=== PATIENT | male | born 1945 | race Caucasian/White ===

== ENCOUNTER → 2017-06-14 18:20 | Emergency (ER) | payer MEDICARE ==
[~2017-06-14 18:20] MED LIST: Iohexol 350* (CONTRAST) 500 ML MDV IV ONE; NS 0.9% 1000 ML* 1,000 ML IV ONE
[2017-06-14 20:05] LABS: Hematocrit 38 % (42-52); Hemoglobin 12.6 g/dl (14.0-18.0); Mean Corpuscular HGB Conc 33 g/dl (31-36); Mean Corpuscular Hemoglobin 28 pg (27-31); Mean Corpuscular Volume 83 fL (80-94); Mean Platelet Volume 10 um3 (7.4-10.4); Red Blood Count 4.56 10^6/ul (4.0-5.4); Red Cell Distribution Width 14 % (10.5-15); White Blood Count 6.2 10^3/ul (3.5-10.8)
[2017-06-14 20:18] LABS: BUN/Creatinine Ratio 14.7 (8-20); Calcium 9.1 mg/dL (8.6-10.3); EGFR African American 79.6 (>60); EGFR Non-African American 61.9 (>60); Potassium 4.4 mmol/L (3.5-5.0)
[2017-06-14 20:43] VITALS: BP 150/78
--- NOTE | 2017-06-14 21:12 | RAD ---
Indication: Vertigo, weakness. LEFT side weakness and paralysis from previous surgery. History of atrial fibrillation. Anticoagulated. Denies trauma. Comparison: September 19, 2015 chest radiograph. Technique: Upright AP 1 hours Report: Kyphotic positioning. No pulmonary infiltrate, focal pulmonary lesion, pleural effusion, or pneumothorax evident. Upper normal heart size accounting for portable AP technique. Unremarkable central pulmonary vasculature. IMPRESSION: No evidence for acute intrathoracic disease.
--- NOTE | 2017-06-14 21:15 | RAD ---
Indication: Vertigo, weakness. LEFT side weakness and paralysis from previous surgery. History of atrial fibrillation. Anticoagulated. Denies trauma. Comparison: October 20, 2010 CT. Technique: Noncontrast CT vertex of skull through foramen magnum. Report: Mild prominence of the cerebral sulci. Unremarkable ventricles and basal cisterns. Negative for cohn matter white matter obscuration, intra or extra-axial hemorrhage, or mass effect. Decreased density in the periventricular and subcortical white matter while non-specific is most likely due to chronic microangiopathy. Unremarkable partially visualized orbital contents. No suspicious calvarial or skull base lesions evident. Clear visualized paranasal sinuses and mastoid air spaces. Unremarkable scalp. IMPRESSION: Mild involutional change and stigmata of chronic small vessel ischemic disease. No acute intracranial process evident.
--- NOTE | 2017-06-14 22:15 | RAD ---
INDICATION: Vertigo, weakness. Anticoagulated due to atrial fibrillation. History of vertebral artery occlusion. COMPARISON: February 12, 2010 carotid ultrasound. TECHNIQUE: Multidetector CT images were obtained from the aortic arch to the vertex of the head with 80 mL Omnipaque 350 IV contrast. Arterial phase of enhancement. Multiplanar reformation including maximum intensity projection. 3-D arterial volume rendering. Stenosis estimations based on denominator of distal arterial diameter. NECK ANGIOGRAM REPORT: Normal configuration of the branch vessels at the aortic arch with ostial calcific plaque without suggestion of hemodynamic significant stenosis. Calcific plaque at the RIGHT carotid bulb and calcific and noncalcific plaque at the proximal internal carotid artery with approximate 30% proximal internal carotid artery stenosis resulting. Similar atherosclerotic plaque at the LEFT carotid bulb and proximal internal carotid artery with approximate 30% proximal internal carotid artery stenosis resulting. Patent LEFT vertebral artery supplies the basilar artery and minimal retrograde flow to the occluded RIGHT vertebral artery through the RIGHT posterior inferior cerebellar artery with the remainder of the RIGHT vertebral artery occluded. Multilevel cervical degenerative spondylosis. Solid osseous fusion at the C5-C6 and C6-C7 disc spaces as well as decompressive laminectomies. NECK ANGIOGRAM IMPRESSION: 1. Mild atherosclerotic plaque at the carotid bifurcations with approximate 30% stenosis resulting bilaterally. 2. Chronic occlusion of the RIGHT vertebral artery. Patent LEFT vertebral artery. HEAD ANGIOGRAM REPORT: Mild calcific plaque at the carotid siphons and supraclinoid internal carotid arteries without hemodynamic significant stenosis resulting. Unremarkable M1 and M2 segments of the middle cerebral arteries as well as the A1 and A2 segments of the anterior cerebral arteries. Patent anterior communicating artery. Tortuous normal diameter basilar artery with mild calcific plaque without hemodynamic significant stenosis resulting. Unremarkable cerebellar artery origins. Patent posterior cerebral arteries are supplied primarily by the posterior circulation with normal variant hypoplastic posterior communicating arteries. No intracranial aneurysm or vascular malformation evident. No arterial phase enhancing lesions evident. Normal opacification of the dural venous sinuses. HEAD ANGIOGRAM IMPRESSION: Negative for central intracranial large vessel arterial occlusion or hemodynamically significant stenosis. CPT II: CPT II Codes: 3100F
[2017-06-14 22:49] LABS: Urine Bilirubin Negative (Negative); Urine Glucose Negative (Negative); Urine Nitrite Negative (Negative)
--- NOTE | 2017-06-14 23:21 | ED ---
Semaj Philippe Rebecca, scribed for Saleem Mustafa on 06/14/17 at 1958 . Dizziness - HPI Summary HPI Summary: Pt is a 72 y/o M referred from Dr. Bruner (PCP) who presents to ED c/o dizziness and generalized weakness. Pt describes dizziness as vertigo that worsens when he moves his head. Notes a recent episode of diarrhea for 4 continuous days last week with 17 episodes of diarrhea in one day as a result of poor reaction to Cymbalta which he has since ceased. Denies GLORIA, CP, SOB and palpitations. Pt reports recent dehydration as diagnosed by skin tenting which has resolved. Pt was sent to ED to r/o brain hemorrhage, per . Is on Eliquis. - History Of Current Complaint Chief Complaint: EDDizziness Stated Complaint: VERTIGO,WEAKNESS-SENT BY DR Cedillo Seen by Provider: 06/14/17 19:39 Hx Obtained From: Patient Onset/Duration: Still Present Character: Dizzy - Vertigo Aggravating Factor(s): Other - Head movement Alleviating Factor(s): Nothing Associated Signs And Symptoms: Positive: Diarrhea - 4 days last week - resolved , Other: - Recent dehydration - resolved; generalized weakness. Negative: Chest Pain, SOB, Palpitations - Allergies/Home Medications Allergies/Adverse Reactions: Allergies Allergy/AdvReac Type Severity Reaction Status Date / Time No Known Allergies Allergy Verified 11/07/15 16:14 PMH/Surg Hx/FS Hx/Imm Hx Cardiovascular History: Reports: Hx Angina, Hx Coronary Artery Disease - CHOLESTEROL CONTROL WITH MEDS, Hx Hypertension Comment Only: Other Cardiovascular Problems/Disorders - PRINCIPAL TECHNICAL SPECIALISTMartell [facility] [phone] Musculoskeletal History: Reports: Hx Arthritis, Hx Back Problems Sensory History: Reports: Hx Contacts or Glasses - GLASSES Denies: Hx Hearing Aid Opthamlomology History: Reports: Hx Contacts or Glasses - GLASSES Neurological History: Reports: Other Neuro Impairments/Disorders - DIZZINESS EVERY OTHER DAY R/T LESION ON SPINAL COLUMN - Surgical History Surgery Procedure, Year, and Place: dorsal column stimulator. 7 heart stents. cervical spine repair x3 (laminectomy, fusion) Hx Anesthesia Reactions: No Infectious Disease History: Yes Infectious Disease History: Denies: Traveled Outside the [place] in Last 30 Days - Family History Known Family History: Positive: Other - Lung CA - Social History Alcohol Use: Rare Substance Use Type: Reports: None Substance Use Comment - Amount & Last Used: rarely Smoking Status (MU): Never Smoked Tobacco Review of Systems Positive: Other - Recent dehydration - resolved Negative: Palpitations, Chest Pain Negative: Shortness Of Breath Positive: Diarrhea - 4 days last week - resolved Neurological: Other - Dizziness Positive: Weakness - Generalized. Negative: Headache All Other Systems Reviewed And Are Negative: Yes Physical Exam - Summary Physical Exam Summary: Appearance: Well appearing, no pain distress Skin: warm, dry, reflects adequate perfusion Head/face: normal Eyes: EOMI, KONSTANTIN ENT: normal Neck: supple, nontender Respiratory: CTA, breath sounds present Cardiovascular: RRR, pulses symmetrical Abdomen: nontender, soft Bowel: present Musculoskeletal: ROM intact, L-sided hemiplegia Neuro: sensory intact, A&Ox3,L-sided hemiplegia Triage Information Reviewed: Yes Vital Signs On Initial Exam: Initial Vitals Temp Pulse Resp BP Pulse Ox 97.6 F 67 20 145/89 100 06/14/17 18:27 06/14/17 18:27 06/14/17 18:27 06/14/17 18:27 06/14/17 18:27 Vital Signs Reviewed: Yes - [place] Coma Scale Best Eye Response: 4 - Spontaneous Best Motor Response: 6 - Obeys Commands Best Verbal Response: 5 - Oriented [place] Coma Scale Comments: 15 Diagnostics - Vital Signs Vital Signs Temp Pulse Resp BP Pulse Ox 06/14/17 19:43 97.6 F 67 20 145/89 100 06/14/17 18:27 97.6 F 67 20 145/89 100 - Laboratory Result Diagrams: 06/14/17 16:30 06/14/17 16:30 Lab Statement: Any lab studies that have been ordered have been reviewed, and results considered in the medical decision making process. - Radiology CXR Xray Interpretation: No Acute Changes - No evidence for acute intrathoracic disease. ED physician reviewed this radiology report and agrees. Radiology Interpretation Completed By: Radiologist - CT Brain CT CT Interpretation: No Acute Changes - Mild involutional change and stigmata of chronic small vessel ischemic disease. No acute intracranial process evident. ED physician reviewed radiology report and agrees. CT Interpretation Completed By: Radiologist Head CTA CT Interpretation: No Acute Changes - Negative for central intracranial large vessel arterial occlusion or hemodynamically significant stenosis. ED physician reviewed radiology report and agrees. CT Interpretation Completed By: Radiologist - EKG 1839 Cardiac Rate: NL - 63 bpm EKG Rhythm: Sinus Rhythm EKG Interpretation: No acute changes Re-Evaluation - Re-Evaluation First Eval Re-Evaluation Time: 23:00 Change: Improved Comment: Discussed results and D/C plan. Dizzy Course/Dx - Course Assessment/Plan: Pt is a 72 y/o M referred from Dr. Bruner (PCP) who presents to ED c/o dizziness described as vertigo and generalized weakness. Dizziness aggravated by moving his head. Notes a recent episode of diarrhea for 4 continuous days last week with 17 episodes of diarrhea in one day as a result of poor reaction to Cymbalta which he has since ceased. Denies GLORIA, CP, SOB and palpitations. Pt reports recent dehydration as diagnosed by skin tenting which has resolved. Pt was sent to ED to r/o brain hemorrhage, per . Is on Eliquis. CXR, Head/Neck CTA and Brain CT reveal no acute findings. EKG is sinus rhythm with no acute changes. Blood work and UA done. Discussed care of pt with Dr. Teresa, discussed the CTA Head/Neck results which show stenosis. He reported that there is nothing to do at this time and advised he follows up as an outpatient. Pt will be D/C to home with Dx of dizziness and a follow up with his PCP. He understands and agrees. Elevated BP noted and advised to f/u with PCP. - Diagnoses Provider Diagnoses: Dizziness - Provider Notifications Discussed Care Of Patient With: Colton Teresa Time Discussed With Above Provider: 22:35 Instructed by Provider To: Other - Discussed the CTA Head/Neck results which show stenosis. He reported that there is nothing to do at this time and advised he follows up as an outpatient. Discharge - Discharge Plan Condition: Stable Disposition: HOME Patient Education Materials: Dizziness (ED) Referrals: Iliana Bruner MD [Primary Care Provider] - 3 Days The documentation as recorded by the Semaj husain Rebecca accurately reflects the service I personally performed and the decisions made by me, Saleem Mustafa.
== END | disposition home or self-care (01) ==
LOC: ED 18:20
DX: R42 Dizziness and giddiness (principal); E86.0 Dehydration; R19.7 Diarrhea, unspecified; R53.1 Weakness
CPT/HCPCS: 36415; 70450; 70496; 70498; 71010; 80048; 81003; 82550; 84484; 85027; 85610; 85730; 93005; 99282; Q9967

== ENCOUNTER 2018-03-08 09:00 | Day surgery (SDC) | payer MEDICARE ==
[~2018-03-08 09:00] MED LIST changes: +Acetaminophen TAB* 325 MG PO PRN; +Buffered Lidocaine 0.9% SYRIN* 5 ML/SYR SYRINGE INTRADERM ONE; -Iohexol 350* (CONTRAST) 500 ML MDV IV ONE; +Midazolam* 1 MG/ML 2 ML VIAL (2 MG) ONE; -NS 0.9% 1000 ML* 1,000 ML IV ONE
[2018-03-08 12:20] VITALS: BP 160/89
[2018-03-08] MEDS ORDERED: Neomycin/Polymy/Dex OPTH.SUSP* MAXITROL 0.1% 5 ML ONE (12:30)
[2018-03-08] MEDS ORDERED: Lidocaine 1%* 5 ML VIAL ONE (12:30)
[2018-03-08] MEDS ORDERED: Povidone Iodine 5% OPTH* 30 ML BTL ONE (12:30)
[2018-03-08] MEDS ORDERED: Ketorolac 0.5% OPHTH (NF) 0.5 % 5 ML BTL ONE (12:30)
[2018-03-08] MEDS ORDERED: Proparacaine 0.5% OPHTH.SOL* 15 ML BTL ONE (12:30)
[2018-03-08] MEDS ORDERED: acetaZOLAMIDE TAB* 250 MG ONE (12:30)
[2018-03-08] MEDS ORDERED: Cyclopentolate 1% OPTH.SOL* 2 ML BTL ONE (12:30)
[2018-03-08] MEDS ORDERED: Lidocaine 2% EPI 1:200000 MPF*10-20 ML VIAL ONE (12:30)
[2018-03-08] MEDS ORDERED: Phenylephrine 2.5% OPTH.SOL* 2 ML BTL ONE (12:30)
--- NOTE | 2018-03-09 08:35 | OP ---
DATE OF OPERATION: 03/08/18 - [facility] DATE OF : 45 SURGEON: Manjit Amaral M.D. PREOPERATIVE DIAGNOSIS: Cataract, right eye POSTOPERATIVE DIAGNOSIS: Cataract, right eye OPERATIVE PROCEDURE: Extracapsular cataract extraction with intraocular lens implant right eye. DESCRIPTION OF PROCEDURE: The patient was brought to the operating room after being given 1/2% Alcaine with epinephrine drops in the preoperative area. The eye was prepped and draped in the usual sterile fashion. Sterile drape and eyelid speculum were placed. Again, topical 1/2% Alcaine with epinephrine was given. A paracentesis incision was made at the 9 o'clock position with the No.75 blade. Clear cornea incision 2.2 x 2.2-mm was created at the 12 o'clock position starting at the anterior limbus using the 2.2-mm keratome. The anterior chamber was irrigated with 0.4 mL of 1% non-preservative intracameral lidocaine and filled with DisCoVisc. A capsulorrhexis was completed using the cystotome and the Utrata forceps. Hydrodissection was performed with balanced salt solution. The lens nucleus was removed with the Phacoemulsification handpiece without incident. Cortex was removed with the irrigation-aspiration handpiece. The capsular bag was re-inflated using DisCoVisc and an SN60WF 22.5 implant was inserted with the shooter. The irrigation-aspiration handpiece was used to remove all residual DisCoVisc. The eye was refilled with balanced salt solution and the wound checked and found to be watertight. Topical Maxitrol drops were given. A Malyugin ring was used to dilate the pupil because it was only about 3 mm prior to capsulorrhexis; removed after insertion of the lens. Indication for complex cataract surgery: Pupillary abnormalities requiring pupil dilation. [id number]/[facility] #: [id number] MTDD
== END 2018-03-08 12:16 | disposition home or self-care (01) ==
LOC: OREAST 09:00
PROVIDERS: ATTEND Specialist
DX: Z00.01 Encounter for general adult medical examination with abnormal findings (principal); H25.813 Combined forms of age-related cataract, bilateral; H40.013 Open angle with borderline findings, low risk, bilateral; M40.202 Unspecified kyphosis, cervical region; I10 Essential (primary) hypertension; N40.0 Benign prostatic hyperplasia without lower urinary tract symptoms; E78.00 Pure hypercholesterolemia, unspecified; Z79.82 Long term (current) use of aspirin
CPT/HCPCS: A9270-GY; J2250; V2632

== ENCOUNTER 2018-03-15 06:43 | Day surgery (SDC) | payer MEDICARE ==
[~2018-03-15 06:43] MED LIST changes: -Acetaminophen TAB* 325 MG PO PRN; -Midazolam* 1 MG/ML 2 ML VIAL (2 MG) ONE
[2018-03-15 08:44] VITALS: BP 155/79
[2018-03-15] MEDS ORDERED: Povidone Iodine 5% OPTH* 30 ML BTL ONE (09:24)
[2018-03-15] MEDS ORDERED: Lidocaine 1%* 5 ML VIAL ONE (09:24)
[2018-03-15] MEDS ORDERED: Cyclopentolate 1% OPTH.SOL* 2 ML BTL ONE (09:24)
[2018-03-15] MEDS ORDERED: Ketorolac 0.5% OPHTH (NF) 0.5 % 5 ML BTL ONE (09:24)
[2018-03-15] MEDS ORDERED: Phenylephrine 2.5% OPTH.SOL* 2 ML BTL ONE (09:24)
[2018-03-15] MEDS ORDERED: Neomycin/Polymy/Dex OPTH.SUSP* MAXITROL 0.1% 5 ML ONE (09:24)
[2018-03-15] MEDS ORDERED: Proparacaine 0.5% OPHTH.SOL* 15 ML BTL ONE (09:24)
[2018-03-15] MEDS ORDERED: acetaZOLAMIDE TAB* 250 MG ONE (09:24)
[2018-03-15] MEDS ORDERED: Lidocaine 2% EPI 1:200000 MPF*10-20 ML VIAL ONE (09:24)
--- NOTE | 2018-03-16 01:36 | OP ---
DATE OF OPERATION: 03/15/18 [facility] DATE OF : 45 SURGEON: Manjit Amaral M.D. PREOPERATIVE DIAGNOSIS: Cataract, left eye. POSTOPERATIVE DIAGNOSIS: Cataract, left eye. OPERATIVE PROCEDURE: Extracapsular cataract extraction with intraocular lens implant, left eye. DESCRIPTION OF PROCEDURE: The patient was brought to the operating room after being given 1/2% Alcaine with epinephrine drops in the preoperative area. The eye was prepped and draped in the usual sterile fashion. Sterile drape and eyelid speculum were placed. Again, topical 1/2% Alcaine with epinephrine was given. A paracentesis incision was made at the 3 o'clock position with the No.75 blade. Clear cornea incision 2.2 x 2.2-mm was created at the 6 o'clock position starting at the anterior limbus using the 2.2-mm keratome. The anterior chamber was irrigated with 0.4 mL of 1% non-preservative intracameral lidocaine and filled with DisCoVisc. A capsulorrhexis was completed using the cystotome and the Utrata forceps. Hydrodissection was performed with balanced salt solution. The lens nucleus was removed with the Phacoemulsification handpiece without incident. Cortex was removed with the irrigation-aspiration handpiece. The capsular bag was re-inflated using DisCoVisc and an SN60WF 22.5 implant was inserted with the shooter. Pupil was only 4 mm prior to capsulorrhexis, so Malyugin ring was placed and removed after insertion of the lens. The irrigation-aspiration handpiece was used to remove all residual DisCoVisc. The eye was refilled with balanced salt solution and the wound checked and found to be watertight. Topical Maxitrol drops were given. Indication for complex cataract surgery: Pupillary abnormality requiring pupil dilation device. [id number]/[facility] #: [id number]
== END 2018-03-15 08:38 | disposition home or self-care (01) ==
LOC: OREAST 06:43
PROVIDERS: ATTEND Specialist
DX: H25.812 Combined forms of age-related cataract, left eye (principal); H21.562 Pupillary abnormality, left eye; H40.013 Open angle with borderline findings, low risk, bilateral; E78.5 Hyperlipidemia, unspecified; I25.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native coronary artery without angina pectoris; Z95.5 Presence of coronary angioplasty implant and graft; I48.91 Unspecified atrial fibrillation; Z79.01 Long term (current) use of anticoagulants; Z86.73 Personal history of transient ischemic attack (TIA), and cerebral infarction without residual deficits; M40.209 Unspecified kyphosis, site unspecified
CPT/HCPCS: A9270-GY; V2632

== ENCOUNTER 2018-10-27 13:24 | Emergency (ER) | payer MEDICARE ==
--- OUTSIDE RECORDS SUMMARY | 2018-10-27 13:46 | XMS REPORT | Continuity of Care Document ---
:1945 External Reference #:[id number] Author Name Rivera Atkins DO, MPH Address [address] [place] [address], [address] [place] [address] Care Team Providers Name Role Phone Iliana Bruner M.D. 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 Primary Care Physician Unavailable Payers Type Date Identification Numbers Payment Provider Subscriber Policy Number: [id number] Medicare Ariel Hung PayID: [id number] [address] [address] [place] [address] Advance Directives Description No Information Available Problems Description No Information Family History Date Family Member(s) Problem(s) Comments Father due to Lung Cancer () Mother due to Lung Cancer () Children 2 one Siblings 4 Grandchildren Several Social History Type Date Description Comments Sex Unknown Marital Status Occupation Retired Work Status Not Currently Working Tobacco Use Start: Unknown Never Smoked Cigarettes Smoking Status Reviewed: 10/18/18 Never Smoked Cigarettes ETOH Use Denies alcohol use Tobacco Use Start: Unknown Patient has never smoked Allergies, Adverse Reactions, Alerts Description No Known Drug Allergies Medications Medication Date Status Form Strength Qnty SIG Indications Ordering Provider Oxycodone HCL 08/22/ Active Tablets 15mg 180ta si-2 Serena Atkins bs by mouth Rivera, every 4 DO, MPH to 6 hours as directed chronic pain patient Cyclobenzaprine 04/16/ Active Tablets 10mg 60tab si by MAURICE Atkins 2015 s mouth Rivera, twice a DO, MPH day as directed Magnesium Oxide / Active Tablets 400mg 1 by Unknown 0000 mouth twice daily Vitamin D3 High / Active Capsules 1000Unit 1 by Unknown Potency 0000 mouth daily Metoprolol / Active Tablets ER 100mg 1 by Unknown Succinate ER 0000 24HR mouth daily Tamsulosin HCL / Active Capsules 0.4mg 2 by Unknown 0000 mouth daily Zofran 0000/ Active Tablets 4mg si by Unknown 0000 mouth every 6 to 8 hours prn Nitrostat 0000/ Active Tablets 0.4mg prn as Unknown 0000 Sub directed Tums E-X 750 00/ Active Chewtabs 750mg 1 as Unknown 0000 needed Oxycodone HCL 08/21/ Hx Tablets 15mg 90tab si by Wilbert 2018 - s mouth Rivera, 08/22/ every 8 DO, MPH 2018 hours as directed chronic pain patient Xtampza ER 08/21/ Hx C12a 27mg 60uni take one Wilbert 2018 - ts by mouth Rivera, 08/22/ every 12 DO, MPH 2018 hours as directed chronic pain. Oxycodone HCL 07/21/ Hx Tablets 15mg 180ta si-2 Johnie Atkins - bs by mouth Rivera, 08/21/ every 4 DO, MPH 2018 to 6 hours as directed chronic pain patient Oxycodone HCL 05/19/ Hx Tablets 10mg 180ta si by Johnie Atkins - bs mouth Rivera, 07/21/ every 8 DO, MPH 2017 hours as directed chronic pain patient, Code D, 2 month script Oxycodone HCL 04/15/ Hx Tablets 20mg 90tab si by Wilbert 2017 - s mouth Rivera, 05/19/ every 8 DO, MPH 2017 hours as directed chronic pain patient Movantik 12/02/ Hx Tablets 25mg 30tab 1 by Wilbert 2017 - s mouth in Rivera, 04/15/ the DO, MPH 2017 morning Zipsor 08/04/ Hx Capsules 25mg 90cap si by Wilbert 2016 - s mouth Rivera, 12/07/ three DO, MPH 2017 times a day Oxycodone HCL 04/30/ Hx Tablets 30mg 90tab si by Wilbert 2016 - s mouth Rivera, 04/15/ every 8 DO, MPH 2017 hours as directed chronic pain Oxycodone HCL 04/02/ Hx Tablets 30mg 150ta si by Wilbert 2016 - bs mouth Rivera, 04/30/ every 4-6 DO, MPH 2016 hours as directed chronic pain patient Cyclobenzaprine 04/02/ Hx Tablets 5mg 90tab take 1 by MAURICE Atkins 2016 - s mouth Rivera, 04/16/ every 8 DO, MPH 2016 hours as directed chronic pain. Aspirin Ec 0000/ Hx Tablets DR 81mg 1 by Unknown 0000 - mouth daily 2016 Dulcolax Stool / Hx Capsules 100mg 2 a day Unknown Softener 0000 - as needed 2018 Amlodipine 00/ Hx Tablets 10mg 1 by Unknown Besylate 0000 - mouth 2018 Lactulose 00/ Hx Solution 10GM/15ML 10 mg Unknown 0000 - daily as 2016 Econazole Nitrate / Hx Cream 1% apply as Unknown 0000 - needed 2018 Cyclobenzaprine / Hx Tablets 5mg take 1 by Unknown HCL 0000 - mouth 04/02/ 2016 as needed Naproxen 00/ Hx Tablets 500mg si by Unknown 0000 - mouth as 2017 needed Myoflex / Hx Cream 10% apply as Unknown 0000 - needed 2016 Xarelto / Hx Tablets 15mg 1 by Unknown 0000 - mouth 2018 Aspir-81 00/ Hx Tablets DR 81mg 1 by Unknown 0000 - mouth 2017 night at bedtime Plavix / Hx Tablets 75mg Unknown 0000 - 2018 Immunizations Description No Information Available Vital Signs Date Vital Result Comment 10/18/2018 10:53am BP Systolic 126 mmHg BP Diastolic 84 mmHg Heart Rate 74 /min Respiratory Rate 20 /min Height 69 inches 5'9" Weight 184.00 lb Pain Level 6 Pain at this time. Pain Level With Medicine 5 on average with meds Pain Level Without Medicine 07/19 without meds BMI (Body Mass Index) 27.2 kg/m2 09/19/2018 10:07am BP Systolic 128 mmHg BP Diastolic 84 mmHg Heart Rate 76 /min Respiratory Rate 20 /min Height 69 inches 5'9" Weight 180.00 lb Pain Level 6 Pain at this time. Pain Level With Medicine 5 on average with meds Pain Level Without Medicine 07/19 without meds BMI (Body Mass Index) 26.6 kg/m2 08/21/2018 10:15am BP Systolic 126 mmHg BP Diastolic 74 mmHg Heart Rate 78 /min Respiratory Rate 20 /min Height 69 inches 5'9" Weight 180.00 lb Pain Level 7 Pain at this time. Pain Level With Medicine 6 on average with meds Pain Level Without Medicine 10 07/19 without meds BMI (Body Mass Index) 26.6 kg/m2 07/21/2018 10:04am BP Systolic 128 mmHg BP Diastolic 86 mmHg Heart Rate 74 /min Respiratory Rate 20 /min Height 69 inches 5'9" Weight 180.00 lb Pain Level 4 Pain at this time. Pain Level With Medicine 4 on average with meds Pain Level Without Medicine 10 07/19 without meds BMI (Body Mass Index) 26.6 kg/m2 06/21/2018 9:47am BP Systolic 128 mmHg BP Diastolic 78 mmHg Heart Rate 74 /min Respiratory Rate 20 /min Height 69 inches 5'9" Weight 180.00 lb Pain Level 7 Pain at this time. Pain Level With Medicine 6 on average with meds Pain Level Without Medicine 10 07/19 without meds BMI (Body Mass Index) 26.6 kg/m2 05/22/2018 9:52am BP Systolic 128 mmHg BP Diastolic 84 mmHg Heart Rate 80 /min Respiratory Rate 20 /min Height 69 inches 5'9" Weight 181.00 lb Pain Level 9 Pain at this time. Pain Level With Medicine 8 on average with meds Pain Level Without Medicine 07/19 without meds BMI (Body Mass Index) 26.7 kg/m2 03/17/2018 10:08am BP Systolic 122 mmHg BP Diastolic 74 mmHg Heart Rate 76 /min Respiratory Rate 20 /min Height 69 inches 5'9" Weight 183.00 lb Pain Level 7 Pain at this time. Pain Level With Medicine 7 on average with meds Pain Level Without Medicine 10 07/19 without meds BMI (Body Mass Index) 27.0 kg/m2 02/15/2018 11:17am BP Systolic 116 mmHg BP Diastolic 70 mmHg Heart Rate 74 /min Respiratory Rate 20 /min Height 69 inches 5'9" Weight 185.00 lb Pain Level 8 Pain at this time. Pain Level With Medicine 7 on average with meds Pain Level Without Medicine 10 07/19 without meds BMI (Body Mass Index) 27.3 kg/m2 01/18/2018 11:31am BP Systolic 124 mmHg BP Diastolic 78 mmHg Heart Rate 76 /min Respiratory Rate 20 /min Height 69 inches 5'9" Weight 184.00 lb Pain Level 8 Pain at this time. Pain Level With Medicine 7 on average with meds Pain Level Without Medicine 07/19 without meds BMI (Body Mass Index) 27.2 kg/m2 12/19/2017 1:56pm BP Systolic 122 mmHg BP Diastolic 74 mmHg Heart Rate 76 /min Respiratory Rate 20 /min Height 69 inches 5'9" Weight 184.00 lb Pain Level 8 Pain at this time. Pain Level With Medicine 7 on average with meds Pain Level Without Medicine 07/19 without meds BMI (Body Mass Index) 27.2 kg/m2 11/18/2017 1:57pm BP Systolic 128 mmHg BP Diastolic 78 mmHg Heart Rate 74 /min Respiratory Rate 20 /min Height 69 inches 5'9" Weight 180.00 lb Pain Level 7 Pain at this time. Pain Level With Medicine 6 on average with meds Pain Level Without Medicine 07/19 without meds BMI (Body Mass Index) 26.6 kg/m2 10/19/2017 1:56pm BP Systolic 134 mmHg BP Diastolic 80 mmHg Heart Rate 82 /min Respiratory Rate 20 /min Height 69 inches 5'9" Weight 180.00 lb Pain Level 8 Pain at this time. Pain Level With Medicine 7 on average with meds Pain Level Without Medicine 07/19 without meds BMI (Body Mass Index) 26.6 kg/m2 09/19/2017 2:36pm BP Systolic 140 mmHg BP Diastolic 78 mmHg Heart Rate 80 /min Respiratory Rate 20 /min Height 69 inches 5'9" Weight 180.00 lb Pain Level 7 Pain at this time. Pain Level With Medicine 6 on average with meds Pain Level Without Medicine 07/19 without meds BMI (Body Mass Index) 26.6 kg/m2 08/19/2017 9:32am BP Systolic 130 mmHg BP Diastolic 76 mmHg Heart Rate 74 /min Respiratory Rate 20 /min Height 69 inches 5'9" Weight 180.00 lb Pain Level 6 Pain at this time. Pain Level With Medicine 5 on average with meds Pain Level Without Medicine 07/19 without meds BMI (Body Mass Index) 26.6 kg/m2 07/11/2017 10:37am BP Systolic 132 mmHg BP Diastolic 78 mmHg Heart Rate 80 /min Respiratory Rate 20 /min Height 69 inches 5'9" Weight 180.00 lb Pain Level 8 Pain at this time. Pain Level With Medicine 7 on average with meds Pain Level Without Medicine 10 07/19 without meds BMI (Body Mass Index) 26.6 kg/m2 06/27/2017 9:56am BP Systolic 120 mmHg BP Diastolic 72 mmHg Heart Rate 70 /min Respiratory Rate 20 /min Height 69 inches 5'9" Weight 188.00 lb Pain Level 8 Pain at this time. Pain Level With Medicine 7 on average with meds Pain Level Without Medicine 10 07/19 without meds BMI (Body Mass Index) 27.8 kg/m2 05/30/2017 11:17am BP Systolic 122 mmHg BP Diastolic 72 mmHg Heart Rate 78 /min Respiratory Rate 20 /min Height 69 inches 5'9" Weight 190.00 lb Pain Level 8 Pain at this time. Pain Level With Medicine 7 on average with meds Pain Level Without Medicine 10 07/19 without meds BMI (Body Mass Index) 28.1 kg/m2 05/19/2017 9:48am BP Systolic 122 mmHg BP Diastolic 70 mmHg Heart Rate 74 /min Respiratory Rate 20 /min Height 69 inches 5'9" Weight 178.00 lb Pain Level 6 Pain at this time. Pain Level With Medicine 5 on average with meds Pain Level Without Medicine 10 07/19 without meds BMI (Body Mass Index) 26.3 kg/m2 04/15/2017 12:00pm BP Systolic 136 mmHg BP Diastolic 78 mmHg Heart Rate 74 /min Respiratory Rate 20 /min Height 69 inches 5'9" Weight 178.00 lb Pain Level 6 Pain at this time. Pain Level With Medicine 5 on average with meds Pain Level Without Medicine 10 07/19 without meds BMI (Body Mass Index) 26.3 kg/m2 12/14/2016 10:57am BP Systolic 132 mmHg BP Diastolic 84 mmHg Heart Rate 80 /min Respiratory Rate 18 /min Height 69 inches 5'9" Weight 191.00 lb Pain Level 8 Pain at this time. Pain Level With Medicine 8 on average with meds Pain Level Without Medicine 10 07/19 without meds BMI (Body Mass Index) 28.2 kg/m2 12/02/2016 11:30am BP Systolic 120 mmHg BP Diastolic 78 mmHg Heart Rate 78 /min Respiratory Rate 18 /min Height 69 inches 5'9" Weight 191.00 lb Pain Level 8 Pain at this time. Pain Level With Medicine 7 on average with meds Pain Level Without Medicine 10 07/19 without meds BMI (Body Mass Index) 28.2 kg/m2 11/05/2016 11:01am BP Systolic 122 mmHg BP Diastolic 72 mmHg Heart Rate 76 /min Respiratory Rate 18 /min Height 69 inches 5'9" Weight 191.00 lb Pain Level 8 Pain at this time. Pain Level With Medicine 7 on average with meds Pain Level Without Medicine 10 07/19 without meds BMI (Body Mass Index) 28.2 kg/m2 10/06/2016 11:14am BP Systolic 128 mmHg BP Diastolic 78 mmHg Heart Rate 70 /min Respiratory Rate 20 /min Height 69 inches 5'9" Weight 180.00 lb Pain Level 8 Pain at this time. Pain Level With Medicine 6 on average with meds Pain Level Without Medicine 10 07/19 without meds BMI (Body Mass Index) 26.6 kg/m2 09/06/2016 11:41am BP Systolic 128 mmHg BP Diastolic 76 mmHg Heart Rate 74 /min Respiratory Rate 20 /min Height 69 inches 5'9" Weight 180.00 lb Pain Level 7 Pain at this time. Pain Level With Medicine 6 on average with meds Pain Level Without Medicine 10 07/19 without meds BMI (Body Mass Index) 26.6 kg/m2 08/04/2016 3:08pm Height 69 inches 5'9" Pain Level Without Medicine 10 07/19 without meds 07/06/2016 4:55pm BP Systolic 158 mmHg BP Diastolic 82 mmHg Heart Rate 80 /min Respiratory Rate 20 /min Height 69 inches 5'9" Weight 180.00 lb Pain Level 8 Pain at this time. Pain Level With Medicine 7 on average with meds Pain Level Without Medicine 10 07/19 without meds BMI (Body Mass Index) 26.6 kg/m2 04/30/2016 2:11pm BP Systolic 142 mmHg BP Diastolic 84 mmHg Heart Rate 76 /min Respiratory Rate 20 /min Height 69 inches 5'9" Weight 180.00 lb Pain Level 8 Pain at this time. Pain Level With Medicine 8 on average with meds Pain Level Without Medicine 10 07/19 without meds BMI (Body Mass Index) 26.6 kg/m2 04/16/2016 1:59pm BP Systolic 132 mmHg BP Diastolic 78 mmHg Heart Rate 76 /min Respiratory Rate 20 /min Height 69 inches 5'9" Weight 180.00 lb Pain Level 8 Pain at this time. Pain Level With Medicine 6 on average with meds Pain Level Without Medicine 10 07/19 without meds BMI (Body Mass Index) 26.6 kg/m2 04/02/2016 10:22am BP Systolic 138 mmHg BP Diastolic 80 mmHg Heart Rate 80 /min Respiratory Rate 18 /min Height 69 inches 5'9" Weight 189.00 lb Pain Level 8 Pain at this time. 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 Office Visit 08/21/2018 10:15a Main Office as Rivera Atkins G89.21 Chronic pain due Of 11/10/13 DO, MPH to trauma M54.2 Cervicalgia M79.12 Myalgia of auxiliary muscles, head and neck Z71.89 Other specified counseling 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 Office Visit 07/21/2018 10:15a Main Office as Rivera Atkins G89.21 Chronic pain due Of 11/10/13 DO, MPH to trauma M54.2 Cervicalgia Z71.89 Other specified counseling 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 Office Visit 06/21/2018 10:15a Main Office as Rivera Atkins G89.21 Chronic pain due Of 11/10/13 DO, MPH to trauma M54.2 Cervicalgia M79.1 Myalgia Z79.891 halfway (current) use of 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 Office Visit 05/22/2018 10:00a Main Office as Rivera Atkins G89.21 Chronic pain due Of 11/10/13 DO, MPH to trauma G89.28 Other chronic postprocedural pain G89.11 Acute pain due to trauma M79.1 Myalgia M54.2 Cervicalgia Z79.891 halfway (current) use of 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 Office Visit 03/17/2018 10:15a Main Office as Rivera Atkins G89.21 Chronic pain due Of 11/10/13 DO, MPH to trauma G89.28 Other chronic postprocedural pain M54.2 Cervicalgia M79.1 Myalgia Z79.891 halfway (current) use of 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 Office Visit 02/15/2018 11:15a Main Office as Rivera Atkins G89.21 Chronic pain due Of 11/10/13 DO, MPH to trauma G89.28 Other chronic postprocedural pain M54.2 Cervicalgia M79.1 Myalgia 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 Office Visit 01/18/2018 11:45a Main Office as Rivera Atkins G89.21 Chronic pain due Of 11/10/13 DO, MPH to trauma G89.28 Other chronic postprocedural pain M54.2 Cervicalgia M79.1 Myalgia 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 Office Visit 12/19/2017 2:30p Main Office as Rivera Atkins G89.21 Chronic pain due Of 11/10/13 DO, MPH to trauma M54.2 Cervicalgia M79.1 Myalgia G89.28 Other chronic postprocedural pain Z79.891 halfway (current) use of 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 Office Visit 11/18/2017 2:00p Main Office as Rivera Atkins G89.21 Chronic pain due Of 11/10/13 DO, MPH to trauma M54.2 Cervicalgia M79.1 Myalgia G89.28 Other chronic postprocedural pain 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 Office Visit 10/19/2017 2:15p Main Office as Rivera Atkins G89.21 Chronic pain due Of 11/10/13 DO, MPH to trauma M79.1 Myalgia M54.2 Cervicalgia G89.28 Other chronic postprocedural pain Z79.891 halfway (current) use of 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 Office Visit 09/19/2017 2:30p Main Office as Rivera Atkins G89.21 Chronic pain due Of 11/10/13 DO, MPH to trauma G89.28 Other chronic postprocedural pain M54.2 Cervicalgia Z79.891 halfway (current) use of 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 Office Visit 08/19/2017 9:15a Main Office as Rivera Atkins, G89.21 Chronic pain due Of 2 DO, MPH to trauma G89.28 Other chronic postprocedural pain M54.2 Cervicalgia M79.1 Myalgia Z79.891 halfway (current) use of 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 Office Visit 07/11/2017 10:45a Main Office as Rivera Atkins, G89.21 Chronic pain due Of 11/10/13 DO, MPH to trauma G89.28 Other chronic postprocedural pain M54.2 Cervicalgia M79.1 Myalgia Office Visit 06/27/2017 10:45a Main Office as Rivera Atkins G89.21 Chronic pain due Of 11/10/13 DO, MPH to trauma G89.28 Other chronic postprocedural pain M54.2 Cervicalgia M79.1 Myalgia Z79.891 halfway (current) use of 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 Office Visit 05/30/2017 11:00a Main Office as Rivera Atkins G89.21 Chronic pain due Of 11/10/13 DO, MPH to trauma G89.28 Other chronic postprocedural pain M54.2 Cervicalgia Z79.891 halfway (current) use of 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 Office Visit 05/19/2017 9:45a Main Office as Rivera Atkins, G89.21 Chronic pain due Of 2 DO, MPH to trauma G89.28 Other chronic postprocedural pain M54.2 Cervicalgia M79.1 Myalgia Z79.891 halfway (current) use of 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 K59.03 Drug induced constipation Office Visit 04/15/2017 11:45a Main Office as Rivera Atkins, G89.21 Chronic pain due Of 11/10/13 DO, MPH to trauma G89.28 Other chronic postprocedural pain M54.2 Cervicalgia M79.1 Myalgia 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 Office Visit 12/14/2016 10:45a Main Office as Rivera Atkins, G89.21 Chronic pain due Of 11/10/13 DO, MPH to trauma G89.28 Other chronic postprocedural pain M54.2 Cervicalgia M79.1 Myalgia K59.03 Drug induced constipation I10 Essential (primary) hypertension 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 Office Visit 12/02/2016 11:15a Main Office as AtkinsRivera carrasco, G89.21 Chronic pain due Of 2 DO, MPH to trauma G89.28 Other chronic postprocedural pain M54.2 Cervicalgia M79.1 Myalgia K59.03 Drug induced constipation I10 Essential (primary) hypertension 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 Office Visit 11/05/2016 11:15a Main Office as AtkinsRivera carrasco, G89.21 Chronic pain due Of 11/10/13 DO, MPH to trauma G89.28 Other chronic postprocedural pain M54.2 Cervicalgia M79.1 Myalgia Office Visit 10/06/2016 11:15a Main Office as AtkinsRivera carrasco, G89.21 Chronic pain due Of 2 DO, MPH to trauma G89.28 Other chronic postprocedural pain M54.2 Cervicalgia Office Visit 09/06/2016 11:15a Main Office as AtkinsCarina carrascoph, G89.21 Chronic pain due Of 214 DO, MPH to trauma G89.28 Other chronic postprocedural pain M54.2 Cervicalgia Office Visit 08/04/2016 3:00p Main Office as AtkinsCarina carrascoph, G89.21 Chronic pain due Of 2 DO, MPH to trauma G89.28 Other chronic postprocedural pain M54.2 Cervicalgia M62.838 Other muscle spasm Z79.891 halfway (current) use of 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 Office Visit 07/06/2016 4:15p Main Office as AtkinsCarina carrascoph, G89.21 Chronic pain due Of 2//14 DO, MPH to trauma G89.28 Other chronic postprocedural pain M54.2 Cervicalgia Z79.891 halfway (current) use of 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 Office Visit 04/30/2016 2:00p Main Office as AtkinsCarina carrascoph, G89.21 Chronic pain due Of 2 DO, MPH to trauma G89.28 Other chronic postprocedural pain M54.2 Cervicalgia Z71.89 Other specified counseling Z79.891 halfway (current) use of 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 Office Visit 04/16/2016 2:00p Main Office as Rivera Atkins G89.21 Chronic pain due Of 11/10/13 , MPH to trauma M54.2 Cervicalgia Office Visit 04/02/2016 9:00a Main Office as Rivera Atkins, 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 Symptoms and complaints discussed and reviewed today. No significant changes in physical findings. Continue current medical pain management.M54.2 CervicalgiaComments:Chronic. Symptoms and complaints discussed and reviewed today. No significant changes in physical findings. Continue current medical pain management. ~B_ ~b_F43.12 Post-traumatic stress disorder , chronicComments:Condition seems stable. Followed by counselor. Will follow as pertains to his pain syndrome. Reassurance and counseling.Z71.89 Other specified counselingComments:CAGE reviewed with patient. Counseled not to drive or use opioids while drinking. The patient clearly understands and agrees. No intervention necessary at this time. Will continue to monitor ETOH in UDT' s.Z79.891 halfway (current) use of 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New Labs:Urine Drug Screen , Ordered: 10/18/18Comments:Urine drug screen sample taken today to monitor opiate use and to monitor use of illicit substances.Will discuss results at next appointment.The following tests were ordered:6 AM, AMPH, BOZENA, DENYS, BUP, CARIS, COCM, COT, ETG, FENT, MCSHSG, OPI, OXY, PCP, TAPEN, XTSY, ZOLP. ~I_ A urine drug test (UDT) was ordered for this patient and collected on site today. Creatinine has been ordered as well for specimen validity, not for kidney function. Preliminary UDT results are not final and should not be used to determine patient care or plan of treatment. Initially a qualitative immunoassay screen will be done. Any inconsistent or positive findings will be further tested with a more comprehensive quantitative confirmation LCMS study. It is part of the treatment process of prescribing controlled substances and is considered standard of care.~i_AllComments:All above symptoms and complaints discussed as well as diagnoses reviewed.Continue trial of opioid pain management - note changes below; injection therapy, osteopathic manipulation ( OMT), PT / modalities, and consults as needed to manage chronic pain.Side effects discussed; anticipatory guidance given. Patient clearly understands and agrees with all medical treatments and suggestions. 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 Activity as toleratedContinue with PCP
--- NOTE | 2018-10-27 14:38 | ED ---
Neurological HPI - HPI Summary HPI Summary: A 73 y/o male accompanied by his presents to ED c/o confusion and inappropriate answers. In the ED room, the patient has a pulse of 67 BPM, respiratory rate of 17, and blood pressure of 135/74. As per triage, " states patient started having confusion/inappropriate answers about one hr ago. possible aphasia. in triage, alert and oriented, able to answer questions appropriately. pt has baseline left sided weakness from previous stroke". According to the patient, he haven't felt his best since September 1998. 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 He has weakness on both sides, but the right side is consider his good side. For some time, he has been exhibiting more weakness on the right. Additionally he has been confused with giving answers that do not pertain to the question. Patient denies any headache, ear ache, chest pain, fever, chills, pain with urination, hematuria, sore throat, neck pain, or any pain whatsoever. Patient has discoloration in his mouth due to Neurontin. Patient uses a cane to walk, but have noticed more difficult ambulating due to fatigue and weakness. His did not notice any gait changes to either side. - History of Current Complaint Chief Complaint: EDNeurologicalDeficit Stated Complaint: AMS Hx Obtained From: Patient, Family/Recycling Operations Manager - Onset/Duration: Sudden Onset Timing: Constant Current Severity: None Number of Seizures: 0 Pain Intensity: 5 Pain Scale Used: 0-10 Numeric Character: Weak, Confusion Syncope Timin Number of Episodes: 0 Aggravating: Nothing Alleviating: Nothing Associated Signs and Symptoms: Positive: Confusion, Weakness - Allergy/Home Medications Allergies/Adverse Reactions: Allergies Allergy/AdvReac Type Severity Reaction Status Date / Time naloxegol [From Movantik] Allergy dysrhythmia Verified 10/27/18 13:38 Home Medications: Home Medications Furosemide TAB* [Lasix TAB*] 40 mg PO EVERY OTHER DAY 10/27/18 [History Confirmed 10/27/18] Losartan/Hydrochlorothiazide [Losartan Potassium/Hydroc 100-12.5 mg] 1 tab PO DAILY 10/27/18 [History Confirmed 10/27/18] Tamsulosin CAP* [Flomax CAP*] 0.4 mg PO BID 10/27/18 [History Confirmed 10/27/18 ] PMH/Surg Hx/FS Hx/Imm Hx Cardiovascular History: Reports: Hx Coronary Artery Disease - CHOLESTEROL CONTROL WITH MEDS, Hx Hypertension, Other Cardiovascular Problems/Disorders - TIGHTNESS IN CHEST IN [place] 3 MONTHS AGO AND [place] Denies: Hx Angina GI History: Reports: Hx Gastroesophageal Reflux Disease History: Reports: Hx Kidney Stones, Other Problems/Disorders - BPH Musculoskeletal History: Reports: Hx Arthritis, Hx Back Problems, Hx Osteoporosis Sensory History: Reports: Hx Cataracts, Hx Contacts or Glasses - GLASSES Denies: Hx Hearing Aid Opthamlomology History: Reports: Hx Cataracts, Hx Contacts or Glasses - GLASSES Neurological History: Reports: Other Neuro Impairments/Disorders - 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 7 heart stents. cervical spine repair x3 (laminectomy, fusion). APPY A CHILD Hx Anesthesia Reactions: No Infectious Disease History: No Infectious Disease History: Denies: Traveled Outside the [place] in Last 30 Days - Family History Known Family History: Positive: Other - Lung CA - Social History Alcohol Use: Rare Substance Use Type: Reports: Marijuana, Synthetic Drugs, Other Substance Use Comment - Amount & Last Used: cbd Smoking Status (MU): Never Smoked Tobacco Have You Smoked in the Last Year: No Review of Systems Negative: Fever, Chills Positive: Other - NEGATIVE: DOUBLE VISION. Negative: Blurred Vision Negative: Sore Throat Negative: Chest Pain Negative: Shortness Of Breath Positive: Other - NEGATIVE: CONSTIPATION, BLOOD IN STOOL.. Negative: Abdominal Pain Negative: dysuria, hematuria Positive: Other - NEGATIVE: NECK PAIN, BACK PAIN. Negative: Edema Negative: Rash, Bruising Neurological: Other - POSITIVE: CONFUSION Positive: Weakness. Negative: Headache Negative: Anxious, Depressed All Other Systems Reviewed And Are Negative: No Physical Exam - Summary Physical Exam Summary: Appearance: Alert, conversive, nontoxic appearing Skin: Warm, dry, no mottling, no rashes, no contusions HEENT: EOMI, PERRL, dry mucous membranes Neck: No masses on the neck, supple Respiratory: Clear to auscultation, breath sounds present, no rales, no rhonchi , no wheezes Cardiovascular: RRR, pulses are symmetrical in both lower and upper extremities Abdomen: Soft, non-tender Bowel Sounds: Present Musculoskeletal: No CVA tenderness, no obvious deformity, significant weakness on left 3/5, LLE 3/5 Neurological: A&Ox3, CN II-XII Intact, moving all extremities symmetrically Psychiatric: Normal affect and mood GCS: 15 Triage Information Reviewed: Yes Vital Signs On Initial Exam: Initial Vitals Temp Pulse Resp BP Pulse Ox 97.6 F 78 16 143/78 96 10/27/18 13:26 10/27/18 13:26 10/27/18 13:26 10/27/18 13:26 10/27/18 13:26 Vital Signs Reviewed: Yes - [place] Coma Scale Best Eye Response: 4 - Spontaneous Best Motor Response: 6 - Obeys Commands Best Verbal Response: 5 - Oriented Coma Scale Total: 15 Diagnostics - Vital Signs Vital Signs Temp Pulse Resp BP Pulse Ox 10/27/18 13:26 97.6 F 78 16 143/78 96 - Laboratory Result Diagrams: 10/27/18 17:20 10/27/18 14:52 Lab Statement: Any lab studies that have been ordered have been reviewed, and results considered in the medical decision making process. - CT BRAIN CT CT Interpretation Completed By: Radiologist Summary of CT Findings: 1. NO EVIDENCE FOR GROSS ACUTE INFARCT, MASS EFFECT OR HEMORRHAGE. 2. FINDINGS SUGGESTIVE OF MILD CHRONIC SMALL VESSEL ISCHEMIC CHANGES. 3. LIMITED STUDY. ED PHYSICIAN REVIEWED THIS RADIOLOGY REPORT. - EKG 1441 Cardiac Rate: NL - 64 BPM EKG Rhythm: Sinus Rhythm - [address] Segment: Normal Summary of EKG Findings: normal QRS, normal QTc, normal axis, normal ST/T wave Re-Evaluation - Re-Evaluation First Eval Re-Evaluation Time: 18:10 Change: Unchanged Comment: RECMMENDED ADMISSION FOR PATIENT. PATIENT WOULD LIKE TO SEE RESULTS OF CTA BEFORE AGREEING TO ADMISSION. Second Eval Re-Evaluation Time: 18:55 Change: Unchanged Comment: DID ULTRASOUND GUIDED IV AND IT BLEW. PATIENT WOULD LIKE TO BE DISCHARGED. Course/Dx - Course Course Of Treatment: A 73 y/o male accompanied by his presents to ED c/o confusion and inappropriate answers. Physical examination findings significant for dry mucous membranes, significant weakness on left 3/5, LLE 3/5. An EKG revealed NSR of 64 BPM, normal QRS, normal QTc, normal axis, normal ST/T wave. A Brain CT revealed 1. No evidence for gross acute infarct, mass effect or hemorrhage. 2. Findings suggestive of mild chronic small vessel ischemic changes. 3. Limited study. GCS: 15. Hematology, Chemistry, coagulation, and urinalysis screens were done. No significant laboratory abnormalities were found. In the ED course, the patient received Iodixanol. Patient was recommended admission; however, he wanted to see the results of the US before agreeing to admission. Upon doing a ultrasound guided IV was unsuccessful, the patient indicated that he would like to be discharged. Patient will be discharged with a diagnosis of TIA via AMA. Patient was advised the benefits and risks of leaving, however, patient would like to be discharge. Patient is to follow up with primary care provider as soon as possible. Patient is to return to ED for any new or worsening symptoms. Patient is agreeable with this. - Diagnoses Provider Diagnoses: TIA (transient ischemic attack) Discharge - Sign-Out/Discharge Documenting (check all that apply): Patient Departure - DISCHARGE - AMA - Discharge Plan Condition: Stable Disposition: HOME Patient Education Materials: Transient Ischemic Attack (ED) Referrals: Iliana Bruner MD [Primary Care Provider] - Additional Instructions: Please follow up with your doctor on Tuesday. Please call your doctor Tuesday morning so you can get an appointment as soon as possible. If you have return of any of these symptoms, please call [phone] and return to the ED immediately for re-evaluation. - Billing Disposition and Condition Condition: STABLE Disposition: Home - Attestation Statements Document Initiated by Dhruv: Yes Documenting Scribe: Marty Sam Provider For Whom Dhruv is Documenting (Include Credential): Carolyn Jerez MD Scribe Attestation: Marty Philippe, scribed for Carolyn Jerez MD on 10/30/18 at 1917. Scribe Documentation Reviewed: Yes Provider Attestation: The documentation as recorded by the Marty husain accurately reflects the service I personally performed and the decisions made by me, Carolyn Jerez MD Status of Scribe Document: Viewed
[2018-10-27 15:09] LABS: Activated Partial Thrombo Time 30.1 seconds (26.0-36.3); INR 1.02 (0.77-1.02)
[2018-10-27 15:20] LABS: Albumin 3.8 g/dL (3.2-5.2); Albumin/Globulin Ratio 1.4 (1-3); BUN/Creatinine Ratio 15.9 (8-20); EGFR Non-African American 43.5 (>60); Globulin 2.7 g/dL (2-4); Potassium 3.8 mmol/L (3.5-5.0); Total Bilirubin 0.5 mg/dL (0.2-1.0); Total Protein 6.5 g/dL (6.4-8.9)
[2018-10-27 17:10] LABS: Urine Appearance Clear; Urine Bilirubin Negative (Negative); Urine Blood Negative (Negative); Urine Color Yellow; Urine Glucose Negative (Negative); Urine Ketones Negative (Negative); Urine Nitrite Negative (Negative); Urine Protein Negative (Negative); Urine Specific Gravity 1.009 (1.010-1.030); Urine Urobilinogen Negative (Negative)
[2018-10-27 17:32] LABS: ABS Basophils 0 10^3/ul (0-0.2); ABS Eosinophils 0.2 10^3/ul (0-0.6); ABS Monocytes 0.5 10^3/ul (0-0.8); ABS Neutrophils 3.4 10^3/ul (1.5-7.7); ABS Nucleated RBC 0 10^3/ul; Eosinophil % 3.5 %; Hematocrit 34 % (42-52); Hemoglobin 11.2 g/dl (14.0-18.0); Lymphocyte % 19.3 %; Mean Corpuscular HGB Conc 33 g/dl (31-36); Mean Corpuscular Hemoglobin 28 pg (27-31); Mean Corpuscular Volume 84 fL (80-94); Mean Platelet Volume 9.9 fL (7.4-10.4); Nucleated Red Blood Cells % 0; Platelet Count 109 10^3/ul (150-450); Red Blood Count 4.04 10^6/ul (4.00-5.40); Red Cell Distribution Width 14 % (10.5-15); White Blood Count 5.1 10^3/ul (3.5-10.8)
[2018-10-27] MEDS ORDERED: Iodixanol* (CONTRAST) 320 MG/ML 100 ML SDV IV ONE (17:37)
[2018-10-27 19:36] VITALS: BP 189/86
== END 2018-10-27 19:49 | disposition home or self-care (01) ==
LOC: ED 13:24
DX: R41.0 Disorientation, unspecified (principal); R53.1 Weakness; I25.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native coronary artery without angina pectoris; K21.9 Gastro-esophageal reflux disease without esophagitis; Z87.442 Personal history of urinary calculi; G45.9 Transient cerebral ischemic attack, unspecified
CPT/HCPCS: 36415; 70450; 80053; 81003; 84484; 85025; 85610; 85730; 93005; 99285

== ENCOUNTER 2019-03-29 23:14 | Inpatient (IN) | payer MEDICARE ==
--- OUTSIDE RECORDS SUMMARY | 2019-03-29 23:26 | XMS REPORT | Continuity of Care Document ---
:1945 External Reference #:[id number] Author Name Rivera Atkins DO MPH Address [address] [place] [address], [address] [place] [address] Care Team Providers Name Role Phone Iliana Bruner M.D. 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 Primary Care Physician Unavailable Payers Date Identification Numbers Payment Provider Subscriber Policy Number: [id number] Medicare Ariel Hung PayID: [id number] [address] [address] [place] [address] Family History Date Family Member(s) Observation Comments Father due to Lung Cancer () Mother due to Lung Cancer () Children 2 one Siblings 4 Grandchildren Several Social History Type Date Description Comments Sex Unknown Marital Status Occupation Retired Work Status Not Currently Working Tobacco Use Start: Unknown Never Smoked Cigarettes Smoking Status Reviewed: 03/06/19 Never Smoked Cigarettes ETOH Use Denies alcohol use Tobacco Use Start: Unknown Patient has never smoked Allergies, Adverse Reactions, Alerts Description No Known Drug Allergies Medications Active Medications SIG Qnty Indications Ordering Date Provider Oxycodone HCL si-2 by mouth 90tabs Rivera Atkins, 03/06/2019 30mg Tablets every 4 to 6 DO, MPH hours as directed chronic pain patient Oxycodone HCL si-2 by mouth 360tabs Rivera Atkins, 08/22/2018 15mg Tablets every 4 to 6 DO, MPH hours as directed chronic pain patient 2 month script code D Cyclobenzaprine HCL si by mouth 120tabs Rivera Atkins, 04/16/2016 10mg twice a day as DO, MPH Tablets directed 2 month script code D Prazosin HCL 1 by mouth at Unknown 1mg Capsules bedtime Torsemide 1 by mouth every Unknown 20mg Tablets other day Tums E-X 750 1 as needed Unknown 750mg Chewtabs Nitrostat prn as directed Unknown 0.4mg Tablets Sub Zofran si by mouth Unknown 4mg Tablets every 6 to 8 hours prn Tamsulosin HCL 2 by mouth daily Unknown 0.4mg Capsules Metoprolol Succinate ER 1 by mouth daily Unknown 100mg Tablets ER 24HR Vitamin D3 High Potency 1 by mouth daily Unknown 1000Unit Capsules Magnesium Oxide 1 by mouth twice Unknown 400mg daily Tablets History Medications Oxycodone HCL si-2 by mouth 90tabs Atkins, Rivera, 03/06/2019 - 30mg Tablets every 4 to 6 DO, MPH 03/06/2019 hours as directed chronic pain patient Oxycodone HCL si by mouth 90tabs Atkins, Rivera, 08/21/2018 - 15mg Tablets every 8 hours as DO, MPH 08/22/2018 directed chronic pain patient Xtampza ER take one by mouth 60units Atkins, Rivera, 08/21/2018 - 27mg C12a every 12 hours as DO, MPH 08/22/2018 directed chronic pain. Oxycodone HCL si-2 by mouth 180tabs Atkins, Rivera, 07/21/2017 - 15mg Tablets every 4 to 6 DO, MPH 08/21/2018 hours as directed chronic pain patient Oxycodone HCL si by mouth 180tabs Atkins, Rivera, 05/19/2017 - 10mg Tablets every 8 hours as DO, MPH 07/21/2017 directed chronic pain patient, Code D, 2 month script Oxycodone HCL si by mouth 90tabs Atkins, Rivera, 04/15/2017 - 20mg Tablets every 8 hours as DO, MPH 05/19/2017 directed chronic pain patient Movantik 1 by mouth in the 30tabs Atkins, Rivera, 12/02/2016 - 25mg Tablets morning DO, MPH 12/19/2018 Zipsor si by mouth 90caps Atkins, Rivera, 08/04/2016 - 25mg Capsules three times a day DO, MPH 12/07/2016 Oxycodone HCL si by mouth 90tabs Rivera Atkins, 04/30/2016 - 30mg Tablets every 8 hours as DO, MPH 04/15/2017 directed chronic pain Oxycodone HCL si by mouth 150tabs Rivera Atkins, 04/02/2016 - 30mg Tablets every 4-6 hours DO, MPH 04/30/2016 as directed chronic pain patient Cyclobenzaprine HCL take 1 by mouth 90tabs Rivera Atkins, 04/02/2016 - 5mg every 8 hours as DO, MPH 04/16/2016 Tablets directed chronic pain. Plavix Unknown - 75mg Tablets 10/18/2018 Aspir-81 1 by mouth every Unknown - 81mg Tablets DR night at bedtime 12/19/2017 Xarelto 1 by mouth daily Unknown - 15mg Tablets 10/18/2018 Myoflex apply as needed Unknown - 10% Cream 05/19/2017 Naproxen si by mouth Unknown - 500mg Tablets daily as needed 05/19/2017 Cyclobenzaprine HCL take 1 by mouth Unknown - 5mg every day as 04/02/2016 Tablets needed Econazole Nitrate apply as needed Unknown - 1% Cream 10/18/2018 Lactulose 10 mg daily as Unknown - 10GM/15ML Solution needed 05/19/2017 Amlodipine Besylate 1 by mouth daily Unknown - 10mg 10/18/2018 Tablets Dulcolax Stool Softener 2 a day as needed Unknown - 100mg 10/18/2018 Capsules Aspirin Ec 1 by mouth daily Unknown - 81mg Tablets DR 05/19/2017 Vital Signs Date Vital Result Comment 03/06/2019 11:09am BP Systolic 140 mmHg BP Diastolic 78 mmHg Heart Rate 76 /min Respiratory Rate 20 /min Height 69 inches 5'9" Weight 172.00 lb Pain Level 6 Pain at this time. Pain Level With Medicine 6 on average with meds Pain Level Without Medicine 9 06/19 without meds BMI (Body Mass Index) 25.4 kg/m2 02/19/2019 9:48am BP Systolic 122 mmHg BP Diastolic 78 mmHg Heart Rate 74 /min Respiratory Rate 20 /min Height 69 inches 5'9" Weight 170.00 lb Pain Level 7 Pain at this time. Pain Level With Medicine 6 on average with meds Pain Level Without Medicine 9 07/19 without meds BMI (Body Mass Index) 25.1 kg/m2 01/19/2019 10:25am BP Systolic 122 mmHg BP Diastolic 74 mmHg Heart Rate 72 /min Respiratory Rate 20 /min Height 69 inches 5'9" Weight 170.00 lb Pain Level 4 Pain at this time. Pain Level With Medicine 4 on average with meds Pain Level Without Medicine 10 07/19 without meds BMI (Body Mass Index) 25.1 kg/m2 12/19/2018 10:23am BP Systolic 122 mmHg BP Diastolic 74 mmHg Heart Rate 76 /min Respiratory Rate 20 /min Height 69 inches 5'9" Weight 184.00 lb Pain Level 7 Pain at this time. Pain Level With Medicine 7 on average with meds Pain Level Without Medicine 10 07/19 without meds BMI (Body Mass Index) 27.2 kg/m2 11/16/2018 9:44am BP Systolic 132 mmHg BP Diastolic 84 mmHg Heart Rate 86 /min Respiratory Rate 20 /min Height 69 inches 5'9" Weight 184.00 lb Pain Level 6 Pain at this time. Pain Level With Medicine 5 on average with meds Pain Level Without Medicine 07/19 without meds BMI (Body Mass Index) 27.2 kg/m2 10/18/2018 10:53am BP Systolic 126 mmHg BP [...] with meds Pain Level Without Medicine 10 10/10 without meds BMI (Body Mass Index) 26.6 [...] with meds Pain Level Without Medicine 10 10/10 without meds BMI (Body Mass Index) 26.6 kg/m2 04/02/2016 10:22am BP Systolic 138 mmHg BP Diastolic 80 mmHg Heart Rate 80 /min Respiratory Rate 18 /min Height 69 inches 5'9" Weight 189.00 lb Pain Level 8 Pain at this time. 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 K59.03 Drug induced constipation Z63.79 Other stressful life events affecting family and household Office Visit 01/19/2019 10:00a Main Office as Rivera Atkins G89.21 Chronic pain due Of 11/10/13 DO, MPH to trauma M54.2 Cervicalgia K59.03 Drug induced constipation 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 Office Visit 12/19/2018 10:15a Main Office as Rivera Atkins G89.21 Chronic pain due Of 11/10/13 DO, MPH to trauma M54.2 Cervicalgia F43.12 Post-traumatic stress disorder, chronic K59.03 Drug induced constipation F03.90 Unspecified dementia without behavioral disturbance I10 Essential (primary) hypertension E55.9 Vitamin D deficiency, unspecified 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 Office Visit 11/16/2018 10:45a Main Office as Rivera Atkins G89.21 Chronic pain due Of 11/10/13 DO, MPH to trauma M54.2 Cervicalgia F43.12 Post-traumatic stress disorder, chronic K59.03 Drug induced constipation R41.0 Disorientation, unspecified I10 Essential (primary) hypertension E55.9 Vitamin D deficiency, unspecified 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21 Chronic pain due Of 11/10/13 DO, MPH to trauma M54.2 Cervicalgia M79.12 Myalgia of auxiliary muscles, head and neck Z71.89 Other specified counseling 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 Office Visit 07/21/2018 10:15a Main Office as Rivera Atkins G89.21 Chronic pain due Of 11/10/13 DO, MPH to trauma M54.2 Cervicalgia Z71.89 Other specified counseling 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 Office Visit 06/21/2018 10:15a Main Office as Rivera Atkins G89.21 Chronic pain due Of 11/10/13 DO, MPH to trauma M54.2 Cervicalgia M79.1 Myalgia 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 Office Visit 05/22/2018 10:00a Main Office as Rivera Atkins G89.21 Chronic pain due Of 11/10/13 DO, MPH to trauma G89.28 Other chronic postprocedural pain G89.11 Acute pain due to trauma M79.1 Myalgia M54.2 Cervicalgia 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 Office Visit 03/17/2018 10:15a Main Office as Rivera Atkins G89.21 Chronic pain due Of 2 DO, MPH to trauma G89.28 Other chronic postprocedural pain M54.2 Cervicalgia M79.1 Myalgia 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 Office Visit 02/15/2018 11:15a Main Office as Rivera Atkins G89.21 Chronic pain due Of 2/ DO, MPH to trauma G89.28 Other chronic postprocedural pain M54.2 Cervicalgia M79.1 Myalgia 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 Office Visit 01/18/2018 11:45a Main Office as Rivera Atkins, G89.21 Chronic pain due Of 2/ DO, MPH to trauma G89.28 Other chronic postprocedural pain M54.2 Cervicalgia M79.1 Myalgia 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 Office Visit 12/19/2017 2:30p Main Office as Rivera Atkins G89.21 Chronic pain due Of 11/10/13 DO, MPH to trauma M54.2 Cervicalgia M79.1 Myalgia G89.28 Other chronic postprocedural pain 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 Office Visit 11/18/2017 2:00p Main Office as Rivera Atkins G89.21 Chronic pain due Of 11/10/13 DO, MPH to trauma M54.2 Cervicalgia M79.1 Myalgia G89.28 Other chronic postprocedural pain 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 Office Visit 10/19/2017 2:15p Main Office as Rivera Atkins G89.21 Chronic pain due Of 11/10/ DO, MPH to trauma M79.1 Myalgia M54.2 Cervicalgia G89.28 Other chronic postprocedural pain 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 Office Visit 09/19/2017 2:30p Main Office as Rivera Atkins G89.21 Chronic pain due Of 2/14 DO, MPH to trauma G89.28 Other chronic postprocedural pain M54.2 Cervicalgia 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 Office Visit 08/19/2017 9:15a Main Office as Rivera Atkins, G89.21 Chronic pain due Of 2 DO, MPH to trauma G89.28 Other chronic postprocedural pain M54.2 Cervicalgia M79.1 Myalgia 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 Office Visit 07/11/2017 10:45a Main Office as Rivera Atkins G89.21 Chronic pain due Of 11/10/13 DO, MPH to trauma G89.28 Other chronic postprocedural pain M54.2 Cervicalgia M79.1 Myalgia Office Visit 06/27/2017 10:45a Main Office as Rivera Atkins G89.21 Chronic pain due Of 11/10/13 DO, MPH to trauma G89.28 Other chronic postprocedural pain M54.2 Cervicalgia M79.1 Myalgia 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 Office Visit 05/30/2017 11:00a Main Office as Rivera Atkins G89.21 Chronic pain due Of 11/10/13 DO, MPH to trauma G89.28 Other chronic postprocedural pain M54.2 Cervicalgia 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 Office Visit 05/19/2017 9:45a Main Office as Rivera Atkins G89.21 Chronic pain due Of 11/10/13 DO, MPH to trauma G89.28 Other chronic postprocedural pain M54.2 Cervicalgia M79.1 Myalgia 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 K59.03 Drug induced constipation Office Visit 04/15/2017 11:45a Main Office as Rivera Atkins, G89.21 Chronic pain due Of 11/10/13 DO, MPH to trauma G89.28 Other chronic postprocedural pain M54.2 Cervicalgia M79.1 Myalgia 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 Office Visit 12/14/2016 10:45a Main Office as Rivera Atkins G89.21 Chronic pain due Of 11/10/13 DO, MPH to trauma G89.28 Other chronic postprocedural pain M54.2 Cervicalgia M79.1 Myalgia K59.03 Drug induced constipation I10 Essential (primary) hypertension 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 Office Visit 12/02/2016 11:15a Main Office as Atkins, Rivera, G89.21 Chronic pain due Of 11/10/13 DO, MPH to trauma G89.28 Other chronic postprocedural pain M54.2 Cervicalgia M79.1 Myalgia K59.03 Drug induced constipation I10 Essential (primary) hypertension 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 Office Visit 11/05/2016 11:15a Main Office as Rivera Atkins, G89.21 Chronic pain due Of 11/10/13 DO, MPH to trauma G89.28 Other chronic postprocedural pain M54.2 Cervicalgia M79.1 Myalgia Office Visit 10/06/2016 11:15a Main Office as AtkinsCarina carrascoph, G89.21 Chronic pain due Of 11/10/13 DO, MPH to trauma G89.28 Other chronic postprocedural pain M54.2 Cervicalgia Office Visit 09/06/2016 11:15a Main Office as Rivera Atkins, G89.21 Chronic pain due Of 11/10/13 DO, MPH to trauma G89.28 Other chronic postprocedural pain M54.2 Cervicalgia Office Visit 08/04/2016 3:00p Main Office as AtkinsCarina carrascoph, G89.21 Chronic pain due Of 11/10/13 DO, MPH to trauma G89.28 Other chronic postprocedural pain M54.2 Cervicalgia M62.838 Other muscle spasm 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 Office Visit 07/06/2016 4:15p Main Office as AtkinsCarina carrascoph, G89.21 Chronic pain due Of 11/10/13 DO, MPH to trauma G89.28 Other chronic postprocedural pain M54.2 Cervicalgia 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 Office Visit 04/30/2016 2:00p Main Office as AtkinsRivera carrasco, G89.21 Chronic pain due Of 11/10/13 DO, MPH to trauma G89.28 Other chronic postprocedural pain M54.2 Cervicalgia Z71.89 Other specified counseling 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 Office Visit 04/16/2016 2:00p Main Office as AtkinsRivera carrasco, G89.21 Chronic pain due Of 11/10/13 [place] MURRELL to trauma M54.2 Cervicalgia Office Visit 04/02/2016 9:00a Main Office as Rivera Atkins, 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 Symptoms and complaints discussed and reviewed today. No significant changes in physical findings. Continue current medical pain management.M54.2 CervicalgiaComments:Chronic. Symptoms and complaints discussed and reviewed today. No significant changes in physical findings. Continue current medical pain management.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New Labs:Urine Drug Screen, Ordered: 03/06/19Comments:Urine drug screen sample taken today to monitor opiate use and to monitor use of illicit substances.Will discuss results at next appointment.The following tests were ordered:6 AM, AMPH, BOZENA, DENYS, BUP, CARIS, COCM, COT, ETG, FENT, MCSHSG, OPI, OXY, PCP, TAPEN, XTSY, ZOLP. A urine drug test (UDT) was ordered [...] controlled substances and is considered standard of care.Z63.79 Other stressful life events affecting family and householdComments:Reassurance and counseling.AllNew Medication:Oxycodone HCL 30 mg - si-2 by mouth every 4 to 6 hours as directed chronic pain patientOxycodone HCL 30 mg - si-2 by mouth every 4 to 6 hours as directed chronic pain patientComments:All above symptoms and complaints discussed as well as diagnoses reviewed.Continue trial of opioid pain management - note changes below; injection therapy, osteopathic manipulation (OMT), PT / modalities, and consults as needed [...] maintaining satisfactory side effect profile and minimizing assisted end-organ damage. Activity as toleratedContinue with PCP
--- NOTE | 2019-03-29 23:53 | ED ---
Neurological HPI - HPI Summary HPI Summary: This pt is a 73 y/o male presenting to [facility] via EMS for frequent falls recently. Pt reports for the past few weeks he has been falling down a lot. He notes he sits on the ground after his fall for a bit and then he is able to stand up. Denies any LOC. Today he fell once and was unable to stand up. Denies fever, chest pain, SOB, abd pain. He notes he has not been able to eat because he "can't get anything down" secondary to vomiting. Pt ambulates with a cane at baseline. 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 Pt states his left sided weakness is unchanged and no different today. He does not drive anymore. - History of Current Complaint Stated Complaint: "L SIDE WEAKNESS/FALL" PER EMS Time Seen by Provider: 03/29/19 23:20 Hx Obtained From: Patient Onset/Duration: Started weeks ago, Still Present Current Severity: Mild Pain Intensity: 0 Pain Scale Used: 0-10 Numeric Character: Other: - frequent falls Aggravating: Nothing Alleviating: Nothing Associated Signs and Symptoms: Positive: Nausea/Vomiting. Negative: Loss of Consciousness, Pain, Fever, Chest Pain, Shortness of Breath - Allergy/Home Medications Allergies/Adverse Reactions: Allergies Allergy/AdvReac Type Severity Reaction Status Date / Time naloxegol [From Movantik] Allergy dysrhythmia Verified 10/27/18 13:38 Home Medications: Home Medications Cyanocobalamin (Vitamin B-12) [Vitamin B-12] 1,000 mcg PO 03/30/19 [History] Magnesium Oxide [Magnesium] 400 mg PO 03/30/19 [History] Mirtazapine TAB* [Remeron TAB*] 15 mg PO BEDTIME 03/30/19 [History Confirmed ] Sertraline* [Zoloft*] 100 mg PO DAILY 03/30/19 [History Confirmed 03/30/19] PMH/Surg Hx/FS Hx/Imm Hx Cardiovascular History: Reports: Hx Coronary Artery Disease - CHOLESTEROL CONTROL WITH MEDS, Hx Hypertension, Other Cardiovascular Problems/Disorders - TIGHTNESS IN CHEST IN [place] 3 MONTHS AGO AND [place] Denies: Hx Angina GI History: Reports: Hx Gastroesophageal Reflux Disease History: Reports: Hx Kidney Stones, Other Problems/Disorders - BPH Musculoskeletal History: Reports: Hx Arthritis, Hx Back Problems, Hx Osteoporosis Sensory History: Reports: Hx Cataracts, Hx Contacts or Glasses - GLASSES Denies: Hx Hearing Aid Opthamlomology History: Reports: Hx Cataracts, Hx Contacts or Glasses - GLASSES Neurological History: Reports: Other Neuro Impairments/Disorders - 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 7 heart stents. cervical spine repair x3 (laminectomy, fusion). APPY A CHILD Hx Anesthesia Reactions: No Infectious Disease History: Denies: Traveled Outside the [place] in Last 30 Days - Family History Known Family History: Positive: Other - Lung CA - Social History Alcohol Use: Rare Substance Use Type: Reports: Marijuana, Synthetic Drugs, Other Substance Use Comment - Amount & Last Used: cbd Smoking Status (MU): Never Smoked Tobacco Have You Smoked in the Last Year: No Review of Systems Negative: Fever, Chills Negative: Chest Pain Negative: Shortness Of Breath Positive: Vomiting. Negative: Abdominal Pain Neurological: Other - POS: frequent episodes of falls All Other Systems Reviewed And Are Negative: Yes Physical Exam - Summary Physical Exam Summary: VITAL SIGNS: Reviewed. GENERAL: Patient is a well-developed and nourished male who is lying comfortable in the stretcher. Patient is not in any acute respiratory distress. HEAD AND FACE: No signs of trauma. No ecchymosis, hematomas or skull depressions. No sinus tenderness. EYES: PERRLA, EOMI x 2, No injected conjunctiva, no nystagmus. EARS: Hearing grossly intact. Ear canals and tympanic membranes are within normal limits. MOUTH: Oropharynx within normal limits. NECK: Supple, trachea is midline, no adenopathy, no JVD, no carotid bruit, no c- spine tenderness, neck with full ROM. CHEST: Symmetric, no tenderness at palpation LUNGS: Clear to auscultation bilaterally. No wheezing or crackles. CVS: Regular rate and rhythm, S1 and S2 present, no murmurs or gallops appreciated. ABDOMEN: Soft, non-tender. No signs of distention. No rebound no guarding, and no masses palpated. Bowel sounds are normal. EXTREMITIES: FROM in all major joints, no edema, no cyanosis or clubbing. NEURO: Alert and oriented x 3. Left sided weakness, which is old. No acute neurological deficits. Speech is normal and follows commands. SKIN: Dry and warm Triage Information Reviewed: Yes Vital Signs Reviewed: Yes - [place] Coma Scale Best Eye Response: 4 - Spontaneous Best Motor Response: 6 - Obeys Commands Best Verbal Response: 5 - Oriented Coma Scale Total: 15 Diagnostics - Laboratory Result Diagrams: 03/30/19 01:26 03/30/19 01:12 Lab Statement: Any lab studies that have been ordered have been reviewed, and results considered in the medical decision making process. - Radiology Chest XR Radiology Interpretation Completed By: ED Physician Summary of Radiographic Findings: Elevation of the left hemidiaphragm. No acute process. Pending official radiology report. - CT Brain CT CT Interpretation Completed By: Radiologist Summary of CT Findings: IMPRESSION: 1. No acute intracranial hemorrhage. No intracranial mass or obstructive hydrocephalus. 2. Since the prior head CT of , there are no new findings. Dr. Dooley has reviewed this report. Lumbar spine CT CT Interpretation Completed By: Radiologist Summary of CT Findings: IMPRESSION: 1. Compression fracture of L2. Loss of central height by about 60%. Retropulsion of the posterior aspect of the body into the spinal canal causing mild central canal stenosis. 2. Multilevel degenerative disc disease and facet disease in which there variable degree of neural foraminal narrowing. Dr. Dooley has reviewed this report. Thoracic spine CT CT Interpretation Completed By: Radiologist Summary of CT Findings: IMPRESSION: 1. Prominent dorsal kyphosis in the upper thoracic area. Mild anterior wedge deformities from T5 and T8. 2. No significant central canal stenosis within the thoracic spine. No significant bony neural foraminal narrowing. 3. Anterior wedge compression fracture of L2. Indentation of the superior endplate of L2 is central loss of approximately 60% . Slight retropulsion of the posterior aspect of the L2 vertebral body into the spinal canal causing mild central canal stenosis. Dr. Dooley has reviewed this report. - EKG 00:19 Cardiac Rate: NL - at 68 bpm EKG Rhythm: Sinus Rhythm Summary of EKG Findings: Normal axis. Normal interval. No ischemic changes. Re-Evaluation - Re-Evaluation First Eval Re-Evaluation Time: 02:10 Comment: Attempted to ambulate pt with a walker. He has difficulty ambulating in the ED. Course/Dx - Course Assessment/Plan: Pt is a 73 y/o male, with hx of left sided weakness s/p CVA, for frequent falls recently. Pt reports for the past few weeks he has been falling down a lot. He notes he sits on the ground after his fall for a bit and then he is able to stand up. Denies any LOC. Today he fell once and was unable to stand up. Denies fever, chest pain, SOB, abd pain. He notes he has not been able to eat because he "can't get anything down" secondary to vomiting. Lab results show hemoglobin of 10.6, hematocrit of 32. Urinalysis is negative. Brain CT shows 1. No acute intracranial hemorrhage. No intracranial mass or obstructive hydrocephalus. 2. Since the prior head CT of 10/27/2018, there are no new findings. Lumbar spine CT reveals 1. Compression fracture of L2. Loss of central height by about 60%. Retropulsion of the posterior aspect of the body into the spinal canal causing mild central canal stenosis. 2. Multilevel degenerative disc disease and facet disease in which there variable degree of neural foraminal narrowing. Thoracic spine CT shows 1. Prominent dorsal kyphosis in the upper thoracic area. Mild anterior wedge deformities from T5 and T8. 2. No significant central canal stenosis within the thoracic spine. No significant bony neural foraminal narrowing. 3. Anterior wedge compression fracture of L2. Indentation of the superior endplate of L2 is central loss of approximately 60%. Slight retropulsion of the posterior aspect of the L2 vertebral body into the spinal canal causing mild central canal stenosis. In the ED course the pt was given tramadol, Toradol, hydralazine. Discussed the case with Dr. Chavez, hospitalist, who accepted the pt for admission. - Diagnoses Provider Diagnoses: Compression fracture, Multiple falls - Physician Notifications Discussed Care Of Patient With: Lucy Chavez - hospitalist Time Discussed With Above Provider: 02:58 Instructed by Provider To: Admit As Inpatient Discharge - Sign-Out/Discharge Documenting (check all that apply): Patient Departure - Admit to [facility] Patient Received Moderate/Deep Sedation with Procedure: No - Discharge Plan Condition: Stable Disposition: ADMITTED TO [facility] Referrals: Iliana Bruner MD [Primary Care Provider] - - Attestation Statements Document Initiated by Scribe: Yes Documenting Scribe: Chica Montano Provider For Whom Scribe is Documenting (Include Credential): Gabriel Dooley MD Scribe Attestation: Chica Philippe, scribed for Gabriel Dooley MD on 03/30/19 at 0259. Status of Scribe Document: Ready
[2019-03-30] MEDS ORDERED: hydrALAZINE IV* 20 MG/ML VIAL IV SLOW PU ONE (00:09)
[2019-03-30 01:32] LABS: Activated Partial Thrombo Time 23.2 seconds (26.0-38.0); INR 0.99 (0.82-1.09)
[2019-03-30 01:37] LABS: ABS Eosinophils 0.3 10^3/ul (0-0.6); ABS Lymphocytes 0.7 10^3/ul (1.0-4.8); ABS Monocytes 0.5 10^3/ul (0-0.8); ABS Neutrophils 3.8 10^3/ul (1.5-7.7); Eosinophil % 4.8 %; Hematocrit 32 % (42-52); Hemoglobin 10.6 g/dL (14.0-18.0); Lymphocyte % 13.8 %; Mean Corpuscular HGB Conc 33 g/dL (31-36); Mean Corpuscular Hemoglobin 28 pg (27-31); Mean Corpuscular Volume 84 fL (80-94); Mean Platelet Volume 9.9 fL (7.4-10.4); Platelet Count 120 10^3/uL (150-450); Red Blood Count 3.81 10^6 /uL (4.18-5.48); Red Cell Distribution Width 14 % (10-15); White Blood Count 5.4 10^3/uL (3.5-10.8)
[2019-03-30 01:39] LABS: Urine Appearance Cloudy; Urine Bilirubin Negative (Negative); Urine Blood Negative (Negative); Urine Color Yellow; Urine Glucose Negative (Negative); Urine Ketones Negative (Negative); Urine Nitrite Negative (Negative); Urine Protein Negative (Negative); Urine Specific Gravity 1.013 (1.010-1.030); Urine Urobilinogen Negative (Negative)
[2019-03-30 02:03] LABS: ALT 8 U/L (7-52); AST 16 U/L (13-39); Albumin 3.4 g/dL (3.2-5.2); Albumin/Globulin Ratio 1.2 (1-3); Alkaline Phosphatase 42 U/L (34-104); Anion Gap 4 mmol/L (2-11); BUN/Creatinine Ratio 16.9 (8-20); Blood Urea Nitrogen 20 mg/dL (6-24); CO2 Carbon Dioxide 32 mmol/L (22-32); Chloride 104 mmol/L (101-111); Creatine Kinase 66 U/L (10-223); EGFR African American 73.2 (>60); EGFR Non-African American 60.5 (>60); Globulin 2.9 g/dL (2-4); Glucose 105 mg/dL (70-100); Magnesium 2.5 mg/dL (1.9-2.7); Sodium 140 mmol/L (135-145); Total Protein 6.3 g/dL (6.4-8.9)
[2019-03-30] MEDS ORDERED: traMADol TAB* 50 MG PO ONE (02:11)
[2019-03-30] MEDS ORDERED: Ketorolac INJ* 30 MG/ML 1 ML VIAL IV PUSH ONE (02:11)
[2019-03-30 02:30] LABS: TSH (Thyroid Stimulating Horm) 1.99 mcIU/mL (0.34-5.60)
[2019-03-30] MEDS ORDERED: Meclizine TAB* 12.5 MG PO PRN (04:21)
[2019-03-30] MEDS ORDERED: hydrALAZINE IV* 20 MG/ML VIAL IV SLOW PU PRN (04:38)
[2019-03-30] MEDS: Hydrochlorothiazide TAB* 25 MG PO SCH (08:25)
[2019-03-30] MEDS: Furosemide TAB* 40 MG PO SCH (08:25)
[2019-03-30] MEDS: Aspirin 81 mg CHEW TAB* 81 MG TAB.CHEW PO SCH (08:25)
[2019-03-30] MEDS: Losartan TAB* 25 MG PO SCH (08:25)
[2019-03-30] MEDS: Tamsulosin CAP* 0.4 MG PO SCH ×2 (08:25→20:57)
[2019-03-30] MEDS: Metoprolol Succinate XL TAB* 100 MG PO SCH (08:25)
[2019-03-30] MEDS: Sertraline* 100 MG TAB PO SCH (08:25)
[2019-03-30] MEDS: Heparin VIAL(*) 5000 UNITS/ML VIAL (FIVE THOUSAND) SUBCUT SCH ×2 (08:26→20:57)
--- NOTE | 2019-03-30 10:03 | HP ---
CC: Dr. Bruner * HISTORY AND PHYSICAL: DATE OF ADMISSION: 03/30/19 PRIMARY CARE PROVIDER: Dr. Bruner. CHIEF COMPLAINT: Fall. HISTORY OF PRESENT ILLNESS: Mr. 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 The patient states that over the last 1 week, in fact, he has had a significant increase in the number of falls that he has had. He states that he has fallen 12 times in the last 1 week. He in fact was out in [place] visiting family when he fell down the stairs. He and his cut their trip short and they came home. The patient states that he got up from sleep sometime early this morning to go to the bathroom. He urinated and then he fell right to the floor. He states that he 100% remembers falling to the floor. He states that the left leg buckled and he went down. He called for his , but she was not able to get him up. He tried scooting to a larger space to get up and he was unable to do so, therefore , she called EMS and the patient was brought to the emergency room. The patient does state that the day prior he hit his back and sustained a bruise. He typically uses a cane to get around, however, has been having increased falls. He does not like using the walker, which he used here in the emergency room. He does note increased pain in his lumbar spine following all of these falls. PAST MEDICAL HISTORY: 1. L2 burst fracture in 2006. 2. Coronary artery disease, status post stenting x9. 3. Hypertension. 4. Hyperlipidemia. 5. GERD. 6. Atrial fibrillation. 7. Left-sided hemiplegia following spinal cord infarct at the time of cervical decompression surgery in 1997. PAST SURGICAL HISTORY: 1. Bilateral cataract extractions. 2. Cervical decompression in 1993 and again in 1997. 3. Cervical dorsal column stimulator insertion. 4. Appendectomy. MEDICATIONS: 1. Magnesium oxide 400 mg p.o. daily. 2. Vitamin B12 at 1000 mcg p.o. daily. 3. Sertraline 100 mg p.o. daily. 4. Remeron 15 mg p.o. q.h.s. 5. Oxycodone 15 mg p.o. t.i.d. p.r.n. pain. 6. Flomax 0.4 mg p.o. b.i.d. 7. Zofran 4 mg p.o. q.6 hours p.r.n. nausea. 8. Metoprolol XL 100 mg p.o. daily. 9. Meclizine 25 mg p.o. t.i.d. p.r.n. dizziness. 10. Losartan/hydrochlorothiazide 100/12.5 mg 1 tablet p.o. daily. 11. Lasix 40 mg p.o. every other day. 12. Flexeril 15 mg p.o. q.h.s. p.r.n. spasm. 13. Lipitor 40 mg p.o. q.h.s. 14. Aspirin 81 mg p.o. daily. ALLERGIES: MOVANTIK. FAMILY HISTORY: Mother and father are both . Mother of CHF. Father at the age of 68 of some sort of cancer. SOCIAL HISTORY: The patient is a nonsmoker. He drinks alcohol rarely. He states that he works at the [employer]. He is . He has had 3 children, one of which is . His is his healthcare proxy. REVIEW OF SYSTEMS: The patient denies any fevers or chills. He states his appetite has been poor over the last 2 months. He has unintentionally lost approximately 20 pounds. He denies any chest pain. He does have chronic ankle edema bilaterally. He has had cough and shortness of breath over the last 3 to 4 months. No sputum production. No nausea, vomiting, abdominal pain. He fluctuates between constipation and diarrhea. No hematochezia. No hematuria. No dysuria. He has chronic left-sided weakness. No sudden changes in vision. He frequently states that he will choke on food or it will get stuck in his throat. He admits to pain in his back. No rashes. He does have scattered bruises related to his falls and being evaluated in the emergency room. He admits to anxiety and depression. PHYSICAL EXAMINATION GENERAL: The patient is a well-developed, elderly male, seen sitting up in the stretcher, in no acute distress. VITAL SIGNS: Blood pressure 190/86, pulse 75, respirations 15, temperature 98.4 , O2 saturation 95% on room air. HEENT: Pupils are equal and round. There is evidence of prior cataract extraction. Extraocular muscles are intact. Oropharynx is clear. The tongue is slightly discolored, brown. There is no submandibular, cervical or supraclavicular adenopathy. Thyroid is not enlarged. No thyroid nodules are noted. CARDIAC: Normal S1 and S2, regular rate and rhythm. I do not appreciate any murmurs. There is trace ankle edema bilaterally. ABDOMEN: Bowel sounds are present. Abdomen is soft, nondistended. He is mildly tender to palpation in the right lower quadrant. MUSCULOSKELETAL: There is no cyanosis or clubbing of the digits. The patient' s left wrist appears to have a drop when he hold his arm up. He otherwise moves all 4 extremities symmetrically. SKIN: Warm and dry. There are no rashes. There is a bruise overlying the patient's left flank and an abrasion overlying the distal thoracic or superior lumbar spine. There are scattered bruises on the patient's arm. There are excoriations on the patient's knees. NEUROLOGIC: Cranial nerves II through XII are grossly intact. Sensation is intact to light touch in the upper extremities. Sensation is reduced on the left compared to the right on the lower extremities. The patient has decreased proprioception in both feet. Strength distally in the lower extremities is 5/ 5. [employer] strength on the left is 3/5. It is 5/5 on the right. Proximal upper extremity strength bilaterally is 5/5. PSYCHIATRIC: The patient is alert. He initially is seen somewhat confused when I was speaking with him about the timing of his fall; however, I have just awakened him from sleep. He appears somewhat depressed and withdrawn. DIAGNOSTIC STUDIES/LABORATORY DATA: WBC 5.4, hemoglobin 10.6, hematocrit 32, platelets 120,000. INR 0.99. Sodium 140, potassium 4.0, chloride 104, CO2 of 32, BUN 20, creatinine 1.18, glucose 105, lactic acid 0.5, calcium 9.0, magnesium 2.5, bilirubin 0.7, AST 16, ALT 8, alkaline phosphatase 42, CPK 66, albumin 3.3, TSH 1.99. Urinalysis reveals cloudy urine with specific gravity of 1.013. EKG reveals normal sinus rhythm without any acute ST-T wave abnormalities. CT of the brain, no acute intracranial hemorrhage. No intracranial mass or obstructive hydrocephalus. There are no new findings compared to the CT of the brain done on 10/27/18. Lumbar spine CT, there is compression fracture of L2, loss of central height by about 60%. Retropulsion of posterior aspect of the body into the spinal canal causing mild central canal stenosis. There is multilevel degenerative disk disease and facet disease, in which there are variable degrees of neural foraminal narrowing. Thoracic spine CT reveals prominent dorsal kyphosis in the upper thoracic area. Mild anterior wedge deformities from T5-T8 are noted. No significant central canal stenosis within the thoracic spine is noted. ASSESSMENT AND PLAN: Mr. Hung is a 73-year-old male with a complicated spinal orthopedic history including cervical decompression surgery x2, one of which is complicated by left-sided hemiparesis, dorsal column stimulator insertion, and L2 burst fracture, who presented to the emergency room with complaints of increased falls over the last 1 week. 1. Recurrent falls over the last 1 week. It is unclear why the patient now suddenly is falling more than he had been. His labs do not indicate that he is significantly volume deplete. I will ask, however, for orthostatics to be obtained. The patient does take Lasix on an every other day basis for pedal edema, perhaps he is drying himself out. The patient did have relatively recent increase in his sertraline from 75 mg daily to 100 mg daily. This can lead to dizziness, so the patient denied this prior to this fall. He has issues with proprioception and this likely is contributing to his falls; however , this is not a new issue for him. I am going to check a B12 level, though I see he is already on supplementation. PT evaluation has been ordered. The patient does not like the idea of using a walker; however, this likely is the safest for him to use when up and about. The patient is very discouraged and feels that if the cause of his increased falls is not found, it will ruin him financially and emotionally. 2. Coronary artery disease. There is no complaints of chest pain at this time. We will continue aspirin, Lipitor, and metoprolol. 3. Hypertension. The patient's blood pressure is markedly elevated at this point. He does state that he is in pain. I am going to add p.r.n. hydralazine and we will monitor his blood pressure on his usual antihypertensive regimen. 4. Hyperlipidemia. Continue Lipitor. 5. Atrial fibrillation. The patient is in sinus rhythm at this time. He is not on any anticoagulants. Continue metoprolol. 6. Depression/anxiety. Continue sertraline 100 mg daily. 7. Benign prostatic hypertrophy. Continue Flomax. This too could be leading to some orthostasis. 8. Chronic pain. Continue p.r.n. oxycodone 15 mg 3 times daily as needed. 9. Anemia. The patient has been chronically anemic dating back to 2013. He is close to his baseline. B12 level is being obtained. He has iron studies from November of this year that do not reveal any evidence of iron deficiency. 10. Deep vein thrombosis prophylaxis. According to the adult thrombosis prophylaxis risk factor assessment guide, the patient has a total risk factor score of 2 making him moderate risk. Heparin 5000 units subcutaneous q.12 hours will be utilized as deep vein thrombosis prophylaxis. 11. Code status is full. TIME SPENT: Sixty-five minutes was spent admitting this patient. [id number]/CPS #: [id number] CINDY
--- NOTE | 2019-03-30 16:55 | PN ---
Subjective Date of Service: 03/30/19 Interval History: Patient seen today, doing well sitting in the chair. denies pain simply frustrated from increase leg weakness and repeated fall. no other complains. Physical therapy did see the patient and recommended continued skilled PT services to increase functional independence, balance, and safety. I also did review the film with Dr. Calix and did not think the fracture is acute and the cord is not compromised. Past Medical History: Unchanged from Admission Objective Active Medications: Aspirin (Aspirin 81 Mg Chew Tab*) 81 mg PO QAM [facility] Last Admin: 03/30/19 08:25 Dose: 81 mg Atorvastatin Calcium (Lipitor*) 40 mg PO QPM [facility] Cyclobenzaprine HCl (Flexeril Tab*) 15 mg PO BEDTIME PRN PRN Reason: PAIN Furosemide (Lasix Tab*) 40 mg PO EVERY OTHER DAY [facility] Last Admin: 03/30/19 08:25 Dose: 40 mg Heparin Sodium (Porcine) (Heparin Vial(*)) 5,000 units SUBCUT Q12HR [facility] Last Admin: 03/30/19 08:26 Dose: 5,000 units Hydralazine HCl (Apresoline Iv*) 10 mg IV SLOW PU Q6H PRN PRN Reason: SBP>170 Hydrochlorothiazide (Hydrodiuril Tab*) 12.5 mg PO DAILY [facility] Last Admin: 03/30/19 08:25 Dose: 12.5 mg Losartan Potassium (Cozaar Tab*) 100 mg PO DAILY [facility] Last Admin: 03/30/19 08:25 Dose: 100 mg Metoprolol Succinate (Toprol Xl Tab*) 100 mg PO QAM [facility] Last Admin: 03/30/19 08:25 Dose: 100 mg Mirtazapine (Remeron Tab*) 15 mg PO BEDTIME [facility] Ondansetron HCl (Zofran Tab*) 4 mg PO Q6H PRN PRN Reason: NAUSEA Oxycodone HCl (Roxycodone Tab*) 15 mg PO TID PRN PRN Reason: PAIN Sertraline HCl (Zoloft*) 100 mg PO DAILY [facility] Last Admin: 03/30/19 08:25 Dose: 100 mg Tamsulosin HCl (Flomax Cap*) 0.4 mg PO BID [facility] Last Admin: 03/30/19 08:25 Dose: 0.4 mg Vital Signs - 8 hr 03/30/19 10:58 Temperature 97.9 F Pulse Rate 62 Respiratory 16 Rate Blood Pressure 139/76 (mmHg) O2 Sat by Pulse 97 Oximetry Oxygen Devices in Use Now: None Appearance: awake, alert no distress. He does have cervical scar from old cervical spine surgery. Kyphotic. Eyes: No Scleral Icterus, - - EOMI, kyphotic Ears/Nose/Mouth/Throat: NL Teeth, Lips, Gums, Mucous Membranes Moist Neck: NL Appearance and Movements; NL JVP Respiratory: Symmetrical Chest Expansion and Respiratory Effort, Clear to Auscultation Cardiovascular: NL Sounds; No Murmurs; No JVD Extremities: No Edema, - Neurological: Alert and Oriented x 3 Result Diagrams: 03/30/19 01:26 03/30/19 01:12 Assess/Plan/Problems-Billing Assessment: 73 y/o male admitted for weakness and reccurrent fall. old L2 compression fracture. - Patient Problems (1) Weakness Current Visit: Yes Status: Acute Code(s): R53.1 - WEAKNESS SNOMED Code(s) : 71810621 Comment: - At this time his weakness can not be explained from his L2 fracture and cord compression at L2 - Discussed the case with Dr. Johnson and did not think it is acute. I do agree as well that is not acute as the patient does not have acute tenderness over his L2 spine. In regard to the retropulsion of L2 into the cord, Dr. Johnson think it is minimally compressing and there is no threat of causing caudal equina. no intervention required - Continue PT and possible discharge in am or placement (2) CAD (coronary artery disease) Current Visit: Yes Status: Acute Code(s): I25.10 - ATHSCL HEART DISEASE OF [place] CORONARY ARTERY W/O ANG PCTRS SNOMED Code(s): 38612824 Comment: - Continue aspirin 81; Lipitor 40 mg; HTCZ 12.5 mg; Losartan 100 mg , lopressor 100 mg daily (3) Hypertension Current Visit: Yes Status: Acute Code(s): I10 - ESSENTIAL (PRIMARY) HYPERTENSION SNOMED Code(s): 38918322 (4) Hyperlipemia Current Visit: Yes Status: Acute Code(s): E78.5 - HYPERLIPIDEMIA, UNSPECIFIED SNOMED Code(s): 03154428 (5) GERD (gastroesophageal reflux disease) Current Visit: Yes Status: Acute Code(s): K21.9 - GASTRO-ESOPHAGEAL REFLUX DISEASE WITHOUT ESOPHAGITIS SNOMED Code(s): 556195077 (6) Afib Current Visit: Yes Status: Acute Code(s): I48.91 - UNSPECIFIED ATRIAL FIBRILLATION SNOMED Code(s): 64255670 (7) DVT prophylaxis Current Visit: Yes Status: Acute Code(s): Z29.9 - ENCOUNTER FOR PROPHYLACTIC MEASURES, UNSPECIFIED SNOMED Code(s): 434670252
[2019-03-30] MEDS: oxyCODONE TAB* 5 MG TAB PO PRN (19:14)
[2019-03-30] MEDS: Atorvastatin* 40 MG TAB PO SCH (19:16)
[2019-03-30] MEDS: Mirtazapine TAB* 15 MG PO SCH (20:57)
[2019-03-30] MEDS: Cyclobenzaprine TAB* 10 MG PO PRN (20:58)
[2019-03-31] MEDS: Aspirin 81 mg CHEW TAB* 81 MG TAB.CHEW PO SCH (08:35)
[2019-03-31] MEDS: Heparin VIAL(*) 5000 UNITS/ML VIAL (FIVE THOUSAND) SUBCUT SCH ×2 (08:36→20:43)
[2019-03-31] MEDS: Tamsulosin CAP* 0.4 MG PO SCH ×2 (08:36→20:45)
[2019-03-31] MEDS: Hydrochlorothiazide TAB* 25 MG PO SCH (08:36)
[2019-03-31] MEDS: Sertraline* 100 MG TAB PO SCH (08:36)
[2019-03-31] MEDS: Losartan TAB* 25 MG PO SCH (08:36)
[2019-03-31] MEDS: Metoprolol Succinate XL TAB* 100 MG PO SCH (08:36)
[2019-03-31] MEDS: oxyCODONE TAB* 5 MG TAB PO PRN ×3 (08:45→20:42)
[2019-03-31] MEDS: Ondansetron TAB* 4 MG PO PRN (13:30)
--- NOTE | 2019-03-31 15:48 | PN ---
Subjective Date of Service: 03/31/19 Interval History: Patient was seen this morning in his room. Anxious and distressed regarding his inability to walk like he used and his recent increase of weakness and recurrent falls specifically this past week. I did receive a call from his daughter Stacey Jacobson from [place] (psychiatrist health professional) to discuss his case and the patient did give me his consent to speak with her. I called and spoke to his daughter over the phone on two separate occasion today 03/31/19 (Stacey Jacobson ) and we spent over 60 mins in total discussing Mr Hung conditions, his decline, and his medical work up in [place]. She voiced several concerns regarding his safety and his progressive decline medically and mentally. The patient has been having increase fall, confusion and some suicidal thoughts. She states that his condition started to deteriorate shortly after his and Stacey went to [facility]. His recently expressed her sexual orientation being Lesbian and he has been stressed since. Stacey (the daughter) feels that his symptoms all psychotic and she asked to have psychiatrist sees him. He fell repeatedly while in [place] and they took him twice to the ER. Once at [facility] ER in [facility] on 03/21/19, the second time was at [facility] ER room 03/26/[address] brain and neurology evaluation and was released. Unfortunately they could not do MRI due to his spinal stimulator. (medical release signed and faxed to have records faxed to us). His daughter also expressed some concerns about her father having thoughts and plans of ending his life by taking several opiate pills and once he felt the effect of the drugs his plan was to hang himself using a belt. He expressed those thoughts back in 01/2019. She asked me to speak to his pain doctor (Who is his brother in law in [facility]). Dr. Ronald Donohue Is Mr Hung Brother in Law and also his previous pain management doctor who placed the spinal pain stimulator several years back. I did all Dr. Donohue and over 20 minutes spend discussing Mr Hung condition and recommendations from Dr. Donohue. He confirmed the history obtained above regarding increase fall and his weakness is concerning to him. He thinks there is an organic reason for his fall and asked to consult neurosurgery to have the stimulator removed. It has not been functioning for years and the leads are subcutaneous not in the spinal canal. He urged us to have MRI done and approved to have the stimulator removed. Past Medical History: Unchanged from Admission Objective Active Medications: Aspirin (Aspirin 81 Mg Chew Tab*) 81 mg PO QAM [facility] Last Admin: 03/31/19 08:35 Dose: 81 mg Atorvastatin Calcium (Lipitor*) 40 mg PO QPM [facility] Last Admin: 03/30/19 19:16 Dose: 40 mg Cyclobenzaprine HCl (Flexeril Tab*) 15 mg PO BEDTIME PRN PRN Reason: PAIN Last Admin: 03/30/19 20:58 Dose: 15 mg Furosemide (Lasix Tab*) 40 mg PO EVERY OTHER DAY [facility] Last Admin: 03/30/19 08:25 Dose: 40 mg Heparin Sodium (Porcine) (Heparin Vial(*)) 5,000 units SUBCUT Q12HR [facility] Last Admin: 03/31/19 08:36 Dose: 5,000 units Hydralazine HCl (Apresoline Iv*) 10 mg IV SLOW PU Q6H PRN PRN Reason: SBP>170 Last Admin: 03/31/19 11:53 Dose: 10 mg Hydrochlorothiazide (Hydrodiuril Tab*) 12.5 mg PO DAILY [facility] Last Admin: 03/31/19 08:36 Dose: 12.5 mg Losartan Potassium (Cozaar Tab*) 100 mg PO DAILY [facility] Last Admin: 03/31/19 08:36 Dose: 100 mg Metoprolol Succinate (Toprol Xl Tab*) 100 mg PO QAM [facility] Last Admin: 03/31/19 08:36 Dose: 100 mg Mirtazapine (Remeron Tab*) 15 mg PO BEDTIME [facility] Last Admin: 03/30/19 20:57 Dose: 15 mg Ondansetron HCl (Zofran Tab*) 4 mg PO Q6H PRN PRN Reason: NAUSEA Last Admin: 03/31/19 13:30 Dose: 4 mg Oxycodone HCl (Roxycodone Tab*) 15 mg PO TID PRN PRN Reason: PAIN Last Admin: 03/31/19 08:45 Dose: 15 mg Sertraline HCl (Zoloft*) 100 mg PO DAILY [facility] Last Admin: 03/31/19 08:36 Dose: 100 mg Tamsulosin HCl (Flomax Cap*) 0.4 mg PO BID [facility] Last Admin: 03/31/19 08:36 Dose: 0.4 mg Vital Signs - 8 hr 03/31/19 03/31/19 03/31/19 08:00 08:45 11:34 Temperature 97.0 F Pulse Rate 60 Respiratory 16 14 14 Rate Blood Pressure 176/77 (mmHg) O2 Sat by Pulse 95 Oximetry 03/31/19 03/31/19 12:00 12:40 Temperature 98.0 F Pulse Rate 65 68 Respiratory 16 24 Rate Blood Pressure 179/83 159/80 (mmHg) O2 Sat by Pulse 96 96 Oximetry Oxygen Devices in Use Now: None Appearance: awake, depressed flat affect Eyes: No Scleral Icterus, - - EOMI Ears/Nose/Mouth/Throat: Mucous Membranes Moist Neck: - - kyphosis. restricted movements Respiratory: Symmetrical Chest Expansion and Respiratory Effort, Clear to Auscultation Cardiovascular: NL Sounds; No Murmurs; No JVD, No Edema Abdominal: NL Sounds; No Tenderness; No Distention Extremities: No Edema Skin: No Rash or Ulcers Neurological: Alert and Oriented x 3, - - gait not assessed for safety. diminished strength lower extremety L>R Result Diagrams: 03/30/19 01:26 03/30/19 01:12 Assess/Plan/Problems-Billing Assessment: 73 y/o male admitted for weakness and reccurrent fall. old L2 compression fracture. - Patient Problems (1) Weakness Current Visit: Yes Status: Acute Code(s): R53.1 - WEAKNESS SNOMED Code(s) : 82309629 Comment: - At this time his weakness can not be explained from his L2 fracture and cord compression at L2 - Discussed the case with Dr. Johnson in regard to the retropulsion of L2 into the cord, Dr. Johnson think it is minimally compressing and there is no threat of causing caudal equina. no intervention required - After long discussion with the patient's daughter and his brother in law documented in my subjective section of today's note. I did call neurology consult from Dr. Teresa and called for consult with Elizabeth from neurosurgery to see if agreable to remove his nerve stimulator. - Unsafe for discharge until we are able to pursue further imaging of his spine , brain that include MRI (2) CAD (coronary artery disease) Current Visit: Yes Status: Acute Code(s): I25.10 - ATHSCL HEART DISEASE OF [place] CORONARY ARTERY W/O ANG PCTRS SNOMED Code(s): 63116073 Comment: - Continue aspirin 81; Lipitor 40 mg; HTCZ 12.5 mg; Losartan 100 mg , lopressor 100 mg daily (3) Hypertension Current Visit: Yes Status: Acute Code(s): I10 - ESSENTIAL (PRIMARY) HYPERTENSION SNOMED Code(s): 69169074 Comment: - Continue HTCZ 12.5 mg; Losartan 100 mg, lopressor 100 mg daily (4) Hyperlipemia Current Visit: Yes Status: Acute Code(s): E78.5 - HYPERLIPIDEMIA, UNSPECIFIED SNOMED Code(s): 08134163 Comment: - Continue Lipitor 40 mg; (5) GERD (gastroesophageal reflux disease) Current Visit: Yes Status: Acute Code(s): K21.9 - GASTRO-ESOPHAGEAL REFLUX DISEASE WITHOUT ESOPHAGITIS SNOMED Code(s): 865298859 (6) History of CVA (cerebrovascular accident) Current Visit: Yes Status: Acute Code(s): Z86.73 - PRSNL HX OF TIA (TIA), AND CEREB INFRC W/O RESID DEFICITS SNOMED Code(s): 253700895 Comment: - Continue aspirin 81; Lipitor 40 mg; HTCZ 12.5 mg; Losartan 100 mg , lopressor 100 mg daily - Given his increase weakness and reccurent falls, I will consult with neurology and will try to obtain repeat CT or MRI if the nerve stimulator can be removed. - Dr. Johnson called to assess patient for stimulator removal (7) Depression Current Visit: Yes Status: Acute Code(s): F32.9 - MAJOR DEPRESSIVE DISORDER , SINGLE EPISODE, UNSPECIFIED SNOMED Code(s): 03323144 Comment: - Discussed with his daughter from [place] who is psychiatrist health professional - She voiced concerns of having severe depression causing his fall. Also expressed at one time the patient voicing suicidal thoughts in january none recently - I will consult with psychiatry once his medical work up has been completed - Continue remeron and zoloft (8) DVT prophylaxis Current Visit: Yes Status: Acute Code(s): Z29.9 - ENCOUNTER FOR PROPHYLACTIC MEASURES, UNSPECIFIED SNOMED Code(s): 637402984 Status and Disposition: Dr. Ronald Donohue Is Mr Hung Brother in Law and pain specialist. Stacey Jacobson , is Mr Hung Daughter (psychiatrist health professional)
[2019-03-31] MEDS: Atorvastatin* 40 MG TAB PO SCH (16:53)
[2019-03-31] MEDS: Mirtazapine TAB* 15 MG PO SCH (20:40)
[2019-03-31] MEDS: Cyclobenzaprine TAB* 10 MG PO PRN (20:41)
[2019-04-01] MEDS: oxyCODONE TAB* 5 MG TAB PO PRN ×3 (05:49→20:40)
[2019-04-01 07:43] LABS: ABS Eosinophils 0.2 10^3/ul (0-0.6); ABS Lymphocytes 0.8 10^3/ul (1.0-4.8); ABS Monocytes 0.5 10^3/ul (0-0.8); ABS Neutrophils 4.1 10^3/ul (1.5-7.7); Eosinophil % 4.3 %; Hematocrit 33 % (42-52); Hemoglobin 11.3 g/dL (14.0-18.0); Lymphocyte % 14.2 %; Mean Corpuscular HGB Conc 34 g/dL (31-36); Mean Corpuscular Hemoglobin 28 pg (27-31); Mean Corpuscular Volume 82 fL (80-94); Platelet Count 131 10^3/uL (150-450); Red Blood Count 4.03 10^6 /uL (4.18-5.48); Red Cell Distribution Width 14 % (10-15); White Blood Count 5.7 10^3/uL (3.5-10.8)
[2019-04-01 07:53] LABS: BUN/Creatinine Ratio 19.8 (8-20); Calcium 9.2 mg/dL (8.6-10.3); EGFR African American 74.7 (>60); EGFR Non-African American 61.7 (>60); Magnesium 2.1 mg/dL (1.9-2.7); Potassium 3.8 mmol/L (3.5-5.0)
[2019-04-01] MEDS: Hydrochlorothiazide TAB* 25 MG PO SCH (10:34)
[2019-04-01] MEDS: Losartan TAB* 25 MG PO SCH (10:36)
[2019-04-01] MEDS: Furosemide TAB* 40 MG PO SCH (10:36)
[2019-04-01] MEDS: Tamsulosin CAP* 0.4 MG PO SCH ×2 (10:37→20:34)
[2019-04-01] MEDS: Sertraline* 100 MG TAB PO SCH (10:37)
[2019-04-01] MEDS: Metoprolol Succinate XL TAB* 100 MG PO SCH (10:37)
[2019-04-01] MEDS: Aspirin 81 mg CHEW TAB* 81 MG TAB.CHEW PO SCH (10:37)
[2019-04-01] MEDS: Heparin VIAL(*) 5000 UNITS/ML VIAL (FIVE THOUSAND) SUBCUT SCH ×2 (10:37→20:34)
[2019-04-01] MEDS: Cyclobenzaprine TAB* 10 MG PO PRN ×2 (10:43→21:22)
--- NOTE | 2019-04-01 15:27 | PN ---
Subjective Date of Service: 04/01/19 Interval History: Brought forward from 03/31/19 for reference only: "Addendum entered and electronically signed by Jatin Hammonds MD 17:25: I did receive and I reviewed records from ER visit from . It was an ER visit dated 03/26/19. His work up included routine ER labs and Head CT and CTA head and neck. 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 Ramon Velasquez in [facility] from [place] about 4 years ago. I called his service on Tuesday and he is not marine engineering consultant. Will need to try again on Tuesday [phone] to inquire if the loop recorder is MRI compatible or not. If it is not compatible we need to find out if we can have it removed since it has been present for 4 years and whether or not it is still recording or if the battery is as well. Original Note: Subjective Date of Service: 03/31/19 Interval History: Patient was seen this morning in his room. Anxious and distressed regarding his inability to walk like he used and his recent increase of weakness and recurrent falls specifically this past week. I did receive a call from his daughter Staecy Jacobson from [place] (psychiatrist health professional) to discuss his case and the patient did give me his consent to speak with her. I called and spoke to his daughter over the phone on two separate occasion today 03/31/19 (Stacey Jacobson ) and we spent over 60 mins in total discussing Mr Hung conditions, his decline, and his medical work up in [place]. She voiced several concerns regarding his safety and his progressive decline medically and mentally. The patient has been having increase fall, confusion and some suicidal thoughts. She states that his condition started to deteriorate shortly after his and Stacey went to [facility]. His recently expressed her sexual orientation being Lesbian and he has been stressed since. Stacey (the daughter) feels that his symptoms all psychotic and she asked to have psychiatrist sees him. He fell repeatedly while in [place] and they took him twice to the ER. Once at [facility] in [facility] on 03/21/19, the second time was at [facility] ER room 03/26/[address] brain and neurology evaluation and was released. Unfortunately they could not do MRI due to his spinal stimulator. (medical release signed and faxed to have records faxed to us). His daughter also expressed some concerns about her father having thoughts and plans of ending his life by taking several opiate pills and once he felt the effect of the drugs his plan was to hang himself using a belt. He expressed those thoughts back in 01/2019. She asked me to speak to his pain doctor (Who is his brother in law in [facility]). Dr. Ronald Donohue Is Mr Hung Brother in Law and also his previous pain management doctor who placed the spinal pain stimulator several years back. I did all Dr. Donohue and over 20 minutes spend discussing Mr Hung condition and recommendations from Dr. Donohue. He confirmed the history obtained above regarding increase fall and his weakness is concerning to him. He thinks there is an organic reason for his fall and asked to consult neurosurgery to have the stimulator removed. It has not been functioning for years and the leads are subcutaneous not in the spinal canal. He urged us to have MRI done and approved to have the stimulator removed." Today 04/01/19 - patient seen he was out of bed to the chair and he was able to stand and transfer himself to bed. he still feels weak in both leg left worse than the right and he still feels his legs can not support him. I asked him if he does have the loop recorder card information with him and I will try to call the desk representative to see if it is MRI compatible, unfortunately the card is at home and at this time he was not allowing his to be involved with his care. I urged him to reconsider as it will help expedite his care and he agreed to call her and see if she can bring his wallet that has the information about his loop recorder. Dr. Nguyen consulted and saw the patient, Dr Teresa from neurology consulted today. I placed a call to psychiatry marine engineering consultant will see patient in consultations. Not urgent as the patient is not danger to himself at this time. Past Medical History: Unchanged from Admission Objective Active Medications: Aspirin (Aspirin 81 Mg Chew Tab*) 81 mg PO QAM [facility] Last Admin: 04/01/19 10:37 Dose: 81 mg Atorvastatin Calcium (Lipitor*) 40 mg PO QPM [facility] Last Admin: 03/31/19 16:53 Dose: 40 mg Cyclobenzaprine HCl (Flexeril Tab*) 15 mg PO BEDTIME PRN PRN Reason: PAIN Last Admin: 04/01/19 10:43 Dose: 15 mg Furosemide (Lasix Tab*) 40 mg PO EVERY OTHER DAY [facility] Last Admin: 04/01/19 10:36 Dose: 40 mg Heparin Sodium (Porcine) (Heparin Vial(*)) 5,000 units SUBCUT Q12HR [facility] Last Admin: 04/01/19 10:37 Dose: 5,000 units Hydralazine HCl (Apresoline Iv*) 10 mg IV SLOW PU Q6H PRN PRN Reason: SBP>170 Last Admin: 03/31/19 11:53 Dose: 10 mg Hydrochlorothiazide (Hydrodiuril Tab*) 12.5 mg PO DAILY [facility] Last Admin: 04/01/19 10:34 Dose: 12.5 mg Losartan Potassium (Cozaar Tab*) 100 mg PO DAILY [facility] Last Admin: 04/01/19 10:36 Dose: 100 mg Metoprolol Succinate (Toprol Xl Tab*) 100 mg PO QAM [facility] Last Admin: 04/01/19 10:37 Dose: 100 mg Mirtazapine (Remeron Tab*) 15 mg PO BEDTIME [facility] Last Admin: 03/31/19 20:40 Dose: 15 mg Ondansetron HCl (Zofran Tab*) 4 mg PO Q6H PRN PRN Reason: NAUSEA Last Admin: 03/31/19 13:30 Dose: 4 mg Oxycodone HCl (Roxycodone Tab*) 15 mg PO TID PRN PRN Reason: PAIN Last Admin: 04/01/19 05:49 Dose: 15 mg Sertraline HCl (Zoloft*) 100 mg PO DAILY [facility] Last Admin: 04/01/19 10:37 Dose: 100 mg Tamsulosin HCl (Flomax Cap*) 0.4 mg PO BID [facility] Last Admin: 04/01/19 10:37 Dose: 0.4 mg Vital Signs - 8 hr 04/01/19 04/01/19 04/01/19 07:40 07:43 10:43 Temperature 98.2 F Pulse Rate 65 Respiratory 18 18 16 Rate Blood Pressure 147/71 (mmHg) O2 Sat by Pulse 95 Oximetry 04/01/19 11:40 Temperature 98.3 F Pulse Rate 71 Respiratory 16 Rate Blood Pressure 138/76 (mmHg) O2 Sat by Pulse 95 Oximetry Oxygen Devices in Use Now: None Appearance: awake, alert. oriented. flat affect. monotone voice. pleasant and cooporative Eyes: No Scleral Icterus, - Ears/Nose/Mouth/Throat: NL Teeth, Lips, Gums, Mucous Membranes Moist Neck: - - posterior cervical scar from previous surgery, fused and restricted movements Respiratory: Symmetrical Chest Expansion and Respiratory Effort Cardiovascular: NL Sounds; No Murmurs; No JVD Abdominal: NL Sounds; No Tenderness; No Distention Neurological: Alert and Oriented x 3, - - LLE 3/5; LUE 3/5. RUE and RLE 5/5 Result Diagrams: 04/01/19 07:19 04/01/19 07:19 Assess/Plan/Problems-Billing Assessment: 73 y/o male admitted for weakness and reccurrent fall. old L2 compression fracture. - Patient Problems (1) Weakness Current Visit: Yes Status: Acute Code(s): R53.1 - WEAKNESS SNOMED Code(s) : 87830310 Comment: - At this time his weakness can not be explained from his L2 fracture and cord compression at L2. He has no tenderness - Discussed the case with Dr. Johnson in regard to the retropulsion of L2 into the cord, Dr. Johnson think it is minimally compressing and there is no threat of causing caudal equina. no intervention required - After long discussion with the patient's daughter and his brother in law on (documented in my subjective section). I consulted Dr. Teresa (neurology ) and Elizabeth (neurosurgery). Consulted psychiatrist marine engineering consultant covering for Dr. Carroll - Unsafe for discharge until we are able to pursue further imaging of his spine , brain that include MRI (2) CAD (coronary artery disease) Current Visit: Yes Status: Acute Code(s): I25.10 - ATHSCL HEART DISEASE OF [place] CORONARY ARTERY W/O ANG PCTRS SNOMED Code(s): 43788231 Comment: - Continue aspirin 81; Lipitor 40 mg; HTCZ 12.5 mg; Losartan 100 mg , lopressor 100 mg daily (3) Hypertension Current Visit: Yes Status: Acute Code(s): I10 - ESSENTIAL (PRIMARY) HYPERTENSION SNOMED Code(s): 79014918 Comment: - Continue HTCZ 12.5 mg; Losartan 100 mg, lopressor 100 mg daily (4) Hyperlipemia Current Visit: Yes Status: Acute Code(s): E78.5 - HYPERLIPIDEMIA, UNSPECIFIED SNOMED Code(s): 03061695 Comment: - Continue Lipitor 40 mg; (5) GERD (gastroesophageal reflux disease) Current Visit: Yes Status: Acute Code(s): K21.9 - GASTRO-ESOPHAGEAL REFLUX DISEASE WITHOUT ESOPHAGITIS SNOMED Code(s): 568522873 (6) History of CVA (cerebrovascular accident) Current Visit: Yes Status: Acute Code(s): Z86.73 - PRSNL HX OF TIA (TIA), AND CEREB INFRC W/O RESID DEFICITS SNOMED Code(s): 601072031 Comment: - Continue aspirin 81; Lipitor 40 mg; HTCZ 12.5 mg; Losartan 100 mg , lopressor 100 mg daily - Given his increase weakness and reccurent falls, I will consult with neurology and will try to obtain repeat CT or MRI if the nerve stimulator can be removed. - Dr. Johnson called to assess patient for stimulator removal (7) Depression Current Visit: Yes Status: Acute Code(s): F32.9 - MAJOR DEPRESSIVE DISORDER , SINGLE EPISODE, UNSPECIFIED SNOMED Code(s): 75649146 Comment: - Discussed with his daughter from [place] who is psychiatrist health professional - She voiced concerns of having severe depression causing his fall. Also expressed at one time the patient voicing suicidal thoughts in january none recently - I did consult with psychiatry marine engineering consultant covering for Dr. Wylie - Continue remeron and zoloft (8) DVT prophylaxis Current Visit: Yes Status: Acute Code(s): Z29.9 - ENCOUNTER FOR PROPHYLACTIC MEASURES, UNSPECIFIED SNOMED Code(s): 119404482 Status and Disposition: Dr. Ronald Donohue Is Mr Hung Brother in Law and pain specialist. Stacey Kavon , is Mr Hung Daughter (psychiatrist health professional)
[2019-04-01] MEDS: Atorvastatin* 40 MG TAB PO SCH (17:36)
[2019-04-01] MEDS: Mirtazapine TAB* 15 MG PO SCH (20:34)
[2019-04-01] MEDS ORDERED: Cyclobenzaprine TAB* 10 MG PO PRN (21:17)
--- NOTE | 2019-04-01 22:45 | CONS ---
CONSULTATION REPORT: DATE OF CONSULT: 04/01/19 PATIENT OF: Dr. Hammonds and Dr. Bruner. HISTORY OF PRESENT ILLNESS: This is a 73-year-old man who has in the past week had begun falling 4 times in the past 7 days. He was in [place] visiting family and fell down the stairs and he and his came home. He remembers these falls and his leg will buckle. He typically uses a cane to get around and at first said he did not ever fall, but apparently he occasionally does fall. He then states he has had some increased lumbar pain following this. 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 He has chronic scoliosis and now kyphosis. He has history of an L2 burst fracture in 2006, coronary artery disease, status post 9 stents, hypertension, hyperlipidemia, GERD, atrial fibrillation, status post bilateral cataract extractions, cervical decompression in 1993 and again in 1997, a cervical dorsal column stimulator insertion, appendectomy. MEDICATIONS: Include: 1. Mag oxide 400 mg daily. 2. Vitamin B12 1000 mcg daily 3. Sertraline 100 mg. 4. Remeron 15 mg q.h.s. 5. Oxycodone 15 mg t.i.d. p.r.n. pain. 6. Flomax 0.4 b.i.d. 7. Zofran 4 mg p.r.n. nausea. 8. Metoprolol 100 mg daily. 9. Meclizine 25 mg t.i.d. p.r.n. dizziness. 10. Lasix 40 mg every other day. 11. Flexeril 15 mg q.h.s. p.r.n. spasm. 12. Losartan/hydrochlorothiazide 100/12.5 1 tab daily. 13. Lipitor 40 mg q.h.s. 15. Aspirin 81 mg daily. ALLERGIES: He is allergic to MOVANTIK. FAMILY HISTORY: His mother and father are both . Mother of congestive heart failure. Father at 68 of cancer. SOCIAL HISTORY: He is non-smoker. He drinks alcohol rarely and he has worked at the [employer], , and has 3 children. REVIEW OF SYSTEMS: Negative in all 14 spheres other than a recent 20-pound weight loss in the past few months' time. There has been no severe headache. He will have some choking of food. There is no new numbness, no bladder or bowel problems. PHYSICAL EXAM: Temperature 97.6, pulse 62, respirations 14, blood pressure 147/ 81. He is alert and oriented with normal speech comprehension. Cranial nerves II through XI were intact. Red reflexes are present bilaterally. I did not get a good look in his eyes and did not focus on any point. Motor exam revealed atrophy in intrinsic muscles of his both hands, left worse than the right which he notes that this is chronic. He has weakness 5-/5 in his left hand, trace weakness in his right hand other than abductors of the intrinsic muscles of his both hands, on the left it was 4-, in the right it was 4+/5. Strength in the left leg was trace weak. Strength in the right leg was 5. Reflexes were 3- at the knees, trace at the ankles. Trace to 1 at the biceps and wrist. Toes were equivocal to downgoing. He has severe kyphosis and scoliosis. Sensation intact to touch. Chest: Clear. Cardiovascular: Regular rate and rhythm at this point. Abdomen is soft with positive bowel sounds. 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 He had a lumbar CT scan and the thoracic CT scan, the lumbar CT scan Dr. Johnson reviewed. It did show compression fracture of the L2 with 60% retropulsion causing a mild central stenosis. There is multilevel disk disease causing a foraminal stenosis. He has a prominent dorsal kyphosis in his upper thoracic region with some wedge deformity from T5 to T8, no significant central canal stenosis in the thoracic spine. Labs include white count 5.7, hematocrit 33, platelets 131. INR 0.99. PTT 23. CMP was normal other than a protein of 6.3, B12 was over 1450. TSH was normal. I had Jose Alberto walk. He required walking with a walker and a 2-person assist, but he seemed to bear weight and walked well, then as he was coming back to bed as his back was turned to me he just had buckling of both legs. I saw this from the behind. The nurses both raised the question of whether this was just an intentional giving out. It is hard for me to see but the thought crossed my mind. It is unclear what is causing Jose Alberto's walking difficulties. He has had chronically used a cane, but this has gotten worse. He has significant kyphosis and scoliosis and prior neck disease. It is quite possible that this could be a cervical myelopathy given his change in gait and his underlying disk disease including in the cervical area. He notes that he is extremely reluctant to have surgery given his prior complications from his prior cervical surgery, but he is willing to have a CT scan of his neck to look for this and we will do that. Now it is possible that some of his reflexes are decreased given his lumbar disease, and there is also possibility he can have a superimposed neuropathy. Dr. Llamas will be on tomorrow and further workup will be through him, but I will order the CT of the cervical spine and he cannot have an MRI scan given his nerve stimulator. Thank you for sharing his case. [id number]/[facility] #: [id number] CINDY
--- NOTE | 2019-04-02 01:47 | CONS ---
CONSULTATION REPORT: DATE OF CONSULT: 04/01/19 HISTORY OF PRESENT ILLNESS: The patient is a very pleasant 73-year-old gentleman who has an extensive history of cervical spine surgery. The patient also has a history of L2 burst fracture in 2006. The patient was admitted to the hospital by the hospitalist service for episodes of frequent falls. Patient reports that he lives with his and his daughter, who is an senior cost accountant in a psychiatry office in [place], and he was not here for several falls. He was evaluated there through different emergency rooms including [facility], and neurology evaluation recommended obtaining an MRI. Requested to see the patient by Dr. Hammonds because of his history of spinal cord stimulator that precludes the possibility of obtaining an MRI and for consideration for removal of spinal cord stimulator. 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 Patient also has a history of L2 burst fracture in 2006 as well as a history of spinal cord stimulator placement by his [id number] several years ago. Patient reports that he had the last revision of his battery Dr. Chirinos approximately 2 years ago while the spinal cord stimulator has not worked for more than one year. Patient reports that he started experiencing cervical kyphosis with difficulty looking ahead for approximately 1 year. He reports that for the last year he has been having increased episodes of falls. He denies any weakness, numbness or tingling of his extremities. He ambulates with significant difficulty as he has having several falls. He denies any urinary or GI incontinence. Patient was working for the [employer]. He is and he has 3 children, one of whom is . His is his healthcare proxy. According to the patient's chart, patient has sustained quite significant emotional changes recently due to family- related issues, causing him significant anxiety. PAST MEDICAL HISTORY: The patient has history of: 1. Coronary artery disease, status post stents x9. 2. Hypertension. 3. Hyperlipidemia. 4. GERD. 5. Atrial fibrillation. 6. L2 burst fracture. 7. Left-sided hemiplegia. PAST SURGICAL HISTORY: 1. Bilateral cataract surgeries. 2. Cervical decompression in 1993 and in 1997. 3. Dorsal column stimulator. 4. Appendectomy. MEDICATIONS: The patient was on: 1. Magnesium. 2. Vitamin B12. 3. Sertraline. 4. Remeron. 5. Oxycodone. 6. Flomax. 7. Zofran. 8. Metoprolol. 9. Meclizine. 10. Losartan/hydrochlorothiazide. 11. Lasix. 12. Flexeril. 13. Lipitor. 14. Aspirin 81 mg. ALLERGIES: MOVANTIK. FAMILY HISTORY: CHF, cancer. SOCIAL HISTORY: The patient denies smoking. He drinks alcohol rarely. Recreational drug use is negative. Patient's is his healthcare proxy. PHYSICAL EXAMINATION: The patient is not in acute distress. His does have quite profound cervicothoracic kyphosis with dropped head appearance. He is awake, alert, and oriented x3. His pupils are equal and reactive. Cranial II through XII are grossly intact. Motor 5/5 on the right side, 4 -/5 on the left side, with spasticity of the left hand. Sensation is grossly intact to light touch, except decreased sensation on the left side of his body, left upper and left lower extremities. Deep tendon reflex is +1 bilaterally. No clonus. Babinski is positive on the left, negative on the right. Galina is positive on the left, negative on the right. Patient has spinal cervical spinal cord stimulator in his right lower quadrant. His wounds are soft, clean, and dry, healed very well. Patient is nontender to palpation of the thoracic or lumbar spine. His range of motion of cervical spine is quite limited because of his deformity. DIAGNOSTIC STUDIES/LAB DATA: Patient had a CT scan of the brain, with no evidence of subacute findings. Patient had a CT scan of the cervical spine revealing postoperative changes from an anterior corpectomy at C5 through T1 approximately, with significant residual kyphosis. There is also posterior laminectomy between C4 and T2 approximately, with severe cervicothoracic kyphosis. Patient does have evidence of spinal cord stimulator electrodes superficial to the dura. CT scan of the thoracic spine revealed kyphosis with an L2 chronic fracture. CT scan of the lumbar spine revealed L2 chronic fracture with minimal repulsion. ASSESSMENT: The patient is a very pleasant 73-year-old gentleman with history of 1 anterior and 2 posterior cervical surgeries, last in 1997, with right vertebral artery injury and residual left hemiparesis and spasticity with hemisensory loss, with clinical findings and radiological findings consistent with extensive cervical kyphosis and cervicothoracic kyphosis, with episodes of frequent falls. PLAN: The patient, at this point, has been admitted by Medicine. He is undergoing extensive workup. At this point MRI of his brain, cervical spine, as well as thoracic spine will be helpful to obtain and for this reason we discussed the possibility of removal of his spinal cord stimulator. Patient reports this has not worked for more than 1 year, but as Dr. Hammonds talked with the patient and his daughter as well as his [id number] over the phone, they will all be willing to remove the spinal cord stimulator. I discussed with the patient the possible procedure, expectations, limitations, and possible complications of the procedure. The complications include, but are not limited to bleeding, infections, risk of injury to adjacent structure, coma, paralysis, , need for additional procedures, anesthesia risk, stroke, blindness, cancer, instability, hardware failure, spinal fluid leak, need for additional procedures, and inability to remove the spinal cord stimulator in its entirety. Prior to proceeding to surgical intervention, we would like to confirm that the patient will be able to obtain Internal Medicine clearance. Also, we recommend, if MRI will be ordered, to include MRI of the cervical and thoracic spine besides the brain. Patient also has a loop recorder and Dr. Hammonds is investigating if it is MRI compatible or not, and if removal of spinal cord stimulator will increase the options of the patient for obtaining an MRI. Thank you for allowing us to participate in the care of this patient. Please do not hesitate to contact our office in case you have any further questions or concerns regarding the care of this patient. [id number]/[facility] #: [id number] CINDY
[2019-04-02] MEDS: oxyCODONE TAB* 5 MG TAB PO PRN ×2 (10:13→20:24)
[2019-04-02] MEDS: Cyclobenzaprine TAB* 10 MG PO PRN ×2 (10:14→20:23)
[2019-04-02] MEDS: Metoprolol Succinate XL TAB* 100 MG PO SCH (10:19)
[2019-04-02] MEDS: Aspirin 81 mg CHEW TAB* 81 MG TAB.CHEW PO SCH (10:19)
[2019-04-02] MEDS: Sertraline* 100 MG TAB PO SCH (10:19)
[2019-04-02] MEDS: Tamsulosin CAP* 0.4 MG PO SCH ×2 (10:20→20:24)
[2019-04-02] MEDS: Hydrochlorothiazide TAB* 25 MG PO SCH (10:20)
[2019-04-02] MEDS: Losartan TAB* 25 MG PO SCH (10:20)
[2019-04-02] MEDS: Heparin VIAL(*) 5000 UNITS/ML VIAL (FIVE THOUSAND) SUBCUT SCH ×2 (10:23→20:25)
--- NOTE | 2019-04-02 18:55 | PN ---
Subjective Date of Service: 04/02/19 Interval History: HOSPITALIST PROGRESS NOTE Patient seen and examined at bedside. Care reviewed and d/w Mikki Gilliland RN. He offers no new complaints today, continues to feel weak, did not try to get up from bed by himself. Family History: Unchanged from Admission Social History: Unchanged from Admission Past Medical History: Unchanged from Admission Objective Active Medications: Aspirin (Aspirin 81 Mg Chew Tab*) 81 mg PO QAM [facility] Last Admin: 04/02/19 10:19 Dose: 81 mg Atorvastatin Calcium (Lipitor*) 40 mg PO QPM [facility] Last Admin: 04/01/19 17:36 Dose: 40 mg Cyclobenzaprine HCl (Flexeril Tab*) 15 mg PO Q12H PRN PRN Reason: muscle spasms Last Admin: 04/02/19 10:14 Dose: 15 mg Furosemide (Lasix Tab*) 40 mg PO EVERY OTHER DAY [facility] Last Admin: 04/01/19 10:36 Dose: 40 mg Heparin Sodium (Porcine) (Heparin Vial(*)) 5,000 units SUBCUT Q12HR [facility] Last Admin: 04/02/19 10:23 Dose: 5,000 units Hydralazine HCl (Apresoline Iv*) 10 mg IV SLOW PU Q6H PRN PRN Reason: SBP>170 Last Admin: 03/31/19 11:53 Dose: 10 mg Hydrochlorothiazide (Hydrodiuril Tab*) 12.5 mg PO DAILY [facility] Last Admin: 04/02/19 10:20 Dose: 12.5 mg Losartan Potassium (Cozaar Tab*) 100 mg PO DAILY [facility] Last Admin: 04/02/19 10:20 Dose: 100 mg Metoprolol Succinate (Toprol Xl Tab*) 100 mg PO QAM [facility] Last Admin: 04/02/19 10:19 Dose: 100 mg Mirtazapine (Remeron Tab*) 15 mg PO BEDTIME [facility] Last Admin: 04/01/19 20:34 Dose: 15 mg Ondansetron HCl (Zofran Tab*) 4 mg PO Q6H PRN PRN Reason: NAUSEA Last Admin: 03/31/19 13:30 Dose: 4 mg Oxycodone HCl (Roxycodone Tab*) 15 mg PO TID PRN PRN Reason: PAIN Last Admin: 04/02/19 10:13 Dose: 15 mg Sertraline HCl (Zoloft*) 100 mg PO DAILY [facility] Last Admin: 04/02/19 10:19 Dose: 100 mg Tamsulosin HCl (Flomax Cap*) 0.4 mg PO BID [facility] Last Admin: 04/02/19 10:20 Dose: 0.4 mg Vital Signs - 8 hr 04/02/19 04/02/19 04/02/19 11:37 11:54 12:17 Temperature 98.1 F Pulse Rate 71 Respiratory 18 18 Rate Blood Pressure 170/83 (mmHg) O2 Sat by Pulse 96 Oximetry 04/02/19 15:35 Temperature 98.3 F Pulse Rate 69 Respiratory Rate Blood Pressure 133/81 (mmHg) O2 Sat by Pulse 96 Oximetry Oxygen Devices in Use Now: None Appearance: Pleasant elderly gentleman sitting up in bed in [facility]. Eyes: No Scleral Icterus Ears/Nose/Mouth/Throat: Mucous Membranes Moist Neck: Trachea Midline Respiratory: Symmetrical Chest Expansion and Respiratory Effort, Clear to Auscultation Cardiovascular: RRR - Normal S1 and S2 Abdominal: NL Sounds; No Tenderness; No Distention Neurological: Alert and Oriented x 3, - - Strength 5/5 RUE/RLE, 4/5 LUE/LLE, with mild spasticity on the left Result Diagrams: 04/01/19 07:19 04/01/19 07:19 Microbiology and Other Data: Microbiology 03/31/19 17:01 Aerobic Blood Culture - Preliminary Blood Venous No Growth Day 2 Anaerobic Blood Culture - Preliminary No Growth Day 2 03/31/19 16:55 Aerobic Blood Culture - Preliminary Blood Venous No Growth Day 2 Anaerobic Blood Culture - Preliminary No Growth Day 2 Assess/Plan/Problems-Billing Assessment: Mr Hung is a 73 yo M with PMH of CAD s/p stents x 9, HTN, HLD, GERD, Afib, L2 burst fracture in 2006, 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 - Patient Problems (1) Weakness Comment: - Neurosurgery input appreciated - plan for MRI brain, cervical/ thoracic spine. For that to happen, he'll need his spinal cord stimulator removed. - He has a [employer] model # [id number], serial # [id number], implanted on 02/01/14 according to his card. - He denies chest pain or dyspnea with exertion. He's able to walk slowly with no symptoms (other than the fall he was admitted for). - EKG showed no acute ischemic changes. - No recent echo - will check. - RCRI is 1, predicting a 1-1.3% risk of cardiac complications. If echo is normal, patient is optimized for removal of his spinal cord stimulator. - His implantable air sampling and monitoring is a [employer] model 9529, serial number [id number] - d/w Cardiology (Dr Fernandez) - this device is MRI compatible. (2) CAD (coronary artery disease) Comment: - Stable. - Continue aspirin 81; Lipitor 40 mg; lopressor 100 mg daily (3) Hypertension Comment: - Controlled. - Continue HTCZ 12.5 mg; Losartan 100 mg, lopressor 100 mg daily (4) Hyperlipemia Comment: - Continue Lipitor 40 mg; (5) Depression Comment: - Dr Emmanuel talked to patient's daughter - she voiced concerns of having severe depression causing his fall. Also expressed at one time the patient voicing suicidal thoughts in January, none recently - Continue remeron and zoloft - Awaiting Psych eval. (6) DVT prophylaxis Comment: - SQ heparin. (7) Full code status Status and Disposition: Inpatient. Dr. Ronald Donohue Is Mr Hung Brother in Law and pain specialist. Stacey Kavon , is Mr Hung Daughter
[2019-04-02] MEDS: Mirtazapine TAB* 15 MG PO SCH (20:23)
[2019-04-02] MEDS: Atorvastatin* 40 MG TAB PO SCH (20:23)
--- NOTE | 2019-04-03 00:41 | PN ---
Progress Note - Progress Note Date of Service: 04/02/19 SOAP: Subjective: []Patient was seen earlier in am. No events ON Objective: []VSS AAOx3 KONSTANTIN, CN II-XII grossly intact Motor 5/5 Rt Side, 4-/5 Left side (chronic hemiparesis) Sensory grossly intact to light touch except chronic decreased sensation left side Assessment: []73 yom multiple falls, Hx cervical spine surgery with Left hemiparesis, SCS Plan: []Monitor VS, Neurochecks Discussed with patient regarding SCS. Patient repeated that he would like to have the SCS removed Will schedule patient for removal of SCS Appreciate IM care. Ladonna Johnson MD
[2019-04-03] MEDS: Losartan TAB* 25 MG PO SCH (08:35)
[2019-04-03] MEDS: Heparin VIAL(*) 5000 UNITS/ML VIAL (FIVE THOUSAND) SUBCUT SCH ×2 (08:35→22:59)
[2019-04-03] MEDS: Metoprolol Succinate XL TAB* 100 MG PO SCH (08:36)
[2019-04-03] MEDS: Sertraline* 100 MG TAB PO SCH (08:36)
[2019-04-03] MEDS: Aspirin 81 mg CHEW TAB* 81 MG TAB.CHEW PO SCH (08:36)
[2019-04-03] MEDS: oxyCODONE TAB* 5 MG TAB PO PRN ×2 (08:36→22:55)
[2019-04-03] MEDS: Tamsulosin CAP* 0.4 MG PO SCH ×2 (08:36→22:57)
[2019-04-03] MEDS: Hydrochlorothiazide TAB* 25 MG PO SCH (08:36)
[2019-04-03] MEDS: Furosemide TAB* 40 MG PO SCH (08:36)
--- NOTE | 2019-04-03 08:49 | ECHO ---
*[facility]* [place] [address] Fax #: [phone] Transthoracic Echocardiogram Patient: Jose Alberto Hung : 1945 Study Date: 04/03/2019 Age: 73 Gender: M HR: 61 bpm Height: 69 in /175.3 cm Weight: 164.7 lb /74.8 kg BMI/BSA: 24.4 kg/m^2 1.9 m^2 HR: 61 bpm *Lens Cementer: * Delilah Cazares [facility] *Referring Physician: * Tali KimReading Physician: * Jeremiah Fernandez MD Indications: Pre-operative Cardiovascular Evaluation. CAD. History: Atrial fibrillation. Coronary artery disease. Risk factors: Hypertension. Hyperlipidemia. Cervical spine injury. Labs, prior tests, procedures, and surgery: Catheterization. There was a stenosis which was treated with a stent. Conclusions Summary: 1. Left ventricle: There is moderate concentric hypertrophy. Systolic function is mildly reduced. The estimated ejection fraction is 40-45%. Hypokinesis of the basalinferolateral and inferior myocardium. 2. Mitral valve: There is trace regurgitation. 3. Aortic valve: There is no evidence of stenosis. There is no significant regurgitation. 4. Tricuspid valve: There is physiologic regurgitation. 5. Pericardium, extracardiac: There is no significant pericardial effusion. 6. Pulmonary arteries: Systolic pressure can not be accurately estimated. 7. Compared to study of 10/26/10, the mild left ventricle dysfunction and wall motion abnormality are new. Study data: Transthoracic echocardiogram. Procedure: Transthoracic echocardiography was performed. Image quality was fair. The study was technically limited due to poor acoustic window availability and chest wall deformity. Complete 2D, spectral Doppler, and color flow Doppler. Location: Bedside. Patient status: Inpatient. Patient room number: 417-2. Findings Left ventricle: The cavity size is below normal. There is moderate concentric hypertrophy. Systolic function is mildly reduced. The estimated ejection fraction is 40-45%. Regional wall motion abnormalities: Hypokinesis of the basalinferolateral and inferior myocardium. Doppler parameters are consistent with abnormal left ventricular relaxation (grade 1 diastolic dysfunction). Right ventricle: The cavity size is mildly dilated. Systolic function is mildly reduced. The tricuspid jet envelope definition is inadequate for estimation of RV systolic pressure. There are no indirect findings (abnormal RV volume or geometry, altered pulmonary flow velocity profile, or leftward septal displacement) which would suggest moderate or severe pulmonary hypertension. Left atrium: The atrium is mildly dilated. Right atrium: The atrium is normal in size. Mitral valve: The leaflets are mildly thickened. There is no evidence of stenosis. There is trace regurgitation. Aortic valve: The valve is trileaflet. The leaflets are mildly thickened. There is no evidence of stenosis. There is no significant regurgitation. Tricuspid valve: The leaflets are normal thickness. There is no evidence of stenosis. There is physiologic regurgitation. Pulmonic valve: The leaflets are normal thickness. There is no evidence of stenosis. There is no significant regurgitation. Aorta: Ascending aorta: The ascending aorta is appears normal. Aortic arch: The aortic arch is appears normal. The aortic root is not dilated. Pericardium: A prominent pericardial fat pad is present. There is no significant pericardial effusion. Pulmonary arteries: Not well visualized. Systolic pressure can not be accurately estimated. Systemic veins: Inferior vena cava: The vessel is normal in size. The respirophasic diameter changes are in the normal range (>= 50%). Measurements Left ventricle Value Ref Aortic valve Value Ref BARI, LAX (L) 2.9 cm 4.2 - 5.8 Sukhdev diam, ED 2.0 cm ---- ESD, LAX (L) 2.4 cm 2.5 - 4.0 Peak v, S 0.98 m/sec ---- FS, LAX (L) 15 % 25 - 43 VTI, S 22.7 cm ---- PW, ED, LAX (H) 1.3 cm 0.6 - 1.0 Mean grad, S 2.0 mm Hg ---- FS (L) 15 % 25 - 43 Peak grad, S 4.0 mm Hg ---- PW, ED (H) 1.3 cm 0.6 - 1.0 LVOT/AV, VTI ratio 1.01 ---- E', lat sukhdev, TDI (L) 5.9 cm/sec >=10.0 E/e', lat sukhdev, 6 Mitral valve Value Ref TDI Peak E 0.38 m/sec ---- E', med sukhdev, TDI (L) 4.9 cm/sec >=7.0 Peak A 0.55 m/sec -- -- E/e', med sukhdev, 8 Decel time 268 ms ---- TDI Peak E/A ratio 0.7 ---- E', avg, TDI 5.4 cm/sec E/e', avg, TDI 7 <=14 Pulmonic valve Value Re f Peak v, S 0.64 m/sec ---- LVOT Value Ref Peak grad, S 2.0 mm Hg ---- Peak irene, S 0.95 m/sec VTI, S 23.0 cm Aortic root Value Ref Mean grad, S 2 mm Hg Root diam 3.6 cm <4.1 Ventricular septum Value Ref Ascending aorta Value Ref IVS, ED (H) 1.2 cm 0.6 - 1.0 AAo AP diam, S 3.5 cm ---- Right ventricle Value Ref Aortic arch Value Ref BARI minor ax, A4C (H) 4.6 cm 1.9 - 3.5 Arch diam 2.1 cm ---- mid Decending aorta Value Ref Left atrium Value Ref Aurelio peak irene 0.48 m/sec ---- AP dim, ES (H) 4.70 cm 3.00 - 4.00 Inferior vena cava Value Ref ML dim, A4C 5.4 cm Diam 1.7 cm ---- SI dim, A4C 5.6 cm Vol/bsa, ES, 1-p (H) 44 ml/m^2 12 - 37 A4C Vol/bsa, ES, A/L (H) 38 ml/m^2 16 - 34 Right atrium Value Ref SI dim, ES 4.8 cm 3.4 - 5.3 ML dim, ES, A4C 4.2 cm 2.6 - 4.4 SI dim, ES, A4C 4.8 cm 3.4 - 5.3 Estimated RAP 3 mm Hg Legend: (L) and (H) ana values outside specified reference range. Prepared and electronically signed by Jeremiah Fernandez MD 04/03/2019 08:48
--- NOTE | 2019-04-03 11:56 | PN ---
Subjective Date of Service: 04/03/19 Length of Stay: 4 Days Neurology is following for gait instability. Interval History: He still has trouble ambulating. He feels jerky when getting out of bed. He has no strength in his lower extremities. He denied any impairment in his bowel or bladder functions. He would like his spinal stimulator removed. The patient stated that prior to his trip to [place] mid March, he was able to walk with minimal assistance. He was independent. After the trip back, he is unable to walk without assistance. His legs buckle. Interestingly, he saw a physician in [place] for the same problem 1.5 weeks ago. His weakness is getting worse since then. He denied any slurred speech, new swallowing dysfunction, or visual disturbance. Review of Systems: Denied CP, SOB, or palpitations. Family History: Unchanged from Admission Social History: Unchanged from Admission Past Medical History: Unchanged from Admission Objective Active Medications: Aspirin (Aspirin 81 Mg Chew Tab*) 81 mg PO QAM [facility] Last Admin: 04/03/19 08:36 Dose: 81 mg Atorvastatin Calcium (Lipitor*) 40 mg PO QPM [facility] Last Admin: 04/02/19 20:23 Dose: 40 mg Cyclobenzaprine HCl (Flexeril Tab*) 15 mg PO Q12H PRN PRN Reason: muscle spasms Last Admin: 04/02/19 20:23 Dose: 15 mg Furosemide (Lasix Tab*) 40 mg PO EVERY OTHER DAY [facility] Last Admin: 04/03/19 08:36 Dose: 40 mg Heparin Sodium (Porcine) (Heparin Vial(*)) 5,000 units SUBCUT Q12HR [facility] Last Admin: 04/03/19 08:35 Dose: 5,000 units Hydralazine HCl (Apresoline Iv*) 10 mg IV SLOW PU Q6H PRN PRN Reason: SBP>170 Last Admin: 03/31/19 11:53 Dose: 10 mg Hydrochlorothiazide (Hydrodiuril Tab*) 12.5 mg PO DAILY [facility] Last Admin: 04/03/19 08:36 Dose: 12.5 mg Losartan Potassium (Cozaar Tab*) 100 mg PO DAILY [facility] Last Admin: 04/03/19 08:35 Dose: 100 mg Metoprolol Succinate (Toprol Xl Tab*) 100 mg PO QAM [facility] Last Admin: 04/03/19 08:36 Dose: 100 mg Mirtazapine (Remeron Tab*) 15 mg PO BEDTIME [facility] Last Admin: 04/02/19 20:23 Dose: 15 mg Ondansetron HCl (Zofran Tab*) 4 mg PO Q6H PRN PRN Reason: NAUSEA Last Admin: 03/31/19 13:30 Dose: 4 mg Oxycodone HCl (Roxycodone Tab*) 15 mg PO TID PRN PRN Reason: PAIN Last Admin: 04/03/19 08:36 Dose: 15 mg Sertraline HCl (Zoloft*) 100 mg PO DAILY [facility] Last Admin: 04/03/19 08:36 Dose: 100 mg Tamsulosin HCl (Flomax Cap*) 0.4 mg PO BID [facility] Last Admin: 04/03/19 08:36 Dose: 0.4 mg Vital Signs 04/02/19 04/02/19 04/02/19 11:54 12:17 15:35 Temperature 98.3 F Pulse Rate 69 Respiratory 18 18 Rate Blood Pressure 133/81 (mmHg) O2 Sat by Pulse 96 Oximetry 04/02/19 04/02/19 04/02/19 19:00 20:00 20:23 Temperature Pulse Rate 70 Respiratory 18 18 18 Rate Blood Pressure 109/46 (mmHg) O2 Sat by Pulse 97 Oximetry 04/02/19 04/02/19 04/02/19 20:24 23:00 23:29 Temperature 97.9 F Pulse Rate 68 Respiratory 18 18 18 Rate Blood Pressure 115/66 (mmHg) O2 Sat by Pulse 96 Oximetry 04/03/19 04/03/19 04/03/19 03:00 07:00 08:00 Temperature 97.9 F 98.4 F Pulse Rate 60 62 Respiratory 20 20 14 Rate Blood Pressure 130/61 147/76 (mmHg) O2 Sat by Pulse 98 98 Oximetry 04/03/19 04/03/19 08:36 11:14 Temperature Pulse Rate Respiratory 16 14 Rate Blood Pressure (mmHg) O2 Sat by Pulse Oximetry Intake and Output Last 24 Hours 04/01/19 04/02/19 04/03/19 04/04/19 06:59 06:59 06:59 06:59 Intake Total 867 350 4554 Output Total 774 159 7893 Balance 50 -10 405 Intake: Oral 097 460 8415 Output: Urine 646 310 1837 Other: Estimated Void Medium Small Medium Date of Last Bowel unknown Movement # Bowel Movements 0 0 0 # Voids 0 1 1 Oxygen Devices in Use Now: None Neurology Exam: General: Well nourished, well developed, and in no acute distress. Head drop HEENT: Normocephelic/atraumatic, sclera anicteric, mucous membranes moist Neck: severe kyphosis and camptocormia. Chest: Clear to auscultation bilaterally Cardiovascular: Regular rate and rhythm without murmurs, rubs, gallops Abdomen: Soft, non-tender/non-distended Extremities: No clubbing, cyanosis, or edema Neurological Findings: Awake, alert, and oriented to person, place, and time. Speech: fluent without dysarthria, repetition intact Cranial Nerve: PERRL, EOM intact, VFF, no nystagmus, face symmetric bilaterally , facial sensation intact, hearing intact to finger rub bilaterally, palate elevates symmetrically, tongue midline, SCM and Trapezius s/s. Motor: long tract pyramidal weakness on the left graded as 4/5 (shoulder, triceps, wrist extension, hip flexion, and knee flexion). 2-3/5 in finger abduction bilaterally. Then 3/5 to hip flexion bilaterally and 4+/5 to knee extension on the right. 5/5 to dorsiflexion and plantar flexion of the ankle bilaterally. Sensation: reduced sensation to light-touch and pinprick on the left. No dermatomal pattern of sensory loss in the lower extremities. Deep Tendon Reflex: R/L: Biceps 2/3, brachioradialis 2/3, triceps 2/3, knee 2/3 with crossed adductors, and ankle trace/1 Finger to nose, rapid alternating movements intact without tremor, no dysdiadochokinesia Gait: required two person assist to stand. He had retropulsion. Unable to ambulate. Result Diagrams: 04/01/19 07:19 04/01/19 07:19 Microbiology and Other Data: Microbiology 03/31/19 17:01 Aerobic Blood Culture - Preliminary Blood Venous No Growth Day 2 Anaerobic Blood Culture - Preliminary No Growth Day 2 03/31/19 16:55 Aerobic Blood Culture - Preliminary Blood Venous No Growth Day 2 Anaerobic Blood Culture - Preliminary No Growth Day 2 Assessment/Plan Mr. 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 The patient has severe kypohsis and head drop. He presents with new complaints of inability to ambulate and increase weakness in his lower extremities. His examination is difficult to assess due to the baseline weakness secondary to his spinal cord surgery and left hemiparesis due to the spinal cord stroke. Recommendations: We cannot do CT myelogram since he is on aspirin. It would need to be held for 5 days prior to the procedure. Therefore, the patient agreed to proceed with removing the spinal cord stimulator and doing a neuroaxis imaging of the brain, C, T, and L spine. I suspect he has high lumbar spinal stenosis contributing to his new proximal lower extremity weakness. Other differential diagnosis include worsening cervical spine disease. I do not suspect his symptoms to be related to an intracranial pathology. He is scheduled for surgery to remove the spinal stimulator with Dr. Johnson on . Continue neuro checks every 4 hours I will continue to follow
[2019-04-03] MEDS: Atorvastatin* 40 MG TAB PO SCH (18:14)
--- NOTE | 2019-04-03 19:12 | PN ---
Subjective Date of Service: 04/03/19 Interval History: Leasing Specialist at bedside during interview. Pt reports he ambulated back and forth around room today with walker but felt unsteady, weak, like legs were going to buckle again. Otherwise denies symptoms. Reports his SCS had helped with his back pain but that he is looking forward to its removal so he can have an MRI. Objective Active Medications: Aspirin (Aspirin 81 Mg Chew Tab*) 81 mg PO QAM [facility] Last Admin: 04/03/19 08:36 Dose: 81 mg Atorvastatin Calcium (Lipitor*) 40 mg PO QPM [facility] Last Admin: 04/03/19 18:14 Dose: 40 mg Cyclobenzaprine HCl (Flexeril Tab*) 15 mg PO Q12H PRN PRN Reason: muscle spasms Last Admin: 04/02/19 20:23 Dose: 15 mg Furosemide (Lasix Tab*) 40 mg PO EVERY OTHER DAY [facility] Last Admin: 04/03/19 08:36 Dose: 40 mg Heparin Sodium (Porcine) (Heparin Vial(*)) 5,000 units SUBCUT Q12HR [facility] Last Admin: 04/03/19 08:35 Dose: 5,000 units Hydralazine HCl (Apresoline Iv*) 10 mg IV SLOW PU Q6H PRN PRN Reason: SBP>170 Last Admin: 03/31/19 11:53 Dose: 10 mg Hydrochlorothiazide (Hydrodiuril Tab*) 12.5 mg PO DAILY [facility] Last Admin: 04/03/19 08:36 Dose: 12.5 mg Losartan Potassium (Cozaar Tab*) 100 mg PO DAILY [facility] Last Admin: 04/03/19 08:35 Dose: 100 mg Metoprolol Succinate (Toprol Xl Tab*) 100 mg PO QAM [facility] Last Admin: 04/03/19 08:36 Dose: 100 mg Mirtazapine (Remeron Tab*) 15 mg PO BEDTIME [facility] Last Admin: 04/02/19 20:23 Dose: 15 mg Ondansetron HCl (Zofran Tab*) 4 mg PO Q6H PRN PRN Reason: NAUSEA Last Admin: 03/31/19 13:30 Dose: 4 mg Oxycodone HCl (Roxycodone Tab*) 15 mg PO TID PRN PRN Reason: PAIN Last Admin: 04/03/19 08:36 Dose: 15 mg Sertraline HCl (Zoloft*) 100 mg PO DAILY [facility] Last Admin: 04/03/19 08:36 Dose: 100 mg Tamsulosin HCl (Flomax Cap*) 0.4 mg PO BID [facility] Last Admin: 04/03/19 08:36 Dose: 0.4 mg Vital Signs - 8 hr 04/03/19 11:14 Respiratory 14 Rate Appearance: frail appearing eldely man, NAD, alert and interactive Eyes: No Scleral Icterus Ears/Nose/Mouth/Throat: Clear Oropharnyx, Mucous Membranes Moist Neck: NL Appearance and Movements; NL JVP Respiratory: Symmetrical Chest Expansion and Respiratory Effort, Clear to Auscultation Cardiovascular: RRR Abdominal: NL Sounds; No Tenderness; No Distention Extremities: No Edema Neurological: Alert and Oriented x 3 - speech fluent Result Diagrams: 04/01/19 07:19 04/01/19 07:19 Microbiology and Other Data: Microbiology 03/31/19 17:01 Aerobic Blood Culture - Preliminary Blood Venous No Growth Day 2 Anaerobic Blood Culture - Preliminary No Growth Day 2 03/31/19 16:55 Aerobic Blood Culture - Preliminary Blood Venous No Growth Day 2 Anaerobic Blood Culture - Preliminary No Growth Day 2 Assess/Plan/Problems-Billing Mr. 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 - Patient Problems (1) Weakness Comment: Unknown etiology. Plan for MRI brain, cervical/thoracic spine after spinal cord stimulator removed. He has a [employer] model # [id number], serial # [id number], implanted on 02/01/14 according to his card. - He denies chest pain or dyspnea with exertion. He's able to walk slowly with no symptoms (other than the fall he was admitted for). - EKG showed no acute ischemic changes. - Echo with new WMA - likely from h/o SD s/p stents but will clear pt with cardiology prior to procedure - RCRI is 1, predicting a 1-1.3% risk of cardiac complications - His implantable cardiac care nurse is a [employer] model 9529, serial number [id number] - d/w Cardiology (Dr Fernandez) - this device is MRI compatible. (2) Depression Current Visit: Yes Comment: - Dr Emmanuel talked to patient's daughter - she voiced concerns of having severe depression causing his fall. Also expressed at one time the patient voicing suicidal thoughts in January, none recently - Continue remeron and zoloft - Will discuss Psych eval with patient (3) CAD (coronary artery disease) Comment: - Stable. - Continue aspirin 81; Lipitor 40 mg; lopressor 100 mg daily (4) Hypertension Comment: - Controlled. - Continue HTCZ 12.5 mg; Losartan 100 mg, lopressor 100 mg daily (5) DVT prophylaxis Comment: - SQ heparin. (6) Full code status Status and Disposition: Inpatient. Dr. Ronald Donohue Is Mr Hung Brother in Law and pain specialist. Stacey Kavon , is Mr Hung Daughter
[2019-04-03] MEDS: Mirtazapine TAB* 15 MG PO SCH (22:57)
[2019-04-04] MEDS: oxyCODONE TAB* 5 MG TAB PO PRN ×2 (08:10→19:55)
[2019-04-04] MEDS: Metoprolol Succinate XL TAB* 100 MG PO SCH (08:11)
[2019-04-04] MEDS: Hydrochlorothiazide TAB* 25 MG PO SCH (08:12)
[2019-04-04] MEDS: Losartan TAB* 25 MG PO SCH (08:12)
[2019-04-04] MEDS: Heparin VIAL(*) 5000 UNITS/ML VIAL (FIVE THOUSAND) SUBCUT SCH ×2 (08:13→21:32)
[2019-04-04] MEDS: Aspirin 81 mg CHEW TAB* 81 MG TAB.CHEW PO SCH (08:13)
[2019-04-04] MEDS: Sertraline* 100 MG TAB PO SCH (08:13)
[2019-04-04] MEDS: Tamsulosin CAP* 0.4 MG PO SCH ×2 (08:13→21:31)
[2019-04-04] MEDS: Ondansetron TAB* 4 MG PO PRN ×2 (12:18→20:39)
--- NOTE | 2019-04-04 14:15 | CONS ---
CONSULTATION REPORT: DATE OF CONSULT: 04/04/19 ATTENDING PHYSICIAN: Dr. Geno See. REASON FOR CONSULTATION: Surgical risk stratification for removal of spinal cord stimulator. PRIMARY EMPLOYMENT OFFICE CLERK: Historically, Dr. Velasquez, [facility]. CHIEF COMPLAINT: Frequent falls. HISTORY OF PRESENT ILLNESS: This is a pleasant 73-year-old male patient who follows with Dr. Velasquez of [facility] with a notable history of coronary artery disease with prior intervention, hypertension, hyperlipidemia, chronic right vertebral artery occlusion based on MRA from February 2010, newly found heart failure with moderate reduction in ejection fraction and known distant RCA occlusion. The patient states that he has been under increased stress due to being in the process of going through divorce with his current . Since mid February, he has been having frequent falls. He states that he has had 12 to 13 falls since that time. He adds that there is no warning sign when he falls. It does not appear to be mechanical in nature. He is conscious the entire time. He states that he just collapses. Apparently, he was recently in [place], visiting his [id number] who is a pain management physician and was walking down a path when he fell backwards. Apparently, he was lying on the ground for 45 minutes before his [id number] and khlucx-cp-zjo were able to help him. He was taken to [place] where he was evaluated for recurrent falls. According to the patient, he was not admitted, but was observed and the workup was negative. He flew back home the following day on 03/30/19. While at home with his partner, he apparently fell again. She was unable to assist him to a standing position, thus 911 was called and he was taken to the [facility]. While being evaluated, he underwent a transthoracic echocardiogram on 04/02/19. Per report, LVEF 40% to 45% with hypokinesis involving basal inferolateral and inferior myocardium. Given focal wall motion abnormality, we have been asked to see the patient in consultation for surgical risk stratification for extraction of spinal stimulator. He also has an implantable loop recorder placed according to medical records sent by [facility] due to recurrent syncope. Last transmission was in 2013 and was implanted in 2010. He states he is compliant with medications. Denies palpitations, sensation of heart racing, chest pain, shortness of breath, dizziness, syncope. Apparently in the past, his anginal equivalent was chest pain, although when I reviewed medical records, it appears that his prior anginal equivalent was chest pain and syncope. Last cardiac catheterization was in 2016, which was done electively due to CCS class II angina. Per report that was sent to me by his primary director of academic, left main had 50% ostial lesion, LAD mid 50% lesion, first diagonal 40% lesion, distal 60% lesion, IFR 0.83. Left circumflex nondominant, first OM small in size, patent stents, 40% first marginal lesion. Right coronary artery dominant with collaterals from LAD and circumflex. 70% lesion in proximal RCA stent. 100% lesion in distal RCA. Ramus not diseased. At that time, the patient underwent 2.5 x 12 Emerge stent to mid LAD. The patient underwent stenting to 60% distal LAD with Emerge MR 2.0 x 12 and Synergy 2.5 x 16 drug-eluting stent. Complications none per report. In the conclusion, it stated that the previous implanted drug-eluting stents mid RCA were occluded. PAST MEDICAL HISTORY: Includes: 1. Coronary artery disease. 2. Paroxysmal AFib. 3. Left-sided hemiplegia. 4. Spinal cord infarction during posterior cervical decompression in 1997. 5. Hypertension. 6. Hyperlipidemia. 7. Chronic right vertebral artery occlusion per MRI in February 2010. 8. Known right coronary artery occlusion. 9. Recent onset of frequent falls. 10. History of implantable loop recorder in 2010 that is still in situ. PAST SURGICAL HISTORY: Includes: 1. Appendectomy. 2. In August 2004, 2.5 x 12 mm Taxus stent distal circ and 2.5 x 12 mm to circumflex. Proximal RCA 3.5 x 18 Taxus stent. 3. In September 2017, drug-eluting stent placement to LAD. 4. Cataract surgery. 5. Implantable loop recorder in 2010, still in situ. 6. Spinal cord stimulator. HOME MEDICATIONS: Per admission med rec listed includes: 1. Aspirin 81 mg a day. 2. Lipitor 40 mg p.o. at bedtime. 3. Flexeril 15 mg p.o. at bedtime p.r.n. 4. Lasix 40 mg every other day. 5. Losartan with hydrochlorothiazide 100/12.5 a day. 6. Meclizine 25 p.o. t.i.d. p.r.n. 7. Metoprolol 100 mg a day. 8. Zofran 4 mg p.o. q.6 h. p.r.n. 9. Flomax 0.4 mg p.o. b.i.d. 10. Oxycodone 15 mg p.o. t.i.d. p.r.n. 11. Remeron 15 mg p.o. at bedtime. 12. Zoloft 100 mg a day. 13. Magnesium 400 mg a day. 14. Vitamin B12 as directed. ALLERGIES: Listed includes MOVANTIK, which apparently causes tachycardia. FAMILY HISTORY: The patient had a brother in his 80s who from lung cancer and sister in her 80s from Parkinson's disorder. His brother was a smoker. Otherwise noncontributory. SOCIAL HISTORY: The patient is ; however, is in the process of going through a divorce. He lives home alone; however, apparently he has frequent visit from his friends and family due to needing assistance from falling. He denies ever smoking or utilizing tobacco products. Denies drug use. Denies alcohol abuse. He typically ambulates with a cane. He remains active by walking at least a mile a day with no exertional symptoms. REVIEW OF SYSTEMS: All systems have been reviewed and otherwise negative, except as mentioned above in the HPI. PHYSICAL EXAM: Temperature is 97.3, pulse 60, respirations 16, oxygenation 97% on room air, and blood pressure 127/57. General: The patient is lying in bed upon entering room, appears in no apparent distress. He is cooperative with examination. He is alert and oriented x3; however, he does have difficulty recalling data. HEENT: Head is atraumatic, normocephalic. Oral mucosa is moist. Tongue is midline. Neck: Supple. No JVD. No carotid bruits. Cardiac : Normal S1 and S2. Regular rate and rhythm. No murmur, rub, or gallop noted. Lungs: Auscultated posteriorly, clear throughout. No evidence of adventitious breath sounds auscultated. Respirations are nonlabored. /GI: Abdomen is soft, nontender, nondistended with normoactive bowel sounds x4. No hepatomegaly or splenomegaly with palpation. Extremities: No pedal edema, no clubbing, no cyanosis. Peripheral vascular: 2+ brachial and dorsalis pedis pulses palpated bilaterally and symmetrically. Skin: Intact. No evidence of jaundice, rashes, or ecchymosis appreciated. DIAGNOSTIC STUDIES/LAB DATA: Blood work on 04/01/19, white count 5.7, hemoglobin 11.3, hematocrit 33, platelets 131,000. INR on 03/30/19 was 0.99. Sodium 139 on 04/01/19, potassium 3.8, chloride 104, carbon dioxide 29, BUN 23, creatinine 1.16. Troponin negative x1. EKG on 03/31/19 demonstrates sinus rhythm, rate 68 with no apparent ischemic changes appreciated. Echocardiogram on 04/02/19, LVEF per report 40% to 45% with focal wall motion abnormality involving the basal inferolateral and inferior myocardium. Spinal CT per radiology report, no evidence of acute fracture involving the cervical vertebral bodies or posterior elements. There was anterior flexion with the dense abutting posterior surface of the anterior arch at C1 with associated calcification of the ligamentous structures . Brain CT on 03/30/19, no acute intracranial hemorrhage, no intracranial mass or obstructive hydrocephalus per radiology report. ASSESSMENT AND PLAN: 1. Frequent falls since February 2019. The patient denies syncope. Does not appear to be mechanical in nature. He states that the falls occur spontaneously. He denies striking head or losing consciousness. No prodromal symptoms. The patient needs MRI; however, spinal stimulator needs to be extracted due to not being MRI compatible. We were asked to preoperatively risk stratify the patient due to newly found moderate reduction in ejection fraction with focal wall motion abnormality. I did speak to his primary director of academic's office. Last echocardiogram they have on file was in 2017. At that time, LVEF was 50% to 55%. Images were of poor quality. Left ventricle wall motion could not be evaluated. At that time, he did undergo cardiac catheterization. Per cardiac cath report, he has known residual 50% left main lesion. He had occlusion involving right coronary artery stent with left to right collateral flow. At that time, he underwent successful drug-eluting stent placement to LAD. Patient is moderate risk for extraction of spinal cord stimulator. He may proceed with procedure, he is moderate risk due to comorbidities. . 2. History of paroxysmal atrial fibrillation. CHADS-VASc is at least 3, not on anticoagulation. At the discretion with his primary director of academic, at this time he does not appear to be a candidate for anticoagulation due to reporting 12 to 13 falls in the past month. Currently, he is in sinus rhythm on beta- blockade therapy. 3. History of frequent falls, unknown etiology. Needs eventual MRI. He will actually see Dr. Baum in consultation this week on outpatient basis. We will defer to primary team. 4. History of coronary artery disease, on aspirin, statin, and beta-blockade therapy. Denies complaints of chest pain. No ischemic EKG changes appreciated. Has known residual left main disease. Known RCA occlusion with collateral flow. On ASA, Bblocker and statin therapy. Denies anginal equivalent. Focal wall motion abnormality appears consistent with [facility] findings in 2017. Should follow up with primary director of academic about moderate reduction in LVEF. 5. History of syncope with implantable loop recorder that was implanted in 2010. Last transmission according to his primary director of academic's office was in 2013. We will defer extraction to primary director of academic. Dr. See states the implantable loop recorder is MRI compatible. 6. Heart failure with moderate reduction in EF. This appears to be newly diagnosed. Etiology not clear, possibly ischemic. Does have focal wall motion abnormality that is consistant with prior [facility] findings in 09/2017. He is compensated on physical examination. Would recommend continuing losartan therapy in addition to Lasix therapy. He is already on heart failure guideline driven beta-blockade therapy. No medication adjustments at this time or in the future. His primary director of academic can consider transitioning losartan to Entresto therapy. 7. Disposition. Pending course. The patient is full code. Dr. Geno See has personally seen and examined the patient and agrees with the above assessment and plan. Thank you for this kind consultation. Any future questions or concerns, please do not hesitate to contact our service. KENIA CLARK NP [id number]/[facility] #: [id number] Addendum to above note. On the morning of 04/05/2019 patient had lexiscan stress test due to study not being cancelled after cardiology consultation. Results revealed moderate inferior territory reversible defect. LVEF 57% with elevated TID. Patient has known distal RCA occlusion with RCA instent stenosis thus patient may proceed with extraction of spinal cord stimulator. Results reviewed with Dr. See who agrees with plan of care. Patient was encouraged to follow up with primary director of academic on an out patient basis due to abnormal stress test and echocardiogram. He continues to deny anginal equivalent. CINDY
--- NOTE | 2019-04-04 16:26 | PN ---
Subjective Date of Service: 04/04/19 Interval History: Seen by Cardiology for cardiac clearance prior to NSGY procedure given new reduced EF on echo. Pt visibly disappointed at recommendations for stress test but understand indications and risks. Reports working with PT today was limited by feeling nauseated. Sitting in bed, denies symptoms. Called daughter, Stacey Jacobson [phone], who reports that her father has been lying a lot recently and she is concerned about some underlying psychiatric issues. She is concerned about his SSRI use, and thinks he recently self-DC'ed and may have been going through withdrawal. Also reports that patient had recent suicide plan that he did not act on. She is concerned that a lot of his presenting symptoms, including falls, are related to psychiatric disease. Pt is amenable for psychiatric evaluation while in hospital. Kiki Post is patient's local psychologist. Objective Active Medications: Aspirin (Aspirin 81 Mg Chew Tab*) 81 mg PO QAM [facility] Last Admin: 04/04/19 08:13 Dose: 81 mg Atorvastatin Calcium (Lipitor*) 40 mg PO QPM [facility] Last Admin: 04/03/19 18:14 Dose: 40 mg Cyclobenzaprine HCl (Flexeril Tab*) 15 mg PO Q12H PRN PRN Reason: muscle spasms Last Admin: 04/02/19 20:23 Dose: 15 mg Furosemide (Lasix Tab*) 40 mg PO EVERY OTHER DAY [facility] Last Admin: 04/03/19 08:36 Dose: 40 mg Heparin Sodium (Porcine) (Heparin Vial(*)) 5,000 units SUBCUT Q12HR [facility] Last Admin: 04/04/19 08:13 Dose: 5,000 units Hydralazine HCl (Apresoline Iv*) 10 mg IV SLOW PU Q6H PRN PRN Reason: SBP>170 Last Admin: 03/31/19 11:53 Dose: 10 mg Hydrochlorothiazide (Hydrodiuril Tab*) 12.5 mg PO DAILY [facility] Last Admin: 04/04/19 08:12 Dose: 12.5 mg Losartan Potassium (Cozaar Tab*) 100 mg PO DAILY [facility] Last Admin: 04/04/19 08:12 Dose: 100 mg Metoprolol Succinate (Toprol Xl Tab*) 100 mg PO QAM [facility] Last Admin: 04/04/19 08:11 Dose: 100 mg Mirtazapine (Remeron Tab*) 15 mg PO BEDTIME [facility] Last Admin: 04/03/19 22:57 Dose: 15 mg Ondansetron HCl (Zofran Tab*) 4 mg PO Q6H PRN PRN Reason: NAUSEA Last Admin: 04/04/19 12:18 Dose: 4 mg Oxycodone HCl (Roxycodone Tab*) 15 mg PO TID PRN PRN Reason: PAIN Last Admin: 04/04/19 08:10 Dose: 15 mg Sertraline HCl (Zoloft*) 100 mg PO DAILY [facility] Last Admin: 04/04/19 08:13 Dose: 100 mg Tamsulosin HCl (Flomax Cap*) 0.4 mg PO BID [facility] Last Admin: 04/04/19 08:13 Dose: 0.4 mg Vital Signs - 8 hr 04/04/19 04/04/19 04/04/19 10:51 11:30 15:33 Temperature 97.1 F 97.6 F Pulse Rate 65 66 Respiratory 16 20 16 Rate Blood Pressure 106/59 106/58 (mmHg) O2 Sat by Pulse 96 96 Oximetry Oxygen Devices in Use Now: None Appearance: elderly frail man in NAD; alert and interactive Ears/Nose/Mouth/Throat: Clear Oropharnyx, Mucous Membranes Moist Neck: Trachea Midline Respiratory: Symmetrical Chest Expansion and Respiratory Effort, Clear to Auscultation Cardiovascular: RRR Abdominal: NL Sounds; No Tenderness; No Distention, No Hepatosplenomegaly Extremities: No Edema Neurological: Alert and Oriented x 3 Result Diagrams: 04/01/19 07:19 04/01/19 07:19 Microbiology and Other Data: Microbiology 03/31/19 17:01 Aerobic Blood Culture - Preliminary Blood Venous No Growth Day 2 Anaerobic Blood Culture - Preliminary No Growth Day 2 03/31/19 16:55 Aerobic Blood Culture - Preliminary Blood Venous No Growth Day 2 Anaerobic Blood Culture - Preliminary No Growth Day 2 Assess/Plan/Problems-Billing Mr. 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 - Patient Problems (1) Weakness Comment: Unknown etiology. Plan for MRI brain, cervical/thoracic/lumbar spine after spinal cord stimulator removed. - appreciate Neuro recs - Pending cardiac clearance. (2) Depression Current Visit: Yes Comment: Patient's daughter voiced concerns of having severe depression causing his fall with possible self-DC of SSRI causing withdrawal. Also expressed at one time the patient voicing suicidal thoughts in January, none recently - Continue remeron and zoloft - psych consult ordered (3) Heart failure Comment: New rEF to 40-45%. - pending nuclear stress test - on ARB, BB, furosemide - appreciate cardiology recs (4) CAD (coronary artery disease) Comment: - Stable. - Continue aspirin 81; Lipitor 40 mg; lopressor 100 mg daily (5) Hypertension Comment: - Controlled. - Continue HTCZ 12.5 mg; Losartan 100 mg, lopressor 100 mg daily (6) DVT prophylaxis Comment: - SQ heparin. (7) Full code status Status and Disposition: Inpatient. Dr. Ronald Donohue Is Mr Hung Brother in Law and pain specialist. Stacey Kavon , is Mr Hung Daughter
--- NOTE | 2019-04-04 16:52 | PN ---
Progress Note - Progress Note Date of Service: 04/04/19 SOAP: Subjective: 73 y/o male with c/o left sided weakness has hx of SCS and heart monitor. Neurosurgery team was consulted for possible SCS removal. We spoke with neurology yesterday and consideration was given to have patient to undergo CT myelogram, but since patient is taking ASA, he is unable to have procedure. He would have stop ASA 5 -7 days before having the myelogram. He has been cleared for surgery for by medicine, but cardiology has not ordered a stress echo, so surgery has been put on hold until cleared. [] Plan: Will follow up cardiology recommendations. Also will follow up with patient to determine if wants have SCS removed.
[2019-04-04] MEDS: Atorvastatin* 40 MG TAB PO SCH (17:26)
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
[2019-04-04] MEDS: Cyclobenzaprine TAB* 10 MG PO PRN (19:57)
[2019-04-04] MEDS: Mirtazapine TAB* 15 MG PO SCH (21:32)
[2019-04-05] MEDS: oxyCODONE TAB* 5 MG TAB PO PRN ×3 (06:45→19:54)
[2019-04-05] MEDS: Cyclobenzaprine TAB* 10 MG PO PRN ×2 (06:46→17:49)
[2019-04-05] MEDS: Tamsulosin CAP* 0.4 MG PO SCH ×2 (10:44→19:54)
[2019-04-05] MEDS: Losartan TAB* 25 MG PO SCH (10:44)
[2019-04-05] MEDS: Heparin VIAL(*) 5000 UNITS/ML VIAL (FIVE THOUSAND) SUBCUT SCH ×2 (10:45→19:53)
[2019-04-05] MEDS: Metoprolol Succinate XL TAB* 100 MG PO SCH (10:45)
[2019-04-05] MEDS: Aspirin 81 mg CHEW TAB* 81 MG TAB.CHEW PO SCH (10:45)
[2019-04-05] MEDS: Hydrochlorothiazide TAB* 25 MG PO SCH (10:45)
[2019-04-05] MEDS: Furosemide TAB* 40 MG PO SCH (10:45)
[2019-04-05] MEDS: Sertraline* 100 MG TAB PO SCH (10:46)
[2019-04-05] MEDS ORDERED: Bacitracin INJECTION* 50,000 UNITS ONE (14:29)
[2019-04-05] MEDS ORDERED: Lidocaine 1% w EPI 1:200,000* 30 ML VIAL ONE (14:29)
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
--- NOTE | 2019-04-05 17:36 | PN ---
Subjective Date of Service: 04/05/19 Interval History: No overnight events. Patient without complaints this morning. Seen and examined by Psychiatry today - for now, recommending to continue current management. Stress test performed this morning, with clearance from cardiology, but appears that operation did not happen due to concern from anaesthesia over cardiac testing results. Objective Active Medications: Aspirin (Aspirin 81 Mg Chew Tab*) 81 mg PO QAM [facility] Last Admin: 04/05/19 10:45 Dose: 81 mg Atorvastatin Calcium (Lipitor*) 40 mg PO QPM [facility] Last Admin: 04/04/19 17:26 Dose: 40 mg Cyclobenzaprine HCl (Flexeril Tab*) 15 mg PO Q12H PRN PRN Reason: muscle spasms Last Admin: 04/05/19 06:46 Dose: 15 mg Furosemide (Lasix Tab*) 40 mg PO EVERY OTHER DAY [facility] Last Admin: 04/05/19 10:45 Dose: 40 mg Heparin Sodium (Porcine) (Heparin Vial(*)) 5,000 units SUBCUT Q12HR [facility] Last Admin: 04/05/19 10:45 Dose: Not Given Hydralazine HCl (Apresoline Iv*) 10 mg IV SLOW PU Q6H PRN PRN Reason: SBP>170 Last Admin: 03/31/19 11:53 Dose: 10 mg Hydrochlorothiazide (Hydrodiuril Tab*) 12.5 mg PO DAILY [facility] Last Admin: 04/05/19 10:45 Dose: 12.5 mg Losartan Potassium (Cozaar Tab*) 100 mg PO DAILY [facility] Last Admin: 04/05/19 10:44 Dose: 100 mg Metoprolol Succinate (Toprol Xl Tab*) 100 mg PO QAM [facility] Last Admin: 04/05/19 10:45 Dose: 100 mg Mirtazapine (Remeron Tab*) 15 mg PO BEDTIME [facility] Last Admin: 04/04/19 21:32 Dose: 15 mg Ondansetron HCl (Zofran Tab*) 4 mg PO Q6H PRN PRN Reason: NAUSEA Last Admin: 04/04/19 20:39 Dose: 4 mg Oxycodone HCl (Roxycodone Tab*) 15 mg PO TID PRN PRN Reason: PAIN Last Admin: 04/05/19 15:46 Dose: 15 mg Sertraline HCl (Zoloft*) 100 mg PO DAILY [facility] Last Admin: 04/05/19 10:46 Dose: 100 mg Tamsulosin HCl (Flomax Cap*) 0.4 mg PO BID [facility] Last Admin: 04/05/19 10:44 Dose: 0.4 mg Vital Signs - 8 hr 04/05/19 04/05/19 04/05/19 11:17 11:21 15:46 Temperature Pulse Rate Respiratory 16 16 16 Rate Blood Pressure (mmHg) O2 Sat by Pulse Oximetry 04/05/19 16:00 Temperature 97.4 F Pulse Rate 67 Respiratory 16 Rate Blood Pressure 122/63 (mmHg) O2 Sat by Pulse 95 Oximetry Oxygen Devices in Use Now: None Appearance: tired appearing elderly man in NAD Ears/Nose/Mouth/Throat: Clear Oropharnyx, Mucous Membranes Moist Neck: NL Appearance and Movements; NL JVP, Trachea Midline Respiratory: Symmetrical Chest Expansion and Respiratory Effort, Clear to Auscultation Cardiovascular: NL Sounds; No Murmurs; No JVD, RRR Abdominal: NL Sounds; No Tenderness; No Distention Extremities: No Edema Neurological: Alert and Oriented x 3 Result Diagrams: 04/01/19 07:19 04/01/19 07:19 Microbiology and Other Data: Microbiology 03/31/19 17:01 Aerobic Blood Culture - Preliminary Blood Venous No Growth Day 2 Anaerobic Blood Culture - Preliminary No Growth Day 2 03/31/19 16:55 Aerobic Blood Culture - Preliminary Blood Venous No Growth Day 2 Anaerobic Blood Culture - Preliminary No Growth Day 2 Assess/Plan/Problems-Billing Mr. 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 - Patient Problems (1) Weakness Comment: Unknown etiology. Plan for MRI brain, cervical/thoracic/lumbar spine after spinal cord stimulator removed. - appreciate Neuro and NSGY recommendations (2) Depression Current Visit: Yes Comment: Patient's daughter voiced concerns of having severe depression causing his fall with possible self-DC of SSRI causing withdrawal. Also expressed at one time the patient voicing suicidal thoughts in January, none recently - Continue remeron and zoloft - appreciate Psychiatry input (3) Heart failure Comment: New rEF to 40-45%. - on ARB, BB, furosemide - appreciate cardiology recs (4) CAD (coronary artery disease) Comment: - Stable. - Continue aspirin 81; Lipitor 40 mg; lopressor 100 mg daily (5) Hypertension Comment: - Controlled. - Continue HTCZ 12.5 mg; Losartan 100 mg, lopressor 100 mg daily (6) DVT prophylaxis Comment: - SQ heparin. (7) Full code status Status and Disposition: Inpatient. Dr. Ronald Donohue Is Mr Hung Brother in Law and pain specialist. Stacey Jacobson , is Mr GuillenHung Daughter
[2019-04-05] MEDS: Atorvastatin* 40 MG TAB PO SCH (17:48)
[2019-04-05] MEDS: Mirtazapine TAB* 15 MG PO SCH (19:54)
[2019-04-06] MEDS: Heparin VIAL(*) 5000 UNITS/ML VIAL (FIVE THOUSAND) SUBCUT SCH (07:17)
[2019-04-06] MEDS: Metoprolol Succinate XL TAB* 100 MG PO SCH (07:18)
[2019-04-06] MEDS: oxyCODONE TAB* 5 MG TAB PO PRN ×2 (07:18→17:15)
[2019-04-06] MEDS: Hydrochlorothiazide TAB* 25 MG PO SCH (07:18)
[2019-04-06] MEDS: Sertraline* 100 MG TAB PO SCH (07:19)
[2019-04-06] MEDS: Tamsulosin CAP* 0.4 MG PO SCH ×2 (07:19→21:55)
[2019-04-06] MEDS: Aspirin 81 mg CHEW TAB* 81 MG TAB.CHEW PO SCH (07:19)
[2019-04-06] MEDS: Losartan TAB* 25 MG PO SCH (07:19)
[2019-04-06] MEDS: Cyclobenzaprine TAB* 10 MG PO PRN ×2 (07:19→17:16)
--- NOTE | 2019-04-06 08:34 | PN ---
Subjective Date of Service: 04/06/19 Interval History: NSGY likely to do spinal cord stimulator extraction on 04/10, but will need final plan between cardiology and anesthesia before preceding. Low BPs today and has been low-normal during admission. Will stop HCTZ and decrease losartan. Can continue home dose of furosemide every other day. Objective Active Medications: Aspirin (Aspirin 81 Mg Chew Tab*) 81 mg PO QAM [facility] Last Admin: 04/06/19 07:19 Dose: 81 mg Atorvastatin Calcium (Lipitor*) 40 mg PO QPM [facility] Last Admin: 04/06/19 17:16 Dose: 40 mg Cyclobenzaprine HCl (Flexeril Tab*) 15 mg PO Q12H PRN PRN Reason: muscle spasms Last Admin: 04/06/19 17:16 Dose: 15 mg Enoxaparin Sodium (Lovenox(*)) 40 mg SUBCUT BEDTIME [facility] Furosemide (Lasix Tab*) 40 mg PO EVERY OTHER DAY [facility] Last Admin: 04/05/19 10:45 Dose: 40 mg Hydralazine HCl (Apresoline Iv*) 10 mg IV SLOW PU Q6H PRN PRN Reason: SBP>170 Last Admin: 03/31/19 11:53 Dose: 10 mg Losartan Potassium (Cozaar Tab*) 25 mg PO DAILY [facility] Metoprolol Succinate (Toprol Xl Tab*) 50 mg PO QAM [facility] Mirtazapine (Remeron Tab*) 15 mg PO BEDTIME [facility] Last Admin: 04/05/19 19:54 Dose: 15 mg Ondansetron HCl (Zofran Tab*) 4 mg PO Q6H PRN PRN Reason: NAUSEA Last Admin: 04/04/19 20:39 Dose: 4 mg Oxycodone HCl (Roxycodone Tab*) 15 mg PO TID PRN PRN Reason: PAIN Last Admin: 04/06/19 17:15 Dose: 15 mg Sertraline HCl (Zoloft*) 100 mg PO DAILY [facility] Last Admin: 04/06/19 07:19 Dose: 100 mg Tamsulosin HCl (Flomax Cap*) 0.4 mg PO BID [facility] Last Admin: 04/06/19 07:19 Dose: 0.4 mg Vital Signs - 8 hr 04/06/19 04/06/19 04/06/19 00:41 03:29 07:14 Temperature 97.3 F 97.9 F Pulse Rate 59 62 Respiratory 18 17 18 Rate Blood Pressure 109/64 119/72 (mmHg) O2 Sat by Pulse 99 99 Oximetry 04/06/19 04/06/19 04/06/19 07:18 07:19 07:30 Temperature Pulse Rate Respiratory 18 18 18 Rate Blood Pressure (mmHg) O2 Sat by Pulse Oximetry Oxygen Devices in Use Now: None Appearance: tired appearing, frail elderly man in NAD; alert and interactive; pleasant; severe kyphosis Ears/Nose/Mouth/Throat: Clear Oropharnyx, Mucous Membranes Moist Respiratory: Clear to Auscultation Cardiovascular: RRR Abdominal: NL Sounds; No Tenderness; No Distention, No Hepatosplenomegaly Extremities: No Edema Skin: No Rash or Ulcers Neurological: Alert and Oriented x 3 Result Diagrams: 04/01/19 07:19 04/01/19 07:19 Assess/Plan/Problems-Billing Mr. 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 - Patient Problems (1) Weakness Comment: Unknown etiology. Plan for MRI brain, cervical/thoracic/lumbar spine after spinal cord stimulator removed. - appreciate Neuro and NSGY recommendations (2) Depression Current Visit: Yes Comment: Patient's daughter voiced concerns of having severe depression causing his fall with possible self-DC of SSRI causing withdrawal. Also expressed at one time the patient voicing suicidal thoughts in January, none recently - Continue remeron and zoloft - appreciate Psychiatry input (3) Heart failure Comment: New rEF to 40-45%. - on ARB, BB, furosemide - appreciate cardiology recs (4) CAD (coronary artery disease) Comment: - Stable. - Continue aspirin 81; Lipitor 40 mg; metoprolol suc (5) Hypertension Comment: Low BPs while hospitalized - down-titrating meds. -Losartan 50 mg, lopressor 50 mg daily - stop HCTZ, still on furosemide (6) DVT prophylaxis Comment: - enoxaparin (7) Full code status Status and Disposition: Inpatient. Dr. Ronald Donohue Is Mr Hung Brother in Law and pain specialist. Stacey Jacobson , is Mr Hung Daughter
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
[2019-04-06] MEDS ORDERED: NS 0.9% 1000 ML** 1,000 ML IV ONE (11:52)
--- NOTE | 2019-04-06 17:01 | CONSULT ---
Identification - Patient Identification Reason for Psychiatric Consultation: Incapacitating Symptoms -: Patient is a 73 year old, M admitted on 03/30/19. - MHU Identification Employment Status: Disabled Hx Psychiatric Hospitalization: No History - Objective HPI: Jose Alberto is in fair spirits. His surgical procedure was postponed yesterday, according to him because of low blood pressure. He seems to be dealing adequately with the diagnostic uncertainties related to his leg weakness and falling and continues to deny SI. For collateral information I spoke with his outpatient therapist at [facility], psychologist Dr. Kiki Post. She corroborates his account that they have been working together for a little over a year and that they have made progress in areas such as self awareness. Like Jose Alberto's primary care provider, Dr. Bruner, Dr. Post has also been tracking his cognitive functioning with formal screening assessments that show slowly developing deficits in his thinking. She is concerned that his Jacklyn was never a particularly good caregiver and she would be supportive of beefing up supports in the home setting. Specifically, she is recommending visiting nurse services and perhaps adult protective services. Today Jose Alberto states that he wants to end his marriage and get a small place of his own. Regarding his spouse, he states "She broke my trust and we'll never get it back. " Exam Appearance: Thin Framed Hygiene: Normal Grooming: Fairly Well Kept Psychomotor Activities: Abnormal-Decreased Exhibits Abnormal Movement: No Attitude and Relatedness: Cooperative Eye Contact: Good - Speech Quality: Unpressured Latencies: Normal Quantity: Appropriate Patient's Decription of Mood: "Sad" Observed Affect: Constricted Affect Consistent with: Dysphoria Patient's Thought Process: Coherent Thought Content: No Passive Wish, No Suicidal Planning, No Homicidal Ideation, No Paranoid Ideation Experiencing Hallucinations: No, Sensorium is Clear Type of Hallucinations: Visual: No, Auditory: No, Command: No Level of Consciousness: Alert Orientation: Yes Intact, Yes Orientated to Time, Yes Orientated to Place, Yes Orientated to Person Impulse Control: Tenuous Insight and Judgement: Fair Impression - Impression Clinical Impression: 73 y.o. , L[employer] Day male with a history of traumatic brain injury, multiple spinal problems, chronic pain and depression brought in via ambulance due to several recent falls who is being seen by psychiatry due to questions of whether his depression is adequately controlled and perhaps complicating his physical issues. Inpatient DSM-V Dx: F33.1 Merits Inpatient Hospitalization: No BSU: Problem List - Patient Problems (1) MDD (major depressive disorder), recurrent episode, moderate Current Visit: Yes Status: Acute Priority: Medium Code(s): F33.1 - MAJOR DEPRESSIVE DISORDER, RECURRENT, MODERATE SNOMED Code(s): 220237444 Plan - Treatment Plan Treatment Plan: The patient remains on mirtazapine 15mg PO qhs and sertraline 100mg PO qday, as currently prescribed on an outpatient basis by his primary care provider, Dr. Bruner. This is a reasonable regimen and does not need alteration at this time. The patient is psychiatrically clear for discharge back to the community once medically ready. He will likely need enhanced supports in the home setting if that is where he is discharged. This clinician will be off-service for the weekend but will f/u with the patient on Tuesday, April 09. If there are any relevant psychiatric issues over the weekend please call the BSU and ask for the on-call psychiatrist, Dr. Claudio. Continued Medication Management: Continue Outpt Medication Medications: Current Medications Aspirin (Aspirin 81 Mg Chew Tab*) 81 mg PO QAM [facility] Last Admin: 04/06/19 07:19 Dose: 81 mg Atorvastatin Calcium (Lipitor*) 40 mg PO QPM [facility]CLUD[facility] Last Admin: 04/05/19 17:48 Dose: 40 mg Cyclobenzaprine HCl (Flexeril Tab*) 15 mg PO Q12H PRN PRN Reason: muscle spasms Last Admin: 04/06/19 07:19 Dose: 15 mg Furosemide (Lasix Tab*) 40 mg PO EVERY OTHER DAY COUNT [facility]CLUDES [facility] Last Admin: 04/05/19 10:45 Dose: 40 mg Heparin Sodium (Porcine) (Heparin Vial(*)) 5,000 units SUBCUT Q12HR COUNT INCLUDES [facility] Last Admin: 04/06/19 07:17 Dose: 5,000 units Hydralazine HCl (Apresoline Iv*) 10 mg IV SLOW PU Q6H PRN PRN Reason: SBP>170 Last Admin: 03/31/19 11:53 Dose: 10 mg Losartan Potassium (Cozaar Tab*) 25 mg PO DAILY COUNT [facility]CLUDES [facility] Metoprolol Succinate (Toprol Xl Tab*) 50 mg PO QAM COUNT [facility]CLUDES [facility] Mirtazapine (Remeron Tab*) 15 mg PO BEDTIME COUNT [facility]CLUDES [facility] Last Admin: 04/05/19 19:54 Dose: 15 mg Ondansetron HCl (Zofran Tab*) 4 mg PO Q6H PRN PRN Reason: NAUSEA Last Admin: 04/04/19 20:39 Dose: 4 mg Oxycodone HCl (Roxycodone Tab*) 15 mg PO TID PRN PRN Reason: PAIN Last Admin: 04/06/19 07:18 Dose: 15 mg Sertraline HCl (Zoloft*) 100 mg PO DAILY COUNT [facility]CLUDES [facility] Last Admin: 04/06/19 07:19 Dose: 100 mg Tamsulosin HCl (Flomax Cap*) 0.4 mg PO BID COUNT [facility]CLUDES [facility] Last Admin: 04/06/19 07:19 Dose: 0.4 mg - Discharge Plan Discharge Plan: Outpatient Follow Up Out[facility]
[2019-04-06] MEDS: Atorvastatin* 40 MG TAB PO SCH (17:16)
--- NOTE | 2019-04-06 19:50 | PN ---
Subjective Date of Service: 04/06/19 Length of Stay: 7 Days Neurology is following to assess the patient's gait abnormality. Interval History: Since he was last seen on 04/03/2019, the patient has shown some improvement in his examination. He is able to stand up and bear weight. He also can take a few steps before he starts to shake and refuse to ambulate. He drops himself on the examiner. He stated that there has been no warp changer the past few days. He is upset that he did not get the stimulator removed. Cardiology had worked him up for an abnormal Echo. He was found to have hypokinesis of the basalinferolateral and inferior myocardium. HCTZ has been discontinued due to episodes of hypotension. He should be cleared for surgery on Tuesday. We discussed his recent stressors. He shared his concerns about his and planned divorce. He is sadden to have to go through this at this age. He denied any new neck or back pain. I received a phone call from Dr. Ngo and discussed his case. The patient has always had significant gait abnormality for a long time. This correlates to his inconsistent history of "worsening symptoms after the recent trip from [place] but he was seen by a neurologist for this same problem in [place] during his trip." Dr. Ngo is also worried about some memory impairment, but I was unable to appreciate any severe cognitive deficits on examination. Review of Systems: Denied CP, SOB, or palpitations. Family History: Unchanged from Admission Social History: Unchanged from Admission Past Medical History: Unchanged from Admission Objective Active Medications: Aspirin (Aspirin 81 Mg Chew Tab*) 81 mg PO QAM [facility] Last Admin: 04/06/19 07:19 Dose: 81 mg Atorvastatin Calcium (Lipitor*) 40 mg PO QPM [facility] Last Admin: 04/06/19 17:16 Dose: 40 mg Cyclobenzaprine HCl (Flexeril Tab*) 15 mg PO Q12H PRN PRN Reason: muscle spasms Last Admin: 04/06/19 17:16 Dose: 15 mg Enoxaparin Sodium (Lovenox(*)) 40 mg SUBCUT BEDTIME [facility] Furosemide (Lasix Tab*) 40 mg PO EVERY OTHER DAY [facility] Last Admin: 04/05/19 10:45 Dose: 40 mg Hydralazine HCl (Apresoline Iv*) 10 mg IV SLOW PU Q6H PRN PRN Reason: SBP>170 Last Admin: 03/31/19 11:53 Dose: 10 mg Losartan Potassium (Cozaar Tab*) 25 mg PO DAILY [facility] Metoprolol Succinate (Toprol Xl Tab*) 50 mg PO QAM [facility] Mirtazapine (Remeron Tab*) 15 mg PO BEDTIME [facility] Last Admin: 04/05/19 19:54 Dose: 15 mg Ondansetron HCl (Zofran Tab*) 4 mg PO Q6H PRN PRN Reason: NAUSEA Last Admin: 04/04/19 20:39 Dose: 4 mg Oxycodone HCl (Roxycodone Tab*) 15 mg PO TID PRN PRN Reason: PAIN Last Admin: 04/06/19 17:15 Dose: 15 mg Sertraline HCl (Zoloft*) 100 mg PO DAILY [facility] Last Admin: 04/06/19 07:19 Dose: 100 mg Tamsulosin HCl (Flomax Cap*) 0.4 mg PO BID [facility] Last Admin: 04/06/19 07:19 Dose: 0.4 mg Vital Signs 04/05/19 04/05/19 04/05/19 19:53 19:54 20:00 Temperature Pulse Rate Respiratory 18 18 18 Rate Blood Pressure (mmHg) O2 Sat by Pulse Oximetry 04/05/19 04/06/19 04/06/19 23:53 00:41 03:29 Temperature 97.4 F 97.3 F Pulse Rate 64 59 Respiratory 20 18 17 Rate Blood Pressure 100/59 109/64 (mmHg) O2 Sat by Pulse 97 99 Oximetry 04/06/19 04/06/19 04/06/19 07:14 07:18 07:19 Temperature 97.9 F Pulse Rate 62 Respiratory 18 18 18 Rate Blood Pressure 119/72 (mmHg) O2 Sat by Pulse 99 Oximetry 04/06/19 04/06/19 04/06/19 07:30 09:32 11:45 Temperature Pulse Rate Respiratory 18 16 Rate Blood Pressure 90/52 (mmHg) O2 Sat by Pulse Oximetry 04/06/19 04/06/19 04/06/19 11:52 16:24 17:15 Temperature 98.1 F 98.0 F Pulse Rate 66 69 Respiratory 16 18 18 Rate Blood Pressure 86/48 104/66 (mmHg) O2 Sat by Pulse 97 97 Oximetry 04/06/19 17:16 Temperature Pulse Rate Respiratory 18 Rate Blood Pressure (mmHg) O2 Sat by Pulse Oximetry Intake and Output Last 24 Hours 04/04/19 04/05/19 04/06/19 04/07/19 06:59 06:59 06:59 06:59 Intake Total 1200 202 209 5614 Output Total 960 275 750 940 Balance 240 325 -350 200 Intake: Oral 1200 154 059 6825 Output: Urine 960 275 750 940 Other: Estimated Void Large Medium Date of Last Bowel 04/02/19 04/02/19 Movement # Bowel Movements 0 0 0 1 Estimated Stool Amount Medium # Voids 1 3 1 Oxygen Devices in Use Now: None Neurology Exam: General: Well nourished, well developed, and in no acute distress. Head drop HEENT: Normocephelic/atraumatic, sclera anicteric, mucous membranes moist Neck: severe kyphosis and camptocormia. Chest: Clear to auscultation bilaterally Cardiovascular: Regular rate and rhythm without murmurs, rubs, gallops Extremities: No clubbing, cyanosis, or edema Neurological Findings: Awake, alert, and oriented to person, place, and time. Speech: fluent without dysarthria, repetition intact Cranial Nerve: PERRL, EOM intact, VFF, no nystagmus, face symmetric bilaterally , facial sensation intact, hearing intact to finger rub bilaterally, palate elevates symmetrically, tongue midline, SCM and Trapezius s/s. Motor: long tract pyramidal weakness on the left graded as 4/5 (shoulder, triceps, wrist extension, hip flexion, and knee flexion). 2-3/5 in finger abduction bilaterally. Give way reduced activation with 4/5 to hip flexion bilaterally and 4+/5 to knee extension on the right. 5/5 to dorsiflexion and plantar flexion of the ankle bilaterally. Sensation: reduced sensation to light-touch and pinprick on the left. No dermatomal pattern of sensory loss in the lower extremities. Deep Tendon Reflex: R/L: Biceps 2/3, brachioradialis 2/3, triceps 2/3, knee 2/3 with crossed adductors, and ankle trace/1 Finger to nose, rapid alternating movements intact without tremor, no dysdiadochokinesia Gait: required one person assist. He stood up and took three steps and then slowly laid back in bed stating that he cannot walk any longer. Result Diagrams: 04/01/19 07:19 04/01/19 07:19 Microbiology and Other Data: Microbiology 03/31/19 17:01 Aerobic Blood Culture - Preliminary Blood Venous No Growth Day 2 Anaerobic Blood Culture - Preliminary No Growth Day 2 03/31/19 16:55 Aerobic Blood Culture - Preliminary Blood Venous No Growth Day 2 Anaerobic Blood Culture - Preliminary No Growth Day 2 Assessment/Plan Mr. 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 The patient has severe kypohsis and head drop. He presents with new complaints of inability to ambulate and increase weakness in his lower extremities. His examination is difficult to assess due to the baseline weakness secondary to left hemiparesis due to the spinal cord stroke. Recommendations: Continue with the plan of removing the stimulator (per patient's request) and order MRIs of the neuro axis. There is a suspicion that the patient has chronic weakness but also functional weakness related to recent stressors. This is supported by the fluctuating and inconsistent examination findings. In either case, we have to exclude potential reversal causes such as worsening spondolysis in the cervical thoracic or lumbar region. I am not convinced that he would have intracranial abnormalities, so an MRI of the brain is unnecessary. Continue neuro checks every 4 hours. Encouraged to ambulate and participate with PT. Dr. Baum will follow-up with the MRI results and make further recommendations if needed.
--- NOTE | 2019-04-06 20:45 | PN ---
Progress Note - Progress Note Date of Service: 04/05/19 Note: Delayed entry. Patient was scheduled for SCS removal. Due to his medical condition and heart history and stress test findings it was deemed preferable to postpone surgery in order to optimize BP medication prior to general anesthesia. Dr Terrazas discussed with Dr Wallace. Discussed in extend with patient. Patient understands and in agreement with plan. Ladonna Johnson MD
[2019-04-06] MEDS: Mirtazapine TAB* 15 MG PO SCH (21:55)
[2019-04-06] MEDS: Enoxaparin(*) 40 MG/0.4 ML SYR SUBCUT SCH (21:55)
[2019-04-07] MEDS: oxyCODONE TAB* 5 MG TAB PO PRN ×4 (00:12→22:08)
[2019-04-07 06:15] LABS: Hematocrit 35 % (42-52); Hemoglobin 11.6 g/dL (14.0-18.0); Mean Corpuscular HGB Conc 33 g/dL (31-36); Mean Corpuscular Hemoglobin 28 pg (27-31); Mean Corpuscular Volume 83 fL (80-94); Mean Platelet Volume 10.1 fL (7.4-10.4); Platelet Count 130 10^3/uL (150-450); Red Blood Count 4.21 10^6 /uL (4.18-5.48); Red Cell Distribution Width 14 % (10-15); White Blood Count 5.7 10^3/uL (3.5-10.8)
[2019-04-07 06:47] LABS: Anion Gap 5 mmol/L (2-11); BUN/Creatinine Ratio 28.8 (8-20); Blood Urea Nitrogen 45 mg/dL (6-24); CO2 Carbon Dioxide 31 mmol/L (22-32); Calcium 9.2 mg/dL (8.6-10.3); Chloride 104 mmol/L (101-111); EGFR African American 53.1 (>60); EGFR Non-African American 43.8 (>60); Glucose 103 mg/dL (70-100); Potassium 3.9 mmol/L (3.5-5.0); Sodium 140 mmol/L (135-145)
[2019-04-07] MEDS ORDERED: NS 0.9% 1000 ML** 1,000 ML IV ONE (08:18)
[2019-04-07] MEDS ORDERED: KCL 20 MEQ/100 ML IVPREMIX* 20 MEQ/100 ML BAG IV ONE (08:18)
[2019-04-07 08:34] LABS: % Iron Saturation 24 % (15-55); Iron 69 ug/dL (50-212); Total Iron Binding Capacity 286 mcg/dL (250-450); Transferrin 204 mg/dL (203-362)
[2019-04-07 08:54] LABS: Ferritin 232.7 ng/mL (24-336)
[2019-04-07] MEDS: Losartan TAB* 25 MG PO SCH (09:15)
[2019-04-07] MEDS: Metoprolol Succinate XL TAB* 100 MG PO SCH (09:16)
[2019-04-07] MEDS: Aspirin 81 mg CHEW TAB* 81 MG TAB.CHEW PO SCH (09:16)
[2019-04-07] MEDS: Ferrous Sulfate TAB* 325 MG PO SCH (09:16)
[2019-04-07] MEDS: Tamsulosin CAP* 0.4 MG PO SCH ×2 (09:16→22:09)
[2019-04-07] MEDS: Sertraline* 100 MG TAB PO SCH (09:16)
[2019-04-07] MEDS: Atorvastatin* 40 MG TAB PO SCH (17:09)
--- NOTE | 2019-04-07 17:49 | PN ---
Subjective Date of Service: 04/07/19 Interval History: Noted with ERASMO after likely hypovolemia due to decreased PO and diuretics. Now s /p IVF. BPs better after decreasing BP medications and stopping HCTZ. Pt feels slightly stronger. No longer reporting thirst. Re-cleared by Cards for OR. Hoping to have room on Tuesday OR schedule. Objective Active Medications: Aspirin (Aspirin 81 Mg Chew Tab*) 81 mg PO QAM [facility] Last Admin: 04/07/19 09:16 Dose: 81 mg Atorvastatin Calcium (Lipitor*) 40 mg PO QPM [facility] Last Admin: 04/07/19 17:09 Dose: 40 mg Cyclobenzaprine HCl (Flexeril Tab*) 15 mg PO Q12H PRN PRN Reason: muscle spasms Last Admin: 04/06/19 17:16 Dose: 15 mg Enoxaparin Sodium (Lovenox(*)) 40 mg SUBCUT BEDTIME [facility] Last Admin: 04/06/19 21:55 Dose: 40 mg Ferrous Sulfate (Ferrous Sulfate Tab*) 325 mg PO DAILY [facility] Last Admin: 04/07/19 09:16 Dose: 325 mg Furosemide (Lasix Tab*) 40 mg PO EVERY OTHER DAY [facility] Losartan Potassium (Cozaar Tab*) 25 mg PO DAILY [facility] Last Admin: 04/07/19 09:15 Dose: 25 mg Metoprolol Succinate (Toprol Xl Tab*) 50 mg PO QAM [facility] Last Admin: 04/07/19 09:16 Dose: 50 mg Mirtazapine (Remeron Tab*) 15 mg PO BEDTIME [facility] Last Admin: 04/06/19 21:55 Dose: 15 mg Ondansetron HCl (Zofran Tab*) 4 mg PO Q6H PRN PRN Reason: NAUSEA Last Admin: 04/04/19 20:39 Dose: 4 mg Oxycodone HCl (Roxycodone Tab*) 15 mg PO TID PRN PRN Reason: PAIN Last Admin: 04/07/19 17:12 Dose: 15 mg Sertraline HCl (Zoloft*) 100 mg PO DAILY [facility] Last Admin: 04/07/19 09:16 Dose: 100 mg Tamsulosin HCl (Flomax Cap*) 0.4 mg PO BID [facility] Last Admin: 04/07/19 09:16 Dose: 0.4 mg Vital Signs - 8 hr 0604/07/19 04/07/19 11:17 15:23 17:12 Temperature 98.1 F 98.1 F Pulse Rate 73 81 Respiratory 18 20 20 Rate Blood Pressure 114/56 123/68 (mmHg) O2 Sat by Pulse 96 97 Oximetry Oxygen Devices in Use Now: None Appearance: frail appearing, pleasant man in NAD; +kyphosis Eyes: No Scleral Icterus Ears/Nose/Mouth/Throat: Clear Oropharnyx, Mucous Membranes Moist Neck: NL Appearance and Movements; NL JVP, Trachea Midline Respiratory: Symmetrical Chest Expansion and Respiratory Effort, Clear to Auscultation Cardiovascular: RRR Abdominal: NL Sounds; No Tenderness; No Distention, No Hepatosplenomegaly Extremities: No Edema, - - wwp Skin: No Rash or Ulcers Neurological: Alert and Oriented x 3, - - speech fluent Result Diagrams: 04/07/19 06:01 04/07/19 06:01 Microbiology and Other Data: Microbiology 03/31/19 17:01 Aerobic Blood Culture - Preliminary Blood Venous No Growth Day 2 Anaerobic Blood Culture - Preliminary No Growth Day 2 03/31/19 16:55 Aerobic Blood Culture - Preliminary Blood Venous No Growth Day 2 Anaerobic Blood Culture - Preliminary No Growth Day 2 Assess/Plan/Problems-Billing 73M with CAD s/p stents, afib on ASA, 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 Has fallen 12x in last 1 week. Has a spinal cord stimulator, which [facility] will remove so patient can have MRI for falls work up. - Patient Problems (1) Weakness Comment: Unknown etiology. Plan for MRI brain, cervical/thoracic/lumbar spine after spinal cord stimulator removed. - appreciate Neuro and NSGY recommendations (2) Depression Current Visit: Yes Comment: Patient's daughter voiced concerns of having severe depression causing his fall with possible self-DC of SSRI causing withdrawal. Also expressed at one time the patient voicing suicidal thoughts in January, none recently - Continue remeron and zoloft - appreciate Psychiatry input (3) Heart failure Comment: New rEF to 40-45%. - on ARB, BB, furosemide - appreciate cardiology recs (4) CAD (coronary artery disease) Comment: - Stable. - Continue aspirin 81; Lipitor 40 mg; metoprolol suc (5) Hypertension Comment: Low BPs while hospitalized - down-titrating meds. -Losartan 50 mg, lopressor 50 mg daily - stop HCTZ, still on furosemide (6) DVT prophylaxis Comment: - enoxaparin (7) Full code status Status and Disposition: Inpatient. Dr. Ronald Donohue Is Mr Hung Brother in Law and pain specialist. Stacey Jacobson , is Mr Hung Daughter
[2019-04-07] MEDS: Cyclobenzaprine TAB* 10 MG PO PRN (19:25)
[2019-04-07] MEDS: Mirtazapine TAB* 15 MG PO SCH (22:09)
[2019-04-07] MEDS: Enoxaparin(*) 40 MG/0.4 ML SYR SUBCUT SCH (22:09)
[2019-04-08 06:47] LABS: BUN/Creatinine Ratio 29.4 (8-20); Calcium 8.9 mg/dL (8.6-10.3); EGFR African American 80.2 (>60); EGFR Non-African American 66.3 (>60); Magnesium 1.9 mg/dL (1.9-2.7)
[2019-04-08] MEDS: oxyCODONE TAB* 5 MG TAB PO PRN ×3 (08:51→21:36)
[2019-04-08] MEDS: Aspirin 81 mg CHEW TAB* 81 MG TAB.CHEW PO SCH (09:12)
[2019-04-08] MEDS: Losartan TAB* 25 MG PO SCH (09:12)
[2019-04-08] MEDS: Tamsulosin CAP* 0.4 MG PO SCH ×2 (09:12→21:48)
[2019-04-08] MEDS: Furosemide TAB* 40 MG PO SCH (09:12)
[2019-04-08] MEDS: Ferrous Sulfate TAB* 325 MG PO SCH (09:12)
[2019-04-08] MEDS: Sertraline* 100 MG TAB PO SCH (09:12)
[2019-04-08] MEDS: Metoprolol Succinate XL TAB* 100 MG PO SCH (09:13)
--- NOTE | 2019-04-08 16:05 | PN ---
Subjective Date of Service: 04/08/19 Interval History: Patient feels that his weakness is improved from yesterday. Reports he had BM today. Additionally reports he was approx 180 lbs last month and is concerned about approx 15 lb weight loss; he reports his PCP is aware. States he has never had colonoscopy. He has chronic numbness to bilateral UEs which is unchanged today. Today denies abd pain, nausea/vomiting, fever/chills, SOB, chest pain. Family History: Unchanged from Admission Social History: Unchanged from Admission Past Medical History: Unchanged from Admission Objective Active Medications: Aspirin (Aspirin 81 Mg Chew Tab*) 81 mg PO QAM [facility] Last Admin: 04/08/19 09:12 Dose: 81 mg Atorvastatin Calcium (Lipitor*) 40 mg PO QPM [facility] Last Admin: 04/07/19 17:09 Dose: 40 mg Cyclobenzaprine HCl (Flexeril Tab*) 15 mg PO Q12H PRN PRN Reason: muscle spasms Last Admin: 04/07/19 19:25 Dose: 15 mg Enoxaparin Sodium (Lovenox(*)) 40 mg SUBCUT BEDTIME [facility] Last Admin: 04/07/19 22:09 Dose: 40 mg Ferrous Sulfate (Ferrous Sulfate Tab*) 325 mg PO DAILY [facility] Last Admin: 04/08/19 09:12 Dose: 325 mg Furosemide (Lasix Tab*) 40 mg PO EVERY OTHER DAY [facility] Last Admin: 04/08/19 09:12 Dose: 40 mg Losartan Potassium (Cozaar Tab*) 25 mg PO DAILY [facility] Last Admin: 04/08/19 09:12 Dose: 25 mg Metoprolol Succinate (Toprol Xl Tab*) 50 mg PO QAM [facility] Last Admin: 04/08/19 09:13 Dose: 50 mg Mirtazapine (Remeron Tab*) 15 mg PO BEDTIME [facility] Last Admin: 04/07/19 22:09 Dose: 15 mg Ondansetron HCl (Zofran Tab*) 4 mg PO Q6H PRN PRN Reason: NAUSEA Last Admin: 04/04/19 20:39 Dose: 4 mg Oxycodone HCl (Roxycodone Tab*) 15 mg PO TID PRN PRN Reason: PAIN Last Admin: 04/08/19 08:51 Dose: 15 mg Sertraline HCl (Zoloft*) 100 mg PO DAILY [facility] Last Admin: 04/08/19 09:12 Dose: 100 mg Tamsulosin HCl (Flomax Cap*) 0.4 mg PO BID [facility] Last Admin: 04/08/19 09:12 Dose: 0.4 mg Vital Signs - 8 hr 04/08/19 04/08/19 04/08/19 08:51 09:00 11:00 Temperature 98 F Pulse Rate 73 Respiratory 16 16 20 Rate Blood Pressure 111/54 (mmHg) O2 Sat by Pulse 98 Oximetry Oxygen Devices in Use Now: None Appearance: Thin, elderly white male laying upright in hospital bed appearing in NAD Eyes: No Scleral Icterus, PERRLA Ears/Nose/Mouth/Throat: Mucous Membranes Moist Neck: NL Appearance and Movements; NL JVP Respiratory: Symmetrical Chest Expansion and Respiratory Effort, Clear to Auscultation Cardiovascular: NL Sounds; No Murmurs; No JVD, RRR Abdominal: - - abd soft, nontender, nondistended Extremities: No Edema, No Clubbing, Cyanosis Skin: No Rash or Ulcers Neurological: Alert and Oriented x 3, NL Muscle Strength and Tone Result Diagrams: 04/07/19 06:01 04/08/19 06:16 Microbiology and Other Data: Microbiology 03/31/19 17:01 Aerobic Blood Culture - Preliminary Blood Venous No Growth Day 2 Anaerobic Blood Culture - Preliminary No Growth Day 2 03/31/19 16:55 Aerobic Blood Culture - Preliminary Blood Venous No Growth Day 2 Anaerobic Blood Culture - Preliminary No Growth Day 2 Assess/Plan/Problems-Billing 73M with CAD s/p stents, afib on ASA, 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 Has fallen 12x in last 1 week. Has a spinal cord stimulator, which [facility] will remove so patient can have MRI for falls work up. - Patient Problems (1) Weakness Current Visit: Yes Status: Acute Code(s): R53.1 - WEAKNESS SNOMED Code(s) : 43302745 Comment: -Unknown etiology. Plan for MRI brain, cervical/thoracic/lumbar spine after spinal cord stimulator removed. - appreciate Neuro and NSGY recommendations - tentative plan for surgery on Tuesday04/10/19 - weakness is subjectively improved today - PT recommends pt may benefit from skilled PT (2) Depression Current Visit: Yes Status: Acute Code(s): F32.9 - MAJOR DEPRESSIVE DISORDER , SINGLE EPISODE, UNSPECIFIED SNOMED Code(s): 46017554 Comment: -Patient's daughter voiced concerns of having severe depression causing his fall with possible self-DC of SSRI causing withdrawal. Also expressed at one time the patient voicing suicidal thoughts in January, none recently - Continue remeron and zoloft, psychiatry team agrees with this (3) ERASMO (acute kidney injury) Code(s): N17.9 - ACUTE KIDNEY FAILURE, UNSPECIFIED SNOMED Code(s): 74684931 Comment: -Cr elevated to 1.56 yesterday, now to 1.09 -resolved -likely prerenal due to diuretics (4) Weight loss Comment: -approx 15 lb weight loss in last month per patient -patient reports he has never had colonoscopy, would recommended at discharge -at this point seems most likely related to depression (5) CAD (coronary artery disease) Current Visit: Yes Status: Acute Code(s): I25.10 - ATHSCL HEART DISEASE OF [place] CORONARY ARTERY W/O ANG PCTRS SNOMED Code(s): 57203078 Comment: - Stable. - Continue aspirin 81; Lipitor 40 mg; metoprolol suc (6) Heart failure Current Visit: Yes Status: Acute Code(s): I50.9 - HEART FAILURE, UNSPECIFIED SNOMED Code(s): 30396957 Comment: - New rEF to 40-45%. - on ARB, BB, furosemide (7) Hypertension Current Visit: Yes Status: Acute Code(s): I10 - ESSENTIAL (PRIMARY) HYPERTENSION SNOMED Code(s): 24210776 Comment: -Low BPs while hospitalized - down-titrating meds. -Losartan 25 mg, lopressor 50 mg daily - stop HCTZ per cardiology rec, still on furosemide (8) DVT prophylaxis Current Visit: Yes Status: Acute Code(s): Z29.9 - ENCOUNTER FOR PROPHYLACTIC MEASURES, UNSPECIFIED SNOMED Code(s): 804057365 Comment: - enoxaparin (9) Full code status Current Visit: Yes Status: Acute Code(s): Z78.9 - OTHER SPECIFIED HEALTH STATUS SNOMED Code(s): 853888319 Status and Disposition: Inpatient. Dr. Ronald Donohue Is Mr Hung Brother in Law and pain specialist. Stacey Kavon , is Mr Hung Daughter
[2019-04-08] MEDS: Atorvastatin* 40 MG TAB PO SCH (17:24)
[2019-04-08] MEDS: Cyclobenzaprine TAB* 10 MG PO PRN (21:40)
[2019-04-08] MEDS: Enoxaparin(*) 40 MG/0.4 ML SYR SUBCUT SCH (21:48)
[2019-04-08] MEDS: Mirtazapine TAB* 15 MG PO SCH (21:48)
[2019-04-09] MEDS: Losartan TAB* 25 MG PO SCH (08:04)
[2019-04-09] MEDS: Tamsulosin CAP* 0.4 MG PO SCH ×2 (08:05→22:29)
[2019-04-09] MEDS: Sertraline* 100 MG TAB PO SCH (08:05)
[2019-04-09] MEDS: Ferrous Sulfate TAB* 325 MG PO SCH (08:05)
[2019-04-09] MEDS: Metoprolol Succinate XL TAB* 100 MG PO SCH (08:05)
[2019-04-09] MEDS: Aspirin 81 mg CHEW TAB* 81 MG TAB.CHEW PO SCH (08:05)
[2019-04-09] MEDS: Cyclobenzaprine TAB* 10 MG PO PRN ×2 (08:15→19:57)
[2019-04-09] MEDS: oxyCODONE TAB* 5 MG TAB PO PRN ×2 (08:15→19:52)
--- NOTE | 2019-04-09 13:04 | PN ---
Subjective Date of Service: 04/09/19 Interval History: Patient worked with PT today and felt tired afterwards. States his weakness is unchanged. Denies difficulty breathing, loss of control of bowel/bladder, chest pain, dizziness/lightheadedness, fever/chills. Family History: Unchanged from Admission Social History: Unchanged from Admission Past Medical History: Unchanged from Admission Objective Active Medications: Aspirin (Aspirin 81 Mg Chew Tab*) 81 mg PO QAM [facility] Last Admin: 04/09/19 08:05 Dose: 81 mg Atorvastatin Calcium (Lipitor*) 40 mg PO QPM [facility] Last Admin: 04/08/19 17:24 Dose: 40 mg Cyclobenzaprine HCl (Flexeril Tab*) 15 mg PO Q12H PRN PRN Reason: muscle spasms Last Admin: 04/09/19 08:15 Dose: 15 mg Enoxaparin Sodium (Lovenox(*)) 40 mg SUBCUT BEDTIME [facility] Last Admin: 04/08/19 21:48 Dose: 40 mg Ferrous Sulfate (Ferrous Sulfate Tab*) 325 mg PO DAILY [facility] Last Admin: 04/09/19 08:05 Dose: 325 mg Furosemide (Lasix Tab*) 40 mg PO EVERY OTHER DAY [facility] Last Admin: 04/08/19 09:12 Dose: 40 mg Losartan Potassium (Cozaar Tab*) 25 mg PO DAILY [facility] Last Admin: 04/09/19 08:04 Dose: 25 mg Metoprolol Succinate (Toprol Xl Tab*) 50 mg PO QAM [facility] Last Admin: 04/09/19 08:05 Dose: 50 mg Mirtazapine (Remeron Tab*) 15 mg PO BEDTIME [facility] Last Admin: 04/08/19 21:48 Dose: 15 mg Ondansetron HCl (Zofran Tab*) 4 mg PO Q6H PRN PRN Reason: NAUSEA Last Admin: 04/04/19 20:39 Dose: 4 mg Oxycodone HCl (Roxycodone Tab*) 15 mg PO TID PRN PRN Reason: PAIN Last Admin: 04/09/19 08:15 Dose: 15 mg Sertraline HCl (Zoloft*) 100 mg PO DAILY [facility] Last Admin: 04/09/19 08:05 Dose: 100 mg Tamsulosin HCl (Flomax Cap*) 0.4 mg PO BID [facility] Last Admin: 04/09/19 08:05 Dose: 0.4 mg Vital Signs - 8 hr 04/09/19 04/09/19 04/09/19 07:47 08:00 08:15 Temperature 98.0 F Pulse Rate 66 Respiratory 16 16 16 Rate Blood Pressure 142/71 (mmHg) O2 Sat by Pulse 100 Oximetry 04/09/19 04/09/19 10:57 11:36 Temperature 97.7 F Pulse Rate 70 Respiratory 16 16 Rate Blood Pressure 100/51 (mmHg) O2 Sat by Pulse 97 Oximetry Oxygen Devices in Use Now: None Appearance: Thin, elderly white male laying in hospital bed appearing in NAD Eyes: No Scleral Icterus, PERRLA Ears/Nose/Mouth/Throat: Mucous Membranes Moist Neck: NL Appearance and Movements; NL JVP Respiratory: Symmetrical Chest Expansion and Respiratory Effort, Clear to Auscultation Cardiovascular: NL Sounds; No Murmurs; No JVD, RRR Abdominal: - - abd soft, nontender, nondistended Extremities: No Edema, No Clubbing, Cyanosis Skin: No Rash or Ulcers Neurological: Alert and Oriented x 3, - - dorsiflexion and plantar flexion 5/5 bilaterally, hip flexion 4/5 bilaterally Result Diagrams: 04/07/19 06:01 04/08/19 06:16 Microbiology and Other Data: Microbiology 03/31/19 17:01 Aerobic Blood Culture - Preliminary Blood Venous No Growth Day 2 Anaerobic Blood Culture - Preliminary No Growth Day 2 03/31/19 16:55 Aerobic Blood Culture - Preliminary Blood Venous No Growth Day 2 Anaerobic Blood Culture - Preliminary No Growth Day 2 Assess/Plan/Problems-Billing 73M with CAD s/p stents, afib on ASA, 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 Has fallen 12x in last 1 week. Has a spinal cord stimulator, which Dimopoulus will remove so patient can have MRI for falls work up. - Patient Problems (1) Weakness Current Visit: Yes Status: Acute Code(s): R53.1 - WEAKNESS SNOMED Code(s) : 78006483 Comment: -Unknown etiology. - appreciate Neuro and NSGY recommendations - tentative plan for surgery on Tuesday04/10/19, then will be able to proceed with MRI spine; Dr. Llamas does not recommend MRI brain at this time - weakness is subjectively unchanged - PT recommends pt may benefit from skilled PT (2) Depression Current Visit: Yes Status: Acute Code(s): F32.9 - MAJOR DEPRESSIVE DISORDER , SINGLE EPISODE, UNSPECIFIED SNOMED Code(s): 88146717 Comment: -Patient's daughter voiced concerns of having severe depression causing his fall with possible self-DC of SSRI causing withdrawal. Also expressed at one time the patient voicing suicidal thoughts in January, none recently - Continue remeron and zoloft, psychiatry team agrees with this (3) Weight loss Comment: -approx 15 lb weight loss in last month per patient -patient reports he has never had colonoscopy, would recommended at discharge -at this point seems most likely related to depression (4) CAD (coronary artery disease) Current Visit: Yes Status: Acute Code(s): I25.10 - ATHSCL HEART DISEASE OF [place] CORONARY ARTERY W/O ANG PCTRS SNOMED Code(s): 14380660 Comment: - Stable. - Continue aspirin 81; Lipitor 40 mg; metoprolol suc (5) Heart failure Current Visit: Yes Status: Acute Code(s): I50.9 - HEART FAILURE, UNSPECIFIED SNOMED Code(s): 21778274 Comment: - New rEF to 40-45%. - on ARB, BB, furosemide (6) Hypertension Current Visit: Yes Status: Acute Code(s): I10 - ESSENTIAL (PRIMARY) HYPERTENSION SNOMED Code(s): 44260936 Comment: -Low BPs while hospitalized - down-titrating meds. -Losartan 25 mg, lopressor 50 mg daily - stop HCTZ per cardiology rec, still on furosemide (7) DVT prophylaxis Current Visit: Yes Status: Acute Code(s): Z29.9 - ENCOUNTER FOR PROPHYLACTIC MEASURES, UNSPECIFIED SNOMED Code(s): 642338431 Comment: - enoxaparin (8) Full code status Current Visit: Yes Status: Acute Code(s): Z78.9 - OTHER SPECIFIED HEALTH STATUS SNOMED Code(s): 415368109 Status and Disposition: Inpatient. Dr. Ronald Donohue Is Mr Hung Brother in Law and pain specialist. Stacey Jacobson , is Mr Hung Daughter
--- NOTE | 2019-04-09 15:20 | CONSULT ---
Identification - Patient Identification Reason for Psychiatric Consultation: Patient Distress -: Patient is a 73 year old, M admitted on 03/30/19. - MHU Identification Employment Status: Disabled Hx Psychiatric Hospitalization: No History - Objective HPI: Jose Alberto remains in fair spirits. He was able to ambulate around the unit this morning, assisted by PT and is subsequently fatigued. He is aware of his pending surgical procedure to remove a dorsal column stimulator and cardiac loop recorder from his body so that he can safely undergo MRI of his brain and spine. He continues to deny SI. Exam Appearance: Thin Framed Hygiene: Normal Grooming: Fairly Well Kept Psychomotor Activities: Abnormal-Decreased Exhibits Abnormal Movement: No Attitude and Relatedness: Cooperative Eye Contact: Good - Speech Quality: Unpressured Latencies: Normal Quantity: Appropriate Patient's Decription of Mood: "Sad" Observed Affect: Constricted Affect Consistent with: Dysphoria Patient's Thought Process: Coherent Thought Content: No Passive Wish, No Suicidal Planning, No Homicidal Ideation, No Paranoid Ideation Experiencing Hallucinations: No, Sensorium is Clear Type of Hallucinations: Visual: No, Auditory: No, Command: No Level of Consciousness: Alert Orientation: Yes Intact, Yes Orientated to Time, Yes Orientated to Place, Yes Orientated to Person Impulse Control: Tenuous Insight and Judgement: Fair Impression - Impression Clinical Impression: 73 y.o. , Bahai male with a history of traumatic brain injury, multiple spinal problems, chronic pain and depression brought in via ambulance due to several recent falls who is being seen by psychiatry due to questions of whether his depression is adequately controlled and perhaps complicating his physical issues. Inpatient DSM-V Dx: F33.1 Merits Inpatient Hospitalization: No BSU: Problem List - Patient Problems (1) MDD (major depressive disorder), recurrent episode, moderate Current Visit: Yes Status: Acute Priority: Medium Code(s): F33.1 - MAJOR DEPRESSIVE DISORDER, RECURRENT, MODERATE SNOMED Code(s): 361366022 Plan - Treatment Plan Treatment Plan: The patient remains on mirtazapine 15mg PO qhs and sertraline 100mg PO qday, as currently prescribed on an outpatient basis by his primary care provider, Dr. Bruner. This is a reasonable regimen and does not need alteration at this time. The patient is psychiatrically clear for discharge back to the community once medically ready. Psychiatry will continue to follow. Continued Medication Management: Continue Outpt Medication Medications: Current Medications Aspirin (Aspirin 81 Mg Chew Tab*) 81 mg PO QAM [facility] Last Admin: 04/09/19 08:05 Dose: 81 mg Atorvastatin Calcium (Lipitor*) 40 mg PO QPM [facility] Last Admin: 04/08/19 17:24 Dose: 40 mg Cyclobenzaprine HCl (Flexeril Tab*) 15 mg PO Q12H PRN PRN Reason: muscle spasms Last Admin: 04/09/19 08:15 Dose: 15 mg Enoxaparin Sodium (Lovenox(*)) 40 mg SUBCUT BEDTIME [facility] Last Admin: 04/08/19 21:48 Dose: 40 mg Ferrous Sulfate (Ferrous Sulfate Tab*) 325 mg PO DAILY [facility] Last Admin: 04/09/19 08:05 Dose: 325 mg Furosemide (Lasix Tab*) 40 mg PO EVERY OTHER DAY [facility] Last Admin: 04/08/19 09:12 Dose: 40 mg Losartan Potassium (Cozaar Tab*) 25 mg PO DAILY [facility] Last Admin: 04/09/19 08:04 Dose: 25 mg Metoprolol Succinate (Toprol Xl Tab*) 50 mg PO QAM [facility] Last Admin: 04/09/19 08:05 Dose: 50 mg Mirtazapine (Remeron Tab*) 15 mg PO BEDTIME [facility] Last Admin: 04/08/19 21:48 Dose: 15 mg Ondansetron HCl (Zofran Tab*) 4 mg PO Q6H PRN PRN Reason: NAUSEA Last Admin: 04/04/19 20:39 Dose: 4 mg Oxycodone HCl (Roxycodone Tab*) 15 mg PO TID PRN PRN Reason: PAIN Last Admin: 04/09/19 08:15 Dose: 15 mg Sertraline HCl (Zoloft*) 100 mg PO DAILY [facility] Last Admin: 04/09/19 08:05 Dose: 100 mg Tamsulosin HCl (Flomax Cap*) 0.4 mg PO BID [facility] Last Admin: 04/09/19 08:05 Dose: 0.4 mg
[2019-04-09] MEDS: Atorvastatin* 40 MG TAB PO SCH (17:44)
[2019-04-09] MEDS ORDERED: Buffered Lidocaine 1% SYRIN* 1 ML/SYRINGE INTRADERM ONE (17:48)
[2019-04-09] MEDS: Enoxaparin(*) 40 MG/0.4 ML SYR SUBCUT SCH (22:29)
[2019-04-09] MEDS: Mirtazapine TAB* 15 MG PO SCH (22:29)
[2019-04-10] MEDS ORDERED: Famotidine IV* 10 MG/ML 2 ML (20 mg) IV ONE (06:00)
[2019-04-10] MEDS ORDERED: Lactated Ringers 1000 ML Bag* 1,000 ML IV SCH (06:00)
[2019-04-10 07:44] LABS: BUN/Creatinine Ratio 29.1 (8-20); Blood Urea Nitrogen 30 mg/dL (6-24); CO2 Carbon Dioxide 27 mmol/L (22-32); Chloride 107 mmol/L (101-111); EGFR African American 85.7 (>60); EGFR Non-African American 70.8 (>60); Glucose 95 mg/dL (70-100); Sodium 140 mmol/L (135-145)
[2019-04-10] MEDS: Furosemide TAB* 40 MG PO SCH (08:01)
[2019-04-10] MEDS: Losartan TAB* 25 MG PO SCH (08:01)
[2019-04-10 08:09] LABS: Anion Gap 6 mmol/L (2-11)
[2019-04-10] MEDS: Cyclobenzaprine TAB* 10 MG PO PRN ×2 (08:58→19:46)
[2019-04-10] MEDS: Sertraline* 100 MG TAB PO SCH (08:59)
[2019-04-10] MEDS: Ferrous Sulfate TAB* 325 MG PO SCH (08:59)
[2019-04-10] MEDS: oxyCODONE TAB* 5 MG TAB PO PRN ×2 (09:00→19:46)
[2019-04-10] MEDS: Tamsulosin CAP* 0.4 MG PO SCH ×2 (09:00→22:08)
[2019-04-10] MEDS: Metoprolol Succinate XL TAB* 100 MG PO SCH (09:00)
[2019-04-10] MEDS: Aspirin 81 mg CHEW TAB* 81 MG TAB.CHEW PO SCH (09:04)
[2019-04-10] MEDS: Atorvastatin* 40 MG TAB PO SCH (17:11)
--- NOTE | 2019-04-10 17:32 | PN ---
Subjective Date of Service: 04/10/19 Interval History: Patient reports his feeling of weakness is unchanged from yesterday. Denies bowel/bladder function loss, chest pain, difficulty breathing, fever/chills. Patient was scheduled for the OR today to have spinal cord stimulator removed so that he can have MRI, however due to emergency scheduling changes in [place] his procedure has been changed to 04/16/19. Family History: Unchanged from Admission Social History: Unchanged from Admission Past Medical History: Unchanged from Admission Objective Active Medications: Aspirin (Aspirin 81 Mg Chew Tab*) 81 mg PO QAM [facility] Last Admin: 04/10/19 09:04 Dose: Not Given Atorvastatin Calcium (Lipitor*) 40 mg PO QPM [facility] Last Admin: 04/10/19 17:11 Dose: 40 mg Cyclobenzaprine HCl (Flexeril Tab*) 15 mg PO Q12H PRN PRN Reason: muscle spasms Last Admin: 04/10/19 08:58 Dose: 15 mg Enoxaparin Sodium (Lovenox(*)) 40 mg SUBCUT BEDTIME [facility] Last Admin: 04/09/19 22:29 Dose: 40 mg Ferrous Sulfate (Ferrous Sulfate Tab*) 325 mg PO DAILY [facility] Last Admin: 04/10/19 08:59 Dose: 325 mg Furosemide (Lasix Tab*) 40 mg PO EVERY OTHER DAY [facility] Last Admin: 04/10/19 08:01 Dose: Not Given Lactated Ringer's (Lactated Ringers 1000 Ml Bag*) 1,000 mls @ 60 mls/hr IV PER RATE [facility] Last Admin: 04/10/19 05:59 Dose: 60 mls/hr Losartan Potassium (Cozaar Tab*) 25 mg PO DAILY [facility] Last Admin: 04/10/19 08:01 Dose: Not Given Metoprolol Succinate (Toprol Xl Tab*) 50 mg PO QAM [facility] Last Admin: 04/10/19 09:00 Dose: 50 mg Mirtazapine (Remeron Tab*) 15 mg PO BEDTIME [facility] Last Admin: 04/09/19 22:29 Dose: 15 mg Ondansetron HCl (Zofran Tab*) 4 mg PO Q6H PRN PRN Reason: NAUSEA Last Admin: 04/04/19 20:39 Dose: 4 mg Oxycodone HCl (Roxycodone Tab*) 15 mg PO TID PRN PRN Reason: PAIN Last Admin: 04/10/19 09:00 Dose: 15 mg Sertraline HCl (Zoloft*) 100 mg PO DAILY [facility] Last Admin: 04/10/19 08:59 Dose: 100 mg Tamsulosin HCl (Flomax Cap*) 0.4 mg PO BID [facility] Last Admin: 04/10/19 09:00 Dose: 0.4 mg Vital Signs - 8 hr 04/10/19 04/10/19 04/10/19 11:30 11:31 11:38 Temperature 98.0 F Pulse Rate 65 Respiratory 16 18 16 Rate Blood Pressure 128/66 (mmHg) O2 Sat by Pulse 99 Oximetry 04/10/19 16:05 Temperature 98.1 F Pulse Rate 70 Respiratory 18 Rate Blood Pressure 145/78 (mmHg) O2 Sat by Pulse 99 Oximetry Oxygen Devices in Use Now: None Appearance: Thin elderly white male laying upright in hospital bed appearing in NAD Eyes: No Scleral Icterus, PERRLA Ears/Nose/Mouth/Throat: Mucous Membranes Moist Neck: NL Appearance and Movements; NL JVP Respiratory: Symmetrical Chest Expansion and Respiratory Effort, Clear to Auscultation Cardiovascular: NL Sounds; No Murmurs; No JVD, RRR Abdominal: - - abd soft, nontender, nondistended Extremities: No Edema, No Clubbing, Cyanosis Skin: No Rash or Ulcers Neurological: Alert and Oriented x 3, - - 5/5 strength of dorsiflexion and plantar flexion; 3/5 strength of left hip flexion, 5/5 strength of right hip flexion Result Diagrams: 04/07/19 06:01 04/10/19 08:52 Microbiology and Other Data: Microbiology 03/31/19 17:01 Aerobic Blood Culture - Preliminary Blood Venous No Growth Day 2 Anaerobic Blood Culture - Preliminary No Growth Day 2 03/31/19 16:55 Aerobic Blood Culture - Preliminary Blood Venous No Growth Day 2 Anaerobic Blood Culture - Preliminary No Growth Day 2 Assess/Plan/Problems-Billing 73M with CAD s/p stents, afib on ASA, 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 Has fallen 12x in last 1 week leading up to admission. Has a spinal cord stimulator, which Dimopoulus will remove so patient can have MRI for falls work up. - Patient Problems (1) Weakness Current Visit: Yes Status: Acute Code(s): R53.1 - WEAKNESS SNOMED Code(s) : 71315138 Comment: -Unknown etiology. - appreciate Neuro and NSGY recommendations - tentative plan for surgery on Tuesday04/16/19, then will be able to proceed with MRI spine; Dr. Llamas does not recommend MRI brain at this time - weakness is subjectively unchanged - PT recommends pt may benefit from skilled PT (2) Depression Current Visit: Yes Status: Acute Code(s): F32.9 - MAJOR DEPRESSIVE DISORDER , SINGLE EPISODE, UNSPECIFIED SNOMED Code(s): 70730841 Comment: -Patient's daughter voiced concerns of having severe depression causing his fall with possible self-DC of SSRI causing withdrawal. Also expressed at one time the patient voicing suicidal thoughts in January, none recently - Continue remeron and zoloft, psychiatry team agrees with this (3) Weight loss Comment: -approx 15 lb weight loss in last month per patient -patient reports he has never had colonoscopy, would recommended at discharge -at this point seems most likely related to depression (4) CAD (coronary artery disease) Current Visit: Yes Status: Acute Code(s): I25.10 - ATHSCL HEART DISEASE OF [place] CORONARY ARTERY W/O ANG PCTRS SNOMED Code(s): 57852394 Comment: - Stable. - Continue aspirin 81; Lipitor 40 mg; metoprolol suc (5) Heart failure Current Visit: Yes Status: Acute Code(s): I50.9 - HEART FAILURE, UNSPECIFIED SNOMED Code(s): 25004317 Comment: - New rEF to 40-45%. - on ARB, BB, furosemide (6) Hypertension Current Visit: Yes Status: Acute Code(s): I10 - ESSENTIAL (PRIMARY) HYPERTENSION SNOMED Code(s): 99533595 Comment: -Low BPs while hospitalized - down-titrating meds. -Losartan 25 mg, lopressor 50 mg daily - stop HCTZ per cardiology rec, still on furosemide (7) DVT prophylaxis Current Visit: Yes Status: Acute Code(s): Z29.9 - ENCOUNTER FOR PROPHYLACTIC MEASURES, UNSPECIFIED SNOMED Code(s): 374036927 Comment: - enoxaparin (8) Full code status Current Visit: Yes Status: Acute Code(s): Z78.9 - OTHER SPECIFIED HEALTH STATUS SNOMED Code(s): 688789377 Status and Disposition: Inpatient. Per discussion with case management, it will benefit the patient to remain inpatient until spinal cord stimulator can be removed and MRI performed; he is unsafe to return home and transitioning to rehab until this can be performed would impede further rehab options in the future. Dr. Ronald Donohue Is Mr Hung Brother in Law and pain specialist. Stacey Jacobson , is Mr Hung Daughter
[2019-04-10] MEDS: Mirtazapine TAB* 15 MG PO SCH (22:08)
[2019-04-10] MEDS: Enoxaparin(*) 40 MG/0.4 ML SYR SUBCUT SCH (22:08)
--- NOTE | 2019-04-10 22:36 | PN ---
Progress Note - Progress Note Date of Service: 04/10/19 Note: Patient was scheduled for SCS removal, but case was bumped emergency case. We have tentatively rescheduled surgery for Tuesday at 9am. We have discussed with the patient and he is in agreeable to plan. He should continued to optimized medically and NPO after midnight Tuesday.
[2019-04-11] MEDS: Metoprolol Succinate XL TAB* 100 MG PO SCH (07:59)
[2019-04-11] MEDS: Cyclobenzaprine TAB* 10 MG PO PRN ×2 (08:02→22:08)
[2019-04-11] MEDS: oxyCODONE TAB* 5 MG TAB PO PRN ×3 (08:02→22:10)
[2019-04-11] MEDS: Ondansetron TAB* 4 MG PO PRN (08:03)
[2019-04-11] MEDS: Ferrous Sulfate TAB* 325 MG PO SCH (08:31)
[2019-04-11] MEDS: Tamsulosin CAP* 0.4 MG PO SCH ×2 (08:31→22:11)
[2019-04-11] MEDS: Aspirin 81 mg CHEW TAB* 81 MG TAB.CHEW PO SCH (08:31)
[2019-04-11] MEDS: Losartan TAB* 25 MG PO SCH (08:31)
[2019-04-11] MEDS: Sertraline* 100 MG TAB PO SCH (08:31)
--- NOTE | 2019-04-11 15:14 | CONSULT ---
Identification - Patient Identification Reason for Psychiatric Consultation: Patient Distress -: Patient is a 73 year old, M admitted on 03/30/19. - MHU Identification Employment Status: Disabled Hx Psychiatric Hospitalization: No History - Objective HPI: Jose Alberto presents as frustrated by his treatment course here in the hospital, given the fact that his surgery was postponed yesterday due to lack of OR availability. His procedures have been rescheduled for April 16 and he has accepted this. His affect is fair and he continues to deny SI. Exam Appearance: Thin Framed Hygiene: Normal Grooming: Fairly Well Kept Psychomotor Activities: Abnormal-Decreased Exhibits Abnormal Movement: No Attitude and Relatedness: Cooperative Eye Contact: Good - Speech Quality: Unpressured Latencies: Normal Quantity: Appropriate Patient's Decription of Mood: "Sad" Observed Affect: Constricted Affect Consistent with: Dysphoria Patient's Thought Process: Coherent Thought Content: No Passive Wish, No Suicidal Planning, No Homicidal Ideation, No Paranoid Ideation Experiencing Hallucinations: No, Sensorium is Clear Type of Hallucinations: Visual: No, Auditory: No, Command: No Level of Consciousness: Alert Orientation: Yes Intact, Yes Orientated to Time, Yes Orientated to Place, Yes Orientated to Person Impulse Control: Tenuous Insight and Judgement: Fair Impression - Impression Clinical Impression: 73 y.o. , Jainism male with a history of traumatic brain injury, multiple spinal problems, chronic pain and depression brought in via ambulance due to several recent falls who is being seen by psychiatry due to questions of whether his depression is adequately controlled and perhaps complicating his physical issues. Inpatient DSM-V Dx: F33.1 Merits Inpatient Hospitalization: No BSU: Problem List - Patient Problems (1) MDD (major depressive disorder), recurrent episode, moderate Current Visit: Yes Status: Acute Priority: Medium Code(s): F33.1 - MAJOR DEPRESSIVE DISORDER, RECURRENT, MODERATE SNOMED Code(s): 669327772 Plan - Treatment Plan Treatment Plan: The patient remains on mirtazapine 15mg PO qhs and sertraline 100mg PO qday, as currently prescribed on an outpatient basis by his primary care provider, Dr. Bruner. This is a reasonable regimen and does not need alteration at this time. The patient is psychiatrically clear for discharge back to the community once medically ready. Psychiatry will follow up on April 17. Continued Medication Management: Continue Outpt Medication Medications: Current Medications Aspirin (Aspirin 81 Mg Chew Tab*) 81 mg PO QAM [facility] Last Admin: 04/11/19 08:31 Dose: 81 mg Atorvastatin Calcium (Lipitor*) 40 mg PO QPM [facility] Last Admin: 04/10/19 17:11 Dose: 40 mg Cyclobenzaprine HCl (Flexeril Tab*) 15 mg PO Q12H PRN PRN Reason: muscle spasms Last Admin: 04/11/19 08:02 Dose: 15 mg Enoxaparin Sodium (Lovenox(*)) 40 mg SUBCUT BEDTIME [facility] Last Admin: 04/10/19 22:08 Dose: 40 mg Ferrous Sulfate (Ferrous Sulfate Tab*) 325 mg PO DAILY [facility] Last Admin: 04/11/19 08:31 Dose: 325 mg Furosemide (Lasix Tab*) 40 mg PO EVERY OTHER DAY [facility] Last Admin: 04/10/19 08:01 Dose: Not Given Losartan Potassium (Cozaar Tab*) 25 mg PO DAILY [facility] Last Admin: 04/11/19 08:31 Dose: 25 mg Metoprolol Succinate (Toprol Xl Tab*) 50 mg PO QAM [facility] Last Admin: 04/11/19 07:59 Dose: 50 mg Mirtazapine (Remeron Tab*) 15 mg PO BEDTIME [facility] Last Admin: 04/10/19 22:08 Dose: 15 mg Ondansetron HCl (Zofran Tab*) 4 mg PO Q6H PRN PRN Reason: NAUSEA Last Admin: 04/11/19 08:03 Dose: 4 mg Oxycodone HCl (Roxycodone Tab*) 15 mg PO TID PRN PRN Reason: PAIN Last Admin: 04/11/19 08:02 Dose: 15 mg Sertraline HCl (Zoloft*) 100 mg PO DAILY [facility] Last Admin: 04/11/19 08:31 Dose: 100 mg Tamsulosin HCl (Flomax Cap*) 0.4 mg PO BID [facility] Last Admin: 04/11/19 08:31 Dose: 0.4 mg
--- NOTE | 2019-04-11 16:42 | PN ---
Subjective Date of Service: 04/11/19 Interval History: Patient feeling like he was stronger when walking today. Has no complaints. Denies chest pain, difficulty breathing, loss of bowel/bladder control, fever/ chills, abd pain, nausea. Family History: Unchanged from Admission Social History: Unchanged from Admission Past Medical History: Unchanged from Admission Objective Active Medications: Aspirin (Aspirin 81 Mg Chew Tab*) 81 mg PO QAM [facility] Last Admin: 04/11/19 08:31 Dose: 81 mg Atorvastatin Calcium (Lipitor*) 40 mg PO QPM [facility] Last Admin: 04/10/19 17:11 Dose: 40 mg Cyclobenzaprine HCl (Flexeril Tab*) 15 mg PO Q12H PRN PRN Reason: muscle spasms Last Admin: 04/11/19 08:02 Dose: 15 mg Enoxaparin Sodium (Lovenox(*)) 40 mg SUBCUT BEDTIME [facility] Last Admin: 04/10/19 22:08 Dose: 40 mg Ferrous Sulfate (Ferrous Sulfate Tab*) 325 mg PO DAILY [facility] Last Admin: 04/11/19 08:31 Dose: 325 mg Furosemide (Lasix Tab*) 40 mg PO EVERY OTHER DAY [facility] Last Admin: 04/10/19 08:01 Dose: Not Given Losartan Potassium (Cozaar Tab*) 25 mg PO DAILY [facility] Last Admin: 04/11/19 08:31 Dose: 25 mg Metoprolol Succinate (Toprol Xl Tab*) 50 mg PO QAM [facility] Last Admin: 04/11/19 07:59 Dose: 50 mg Mirtazapine (Remeron Tab*) 15 mg PO BEDTIME [facility] Last Admin: 04/10/19 22:08 Dose: 15 mg Ondansetron HCl (Zofran Tab*) 4 mg PO Q6H PRN PRN Reason: NAUSEA Last Admin: 04/11/19 08:03 Dose: 4 mg Oxycodone HCl (Roxycodone Tab*) 15 mg PO TID PRN PRN Reason: PAIN Last Admin: 04/11/19 08:02 Dose: 15 mg Sertraline HCl (Zoloft*) 100 mg PO DAILY [facility] Last Admin: 04/11/19 08:31 Dose: 100 mg Tamsulosin HCl (Flomax Cap*) 0.4 mg PO BID [facility] Last Admin: 04/11/19 08:31 Dose: 0.4 mg Vital Signs - 8 hr 07/03/19 07/03/19 07/03/19 09:10 09:11 11:53 Temperature 97.9 F Pulse Rate 75 Respiratory 16 16 16 Rate Blood Pressure 105/55 (mmHg) O2 Sat by Pulse 96 Oximetry Oxygen Devices in Use Now: None Appearance: Elderly white male, laying in hospital bed, appearing in NAD Eyes: No Scleral Icterus, PERRLA Ears/Nose/Mouth/Throat: Mucous Membranes Moist Neck: NL Appearance and Movements; NL JVP Respiratory: Symmetrical Chest Expansion and Respiratory Effort, Clear to Auscultation Cardiovascular: NL Sounds; No Murmurs; No JVD, RRR Abdominal: - - abd soft, nontender, nondistended Extremities: No Edema, No Clubbing, Cyanosis Skin: No Rash or Ulcers Neurological: Alert and Oriented x 3, - - strength 3/5 of left hip flextion, strength 5/5 of right hip flexion, strength 5/5 of bilateral dorsiflexion and plantar flexion Result Diagrams: 04/07/19 06:01 04/10/19 08:52 Microbiology and Other Data: Microbiology 03/31/19 17:01 Aerobic Blood Culture - Preliminary Blood Venous No Growth Day 2 Anaerobic Blood Culture - Preliminary No Growth Day 2 03/31/19 16:55 Aerobic Blood Culture - Preliminary Blood Venous No Growth Day 2 Anaerobic Blood Culture - Preliminary No Growth Day 2 Assess/Plan/Problems-Billing 73M with CAD s/p stents, afib on ASA, 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 Has fallen 12x in last 1 week leading up to admission. Has a spinal cord stimulator, which Dimopoulus will remove so patient can have MRI for falls work up. Due to his extensive neurosurgical history, it is warranted to investigate an organic cause of his weakness and falls, though possibly there is a psychological component given his psychosocial stressors. - Patient Problems (1) Weakness Current Visit: Yes Status: Acute Code(s): R53.1 - WEAKNESS SNOMED Code(s) : 41104410 Comment: -Unknown etiology. - appreciate Neuro and NSGY recommendations - tentative plan for surgery on Tuesday04/16/19, then will be able to proceed with MRI spine; Dr. Llamas does not recommend MRI brain at this time; patient is unsafe to return home during this time due to falls - weakness is subjectively unchanged - PT recommends pt may benefit from skilled PT (2) Depression Current Visit: Yes Status: Acute Code(s): F32.9 - MAJOR DEPRESSIVE DISORDER , SINGLE EPISODE, UNSPECIFIED SNOMED Code(s): 05650665 Comment: -Patient's daughter voiced concerns of having severe depression causing his fall with possible self-DC of SSRI causing withdrawal. Also expressed at one time the patient voicing suicidal thoughts in January, none recently - Continue remeron and zoloft, psychiatry team agrees with this (3) Weight loss Comment: -approx 15 lb weight loss in last month per patient -patient reports he has never had colonoscopy, would recommended at discharge -at this point seems most likely related to depression (4) CAD (coronary artery disease) Current Visit: Yes Status: Acute Code(s): I25.10 - ATHSCL HEART DISEASE OF [place] CORONARY ARTERY W/O ANG PCTRS SNOMED Code(s): 02966193 Comment: - Stable. - Continue aspirin 81; Lipitor 40 mg; metoprolol suc (5) Heart failure Current Visit: Yes Status: Acute Code(s): I50.9 - HEART FAILURE, UNSPECIFIED SNOMED Code(s): 41932702 Comment: - New rEF to 40-45%. - on ARB, BB, furosemide (6) Hypertension Current Visit: Yes Status: Acute Code(s): I10 - ESSENTIAL (PRIMARY) HYPERTENSION SNOMED Code(s): 31532849 Comment: -Low BPs while hospitalized, titrated down during hospitalization; now normotensive -Losartan 25 mg, lopressor 50 mg daily -stop HCTZ per cardiology rec, still on furosemide (7) DVT prophylaxis Current Visit: Yes Status: Acute Code(s): Z29.9 - ENCOUNTER FOR PROPHYLACTIC MEASURES, UNSPECIFIED SNOMED Code(s): 867623981 Comment: - enoxaparin (8) Full code status Current Visit: Yes Status: Acute Code(s): Z78.9 - OTHER SPECIFIED HEALTH STATUS SNOMED Code(s): 744987337 Status and Disposition: Inpatient. Per discussion with case management, it will benefit the patient to remain inpatient until spinal cord stimulator can be removed and MRI performed; he is unsafe to return home and transitioning to rehab until this can be performed would impede further rehab options in the future. Swing bed was not approved by insurance company. Dr. Ronald Donohue Is Mr Hung's Brother in Law and pain specialist. Stacey Jacobson , is Mr Hung's Daughter
[2019-04-11] MEDS: Atorvastatin* 40 MG TAB PO SCH (16:55)
[2019-04-11] MEDS: Enoxaparin(*) 40 MG/0.4 ML SYR SUBCUT SCH (22:11)
[2019-04-11] MEDS: Mirtazapine TAB* 15 MG PO SCH (22:11)
[2019-04-12 06:54] LABS: BUN/Creatinine Ratio 23.5 (8-20); Calcium 8.9 mg/dL (8.6-10.3); EGFR African American 75.4 (>60); EGFR Non-African American 62.3 (>60); Potassium 4.2 mmol/L (3.5-5.0)
[2019-04-12] MEDS: Losartan TAB* 25 MG PO SCH (09:30)
[2019-04-12] MEDS: Metoprolol Succinate XL TAB* 100 MG PO SCH (09:30)
[2019-04-12] MEDS: oxyCODONE TAB* 5 MG TAB PO PRN ×3 (09:30→23:53)
[2019-04-12] MEDS: Sertraline* 100 MG TAB PO SCH (09:31)
[2019-04-12] MEDS: Furosemide TAB* 40 MG PO SCH (09:31)
[2019-04-12] MEDS: Aspirin 81 mg CHEW TAB* 81 MG TAB.CHEW PO SCH (09:31)
[2019-04-12] MEDS: Tamsulosin CAP* 0.4 MG PO SCH ×2 (09:31→20:19)
[2019-04-12] MEDS: Ferrous Sulfate TAB* 325 MG PO SCH (09:31)
--- NOTE | 2019-04-12 11:54 | PN ---
Subjective Date of Service: 04/12/19 Interval History: Mr. Hung is feeling about the same today. He does report 5/10 left hip pain. He is not sure if this is new as he has chronic pain and has a hard time localizing and differentiating his pain. This is not affecting his mobility. He is still feeling very weak - as though his legs cannot support his body. He denies CP, SOB, N/V. No concerns from nursing. Family History: Unchanged from Admission Social History: Unchanged from Admission Past Medical History: Unchanged from Admission Objective Active Medications: Aspirin (Aspirin 81 Mg Chew Tab*) 81 mg PO QAM [facility] Atorvastatin Calcium (Lipitor*) 40 mg PO QPM [facility] Cyclobenzaprine HCl (Flexeril Tab*) 15 mg PO Q12H PRN muscle spasms Enoxaparin Sodium (Lovenox(*)) 40 mg SUBCUT BEDTIME [facility] Ferrous Sulfate (Ferrous Sulfate Tab*) 325 mg PO DAILY [facility] Furosemide (Lasix Tab*) 40 mg PO EVERY OTHER DAY [facility] Losartan Potassium (Cozaar Tab*) 25 mg PO DAILY [facility] Metoprolol Succinate (Toprol Xl Tab*) 50 mg PO QAM [facility] Mirtazapine (Remeron Tab*) 15 mg PO BEDTIME [facility] Ondansetron HCl (Zofran Tab*) 4 mg PO Q6H PRN NAUSEA Oxycodone HCl (Roxycodone Tab*) 15 mg PO TID PRN PAIN Sertraline HCl (Zoloft*) 100 mg PO DAILY [facility] Tamsulosin HCl (Flomax Cap*) 0.4 mg PO BID [facility] Vital Signs - 8 hr 04/12/19 04/12/19 04/12/19 07:00 08:00 09:30 Temperature 97.8 F Pulse Rate 67 Respiratory 20 18 18 Rate Blood Pressure 124/67 (mmHg) O2 Sat by Pulse 98 Oximetry Oxygen Devices in Use Now: None Appearance: Elderly male laying in bed in NAD Eyes: No Scleral Icterus Ears/Nose/Mouth/Throat: Mucous Membranes Moist Neck: NL Appearance and Movements; NL JVP, Trachea Midline Respiratory: Symmetrical Chest Expansion and Respiratory Effort, Clear to Auscultation Cardiovascular: NL Sounds; No Murmurs; No JVD, RRR Abdominal: NL Sounds; No Tenderness; No Distention Extremities: No Edema Neurological: Alert and Oriented x 3, NL Sensation Lines/Tubes/Other Access: Clean, Dry and Intact Peripheral IV Nutrition: Taking PO's Result Diagrams: 04/07/19 06:01 04/12/19 05:57 Assess/Plan/Problems-Billing Assessment: Mr. 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 - Patient Problems (1) Weakness Code(s): R53.1 - WEAKNESS Comment: - Unknown etiology - Appreciate neuro and neurosurgery recommendations - Unsafe to return home during this time due to falls - PT recommends skilled rehab - Tentative plan for surgery on Tuesday04/16/19 to remove spinal cord stimulator ( and loop recorder?), then will be able to proceed with MRI spine; Dr. Llamas does not recommend MRI brain at this time (2) Weight loss Comment: - Approx 15 lb weight loss in last month per patient - Patient reports he has never had colonoscopy; would recommended at discharge - Likely related to depression (3) Depression Code(s): F32.9 - MAJOR DEPRESSIVE DISORDER, SINGLE EPISODE, UNSPECIFIED Comment: - Possibilty depression contributing to weakness - Daughter voiced concerns of having severe depression causing his fall with possible self d/c of SSRI causing withdrawal; voicing suicidal thoughts in January , none recently - Appreciate psych consult; recommends mirtazapine and sertraline with outpatient f/u - Continue mirtazapine, sertraline (4) Ischemic cardiomyopathy Code(s): I25.5 - ISCHEMIC CARDIOMYOPATHY Comment: - Echo shows EF 40-45%, wall motion abnormalities in area of known occlusion - Continue metoprolol, losartan, furosemide (5) CAD (coronary artery disease) Code(s): I25.10 - ATHSCL HEART DISEASE OF [place] CORONARY ARTERY W/O ANG PCTRS Comment: - Stable - Continue aspirin, atorvastatin, metoprolol (6) Afib Code(s): I48.91 - UNSPECIFIED ATRIAL FIBRILLATION Comment: - EKG shows NSR - Continue metoprolol, aspirin (7) Hypertension Code(s): I10 - ESSENTIAL (PRIMARY) HYPERTENSION Comment: - Normotensive, SBP 120s - Stop HCTZ per Cardiology - Continue losartan, metoprolol, furosemide (8) DVT prophylaxis Code(s): Z29.9 - ENCOUNTER FOR PROPHYLACTIC MEASURES, UNSPECIFIED Comment: - Lovenox (9) Full code status Code(s): Z78.9 - OTHER SPECIFIED HEALTH STATUS Comment: Status and Disposition: Inpatient. Per discussion with case management, it will benefit the patient to remain inpatient until spinal cord stimulator can be removed and MRI performed; he is unsafe to return home and transitioning to rehab until this can be performed would impede further rehab options in the future. Swing bed was not approved by insurance company. Dr. Ronald Donohue Is Mr Hung's Brother in Law and pain specialist Stacey Jacobson , is Abhilash's Daughter Attending: Robbie Oakes
[2019-04-12] MEDS: Atorvastatin* 40 MG TAB PO SCH (18:54)
[2019-04-12] MEDS: Mirtazapine TAB* 15 MG PO SCH (20:19)
[2019-04-12] MEDS: Enoxaparin(*) 40 MG/0.4 ML SYR SUBCUT SCH (20:19)
[2019-04-12] MEDS: Cyclobenzaprine TAB* 10 MG PO PRN (23:52)
[2019-04-13] MEDS: Metoprolol Succinate XL TAB* 100 MG PO SCH (09:38)
[2019-04-13] MEDS: Sertraline* 100 MG TAB PO SCH (09:39)
[2019-04-13] MEDS: Tamsulosin CAP* 0.4 MG PO SCH ×2 (09:39→20:52)
[2019-04-13] MEDS: Aspirin 81 mg CHEW TAB* 81 MG TAB.CHEW PO SCH (09:39)
[2019-04-13] MEDS: Ferrous Sulfate TAB* 325 MG PO SCH (09:39)
[2019-04-13] MEDS: Losartan TAB* 25 MG PO SCH (09:39)
[2019-04-13] MEDS: oxyCODONE TAB* 5 MG TAB PO PRN ×2 (09:48→20:51)
[2019-04-13] MEDS: Ondansetron TAB* 4 MG PO PRN (11:24)
--- NOTE | 2019-04-13 16:15 | PN ---
Subjective Date of Service: 04/13/19 Interval History: Mr. Hung is feeling okay today. He feels as though his acute pain from his recent falls is improving, though this is difficult for him to decipher d/t chronic pain. He did shower this morning, but felt quite weak. Denies CP, SOB, N /V. No concerns from nursing. Family History: Unchanged from Admission Social History: Unchanged from Admission Past Medical History: Unchanged from Admission Objective Active Medications: Aspirin (Aspirin 81 Mg Chew Tab*) 81 mg PO QAM [facility] Atorvastatin Calcium (Lipitor*) 40 mg PO QPM [facility] Cyclobenzaprine HCl (Flexeril Tab*) 15 mg PO Q12H PRN muscle spasms Enoxaparin Sodium (Lovenox(*)) 40 mg SUBCUT BEDTIME [facility] Ferrous Sulfate (Ferrous Sulfate Tab*) 325 mg PO DAILY [facility] Furosemide (Lasix Tab*) 40 mg PO EVERY OTHER DAY [facility] Losartan Potassium (Cozaar Tab*) 25 mg PO DAILY [facility] Metoprolol Succinate (Toprol Xl Tab*) 50 mg PO QAM [facility] Mirtazapine (Remeron Tab*) 15 mg PO BEDTIME [facility] Ondansetron HCl (Zofran Tab*) 4 mg PO Q6H PRN NAUSEA Oxycodone HCl (Roxycodone Tab*) 15 mg PO TID PRN PAIN Sertraline HCl (Zoloft*) 100 mg PO DAILY [facility] Tamsulosin HCl (Flomax Cap*) 0.4 mg PO BID [facility] Vital Signs - 8 hr 04/13/19 04/13/19 09:48 14:42 Temperature 97.9 F Pulse Rate 88 Respiratory 16 17 Rate Blood Pressure 122/69 (mmHg) O2 Sat by Pulse 100 Oximetry Oxygen Devices in Use Now: None Appearance: Elderly male laying in bed in NAD Eyes: No Scleral Icterus Ears/Nose/Mouth/Throat: Mucous Membranes Moist Neck: NL Appearance and Movements; NL JVP, Trachea Midline Respiratory: Symmetrical Chest Expansion and Respiratory Effort, Clear to Auscultation Cardiovascular: NL Sounds; No Murmurs; No JVD, RRR Abdominal: NL Sounds; No Tenderness; No Distention Extremities: No Edema Neurological: Alert and Oriented x 3, NL Sensation, NL Muscle Strength and Tone Lines/Tubes/Other Access: Clean, Dry and Intact Peripheral IV Nutrition: Taking PO's Result Diagrams: 04/07/19 06:01 07/04/19 05:57 Assess/Plan/Problems-Billing Assessment: Mr. 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 - Patient Problems (1) Weakness Code(s): R53.1 - WEAKNESS Comment: - Unknown etiology - Appreciate neuro and neurosurgery recommendations - Unsafe to return home during this time due to falls - PT recommends skilled rehab - Tentative plan for surgery on Tuesday04/16/19 to remove spinal cord stimulator ( and loop recorder?), then will be able to proceed with MRI spine; Dr. Llamas does not recommend MRI brain at this time (2) Weight loss Comment: - Approx 15 lb weight loss in last month per patient - Patient reports he has never had colonoscopy; would recommended at discharge - Likely related to depression (3) Depression Code(s): F32.9 - MAJOR DEPRESSIVE DISORDER, SINGLE EPISODE, UNSPECIFIED Comment: - Possibilty depression contributing to weakness - Daughter voiced concerns of having severe depression causing his fall with possible self d/c of SSRI causing withdrawal; voicing suicidal thoughts in January , none recently - Appreciate psych consult; recommends mirtazapine and sertraline with outpatient f/u - Continue mirtazapine, sertraline (4) Ischemic cardiomyopathy Code(s): I25.5 - ISCHEMIC CARDIOMYOPATHY Comment: - Echo shows EF 40-45%, wall motion abnormalities in area of known occlusion - Continue metoprolol, losartan, furosemide (5) CAD (coronary artery disease) Code(s): I25.10 - ATHSCL HEART DISEASE OF [place] CORONARY ARTERY W/O ANG PCTRS Comment: - Stable - Continue aspirin, atorvastatin, metoprolol (6) Afib Code(s): I48.91 - UNSPECIFIED ATRIAL FIBRILLATION Comment: - EKG shows NSR - Continue metoprolol, aspirin (7) Hypertension Code(s): I10 - ESSENTIAL (PRIMARY) HYPERTENSION Comment: - Normotensive, SBP 120-130s - Stop HCTZ per Cardiology - Continue losartan, metoprolol, furosemide (8) DVT prophylaxis Code(s): Z29.9 - ENCOUNTER FOR PROPHYLACTIC MEASURES, UNSPECIFIED Comment: - Lovenox (9) Full code status Code(s): Z78.9 - OTHER SPECIFIED HEALTH STATUS Comment: Status and Disposition: Inpatient. Per discussion with case management, it will benefit the patient to remain inpatient until spinal cord stimulator can be removed and MRI performed; he is unsafe to return home and transitioning to rehab until this can be performed would impede further rehab options in the future. Swing bed was not approved by insurance company. Dr. Ronald Donohue Is Mr Hung's Brother in Law and pain specialist Stacey Jacobson , is Abhilash's Daughter Attending: Enrique Donaldson
[2019-04-13] MEDS: Atorvastatin* 40 MG TAB PO SCH (16:48)
[2019-04-13] MEDS: Mirtazapine TAB* 15 MG PO SCH (20:52)
[2019-04-13] MEDS: Cyclobenzaprine TAB* 10 MG PO PRN (20:52)
[2019-04-13] MEDS: Enoxaparin(*) 40 MG/0.4 ML SYR SUBCUT SCH (20:53)
[2019-04-14 07:11] LABS: Hematocrit 29 % (42-52); Mean Platelet Volume 10.3 fL (7.4-10.4); Platelet Count 102 10^3/uL (150-450)
[2019-04-14] MEDS: Cyclobenzaprine TAB* 10 MG PO PRN ×2 (09:22→20:46)
[2019-04-14] MEDS: Sertraline* 100 MG TAB PO SCH (09:24)
[2019-04-14] MEDS: Tamsulosin CAP* 0.4 MG PO SCH ×2 (09:24→20:45)
[2019-04-14] MEDS: Metoprolol Succinate XL TAB* 100 MG PO SCH (09:24)
[2019-04-14] MEDS: Losartan TAB* 25 MG PO SCH (09:24)
[2019-04-14] MEDS: Aspirin 81 mg CHEW TAB* 81 MG TAB.CHEW PO SCH (09:24)
[2019-04-14] MEDS: oxyCODONE TAB* 5 MG TAB PO PRN ×3 (09:24→20:45)
[2019-04-14] MEDS: Furosemide TAB* 40 MG PO SCH (09:24)
[2019-04-14] MEDS: Ferrous Sulfate TAB* 325 MG PO SCH (09:24)
--- NOTE | 2019-04-14 12:54 | PN ---
Subjective Date of Service: 04/14/19 Interval History: Mr. Hung is feeling well today. He was up ambulating yesterday evening and is planning to get up again shortly. Still feeling weak, but improving to some degree. Denies CP, SOB, N/V. No concerns from nursing. Family History: Unchanged from Admission Social History: Unchanged from Admission Past Medical History: Unchanged from Admission Objective Active Medications: Aspirin (Aspirin 81 Mg Chew Tab*) 81 mg PO QAM [facility] Atorvastatin Calcium (Lipitor*) 40 mg PO QPM [facility] Cyclobenzaprine HCl (Flexeril Tab*) 15 mg PO Q12H PRN muscle spasms Enoxaparin Sodium (Lovenox(*)) 40 mg SUBCUT BEDTIME [facility] Ferrous Sulfate (Ferrous Sulfate Tab*) 325 mg PO DAILY [facility] Furosemide (Lasix Tab*) 40 mg PO EVERY OTHER DAY [facility] Losartan Potassium (Cozaar Tab*) 25 mg PO DAILY [facility] Metoprolol Succinate (Toprol Xl Tab*) 50 mg PO QAM [facility] Mirtazapine (Remeron Tab*) 15 mg PO BEDTIME [facility] Ondansetron HCl (Zofran Tab*) 4 mg PO Q6H PRN NAUSEA Oxycodone HCl (Roxycodone Tab*) 15 mg PO TID PRN PAIN Sertraline HCl (Zoloft*) 100 mg PO DAILY [facility] Tamsulosin HCl (Flomax Cap*) 0.4 mg PO BID [facility] Vital Signs - 8 hr 04/14/19 04/14/19 04/14/19 07:54 08:00 09:22 Temperature 97.7 F Pulse Rate 68 Respiratory 18 16 16 Rate Blood Pressure 130/73 (mmHg) O2 Sat by Pulse 98 Oximetry 04/14/19 04/14/19 04/14/19 09:24 11:10 11:25 Temperature 97.9 F Pulse Rate 81 Respiratory 16 18 18 Rate Blood Pressure 124/62 (mmHg) O2 Sat by Pulse 95 Oximetry Oxygen Devices in Use Now: None Appearance: Elderly male laying in bed in NAD Eyes: No Scleral Icterus Ears/Nose/Mouth/Throat: Mucous Membranes Moist Neck: NL Appearance and Movements; NL JVP, Trachea Midline Respiratory: Symmetrical Chest Expansion and Respiratory Effort, Clear to Auscultation Cardiovascular: NL Sounds; No Murmurs; No JVD, RRR Abdominal: NL Sounds; No Tenderness; No Distention Extremities: No Edema Neurological: Alert and Oriented x 3, NL Sensation Lines/Tubes/Other Access: Clean, Dry and Intact Peripheral IV Nutrition: Taking PO's Result Diagrams: 04/14/19 06:38 04/12/19 05:57 Assess/Plan/Problems-Billing Assessment: Mr. 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 - Patient Problems (1) Weakness Code(s): R53.1 - WEAKNESS Comment: - Unknown etiology - Appreciate neuro and neurosurgery recommendations - Unsafe to return home during this time due to falls - PT recommends skilled rehab - Tentative plan for surgery on Tuesday04/16/19 to remove spinal cord stimulator ( and loop recorder?), then will be able to proceed with MRI spine; Dr. Llamas does not recommend MRI brain at this time (2) Weight loss Comment: - Approx 15 lb weight loss in last month per patient - Patient reports he has never had colonoscopy; would recommended at discharge - Likely related to depression (3) Depression Code(s): F32.9 - MAJOR DEPRESSIVE DISORDER, SINGLE EPISODE, UNSPECIFIED Comment: - Possibilty depression contributing to weakness - Daughter voiced concerns of having severe depression causing his fall with possible self d/c of SSRI causing withdrawal; voicing suicidal thoughts in January , none recently - Appreciate psych consult; recommends mirtazapine and sertraline with outpatient f/u - Continue mirtazapine, sertraline (4) Ischemic cardiomyopathy Code(s): I25.5 - ISCHEMIC CARDIOMYOPATHY Comment: - Echo shows EF 40-45%, wall motion abnormalities in area of known occlusion - Continue metoprolol, losartan, furosemide (5) CAD (coronary artery disease) Code(s): I25.10 - ATHSCL HEART DISEASE OF [place] CORONARY ARTERY W/O ANG PCTRS Comment: - Stable - Continue aspirin, atorvastatin, metoprolol (6) Afib Code(s): I48.91 - UNSPECIFIED ATRIAL FIBRILLATION Comment: - EKG shows NSR - Continue metoprolol, aspirin (7) Hypertension Code(s): I10 - ESSENTIAL (PRIMARY) HYPERTENSION Comment: - Normotensive, SBP 120-130s - Hold HCTZ per Cardiology - Continue losartan, metoprolol, furosemide (8) DVT prophylaxis Code(s): Z29.9 - ENCOUNTER FOR PROPHYLACTIC MEASURES, UNSPECIFIED Comment: - Lovenox (9) Full code status Code(s): Z78.9 - OTHER SPECIFIED HEALTH STATUS Comment: Status and Disposition: Inpatient. Per discussion with case management, it will benefit the patient to remain inpatient until spinal cord stimulator can be removed and MRI performed; he is unsafe to return home and transitioning to rehab until this can be performed would impede further rehab options in the future. Swing bed was not approved by insurance company. Dr. Ronald Donohue Is Mr Hung's Brother in Law and pain specialist Stacey Jacobson , is Hung's Daughter Attending: Robbie Oakes
[2019-04-14] MEDS: Atorvastatin* 40 MG TAB PO SCH (16:09)
[2019-04-14] MEDS: Mirtazapine TAB* 15 MG PO SCH (20:45)
[2019-04-14] MEDS: Enoxaparin(*) 40 MG/0.4 ML SYR SUBCUT SCH (20:47)
[2019-04-15] MEDS: Aspirin 81 mg CHEW TAB* 81 MG TAB.CHEW PO SCH (08:58)
[2019-04-15] MEDS: Metoprolol Succinate XL TAB* 100 MG PO SCH (08:59)
[2019-04-15] MEDS: Tamsulosin CAP* 0.4 MG PO SCH ×2 (08:59→20:00)
[2019-04-15] MEDS: Cyclobenzaprine TAB* 10 MG PO PRN ×2 (08:59→21:44)
[2019-04-15] MEDS: Ferrous Sulfate TAB* 325 MG PO SCH (08:59)
[2019-04-15] MEDS: Sertraline* 100 MG TAB PO SCH (08:59)
[2019-04-15] MEDS: Losartan TAB* 25 MG PO SCH (08:59)
[2019-04-15] MEDS: oxyCODONE TAB* 5 MG TAB PO PRN ×2 (09:01→17:19)
--- NOTE | 2019-04-15 13:22 | PN ---
Subjective Date of Service: 04/15/19 Interval History: Mr. Hung is feeling slightly better today. Pain is at baseline. Was up ambulating multiple times yesterday, but not yet up today. Denies CP, SOB, N/V. He is concerned he may have MS. No concerns from nursing. Family History: Unchanged from Admission Social History: Unchanged from Admission Past Medical History: Unchanged from Admission Objective Active Medications: Aspirin (Aspirin 81 Mg Chew Tab*) 81 mg PO QAM FABIOLA Atorvastatin Calcium (Lipitor*) 40 mg PO QPM FABIOLA Cyclobenzaprine HCl (Flexeril Tab*) 15 mg PO Q12H PRN muscle spasms Enoxaparin Sodium (Lovenox(*)) 40 mg SUBCUT BEDTIME FABIOLA Ferrous Sulfate (Ferrous Sulfate Tab*) 325 mg PO DAILY FABIOLA Furosemide (Lasix Tab*) 40 mg PO EVERY OTHER DAY FABIOLA Losartan Potassium (Cozaar Tab*) 25 mg PO DAILY FABIOLA Metoprolol Succinate (Toprol Xl Tab*) 50 mg PO QAM FABIOLA Mirtazapine (Remeron Tab*) 15 mg PO BEDTIME FABIOLA Ondansetron HCl (Zofran Tab*) 4 mg PO Q6H PRN NAUSEA Oxycodone HCl (Roxycodone Tab*) 15 mg PO TID PRN PAIN Sertraline HCl (Zoloft*) 100 mg PO DAILY FABIOLA Tamsulosin HCl (Flomax Cap*) 0.4 mg PO BID [facility] Vital Signs - 8 hr 04/15/19 04/15/19 04/15/19 07:00 08:00 08:59 Temperature 98.1 F Pulse Rate 70 Respiratory 18 18 18 Rate Blood Pressure 150/79 (mmHg) O2 Sat by Pulse 97 Oximetry 04/15/19 04/15/19 04/15/19 09:01 11:00 11:42 Temperature 98 F Pulse Rate 80 Respiratory 18 18 16 Rate Blood Pressure 140/72 (mmHg) O2 Sat by Pulse 96 Oximetry Oxygen Devices in Use Now: None Appearance: Elderly male laying in bed in NAD Eyes: No Scleral Icterus Ears/Nose/Mouth/Throat: Mucous Membranes Moist Neck: NL Appearance and Movements; NL JVP, Trachea Midline Respiratory: Symmetrical Chest Expansion and Respiratory Effort, Clear to Auscultation Cardiovascular: NL Sounds; No Murmurs; No JVD, RRR Abdominal: NL Sounds; No Tenderness; No Distention Extremities: No Edema Neurological: Alert and Oriented x 3, NL Sensation Lines/Tubes/Other Access: Clean, Dry and Intact Peripheral IV Nutrition: Taking PO's Result Diagrams: 04/14/19 06:38 04/12/19 05:57 Assess/Plan/Problems-Billing Assessment: Mr. 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 - Patient Problems (1) Weakness Code(s): R53.1 - WEAKNESS Comment: - Unknown etiology - Appreciate neuro and neurosurgery recommendations - Unsafe to return home during this time due to falls - PT recommends skilled rehab - Tentative plan for surgery on Tuesday04/16/19 to remove spinal cord stimulator ( and loop recorder?), then will be able to proceed with MRI spine; Dr. Llamas does not recommend MRI brain at this time - Patient has already been medically optimized and was seen by Cardiology who has advised to proceed with surgery (2) Weight loss Comment: - Approx 15 lb weight loss in last month per patient - Patient reports he has never had colonoscopy; would recommended at discharge - Likely related to depression (3) Depression Code(s): F32.9 - MAJOR DEPRESSIVE DISORDER, SINGLE EPISODE, UNSPECIFIED Comment: - Possibilty depression contributing to weakness - Daughter voiced concerns of having severe depression causing his fall with possible self d/c of SSRI causing withdrawal; voicing suicidal thoughts in January , none recently - Appreciate psych consult; recommends mirtazapine and sertraline with outpatient f/u - Continue mirtazapine, sertraline (4) Ischemic cardiomyopathy Code(s): I25.5 - ISCHEMIC CARDIOMYOPATHY Comment: - Echo shows EF 40-45%, wall motion abnormalities in area of known occlusion - Continue metoprolol, losartan, furosemide (5) CAD (coronary artery disease) Code(s): I25.10 - ATHSCL HEART DISEASE OF [place] CORONARY ARTERY W/O ANG PCTRS Comment: - Stable - Continue aspirin, atorvastatin, metoprolol (6) Afib Code(s): I48.91 - UNSPECIFIED ATRIAL FIBRILLATION Comment: - EKG shows NSR - Continue metoprolol, aspirin (7) Hypertension Code(s): I10 - ESSENTIAL (PRIMARY) HYPERTENSION Comment: - Slightly hypertensive, SBP 120-150s - Hold HCTZ - Continue losartan, metoprolol, furosemide (8) DVT prophylaxis Code(s): Z29.9 - ENCOUNTER FOR PROPHYLACTIC MEASURES, UNSPECIFIED Comment: - SCDs only; Lovenox d/c'd in anticipation of surgery tomorrow (9) Full code status Code(s): Z78.9 - OTHER SPECIFIED HEALTH STATUS Comment: Status and Disposition: Inpatient. Per discussion with case management, it will benefit the patient to remain inpatient until spinal cord stimulator can be removed and MRI performed; he is unsafe to return home and transitioning to rehab until this can be performed would impede further rehab options in the future. Dr. Ronald Donohue Is Mr Hung's Brother in Law and pain specialist Stacey Jacobson , is Mr GuillenHung's Daughter Attending: Chica Thornton
[2019-04-15] MEDS: Atorvastatin* 40 MG TAB PO SCH (17:19)
[2019-04-15] MEDS: Enoxaparin(*) 40 MG/0.4 ML SYR SUBCUT SCH (19:59)
[2019-04-15] MEDS: Mirtazapine TAB* 15 MG PO SCH (20:00)
--- NOTE | 2019-04-15 22:48 | PN ---
Progress Note - Progress Note Date of Service: 04/15/19 Note: Patient surgery has been rescheduled for Tuesday as the second case, he can resume regular diet.
[2019-04-16] MEDS ORDERED: Buffered Lidocaine 1% SYRIN* 1 ML/SYRINGE INTRADERM ONE (04:44)
[2019-04-16] MEDS ORDERED: Famotidine IV* 10 MG/ML 2 ML (20 mg) IV ONE (04:44)
[2019-04-16] MEDS ORDERED: Lactated Ringers 1000 ML Bag* 1,000 ML IV SCH (05:00)
[2019-04-16 06:41] LABS: INR 1.01 (0.82-1.09)
[2019-04-16 06:44] LABS: ABS Eosinophils 0.3 10^3/ul (0-0.6); ABS Lymphocytes 0.8 10^3/ul (1.0-4.8); ABS Monocytes 0.4 10^3/ul (0-0.8); ABS Neutrophils 3.4 10^3/ul (1.5-7.7); Hematocrit 31 % (42-52); Hemoglobin 10.8 g/dL (14.0-18.0); Lymphocyte % 15.6 %; Mean Corpuscular HGB Conc 35 g/dL (31-36); Mean Corpuscular Hemoglobin 29 pg (27-31); Mean Corpuscular Volume 82 fL (80-94); Mean Platelet Volume 10.3 fL (7.4-10.4); Platelet Count 96 10^3/uL (150-450); Red Blood Count 3.72 10^6 /uL (4.18-5.48); Red Cell Distribution Width 14 % (10-15); White Blood Count 4.9 10^3/uL (3.5-10.8)
[2019-04-16 06:54] LABS: BUN/Creatinine Ratio 25.7 (8-20); Calcium 8.9 mg/dL (8.6-10.3); EGFR African American 87.6 (>60); EGFR Non-African American 72.4 (>60); Potassium 4.2 mmol/L (3.5-5.0)
[2019-04-16] MEDS: Tamsulosin CAP* 0.4 MG PO SCH ×2 (08:52→21:02)
[2019-04-16] MEDS: Losartan TAB* 25 MG PO SCH (08:52)
[2019-04-16] MEDS: Ferrous Sulfate TAB* 325 MG PO SCH (08:52)
[2019-04-16] MEDS: Sertraline* 100 MG TAB PO SCH (08:52)
[2019-04-16] MEDS: Cyclobenzaprine TAB* 10 MG PO PRN ×2 (08:52→21:06)
[2019-04-16] MEDS: oxyCODONE TAB* 5 MG TAB PO PRN ×2 (08:54→21:06)
[2019-04-16] MEDS: Metoprolol Succinate XL TAB* 100 MG PO SCH (08:54)
[2019-04-16] MEDS ORDERED: Bisacodyl SUPP* 10 MG SUPP PR ONE (10:01)
[2019-04-16] MEDS ORDERED: diPHENhydraMINE PO* 25 MG PO ONE (12:30)
--- NOTE | 2019-04-16 12:57 | PN ---
Subjective Date of Service: 04/16/19 Interval History: Mr. Hung is feeling poor this morning. Yesterday evening he began having leg spasms which are still occurring. He states this is the same feeling he had at home, and this is what was causing his falls. He is concerned that this is happening again. He denies CP, SOB, N/V. Nursing called midday to report that patient stated he was "having anaphylaxis" because he felt as though he could not swallow. He was able to hold a conversation with his nurse and she witnessed him drinking water. Family History: Unchanged from Admission Social History: Unchanged from Admission Past Medical History: Unchanged from Admission Objective Active Medications: Atorvastatin Calcium (Lipitor*) 40 mg PO QPM FABIOLA Cyclobenzaprine HCl (Flexeril Tab*) 15 mg PO Q12H PRN muscle spasms Ferrous Sulfate (Ferrous Sulfate Tab*) 325 mg PO DAILY FABIOLA Lactated Ringer's (Lactated Ringers 1000 Ml Bag*) 1,000 mls @ 125 mls/hr IV PER RATE FABIOLA Losartan Potassium (Cozaar Tab*) 25 mg PO DAILY FABIOLA Metoprolol Succinate (Toprol Xl Tab*) 50 mg PO QAM FABIOLA Mirtazapine (Remeron Tab*) 15 mg PO BEDTIME FABIOLA Ondansetron HCl (Zofran Tab*) 4 mg PO Q6H PRN NAUSEA Oxycodone HCl (Roxycodone Tab*) 15 mg PO TID PRN PAIN Sertraline HCl (Zoloft*) 100 mg PO DAILY FABIOLA Tamsulosin HCl (Flomax Cap*) 0.4 mg PO BID FABIOLA Vital Signs - 8 hr 04/16/19 04/16/19 04/16/19 07:00 08:00 08:52 Temperature 98.2 F Pulse Rate 76 Respiratory 20 18 18 Rate Blood Pressure 150/85 (mmHg) O2 Sat by Pulse 96 Oximetry 04/16/19 04/16/19 08:54 11:00 Temperature 98.3 F Pulse Rate 84 Respiratory 18 22 Rate Blood Pressure 123/64 (mmHg) O2 Sat by Pulse 94 Oximetry Oxygen Devices in Use Now: None Appearance: Elderly male laying in bed in NAD Eyes: No Scleral Icterus Ears/Nose/Mouth/Throat: Mucous Membranes Moist Neck: NL Appearance and Movements; NL JVP, Trachea Midline Respiratory: Symmetrical Chest Expansion and Respiratory Effort, Clear to Auscultation Cardiovascular: NL Sounds; No Murmurs; No JVD, RRR Abdominal: NL Sounds; No Tenderness; No Distention Extremities: No Edema Neurological: Alert and Oriented x 3, NL Sensation Lines/Tubes/Other Access: Clean, Dry and Intact Peripheral IV Nutrition: Taking PO's Result Diagrams: 04/16/19 06:20 04/16/19 06:20 Assess/Plan/Problems-Billing Assessment: Mr. 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 - Patient Problems (1) Weakness Code(s): R53.1 - WEAKNESS Comment: - Unknown etiology - Appreciate neuro and neurosurgery recommendations - Unsafe to return home during this time due to falls - PT recommends skilled rehab - Tentative plan for surgery tomorrow to remove spinal cord stimulator (and loop recorder?), then will be able to proceed with MRI spine - Patient has already been medically optimized and was previously seen by Cardiology who has advised to proceed with surgery (2) Weight loss Comment: - Approx 15 lb weight loss in last month per patient - Patient reports he has never had colonoscopy; would recommended at discharge - Likely related to depression (3) Depression Code(s): F32.9 - MAJOR DEPRESSIVE DISORDER, SINGLE EPISODE, UNSPECIFIED Comment: - Possibilty depression contributing to weakness - Daughter voiced concerns of having severe depression causing his fall with possible self d/c of SSRI causing withdrawal; voicing suicidal thoughts in January , none recently - Appreciate psych consult; recommends mirtazapine and sertraline with outpatient f/u - Continue mirtazapine, sertraline (4) Ischemic cardiomyopathy Code(s): I25.5 - ISCHEMIC CARDIOMYOPATHY Comment: - Echo shows EF 40-45%, wall motion abnormalities in area of known occlusion - Continue metoprolol, losartan, furosemide (5) CAD (coronary artery disease) Code(s): I25.10 - ATHSCL HEART DISEASE OF [place] CORONARY ARTERY W/O ANG PCTRS Comment: - Stable - Continue aspirin, atorvastatin, metoprolol (6) Afib Code(s): I48.91 - UNSPECIFIED ATRIAL FIBRILLATION Comment: - EKG shows NSR - Continue metoprolol, aspirin (7) Hypertension Code(s): I10 - ESSENTIAL (PRIMARY) HYPERTENSION Comment: - Slightly hypertensive, SBP 120-150s - Hold HCTZ - Continue losartan, metoprolol, furosemide (8) DVT prophylaxis Code(s): Z29.9 - ENCOUNTER FOR PROPHYLACTIC MEASURES, UNSPECIFIED Comment: - SCDs only; Lovenox d/c'd in anticipation of surgery tomorrow (9) Full code status Code(s): Z78.9 - OTHER SPECIFIED HEALTH STATUS Comment: Status and Disposition: Inpatient. Per discussion with case management, it will benefit the patient to remain inpatient until spinal cord stimulator can be removed and MRI performed; he is unsafe to return home and transitioning to rehab until this can be performed would impede further rehab options in the future. Dr. Ronald Donohue Is Mr Hung's Brother in Law and pain specialist Stacey Jacobson , is Mr Hung's Daughter Attending: Chica Thornton
[2019-04-16] MEDS: Atorvastatin* 40 MG TAB PO SCH (17:55)
[2019-04-16] MEDS: Mirtazapine TAB* 15 MG PO SCH (21:02)
--- NOTE | 2019-04-16 21:10 | PN ---
Progress Note - Progress Note Date of Service: 04/16/19 Note: Patient will be taken surgery tomorrow for SCS removal. Neurosurgery spoke with patient today, he reports a possible syncopal episode. Spoke with medicine about this claim, there is no documentation to verify this claim. Patient has medically cleared for surgery.
[2019-04-17 06:47] LABS: ABS Eosinophils 0.2 10^3/ul (0-0.6); ABS Lymphocytes 0.8 10^3/ul (1.0-4.8); ABS Monocytes 0.4 10^3/ul (0-0.8); ABS Neutrophils 3.6 10^3/ul (1.5-7.7); Eosinophil % 4.5 %; Hematocrit 31 % (42-52); Hemoglobin 10.5 g/dL (14.0-18.0); Lymphocyte % 15.5 %; Mean Corpuscular HGB Conc 34 g/dL (31-36); Mean Corpuscular Hemoglobin 29 pg (27-31); Mean Corpuscular Volume 84 fL (80-94); Nucleated Red Blood Cells % 0.1; Platelet Count 98 10^3/uL (150-450); Red Blood Count 3.68 10^6 /uL (4.18-5.48); Red Cell Distribution Width 14 % (10-15); White Blood Count 5.1 10^3/uL (3.5-10.8)
[2019-04-17 06:49] LABS: INR 1.03 (0.82-1.09)
[2019-04-17 07:01] LABS: BUN/Creatinine Ratio 30.6 (8-20); Calcium 9.3 mg/dL (8.6-10.3); EGFR African American 106.9 (>60); EGFR Non-African American 88.4 (>60); Potassium 4.1 mmol/L (3.5-5.0)
[2019-04-17] MEDS: Losartan TAB* 25 MG PO SCH (08:11)
[2019-04-17] MEDS: Sertraline* 100 MG TAB PO SCH (09:49)
[2019-04-17] MEDS: Tamsulosin CAP* 0.4 MG PO SCH ×2 (09:49→23:43)
[2019-04-17] MEDS: Cyclobenzaprine TAB* 10 MG PO PRN (09:50)
[2019-04-17] MEDS: oxyCODONE TAB* 5 MG TAB PO PRN (09:50)
[2019-04-17] MEDS: Ferrous Sulfate TAB* 325 MG PO SCH (09:50)
[2019-04-17] MEDS: Metoprolol Succinate XL TAB* 100 MG PO SCH (09:52)
--- NOTE | 2019-04-17 12:15 | PN ---
Subjective Date of Service: 04/17/19 Interval History: Mr. Hung is feeling fine this morning. He is anxious for surgery. Offers no other specific complaints. He is concerned that his loop recorder is not going to be removed. He states he does not like the idea of having a battery in his body, though he has had this loop recorder for approx 12 years. Janusz CP, SOB , N/V. No concerns from nursing. Family History: Unchanged from Admission Social History: Unchanged from Admission Past Medical History: Unchanged from Admission Objective Active Medications: Atorvastatin Calcium (Lipitor*) 40 mg PO QPM FABIOLA Cyclobenzaprine HCl (Flexeril Tab*) 15 mg PO Q12H PRN muscle spasms Ferrous Sulfate (Ferrous Sulfate Tab*) 325 mg PO DAILY FABIOLA Lactated Ringer's (Lactated Ringers 1000 Ml Bag*) 1,000 mls @ 125 mls/hr IV PER RATE FABIOLA Losartan Potassium (Cozaar Tab*) 25 mg PO DAILY FABIOLA Metoprolol Succinate (Toprol Xl Tab*) 50 mg PO QAM FABIOLA Mirtazapine (Remeron Tab*) 15 mg PO BEDTIME FABIOLA Ondansetron HCl (Zofran Tab*) 4 mg PO Q6H PRN NAUSEA Oxycodone HCl (Roxycodone Tab*) 15 mg PO TID PRN PAIN Sertraline HCl (Zoloft*) 100 mg PO DAILY FABIOLA Tamsulosin HCl (Flomax Cap*) 0.4 mg PO BID [facility] Vital Signs - 8 hr 04/17/19 04/17/19 07:44 09:50 Temperature 98.1 F Pulse Rate 72 Respiratory 18 15 Rate Blood Pressure 165/79 (mmHg) O2 Sat by Pulse 98 Oximetry Oxygen Devices in Use Now: None Appearance: Elderly male laying in bed in NAD Eyes: No Scleral Icterus Ears/Nose/Mouth/Throat: Mucous Membranes Moist Neck: NL Appearance and Movements; NL JVP, Trachea Midline Respiratory: Symmetrical Chest Expansion and Respiratory Effort, Clear to Auscultation Cardiovascular: NL Sounds; No Murmurs; No JVD, RRR Abdominal: NL Sounds; No Tenderness; No Distention Extremities: No Edema Neurological: Alert and Oriented x 3, NL Sensation Lines/Tubes/Other Access: Clean, Dry and Intact Peripheral IV Result Diagrams: 04/17/19 06:26 04/17/19 06:26 Assess/Plan/Problems-Billing Assessment: Mr. 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 - Patient Problems (1) Weakness Code(s): R53.1 - WEAKNESS Comment: - Unknown etiology - Appreciate neuro and neurosurgery recommendations - Unsafe to return home during this time due to falls - PT recommends skilled rehab - Surgery today to remove spinal cord stimulator, then will be able to proceed with MRI spine; loop recorder will remain in place as per Cardiology notes this is MRI compatible - Patient has already been medically optimized and was previously seen by Cardiology who has advised to proceed with surgery (2) Weight loss Comment: - Approx 15 lb weight loss in last month per patient - Patient reports he has never had colonoscopy; would recommended at discharge - Likely related to depression (3) Depression Code(s): F32.9 - MAJOR DEPRESSIVE DISORDER, SINGLE EPISODE, UNSPECIFIED Comment: - Possibilty depression contributing to weakness - Daughter voiced concerns of having severe depression causing his fall with possible self d/c of SSRI causing withdrawal; voicing suicidal thoughts in January , none recently - Appreciate psych consult; recommends mirtazapine and sertraline with outpatient f/u - Continue mirtazapine, sertraline (4) Ischemic cardiomyopathy Code(s): I25.5 - ISCHEMIC CARDIOMYOPATHY Comment: - Echo shows EF 40-45%, wall motion abnormalities in area of known occlusion - Continue metoprolol, losartan, furosemide (5) CAD (coronary artery disease) Code(s): I25.10 - ATHSCL HEART DISEASE OF [place] CORONARY ARTERY W/O ANG PCTRS Comment: - Stable - Continue aspirin, atorvastatin, metoprolol (6) Afib Code(s): I48.91 - UNSPECIFIED ATRIAL FIBRILLATION Comment: - EKG shows NSR - Continue metoprolol, aspirin (7) Hypertension Code(s): I10 - ESSENTIAL (PRIMARY) HYPERTENSION Comment: - Normotensive, SBP mostly 120s - Hold HCTZ - Continue losartan, metoprolol, furosemide (8) DVT prophylaxis Code(s): Z29.9 - ENCOUNTER FOR PROPHYLACTIC MEASURES, UNSPECIFIED Comment: - SCDs only; Lovenox d/c'd in anticipation of surgery (9) Full code status Code(s): Z78.9 - OTHER SPECIFIED HEALTH STATUS Comment: Status and Disposition: Inpatient. Surgery today and MRI today or tomorrow. At this point he is unsafe to return home and transitioning to rehab until this can be performed would impede further rehab options in the future. Dr. Ronald Donohue Is Mr Hung's Brother in Law and pain specialist Stacey Jacobson , is Mr Hung's Daughter Attending: Yaquelin Ireland
[2019-04-17] MEDS: Atorvastatin* 40 MG TAB PO SCH (17:32)
[2019-04-17] MEDS ORDERED: Succinylcholine* 20 MG/ML 10 ML VIAL ONE (18:22)
[2019-04-17] MEDS ORDERED: Propofol* 10 MG/ML 20 ML BTL ONE ×2 (18:22→21:18)
[2019-04-17] MEDS ORDERED: Lidocaine 2% PF * 5 ML VIAL ONE (18:22)
[2019-04-17] MEDS ORDERED: Lidocaine 1% INJ* 10 MG/ML 30 ML SDV ONE (18:31)
[2019-04-17] MEDS ORDERED: Bacitracin INJECTION* 50,000 UNITS ONE (18:31)
[2019-04-17] MEDS ORDERED: Bupivacaine 0.25% SDV PF* 10 ML VIAL INJ ONE (18:31)
[2019-04-17] MEDS ORDERED: cefTRIAXone(*) 2 GM ADDV.VIAL IVPB ONE (18:40)
[2019-04-17] MEDS ORDERED: ceFAZolin 2 GM in NS PREMIX(*) 2 GM/100 ML BAG IVPB ONE (18:41)
[2019-04-17] MEDS ORDERED: Labetalol IV* 5 MG/ML 20 ML VIAL ONE (18:48)
--- NOTE | 2019-04-17 18:54 | PN ---
Progress Note - Progress Note Date of Service: 04/17/19 SOAP: Subjective: [] Patient was seen earlier in am. No events ON Objective: []VSS AAOx3 KONSTANTIN, CN II-XII grossly intact Motor 5/5 Rt Side, 4-/5 Left side (chronic hemiparesis) Sensory grossly intact to light touch except chronic decreased sensation left side Assessment: []73 yom multiple falls, Hx cervical spine surgery with Left hemiparesis, SCS Plan: [] Monitor VS, Neurochecks Discussed with patient's daughter and brother in law yesterday over the pjone. Surgical plan was discussed and they both agree to proceed with the procedure and understand with risks and benefits as well as possible complications of the procedure. Discussed in extend with patient regarding expectation, limitations and possible complications of the procedure with complications including but not limited to bleeding, infection, risk of injury to adjacent structures, coma, paralysis, , need for additional procedures, anesthesia risks, inability to remove Spinal cord stimulator or parts of it. Patient is agreeable to proceed with surgery and informed consent was obtained. Patient understand that his condition may not improve, and in fact may get worse after surgery and that operative plan may be modified according to intraoperative findings and conditions and that the procedure may be aborted or done in more than one stages. He also understands that he may need prolonged hospitalization, prolonged ICU stay, need for tracheostomy or gastrostomy. IM, Cardiology clearance has been obtained. Appreciate IM, Neurology, Cardiology care. Ladonna Johnson MD
[2019-04-17] MEDS ORDERED: fentaNYL* 50 MCG/ML 2 ML VIAL (100 MCG VIAL) ONE ×3 (19:13→22:07)
[2019-04-17] MEDS ORDERED: Midazolam* 1 MG/ML 2 ML VIAL (2 MG) ONE (19:18)
[2019-04-17] MEDS ORDERED: Naloxone* 0.4 MG/ML 1 ML VIAL IV PRN (22:10)
[2019-04-17] MEDS ORDERED: fentaNYL* 50 MCG/ML 2 ML VIAL (100 MCG VIAL) IV PRN (22:10)
--- NOTE | 2019-04-17 22:15 | PN ---
Progress Note - Progress Note Date of Service: 04/17/19 Note: Patient successfully had SCS removed, he tolerated the procedure well. He may continue with his pain medications as needed. Will have patient NPO overnight, and may resume regular diet in the morning. He can continue to follow up with medicine and neurology recommendations. Neurosurgery will follow up with patient as needed.
[2019-04-17] MEDS ORDERED: Labetalol IV* 5 MG/ML 20 ML VIAL IV PUSH ONE (22:20)
--- NOTE | 2019-04-17 23:22 | OP ---
DATE OF OPERATION: 04/17/19 - ROOM #417 DATE OF : 45 SURGEON: Sam Johnson MD HEAD LIBRARIAN: Mallika Stanley, surgical PA. The case was done with the assistance of surgical PA because of the complexity of the case. ANESTHESIA: MAC and local. PRE-OP DIAGNOSES: Multiple falls, spinal cord stimulator failure. POST-OP DIAGNOSES: Multiple falls, spinal cord stimulator failure. OPERATIVE PROCEDURE: The patient underwent spinal cord stimulator removal. ESTIMATED BLOOD LOSS: 70 cc. COMPLICATIONS: None. SUMMARY: The patient is a very pleasant 73-year-old gentleman with history of prior cervical surgeries with right vertebral artery injury and left hemiparesis and remote history of spinal cord stimulator placement, who presented after several episodes of falls. The patient requested to have his spinal cord stimulator removed as it was not functioning for quite a while and also after evaluation of the patient by Neurology, consideration for MRI of the brain and the cervical spine was made and for this reason, spinal cord stimulator removal was offered. After explaining expectations, limitations and possible complications of the procedure with the patient and his daughter over the phone the previous day and after talking with his [id number] who inserted the spinal cord stimulator over the phone, and after understanding expectations, limitations and possible complications of the procedure with complications including but not limited to bleeding, infection, risk of injury to adjacent structures, coma, paralysis, , need for additional procedure, anesthesia risks, stroke, blindness, cancer, instability, inability to remove the spinal cord stimulator or part of it, anesthesia risk, the patient was agreeable to proceed with surgery. Informed consent was obtained. The patient understood that the operative plan may be modified according to intraoperative findings and conditions and that his condition may not improve and in fact may get worse after surgery. He also understood that the spinal cord stimulator may not be able to be removed in its entirety and that the case may be abandoned or done in more than 1 stages. He also understood that he may require prolonged hospitalization, prolonged ICU stay, and need for tracheostomy or gastrostomy, risk for pulmonary embolism. DESCRIPTION OF PROCEDURE: The patient was brought to the operating room and was placed under general anesthesia by the anesthesia team. He was carefully positioned on the left lateral decubitus position with the right side up. The patient was secured with a beanbag in the lateral position and an axillary roll was placed. The patient was placed under monitored anesthesia sedation and the skin was prepped and draped in a standard fashion. The previous spinal cord stimulator incisions were marked in the skin and infiltrated with local anesthetic. AP and lateral fluoroscopic imaging was used to identify the position of all the leads. The cervical incision was then opened with the use of #10 surgical blade. The incision was carried down with use of Bovie cautery and the connectors from the electrodes were identified and isolated. A second incision over the right posterior thoracic area was then incised with a #10 surgical blade and it was deepened with Bovie cautery. The two connectors were identified and were carefully pulled out while the loops of the wires were carefully dissected free. After identifying the 3 leads as well as the connectors at the cervical wound, these were cut and the wires were pulled gently into the right posterior thoracic incision. Then the connectors in that area were cut and temporally secured with hemostats. Then the previous incision into the right lower quadrant in the abdomen was incised with a #10 surgical blade and dissection was carried down with the use of Bovie cautery. The Bovie was used to enter the pocket of the spinal cord stimulator generator and this was gently dissected free with use of Bovie cautery. This was gently then removed from its pocket and the loops of the wires were carefully dissected free. Then the remaining two wires were removed from the abdominal incision. Of note, the two cervical leads were connected into 1 wire with connectors at the right posterior thoracic wound. All wounds were then copiously irrigated. After confirmation of meticulous hemostasis and meticulous inspection, the wounds were closed by layers with 2-0 interrupted Vicryl sutures for the subcutaneous tissue and Dermabond for the skin. At the end of the procedure, all counts were reported to be correct. The patient remained hemodynamically stable throughout the case. At the end of the procedure, he was transferred to Recovery in excellent condition. The case was done with the assistance of surgical RADHA because of the complexity of the case. [id number]/CPS #: [id number] CINDY
[2019-04-17] MEDS: Mirtazapine TAB* 15 MG PO SCH (23:42)
[2019-04-17] MEDS: Ondansetron TAB* 4 MG PO PRN (23:42)
[2019-04-17] MEDS: Lactated Ringers 1000 ML Bag* 1,000 ML IV SCH (23:55)
[2019-04-18] MEDS: Cyclobenzaprine TAB* 10 MG PO PRN ×2 (02:44→19:38)
[2019-04-18] MEDS: oxyCODONE TAB* 5 MG TAB PO PRN ×4 (02:46→19:37)
[2019-04-18] MEDS: Lactated Ringers 1000 ML Bag* 1,000 ML IV SCH (05:28)
[2019-04-18 08:14] LABS: Hematocrit 30 % (42-52); Hemoglobin 10.2 g/dL (14.0-18.0); Mean Corpuscular HGB Conc 34 g/dL (31-36); Mean Corpuscular Hemoglobin 28 pg (27-31); Mean Corpuscular Volume 84 fL (80-94); Mean Platelet Volume 10.2 fL (7.4-10.4); Platelet Count 95 10^3/uL (150-450); Red Cell Distribution Width 14 % (10-15); White Blood Count 5.3 10^3/uL (3.5-10.8)
[2019-04-18] MEDS: Tamsulosin CAP* 0.4 MG PO SCH ×2 (08:22→21:47)
[2019-04-18] MEDS: Losartan TAB* 25 MG PO SCH (08:22)
[2019-04-18] MEDS: Metoprolol Succinate XL TAB* 100 MG PO SCH (08:23)
[2019-04-18] MEDS: Sertraline* 100 MG TAB PO SCH (08:23)
[2019-04-18] MEDS: Ferrous Sulfate TAB* 325 MG PO SCH (08:24)
[2019-04-18 08:28] LABS: BUN/Creatinine Ratio 25.6 (8-20); Calcium 8.7 mg/dL (8.6-10.3); EGFR African American 111.4 (>60); EGFR Non-African American 92.1 (>60); Potassium 4.3 mmol/L (3.5-5.0)
[2019-04-18 08:52] LABS: ABS Eosinophils 0.1 10^3/ul (0-0.6); ABS Lymphocytes 0.5 10^3/ul (1.0-4.8); ABS Monocytes 0.4 10^3/ul (0-0.8); ABS Neutrophils 4.3 10^3/ul (1.5-7.7); Eosinophil % 2.8 %; Lymphocyte % 8.8 %
--- NOTE | 2019-04-18 12:56 | PN ---
Subjective Date of Service: 04/18/19 Interval History: Mr. Hung is feeling fine this morning. He offers no complaints. Reports that surgery went well, but was quite long. He denies CP, SOB, N/V. Pain is at baseline. No concerns from nursing. Family History: Unchanged from Admission Social History: Unchanged from Admission Past Medical History: Unchanged from Admission Objective Active Medications: Atorvastatin Calcium (Lipitor*) 40 mg PO QPM [facility] Cyclobenzaprine HCl (Flexeril Tab*) 15 mg PO Q12H PRN muscle spasms Ferrous Sulfate (Ferrous Sulfate Tab*) 325 mg PO DAILY [facility] Lactated Ringer's (Lactated Ringers 1000 Ml Bag*) 1,000 mls @ 125 mls/hr IV PER RATE [facility] Losartan Potassium (Cozaar Tab*) 25 mg PO DAILY [facility] Metoprolol Succinate (Toprol Xl Tab*) 50 mg PO QAM [facility] Mirtazapine (Remeron Tab*) 15 mg PO BEDTIME [facility] Ondansetron HCl (Zofran Tab*) 4 mg PO Q6H PRN NAUSEA Oxycodone HCl (Roxycodone Tab*) 15 mg PO TID PRN Pain 5-10/10 Oxycodone HCl (Roxycodone Tab*) 5 mg PO Q8H PRN Pain overnight Sertraline HCl (Zoloft*) 100 mg PO DAILY [facility] Tamsulosin HCl (Flomax Cap*) 0.4 mg PO BID [facility] Vital Signs - 8 hr 04/18/19 04/18/19 04/18/19 05:13 05:29 07:57 Temperature 97.4 F 97.8 F Pulse Rate 74 74 Respiratory 18 18 20 Rate Blood Pressure 138/72 122/69 (mmHg) O2 Sat by Pulse 94 96 Oximetry 04/18/19 04/18/19 04/18/19 08:29 09:45 11:15 Temperature 97.9 F Pulse Rate 71 Respiratory 16 16 20 Rate Blood Pressure 130/66 (mmHg) O2 Sat by Pulse 96 97 Oximetry Oxygen Devices in Use Now: None Appearance: Elderly male laying in bed in NAD Eyes: No Scleral Icterus Ears/Nose/Mouth/Throat: Mucous Membranes Moist Neck: NL Appearance and Movements; NL JVP, Trachea Midline Respiratory: Symmetrical Chest Expansion and Respiratory Effort, Clear to Auscultation Cardiovascular: NL Sounds; No Murmurs; No JVD, RRR Abdominal: NL Sounds; No Tenderness; No Distention Extremities: No Edema Neurological: Alert and Oriented x 3, NL Sensation Lines/Tubes/Other Access: Clean, Dry and Intact Peripheral IV Nutrition: Taking PO's Result Diagrams: 04/18/19 07:26 04/18/19 07:26 Assess/Plan/Problems-Billing Assessment: Mr. 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 - Patient Problems (1) Weakness Code(s): R53.1 - WEAKNESS Comment: - Unknown etiology - Appreciate neuro and neurosurgery recommendations - Unsafe to return home during this time due to falls - PT recommends skilled rehab - Surgery yesterday to remove spinal cord stimulator - MRI spine today (2) Weight loss Comment: - Approx 15 lb weight loss in last month per patient - Patient reports he has never had colonoscopy; would recommended at discharge - Likely related to depression (3) Depression Code(s): F32.9 - MAJOR DEPRESSIVE DISORDER, SINGLE EPISODE, UNSPECIFIED Comment: - Possibilty depression contributing to weakness - Daughter voiced concerns of having severe depression causing his fall with possible self d/c of SSRI causing withdrawal; voicing suicidal thoughts in January , none recently - Appreciate psych consult; recommends mirtazapine and sertraline with outpatient f/u - Continue mirtazapine, sertraline (4) Ischemic cardiomyopathy Code(s): I25.5 - ISCHEMIC CARDIOMYOPATHY Comment: - Echo shows EF 40-45%, wall motion abnormalities in area of known occlusion - Continue metoprolol, losartan, furosemide (5) CAD (coronary artery disease) Code(s): I25.10 - ATHSCL HEART DISEASE OF [place] CORONARY ARTERY W/O ANG PCTRS Comment: - Stable - Continue aspirin, atorvastatin, metoprolol (6) Afib Code(s): I48.91 - UNSPECIFIED ATRIAL FIBRILLATION Comment: - EKG shows NSR - Continue metoprolol, aspirin (7) Hypertension Code(s): I10 - ESSENTIAL (PRIMARY) HYPERTENSION Comment: - Normotensive, SBP 120-130s - Hold HCTZ - Continue losartan, metoprolol, furosemide (8) DVT prophylaxis Code(s): Z29.9 - ENCOUNTER FOR PROPHYLACTIC MEASURES, UNSPECIFIED Comment: - SCDs only in the setting of recent surgery (9) Full code status Code(s): Z78.9 - OTHER SPECIFIED HEALTH STATUS Comment: Status and Disposition: Inpatient. Pending MRI today. Unsafe to return home d/t frequent falls. Dr. Ronald Donohue Is Abhilash's Brother in Law and pain specialist Stacey Jacobson , is Hung's Daughter Attending: Yaquelin Ireland
--- NOTE | 2019-04-18 13:20 | PN ---
Progress Note - Progress Note Date of Service: 04/18/19 SOAP: Subjective: Patient is doing well after SCS removal, he is happy the procedure is completed. At this time he does not have any new complaints. His pain has been well managed post op, he has resumed with his regular diet. Objective: Vital Signs - 8 hr 04/18/19 04/18/19 04/18/19 05:29 07:57 08:29 Temperature 97.8 F Pulse Rate 74 Respiratory 18 20 16 Rate Blood Pressure 122/69 (mmHg) O2 Sat by Pulse 96 Oximetry 04/18/19 04/18/19 04/18/19 09:45 11:15 12:12 Temperature 97.9 F Pulse Rate 71 Respiratory 16 20 16 Rate Blood Pressure 130/66 (mmHg) O2 Sat by Pulse 96 97 Oximetry PE is unchanged Derm: Surgical wounds are clean dry and intact Assessment: 73 y/o male s/p SCS removal POD # 1 patient is stable recovering well. Plan: Pain management as needed Changes dressings as needed Continue to follow medicine recommendations Continue to follow neurology recommendations
[2019-04-18] MEDS: Ondansetron TAB* 4 MG PO PRN (19:39)
[2019-04-18] MEDS: Atorvastatin* 40 MG TAB PO SCH (21:47)
[2019-04-18] MEDS: Mirtazapine TAB* 15 MG PO SCH (21:47)
--- NOTE | 2019-04-19 08:07 | PN ---
Subjective Date of Service: 04/19/19 Length of Stay: 20 Days Interval History: Pt examined today at the bedside. He states that he is slowly getting better. He states that his legs still give out at times. He states he is having some pain at his surgical incision sites. He denies bowel or bladder incontinence. He denies shortness or breathe and denies chest pain. He denies numbness or tingling in the lower extremities or the upper extremities. Review of Systems: Denied CP, SOB, or palpitations. Family History: Unchanged from Admission Social History: Unchanged from Admission Past Medical History: Unchanged from Admission Objective Active Medications: Atorvastatin Calcium (Lipitor*) 40 mg PO BEDTIME [facility] Cyclobenzaprine HCl (Flexeril Tab*) 15 mg PO Q12H PRN PRN Reason: muscle spasms Last Admin: 04/18/19 19:38 Dose: 15 mg Ferrous Sulfate (Ferrous Sulfate Tab*) 325 mg PO DAILY [facility] Last Admin: 04/18/19 08:24 Dose: Not Given Losartan Potassium (Cozaar Tab*) 25 mg PO DAILY [facility] Last Admin: 04/18/19 08:22 Dose: 25 mg Metoprolol Succinate (Toprol Xl Tab*) 50 mg PO QAM [facility] Last Admin: 04/18/19 08:23 Dose: 50 mg Mirtazapine (Remeron Tab*) 15 mg PO BEDTIME [facility] Last Admin: 04/18/19 21:47 Dose: 15 mg Ondansetron HCl (Zofran Tab*) 4 mg PO Q6H PRN PRN Reason: NAUSEA Last Admin: 04/18/19 19:39 Dose: 4 mg Oxycodone HCl (Roxycodone Tab*) 15 mg PO TID PRN PRN Reason: Pain 5-07/19 Last Admin: 04/18/19 19:37 Dose: 15 mg Oxycodone HCl (Roxycodone Tab*) 5 mg PO Q8H PRN PRN Reason: Pain over night Last Admin: 04/18/19 05:29 Dose: 5 mg Sertraline HCl (Zoloft*) 100 mg PO DAILY [facility] Last Admin: 04/18/19 08:23 Dose: 100 mg Tamsulosin HCl (Flomax Cap*) 0.4 mg PO BID [facility] Last Admin: 04/18/19 21:47 Dose: 0.4 mg Vital Signs 04/18/19 04/18/19 04/18/19 08:29 09:45 11:15 Temperature 97.9 F Pulse Rate 71 Respiratory 16 16 20 Rate Blood Pressure 130/66 (mmHg) O2 Sat by Pulse 96 97 Oximetry 04/18/19 04/18/19 04/18/19 12:12 14:47 15:15 Temperature 97.7 F Pulse Rate 67 Respiratory 16 16 16 Rate Blood Pressure 131/75 (mmHg) O2 Sat by Pulse 98 Oximetry 04/18/19 04/18/19 04/18/19 19:37 19:38 20:00 Temperature 98.3 F Pulse Rate 73 Respiratory 18 18 18 Rate Blood Pressure 143/78 (mmHg) O2 Sat by Pulse 96 Oximetry 04/18/19 04/18/19 04/19/19 21:10 23:20 03:15 Temperature 98.1 F 98.2 F Pulse Rate 77 70 Respiratory 18 18 17 Rate Blood Pressure 140/72 150/71 (mmHg) O2 Sat by Pulse 96 95 Oximetry Intake and Output Last 24 Hours 04/17/19 04/18/19 04/19/19 04/20/19 06:59 06:59 06:59 06:59 Intake Total 670 699 520 Output Total 350 1575 1195 Balance 320 -696 -675 Weight 164 lb 4.8 oz 167 lb Intake: IV Fluids 699 LR 699 Oral 670 0 520 Output: Urine 350 1575 1195 Other: Estimated Void Medium # Bowel Movements 0 0 Estimated Stool Amount Large # Voids 0 Oxygen Devices in Use Now: None Neurology Exam: General: Well nourished, well developed, and in no acute distress HEENT: Normocephelic/atraumatic, sclera anicteric, mucous membranes moist Neck: Supple Chest: Clear to auscultation bilaterally Cardiovascular: Regular rate and rhythm without murmurs, rubs, gallops Abdomen: Soft, non-tender/non-distended Extremities: No clubbing, cyanosis, or edema Neurological Findings: Awake, alert, and oriented to person, place, and time. Speech: fluent without dysarthria, repetition intact Cranial Nerve: PERRL, EOM intact, VFF, no nystagmus, face symmetric bilaterally , facial sensation intact, hearing intact to finger rub bilaterally, palate elevates symmetrically, tongue midline, SCM and Trapezius 5/5. Motor:normal bulk and tone, 5/5 strength in at the bicep bilaterally, 4/5 at triceps bilaterally, 3/5 finger abduction bilaterally, 5/5 hip flexors bilaterally, 5/5 dorsiflexion on RLE and 5/5 plantar flexion RLE, 5/5 leg extension RLE, 5/5 leg flexion RLE, 3/5 right LE plantar and dorsiflexion 3/5 right LE leg extsion and flexion, give way noted to the LLE greater than RLE, Sensation: intact to LT bilaterally upper and lower extremities Deep Tendon Reflex: 2+ symmetric in the upper extremities, Babinski - down going , trace at the ankle bilaterally, 1 plus at patella bilaterally, Finger to nose, rapid alternating movements intact without tremor, no dysdiadochokinesia Gait: Able to stand with walker, wide based, walking with stand by assist with walker, no shuffling, stooped, Result Diagrams: 04/18/19 07:26 04/18/19 07:26 Microbiology and Other Data: Microbiology 03/31/19 17:01 Aerobic Blood Culture - Preliminary Blood Venous No Growth Day 2 Anaerobic Blood Culture - Preliminary No Growth Day 2 03/31/19 16:55 Aerobic Blood Culture - Preliminary Blood Venous No Growth Day 2 Anaerobic Blood Culture - Preliminary No Growth Day 2 Assessment/Plan Assessment: Mr. 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 The patient has severe kypohsis and head drop. He presents with new complaints of inability to ambulate and increase weakness in his lower extremities. His examination is difficult to assess due to the baseline weakness secondary to left hemiparesis due to the spinal cord stroke. Recommendations: MRI of CTL spine reviewed. Old area of injury noted to the C spine. T spine with kypohsis noted L spine with old compression fx noted. However no significant central canal stenosis or neural stenosis. His exam is difficult he has known LLE weakness from prior spinal cord stroke. Pt was able to walk with his walker unassisted. At times his exam is inconsistent there may be some functional component. That being said I believe an MRI of the Brain should be obtained to make sure there is no intracranial process playing a role although I suspect this is less likley I have ordered and MRI of the brain and discussed this with Dr Arceo. I would continue PT when ok with neurosurgey Weight Loss Continue to follow with PCP, Would need C-scope as outpatint defer to primary team Depression Psych following Defer to primary team and psych Cardiomyopathy Per primary and cardiology CAD Per primary team Afib Per primary team was regular on exam today Hypertension Per primary team Await MRI of the brain continue PT efforts when ok with neurosurgery Attending: Mat Arceo
[2019-04-19] MEDS: Losartan TAB* 25 MG PO SCH (08:43)
[2019-04-19] MEDS: Tamsulosin CAP* 0.4 MG PO SCH ×2 (08:43→20:52)
[2019-04-19] MEDS: Metoprolol Succinate XL TAB* 100 MG PO SCH (08:44)
[2019-04-19] MEDS: Sertraline* 100 MG TAB PO SCH (08:44)
[2019-04-19] MEDS: Ferrous Sulfate TAB* 325 MG PO SCH (08:45)
[2019-04-19] MEDS: oxyCODONE TAB* 5 MG TAB PO PRN ×2 (08:49→20:52)
[2019-04-19] MEDS: Cyclobenzaprine TAB* 10 MG PO PRN ×2 (08:49→20:52)
--- NOTE | 2019-04-19 17:25 | PN ---
Subjective Date of Service: 04/19/19 Interval History: No acute events overnight, afebrile. Jose Alberto is "devastated" that the C-, T-, L-spine MRIs yesterday did not show any intervenable pathology or reason to explain why he is falling. At baseline he was using a cane occasionally before the falls (which started within 30 minutes of getting off the plane when visiting grandchildren, [place] in [place], [place]). Never SOB, leg swelling, leg pain. Chronic left sided weakness. Family History: Unchanged from Admission Social History: Unchanged from Admission Past Medical History: Unchanged from Admission Objective Active Medications: Atorvastatin Calcium (Lipitor*) 40 mg PO BEDTIME [facility] Cyclobenzaprine HCl (Flexeril Tab*) 15 mg PO Q12H PRN PRN Reason: muscle spasms Last Admin: 04/19/19 08:49 Dose: 15 mg Ferrous Sulfate (Ferrous Sulfate Tab*) 325 mg PO DAILY [facility] Last Admin: 04/19/19 08:45 Dose: Not Given Losartan Potassium (Cozaar Tab*) 25 mg PO DAILY [facility] Last Admin: 04/19/19 08:43 Dose: 25 mg Metoprolol Succinate (Toprol Xl Tab*) 50 mg PO QAM [facility] Last Admin: 04/19/19 08:44 Dose: 50 mg Mirtazapine (Remeron Tab*) 15 mg PO BEDTIME [facility] Last Admin: 04/18/19 21:47 Dose: 15 mg Ondansetron HCl (Zofran Tab*) 4 mg PO Q6H PRN PRN Reason: NAUSEA Last Admin: 04/18/19 19:39 Dose: 4 mg Oxycodone HCl (Roxycodone Tab*) 15 mg PO TID PRN PRN Reason: Pain 5-07/19 Last Admin: 04/19/19 08:49 Dose: 15 mg Oxycodone HCl (Roxycodone Tab*) 5 mg PO Q8H PRN PRN Reason: Pain over night Last Admin: 04/18/19 05:29 Dose: 5 mg Sertraline HCl (Zoloft*) 100 mg PO DAILY [facility] Last Admin: 04/19/19 08:44 Dose: 100 mg Tamsulosin HCl (Flomax Cap*) 0.4 mg PO BID [facility] Last Admin: 04/19/19 08:43 Dose: 0.4 mg Vital Signs - 8 hr 04/19/19 12:08 Temperature 98 F Pulse Rate 68 Respiratory 14 Rate Blood Pressure 143/73 (mmHg) O2 Sat by Pulse 96 Oximetry Oxygen Devices in Use Now: None Appearance: NAD, Ears/Nose/Mouth/Throat: NL Teeth, Lips, Gums Respiratory: Symmetrical Chest Expansion and Respiratory Effort, Clear to Auscultation Cardiovascular: NL Sounds; No Murmurs; No JVD, RRR Abdominal: NL Sounds; No Tenderness; No Distention Extremities: No Edema Skin: No Rash or Ulcers Neurological: - - hip flexion actually stronger on L (4)>R(3+). Sensation intact. left geoscientist 2+/5. 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 P/w acute onset of falls (prior baseline occasional cane use) almost immediately after cross country flight. s/ p spinal cord stimulator removal 04/17 in order to get MRIs : gonzalez-spine and brain w/o explantory etiology. B12 okay - Patient Problems (1) Weakness Current Visit: Yes Status: Acute Code(s): R53.1 - WEAKNESS SNOMED Code(s) : 16313780 Comment: - Unknown etiology - Appreciate neuro and neurosurgery recommendations - Unsafe to return home during this time due to falls - PT recommends skilled rehab, f/u re-eval (2) Afib Current Visit: Yes Status: Acute Code(s): I48.91 - UNSPECIFIED ATRIAL FIBRILLATION SNOMED Code(s): 34750225 Comment: - EKG shows NSR - Continue metoprolol, aspirin (3) CAD (coronary artery disease) Current Visit: Yes Status: Acute Code(s): I25.10 - ATHSCL HEART DISEASE OF [place] CORONARY ARTERY W/O ANG PCTRS SNOMED Code(s): 04391610 Comment: - Stable - Continue aspirin, atorvastatin, metoprolol (4) DVT prophylaxis Current Visit: Yes Status: Acute Code(s): Z29.9 - ENCOUNTER FOR PROPHYLACTIC MEASURES, UNSPECIFIED SNOMED Code(s): 648351956 Comment: - SCDs only in the setting of recent surgery (5) Depression Current Visit: Yes Status: Acute Code(s): F32.9 - MAJOR DEPRESSIVE DISORDER , SINGLE EPISODE, UNSPECIFIED SNOMED Code(s): 11406239 Comment: - Possibilty depression contributing to weakness - Daughter voiced concerns of having severe depression causing his fall with possible self d/c of SSRI causing withdrawal; voicing suicidal thoughts in January , none recently - Appreciate psych consult; - Continue mirtazapine, sertraline (6) Full code status Current Visit: Yes Status: Acute Code(s): Z78.9 - OTHER SPECIFIED HEALTH STATUS SNOMED Code(s): 127851080 Comment: (7) GERD (gastroesophageal reflux disease) Current Visit: Yes Status: Acute Code(s): K21.9 - GASTRO-ESOPHAGEAL REFLUX DISEASE WITHOUT ESOPHAGITIS SNOMED Code(s): 869297719 (8) History of CVA (cerebrovascular accident) Current Visit: Yes Status: Acute Code(s): Z86.73 - PRSNL HX OF TIA (TIA), AND CEREB INFRC W/O RESID DEFICITS SNOMED Code(s): 195326518 Comment: - Continue aspirin 81; Lipitor 40 mg; - baseline left hemiparesis. (9) Hyperlipemia Current Visit: Yes Status: Acute Code(s): E78.5 - HYPERLIPIDEMIA, UNSPECIFIED SNOMED Code(s): 49741538 Comment: - Continue Lipitor 40 mg; (10) Hypertension Current Visit: Yes Status: Acute Code(s): I10 - ESSENTIAL (PRIMARY) HYPERTENSION SNOMED Code(s): 99213947 Comment: - SBP 140-160s - Continue losartan 25mg daily, metoprolol succinate 50mg (11) Ischemic cardiomyopathy Current Visit: Yes Status: Acute Code(s): I25.5 - ISCHEMIC CARDIOMYOPATHY SNOMED Code(s): 606526276 Comment: - Echo shows EF 40-45%, wall motion abnormalities in area of known occlusion - Continue metoprolol, losartan (12) Weight loss Current Visit: Yes Status: Acute Comment: - Approx 15 lb weight loss in last month per patient - Patient reports he has never had colonoscopy; would recommended at discharge - Likely related to depression Status and Disposition: Inpatient. Pending PT re-eval. Unsafe to return home d/t frequent falls. Dr. Ronald Donohue Is Mr Hung's Brother in Law and pain specialist Stacey Jacobson , is Mr Hung's Daughter
--- NOTE | 2019-04-19 17:58 | PN ---
Progress Note - Progress Note Date of Service: 04/19/19 SOAP: Subjective: [73 y/o male post SCS removal POD #2, no acute issues overnight, he is doing well. Objective: Wounds C/D/I Assessment: 72 y/o male s/p SCS removal POD #2 doing well, no new complaints. Plan: Continue to follow Neurology recommendations Continue to follow medicine recommendations Pain management as needed.
[2019-04-19] MEDS: Atorvastatin* 40 MG TAB PO SCH (20:52)
[2019-04-19] MEDS: Mirtazapine TAB* 15 MG PO SCH (20:52)
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
[2019-04-20 08:48] LABS: EGFR African American 123.5 (>60); EGFR Non-African American 102.1 (>60)
[2019-04-20] MEDS: oxyCODONE TAB* 5 MG TAB PO PRN ×3 (08:53→20:53)
[2019-04-20] MEDS: Metoprolol Succinate XL TAB* 100 MG PO SCH (08:53)
[2019-04-20] MEDS: Tamsulosin CAP* 0.4 MG PO SCH ×2 (08:54→20:53)
[2019-04-20] MEDS: Sertraline* 100 MG TAB PO SCH (08:54)
[2019-04-20] MEDS: Cyclobenzaprine TAB* 10 MG PO PRN ×2 (08:54→20:54)
[2019-04-20] MEDS: Losartan TAB* 25 MG PO SCH (08:54)
[2019-04-20 09:01] LABS: Hematocrit 29 % (42-52); Hemoglobin 9.8 g/dL (14.0-18.0); Mean Platelet Volume 9.6 fL (7.4-10.4); Platelet Count 95 10^3/uL (150-450)
[2019-04-20] MEDS: Ferrous Sulfate TAB* 325 MG PO SCH (10:41)
--- NOTE | 2019-04-20 12:32 | EEG ---
ELECTROENCEPHALOGRAPHY: DATE OF STUDY: 04/20/19 - ROOM #417 LOCATION: He is an inpatient. REFERRING PROVIDER: Valentin Lee NP. CLINICAL PROBLEM: History of prior stroke with left-sided weakness, recent multiple falls. One episode of loss of consciousness a few years ago. MEDICATIONS: Include: 1. Oxycodone. 2. Ondansetron. 3. Mirtazapine. 4. Sertraline. 5. Metoprolol. 6. Losartan. REPORT: This 19-channel EEG is remarkable for background rhythms consisting of alpha rhythm in the occipital derivations at about 7 cycles per second from the right occipital region and close to 8 to 9 cycles per second from the left occipital region. There is intermittent theta rhythm seen in the right temporal region, which are not seen in the left hemisphere at the same time. Occasional non- phased reversing sharp waves are seen in the right occipital region. The patient drowses at times, but does not fall into stage 2 sleep. Activation procedures are not attempted. There are no clinical events. CLINICAL IMPRESSION: Abnormal EEG due to slowing, particularly from the right hemisphere consistent with cerebral dysfunction from the right hemisphere, particularly near the occipital region. There are no clearcut epileptiform discharges during this recording. [id number]/[facility] #: [id number] [facility] SIE[facility] MEDICAL CENTERJoaquim
[2019-04-20] MEDS ORDERED: NS 0.9% 500 ML* 500 ML IV SCH (15:00)
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
[2019-04-20] MEDS: Atorvastatin* 40 MG TAB PO SCH (20:53)
[2019-04-20] MEDS: Mirtazapine TAB* 15 MG PO SCH (20:53)
[2019-04-21] MEDS: Losartan TAB* 25 MG PO SCH (08:58)
[2019-04-21] MEDS: oxyCODONE TAB* 5 MG TAB PO PRN ×3 (08:58→21:48)
[2019-04-21] MEDS: Sertraline* 100 MG TAB PO SCH (08:59)
[2019-04-21] MEDS: Ferrous Sulfate TAB* 325 MG PO SCH (08:59)
[2019-04-21] MEDS: Metoprolol Succinate XL TAB* 100 MG PO SCH (08:59)
[2019-04-21] MEDS: Tamsulosin CAP* 0.4 MG PO SCH ×2 (08:59→21:49)
--- NOTE | 2019-04-21 13:00 | PN ---
Subjective Date of Service: 04/21/19 Interval History: No acute events overnight, afebrile. orthostatic again on vitals chronic neck pain up walking in room with no episodes of shakiness or falls. notes during his episodes he does not seems to try to brace self with hands. Family History: Unchanged from Admission Social History: Unchanged from Admission Past Medical History: Unchanged from Admission Objective Active Medications: Atorvastatin Calcium (Lipitor*) 40 mg PO BEDTIME [facility] Last Admin: 04/20/19 20:53 Dose: 40 mg Cyclobenzaprine HCl (Flexeril Tab*) 15 mg PO Q12H PRN PRN Reason: muscle spasms Last Admin: 04/20/19 20:54 Dose: 15 mg Ferrous Sulfate (Ferrous Sulfate Tab*) 325 mg PO DAILY [facility] Last Admin: 04/21/19 08:59 Dose: Not Given Fludrocortisone Acetate (Florinef Tab*) 0.1 mg PO DAILY [facility] Sodium Chloride (Ns 0.9% 500 Ml*) 500 mls @ 125 mls/hr IV PER RATE [facility] Last Admin: 04/20/19 16:35 Dose: 125 mls/hr Losartan Potassium (Cozaar Tab*) 25 mg PO DAILY [facility] Last Admin: 04/21/19 08:58 Dose: 25 mg Metoprolol Succinate (Toprol Xl Tab*) 50 mg PO QAM [facility] Last Admin: 04/21/19 08:59 Dose: 50 mg Mirtazapine (Remeron Tab*) 15 mg PO BEDTIME [facility] Last Admin: 04/20/19 20:53 Dose: 15 mg Ondansetron HCl (Zofran Tab*) 4 mg PO Q6H PRN PRN Reason: NAUSEA Last Admin: 04/18/19 19:39 Dose: 4 mg Oxycodone HCl (Roxycodone Tab*) 15 mg PO TID PRN PRN Reason: Pain 5-10 Last Admin: 04/21/19 08:58 Dose: 15 mg Oxycodone HCl (Roxycodone Tab*) 5 mg PO Q8H PRN PRN Reason: Pain over night Last Admin: 04/18/19 05:29 Dose: 5 mg Sertraline HCl (Zoloft*) 100 mg PO DAILY [facility] Last Admin: 04/21/19 08:59 Dose: 100 mg Tamsulosin HCl (Flomax Cap*) 0.4 mg PO BID [facility] Last Admin: 04/21/19 08:59 Dose: 0.4 mg Vital Signs - 8 hr 04/21/19 04/21/19 04/21/19 08:00 08:10 08:58 Temperature 97.6 F Pulse Rate 65 Respiratory 16 16 16 Rate Blood Pressure 150/74 (mmHg) O2 Sat by Pulse 98 98 Oximetry 04/21/19 11:25 Temperature Pulse Rate 81 Respiratory Rate Blood Pressure 106/56 (mmHg) O2 Sat by Pulse Oximetry Oxygen Devices in Use Now: None Appearance: NAD, in bed. kyphotic. Eyes: No Scleral Icterus, PERRLA Ears/Nose/Mouth/Throat: NL Teeth, Lips, Gums Neck: NL Appearance and Movements; NL JVP Respiratory: Symmetrical Chest Expansion and Respiratory Effort Cardiovascular: NL Sounds; No Murmurs; No JVD, RRR Abdominal: NL Sounds; No Tenderness; No Distention, No Hepatosplenomegaly Extremities: No Edema Skin: No Rash or Ulcers Neurological: Alert and Oriented x 3, - - hip flexion 4-/5 b/l. dorsiflexion/ plantar flexion 5/5. 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 Nutrition: Taking PO's Result Diagrams: 04/20/19 08:44 04/20/19 07:53 Additional Lab and Data: Laboratory Results - last 24 hr 04/20/19 08:44 Aldolase 3.9 Microbiology and Other Data: Microbiology 03/31/19 17:01 Blood Venous Aerobic Blood Culture - Final No Growth Day 5 03/31/19 17:01 Blood Venous Anaerobic Blood Culture - Final No Growth Day 5 03/31/19 16:55 Blood Venous Aerobic Blood Culture - Final No Growth Day 5 03/31/19 16:55 Blood Venous Anaerobic Blood Culture - Final No Growth Day 5 Assess/Plan/Problems-Billing Assessment: 73-year-old right handed man PMH cervical decompressions(1993, 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 P/w acute onset of falls (prior baseline occasional cane use) almost immediately after cross country flight. s/ p spinal cord stimulator removal 04/17 in order to get MRIs : gonzalez-spine and brain w/o explantory etiology. B12 okay. Inconsistent exams, now saying each episode associated less with "buckling" and more like uncontrolled jerking like activity. EEG abnormal but w/o seizure like activity. Orthostatic. - Patient Problems (1) Weakness Current Visit: Yes Status: Acute Code(s): R53.1 - WEAKNESS SNOMED Code(s) : 40861693 Comment: - Unknown etiology but was orthostatic today again - s/p 500cc bolus yesterday - trial of florinef today, recheck orthostatics daily - check AM cortisol level - Appreciate neuro and neurosurgery recommendations - Unsafe to return home during this time due to falls - PT recommends skilled rehab - psychiatric etiology such as a conversion disorder, malingering (with gain of iliciting sympathy from who is in process of him) vs factitious disorder) are in differential (2) Afib Current Visit: Yes Status: Acute Code(s): I48.91 - UNSPECIFIED ATRIAL FIBRILLATION SNOMED Code(s): 10008226 Comment: - EKG shows NSR - Continue metoprolol, aspirin (3) CAD (coronary artery disease) Current Visit: Yes Status: Acute Code(s): I25.10 - ATHSCL HEART DISEASE OF [place] CORONARY ARTERY W/O ANG PCTRS SNOMED Code(s): 09838135 Comment: - Stable - Continue aspirin, atorvastatin, metoprolol (4) DVT prophylaxis Current Visit: Yes Status: Acute Code(s): Z29.9 - ENCOUNTER FOR PROPHYLACTIC MEASURES, UNSPECIFIED SNOMED Code(s): 571642573 Comment: - SCDs only in the setting of recent surgery (5) Depression Current Visit: Yes Status: Acute Code(s): F32.9 - MAJOR DEPRESSIVE DISORDER , SINGLE EPISODE, UNSPECIFIED SNOMED Code(s): 57193070 Comment: - Possibilty depression contributing to weakness - Daughter voiced concerns of having severe depression causing his fall with possible self d/c of SSRI causing withdrawal; voicing suicidal thoughts in January , none recently - Appreciate psych consult; - Continue mirtazapine, sertraline (6) Full code status Current Visit: Yes Status: Acute Code(s): Z78.9 - OTHER SPECIFIED HEALTH STATUS SNOMED Code(s): 257905942 Comment: (7) GERD (gastroesophageal reflux disease) Current Visit: Yes Status: Acute Code(s): K21.9 - GASTRO-ESOPHAGEAL REFLUX DISEASE WITHOUT ESOPHAGITIS SNOMED Code(s): 388918336 (8) History of CVA (cerebrovascular accident) Current Visit: Yes Status: Acute Code(s): Z86.73 - PRSNL HX OF TIA (TIA), AND CEREB INFRC W/O RESID DEFICITS SNOMED Code(s): 249570666 Comment: - Continue aspirin 81; Lipitor 40 mg; - baseline left hemiparesis. (9) Hyperlipemia Current Visit: Yes Status: Acute Code(s): E78.5 - HYPERLIPIDEMIA, UNSPECIFIED SNOMED Code(s): 58643132 Comment: - Continue Lipitor 40 mg; (10) Hypertension Current Visit: Yes Status: Acute Code(s): I10 - ESSENTIAL (PRIMARY) HYPERTENSION SNOMED Code(s): 92599686 Comment: - SBP 140-160s - Continue losartan 25mg daily, metoprolol succinate 50mg (11) Ischemic cardiomyopathy Current Visit: Yes Status: Acute Code(s): I25.5 - ISCHEMIC CARDIOMYOPATHY SNOMED Code(s): 491385350 Comment: - Echo shows EF 40-45%, wall motion abnormalities in area of known occlusion - Continue metoprolol, losartan (12) Weight loss Current Visit: Yes Status: Acute Comment: - Approx 15 lb weight loss in last month per patient - Patient reports he has never had colonoscopy; would recommended at discharge - Likely related to depression Status and Disposition: Inpatient. PT recommending [facility] placement. Unsafe to return home, especially now that d/t frequent falls. Dr. Ronald Donohue Is Mr Hung's Brother in Law and pain specialist Stacey Kavon , is Mr Hung's Daughter
[2019-04-21] MEDS: Fludrocortisone Acetate TAB* 0.1 MG PO SCH (15:10)
[2019-04-21] MEDS: Cyclobenzaprine TAB* 10 MG PO PRN (21:47)
[2019-04-21] MEDS: Atorvastatin* 40 MG TAB PO SCH (21:48)
[2019-04-21] MEDS: Mirtazapine TAB* 15 MG PO SCH (21:48)
[2019-04-22 06:49] LABS: ABS Eosinophils 0.3 10^3/ul (0-0.6); ABS Lymphocytes 0.7 10^3/ul (1.0-4.8); ABS Monocytes 0.4 10^3/ul (0-0.8); ABS Neutrophils 2.6 10^3/ul (1.5-7.7); Eosinophil % 6.8 %; Hematocrit 28 % (42-52); Hemoglobin 9.7 g/dL (14.0-18.0); Mean Corpuscular HGB Conc 35 g/dL (31-36); Mean Corpuscular Hemoglobin 29 pg (27-31); Mean Corpuscular Volume 83 fL (80-94); Mean Platelet Volume 9.8 fL (7.4-10.4); Nucleated Red Blood Cells % 0.1; Platelet Count 98 10^3/uL (150-450); Red Blood Count 3.34 10^6 /uL (4.18-5.48); Red Cell Distribution Width 14 % (10-15)
[2019-04-22] MEDS: Fludrocortisone Acetate TAB* 0.1 MG PO SCH (09:15)
[2019-04-22] MEDS: Metoprolol Succinate XL TAB* 100 MG PO SCH (09:15)
[2019-04-22] MEDS: Losartan TAB* 25 MG PO SCH (09:15)
[2019-04-22] MEDS: Tamsulosin CAP* 0.4 MG PO SCH ×2 (09:15→21:29)
[2019-04-22] MEDS: Sertraline* 100 MG TAB PO SCH (09:15)
[2019-04-22] MEDS: oxyCODONE TAB* 5 MG TAB PO PRN ×2 (09:15→17:58)
[2019-04-22] MEDS: Ferrous Sulfate TAB* 325 MG PO SCH (09:17)
--- NOTE | 2019-04-22 13:33 | PN ---
Subjective Date of Service: 04/22/19 Interval History: Orthostatic again today: 168/87 lying,141/74 sitting, 103/65 standing has been up, no falls or shaking episodes now he is now not so sure if he has lost time during these falling episodes. Remembers sensation like he is falling back and then remembers looking for his phone to get help but not the actual impact. Does not have a life alert currently Says now he would prefer to go home (he plans to ask his if she will stay at night). Says a [employer] friend will be installing guard rails etc. Family History: Unchanged from Admission Social History: Unchanged from Admission Past Medical History: Unchanged from Admission Objective Active Medications: Atorvastatin Calcium (Lipitor*) 40 mg PO BEDTIME [facility] Last Admin: 04/21/19 21:48 Dose: 40 mg Cyclobenzaprine HCl (Flexeril Tab*) 15 mg PO Q12H PRN PRN Reason: muscle spasms Last Admin: 04/21/19 21:47 Dose: 15 mg Ferrous Sulfate (Ferrous Sulfate Tab*) 325 mg PO DAILY [facility] Last Admin: 04/22/19 09:17 Dose: Not Given Fludrocortisone Acetate (Florinef Tab*) 0.1 mg PO DAILY [facility] Last Admin: 04/22/19 09:15 Dose: 0.1 mg Losartan Potassium (Cozaar Tab*) 25 mg PO DAILY [facility] Last Admin: 04/22/19 09:15 Dose: 25 mg Metoprolol Succinate (Toprol Xl Tab*) 50 mg PO QAM [facility] Last Admin: 04/22/19 09:15 Dose: 50 mg Mirtazapine (Remeron Tab*) 15 mg PO BEDTIME [facility] Last Admin: 04/21/19 21:48 Dose: 15 mg Ondansetron HCl (Zofran Tab*) 4 mg PO Q6H PRN PRN Reason: NAUSEA Last Admin: 04/18/19 19:39 Dose: 4 mg Oxycodone HCl (Roxycodone Tab*) 15 mg PO TID PRN PRN Reason: Pain 5-07/19 Last Admin: 04/22/19 09:15 Dose: 15 mg Oxycodone HCl (Roxycodone Tab*) 5 mg PO Q8H PRN PRN Reason: Pain over night Last Admin: 04/18/19 05:29 Dose: 5 mg Sertraline HCl (Zoloft*) 100 mg PO DAILY [facility] Last Admin: 04/22/19 09:15 Dose: 100 mg Tamsulosin HCl (Flomax Cap*) 0.4 mg PO BID [facility] Last Admin: 04/22/19 09:15 Dose: 0.4 mg Vital Signs - 8 hr 04/22/19 04/22/19 04/22/19 07:20 09:15 11:00 Temperature 97.9 F 97.9 F Pulse Rate 67 81 Respiratory 20 16 18 Rate Blood Pressure 159/90 168/87 (mmHg) O2 Sat by Pulse 97 96 Oximetry 04/22/19 11:14 Temperature Pulse Rate 90 Respiratory Rate Blood Pressure 103/65 (mmHg) O2 Sat by Pulse Oximetry Oxygen Devices in Use Now: None Appearance: NAD, in bed, severe kyphosis Eyes: No Scleral Icterus Ears/Nose/Mouth/Throat: NL Teeth, Lips, Gums Respiratory: Symmetrical Chest Expansion and Respiratory Effort, Clear to Auscultation Cardiovascular: NL Sounds; No Murmurs; No JVD, RRR Abdominal: NL Sounds; No Tenderness; No Distention, No Hepatosplenomegaly Extremities: No Edema Skin: No Rash or Ulcers Neurological: Alert and Oriented x 3, - - hip flexion 5/5 on right, 4/5 on left. gas examiner 4+/5 right, 3/5 left. EOMI.sensation intact Nutrition: Taking PO's Result Diagrams: 04/22/19 06:24 04/20/19 07:53 Additional Lab and Data: Laboratory Results - last 24 hr 04/22/19 06:24 WBC 4.0 RBC 3.34 L Hgb 9.7 L Hct 28 L MCV 83 MCH 29 MCHC 35 RDW 14 Plt Count 98 L MPV 9.8 Neut % (Auto) 66.0 Lymph % (Auto) 18.0 [place] % (Auto) 8.9 Eos % (Auto) 6.8 Baso % (Auto) 0.3 Absolute Neuts (auto) 2.6 Absolute Lymphs (auto) 0.7 L Absolute Monos (auto) 0.4 Absolute Eos (auto) 0.3 Absolute Basos (auto) 0.0 Absolute Nucleated RBC 0.0 Nucleated RBC % 0.1 Microbiology and Other Data: Microbiology 03/31/19 17:01 Blood Venous Aerobic Blood Culture - Final No Growth Day 5 03/31/19 17:01 Blood Venous Anaerobic Blood Culture - Final No Growth Day 5 03/31/19 16:55 Blood Venous Aerobic Blood Culture - Final No Growth Day 5 03/31/19 16:55 Blood Venous Anaerobic Blood Culture - Final No Growth Day 5 Assess/Plan/Problems-Billing Assessment: 73-year-old right handed man PMH cervical decompressions(1993, 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 P/w acute onset of falls (prior baseline occasional cane use) almost immediately after cross country flight. s/ p spinal cord stimulator removal 04/17 in order to get MRIs : gonzalez-spine and brain w/o explantory etiology. B12 okay. Inconsistent exams and histories, now saying each episode associated less with "buckling" and more like uncontrolled jerking like activity. Now says may have lost consciousness. EEG abnormal but w/o seizure like activity. Orthostatic hypotension. PT rec for SNF - Patient Problems (1) Weakness Current Visit: Yes Status: Acute Code(s): R53.1 - WEAKNESS SNOMED Code(s) : 09152750 Comment: - Unknown etiology but was orthostatic again today despite 500cc bolus 04/20 and initiation of florinef 0.1mg daily. - add compression stockings - advised to get up slowly - recheck standing BPs after ambulating for while - recheck orthostatics daily - f/u AM cortisol level - Appreciate neuro and neurosurgery recommendations - PT: Unsafe to return home during this time due to falls, recommends skilled rehab - HE NOW SAYS HE WOULD LIKELY REFUSE SNF WITH HOPES/PLAN THAT HIS WOULD TAKE CARE OF HIM AT NIGHTS. She has of course told him she is leaving him and can't take care of him anymore. - psychiatric etiology such as malingering (with gain of iliciting sympathy from who is in process of him) are in differential. It is hard to know as his exam and story seems to change but he is objectively orthostatic so that is working diagnosis. (2) Afib Current Visit: Yes Status: Acute Code(s): I48.91 - UNSPECIFIED ATRIAL FIBRILLATION SNOMED Code(s): 35626283 Comment: - EKG shows NSR - Continue metoprolol, aspirin (3) CAD (coronary artery disease) Current Visit: Yes Status: Acute Code(s): I25.10 - ATHSCL HEART DISEASE OF [place] CORONARY ARTERY W/O ANG PCTRS SNOMED Code(s): 29958855 Comment: - Stable - Continue aspirin, atorvastatin, metoprolol (4) DVT prophylaxis Current Visit: Yes Status: Acute Code(s): Z29.9 - ENCOUNTER FOR PROPHYLACTIC MEASURES, UNSPECIFIED SNOMED Code(s): 812680255 Comment: - SCDs only in the setting of recent surgery (5) Depression Current Visit: Yes Status: Acute Code(s): F32.9 - MAJOR DEPRESSIVE DISORDER , SINGLE EPISODE, UNSPECIFIED SNOMED Code(s): 89773463 Comment: - Possibilty depression contributing to weakness - Daughter voiced concerns of having severe depression causing his fall with possible self d/c of SSRI causing withdrawal; voicing suicidal thoughts in January , none recently - Appreciate psych consult; - Continue mirtazapine, sertraline (6) Full code status Current Visit: Yes Status: Acute Code(s): Z78.9 - OTHER SPECIFIED HEALTH STATUS SNOMED Code(s): 718699069 Comment: (7) GERD (gastroesophageal reflux disease) Current Visit: Yes Status: Acute Code(s): K21.9 - GASTRO-ESOPHAGEAL REFLUX DISEASE WITHOUT ESOPHAGITIS SNOMED Code(s): 465235361 (8) History of CVA (cerebrovascular accident) Current Visit: Yes Status: Acute Code(s): Z86.73 - PRSNL HX OF TIA (TIA), AND CEREB INFRC W/O RESID DEFICITS SNOMED Code(s): 403411739 Comment: - Continue aspirin 81; Lipitor 40 mg; - baseline left hemiparesis. (9) Hyperlipemia Current Visit: Yes Status: Acute Code(s): E78.5 - HYPERLIPIDEMIA, UNSPECIFIED SNOMED Code(s): 97882621 Comment: - Continue Lipitor 40 mg; (10) Hypertension Current Visit: Yes Status: Acute Code(s): I10 - ESSENTIAL (PRIMARY) HYPERTENSION SNOMED Code(s): 40032110 Comment: - SBP 140-170s. but orthostatic upon quick standing. - Continue losartan 25mg daily, metoprolol succinate 50mg (11) Ischemic cardiomyopathy Current Visit: Yes Status: Acute Code(s): I25.5 - ISCHEMIC CARDIOMYOPATHY SNOMED Code(s): 415683213 Comment: - Echo shows EF 40-45%, wall motion abnormalities in area of known occlusion - Continue metoprolol, losartan (12) Weight loss Current Visit: Yes Status: Acute Comment: - Approx 15 lb weight loss in last month per patient - Patient reports he has never had colonoscopy; would recommended at discharge - Likely related to depression Status and Disposition: Inpatient. PT recommending [facility] placement. Unsafe to return home, especially now that d/t frequent falls. He know says he might refuse?! Dr. Ronald Donohue Is Mr Hung's Brother in Law and pain specialist Stacey Kavon , is Mr Hung's Daughter
[2019-04-22] MEDS: Ondansetron TAB* 4 MG PO PRN (17:58)
[2019-04-22] MEDS: Mirtazapine TAB* 15 MG PO SCH (21:28)
[2019-04-22] MEDS: Cyclobenzaprine TAB* 10 MG PO PRN (21:28)
[2019-04-22] MEDS: Atorvastatin* 40 MG TAB PO SCH (21:28)
[2019-04-23] MEDS: oxyCODONE TAB* 5 MG TAB PO PRN ×3 (02:46→19:58)
[2019-04-23] MEDS: Losartan TAB* 25 MG PO SCH (08:34)
[2019-04-23] MEDS: Tamsulosin CAP* 0.4 MG PO SCH ×2 (08:34→20:01)
[2019-04-23] MEDS: Sertraline* 100 MG TAB PO SCH (08:34)
[2019-04-23] MEDS: Fludrocortisone Acetate TAB* 0.1 MG PO SCH (08:34)
[2019-04-23] MEDS: Ferrous Sulfate TAB* 325 MG PO SCH (08:34)
[2019-04-23] MEDS: Metoprolol Succinate XL TAB* 100 MG PO SCH (08:34)
[2019-04-23] MEDS: Ondansetron TAB* 4 MG PO PRN (11:35)
[2019-04-23] MEDS ORDERED: NS 0.9% 500 ML* 500 ML IV ONE (14:57)
--- NOTE | 2019-04-23 15:00 | PN ---
Subjective Date of Service: 04/23/19 Interval History: Seen and examined, Had PT today, able to walk, however reported to me he had nausea, felt very tired, sick and lightheaded. Has been having orthostatic hypotension. 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 Family History: Unchanged from Admission Social History: Unchanged from Admission Past Medical History: Unchanged from Admission Objective Active Medications: Atorvastatin Calcium (Lipitor*) 40 mg PO BEDTIME [facility] Last Admin: 04/22/19 21:28 Dose: 40 mg Cyclobenzaprine HCl (Flexeril Tab*) 15 mg PO Q12H PRN PRN Reason: muscle spasms Last Admin: 04/22/19 21:28 Dose: 15 mg Ferrous Sulfate (Ferrous Sulfate Tab*) 325 mg PO DAILY [facility] Last Admin: 04/23/19 08:34 Dose: Not Given Fludrocortisone Acetate (Florinef Tab*) 0.1 mg PO DAILY [facility] Last Admin: 04/23/19 08:34 Dose: 0.1 mg Losartan Potassium (Cozaar Tab*) 25 mg PO DAILY [facility] Last Admin: 04/23/19 08:34 Dose: 25 mg Metoprolol Succinate (Toprol Xl Tab*) 50 mg PO QAM [facility] Last Admin: 04/23/19 08:34 Dose: 50 mg Mirtazapine (Remeron Tab*) 15 mg PO BEDTIME [facility] Last Admin: 04/22/19 21:28 Dose: 15 mg Ondansetron HCl (Zofran Tab*) 4 mg PO Q6H PRN PRN Reason: NAUSEA Last Admin: 04/23/19 11:35 Dose: 4 mg Oxycodone HCl (Roxycodone Tab*) 15 mg PO TID PRN PRN Reason: Pain 5-10/10 Last Admin: 04/23/19 10:57 Dose: 15 mg Oxycodone HCl (Roxycodone Tab*) 5 mg PO Q8H PRN PRN Reason: Pain over night Last Admin: 04/23/19 02:46 Dose: 5 mg Sertraline HCl (Zoloft*) 100 mg PO DAILY [facility] Last Admin: 04/23/19 08:34 Dose: 100 mg Tamsulosin HCl (Flomax Cap*) 0.4 mg PO BID [facility] Last Admin: 04/23/19 08:34 Dose: 0.4 mg Vital Signs - 8 hr 04/23/19 04/23/19 04/23/19 07:00 08:00 08:01 Temperature 97.2 F Pulse Rate 68 Respiratory 16 17 17 Rate Blood Pressure 163/84 (mmHg) O2 Sat by Pulse 97 97 Oximetry 04/23/19 04/23/19 04/23/19 10:20 10:21 10:24 Temperature Pulse Rate 81 82 87 Respiratory Rate Blood Pressure 160/81 139/74 123/57 (mmHg) O2 Sat by Pulse Oximetry 04/23/19 04/23/19 10:29 10:57 Temperature Pulse Rate 92 Respiratory 18 Rate Blood Pressure 110/64 (mmHg) O2 Sat by Pulse Oximetry Oxygen Devices in Use Now: None Appearance: Lying in bed, not in distress Eyes: PERRLA Respiratory: Symmetrical Chest Expansion and Respiratory Effort, Clear to Auscultation Cardiovascular: NL Sounds; No Murmurs; No JVD, RRR Extremities: No Edema Neurological: Alert and Oriented x 3, - - Left arm 4/5, left leg 4/5. Result Diagrams: 04/22/19 06:24 04/20/19 07:53 Additional Lab and Data: Laboratory Results - last 24 hr 04/22/19 06:24 WBC 4.0 RBC 3.34 L Hgb 9.7 L Hct 28 L MCV 83 MCH 29 MCHC 35 RDW 14 Plt Count 98 L MPV 9.8 Neut % (Auto) 66.0 Lymph % (Auto) 18.0 [place] % (Auto) 8.9 Eos % (Auto) 6.8 Baso % (Auto) 0.3 Absolute Neuts (auto) 2.6 Absolute Lymphs (auto) 0.7 L Absolute Monos (auto) 0.4 Absolute Eos (auto) 0.3 Absolute Basos (auto) 0.0 Absolute Nucleated RBC 0.0 Nucleated RBC % 0.1 Microbiology and Other Data: Microbiology 03/31/19 17:01 Blood Venous Aerobic Blood Culture - Final No Growth Day 5 03/31/19 17:01 Blood Venous Anaerobic Blood Culture - Final No Growth Day 5 03/31/19 16:55 Blood Venous Aerobic Blood Culture - Final No Growth Day 5 03/31/19 16:55 Blood Venous Anaerobic Blood Culture - Final No Growth Day 5 Assess/Plan/Problems-Billing Assessment: 73-year-old right handed man PMH cervical decompressions(1993, 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 P/w acute onset of falls (prior baseline occasional cane use) almost immediately after cross country flight. s/ p spinal cord stimulator removal 04/17 in order to get MRIs : gonzalez-spine and brain w/o explantory etiology. B12 okay. Inconsistent exams and histories, now saying each episode associated less with "buckling" and more like uncontrolled jerking like activity. Now says may have lost consciousness. EEG abnormal but w/o seizure like activity. Orthostatic hypotension. PT rec for SNF - Patient Problems (1) Orthostatic hypotension Current Visit: Yes Status: Acute Code(s): I95.1 - ORTHOSTATIC HYPOTENSION SNOMED Code(s): 39659469 Comment: having orthostatic hypotension started on fludocortisone few days ago, too soon to adjust dose. cortisol level pending will give 500 cc bolus. will change flomax from 0.5mg BID to 0.5mg bedtime, if conitnues to have BPH issues with 0.5mg bedtime dosing, then could consider other medicaitons, but finasteride which is often use for BPH can also contribute to orthostatic hypotension. (2) Afib Current Visit: Yes Status: Acute Code(s): I48.91 - UNSPECIFIED ATRIAL FIBRILLATION SNOMED Code(s): 15930438 Comment: Continue metoprolol, aspirin EKG revealed normal sinus rhythm on 03/30/19 ? paroxysmal afib, not on anticoagulation- patient choice (3) CAD (coronary artery disease) Current Visit: Yes Status: Acute Code(s): I25.10 - ATHSCL HEART DISEASE OF [place] CORONARY ARTERY W/O ANG PCTRS SNOMED Code(s): 33087640 Comment: - Stable - Continue aspirin, atorvastatin, metoprolol (4) Depression Current Visit: Yes Status: Acute Code(s): F32.9 - MAJOR DEPRESSIVE DISORDER , SINGLE EPISODE, UNSPECIFIED SNOMED Code(s): 84299874 Comment: - Possibilty depression contributing to weakness - Daughter voiced concerns of having severe depression causing his fall with possible self d/c of SSRI causing withdrawal; voicing suicidal thoughts in January. Today no thoughts/plans of hurting himself or anyone else. unstable family situation- considering/planning divorce Seen by psychiatry this admission - Continue mirtazapine, sertraline (5) History of CVA (cerebrovascular accident) Current Visit: Yes Status: Acute Code(s): Z86.73 - PRSNL HX OF TIA (TIA), AND CEREB INFRC W/O RESID DEFICITS SNOMED Code(s): 659102142 Comment: - Continue aspirin 81; Lipitor 40 mg; - baseline left hemiparesis. (6) Hyperlipemia Current Visit: Yes Status: Acute Code(s): E78.5 - HYPERLIPIDEMIA, UNSPECIFIED SNOMED Code(s): 85249903 Comment: - Continue Lipitor 40 mg; (7) Hypertension Current Visit: Yes Status: Acute Code(s): I10 - ESSENTIAL (PRIMARY) HYPERTENSION SNOMED Code(s): 62912224 Comment: HTN with orthostatic hypotension- fludocortisone was added few days ago. - Continue losartan 25mg daily, metoprolol succinate 50mg (8) Ischemic cardiomyopathy Current Visit: Yes Status: Acute Code(s): I25.5 - ISCHEMIC CARDIOMYOPATHY SNOMED Code(s): 170348176 Comment: - Echo shows EF 40-45%, wall motion abnormalities in area of known occlusion - Continue metoprolol, losartan, aspirin, statin - will need outpatient cardiology follow up (9) Weakness Current Visit: Yes Status: Acute Code(s): R53.1 - WEAKNESS SNOMED Code(s) : 24063551 Comment: - Unknown etiology but was orthostatic again today despite 500cc bolus 04/20 and initiation of florinef 0.1mg daily. - add compression stockings - advised to get up slowly - recheck standing BPs after ambulating for while - recheck orthostatics daily - f/u AM cortisol level - Appreciate neuro and neurosurgery recommendations - PT: Unsafe to return home during this time due to falls, recommends skilled rehab - HE NOW SAYS HE WOULD LIKELY REFUSE SNF WITH HOPES/PLAN THAT HIS WOULD TAKE CARE OF HIM AT NIGHTS. She has of course told him she is leaving him and can't take care of him anymore. - psychiatric etiology such as malingering (with gain of iliciting sympathy from who is in process of him) are in differential. It is hard to know as his exam and story seems to change but he is objectively orthostatic so that is working diagnosis. (10) Weight loss Current Visit: Yes Status: Acute Comment: - Approx 15 lb weight loss in last month per patient - Patient reports he has never had colonoscopy; would recommended at discharge - Likely related to depression Status and Disposition: Inpatient. PT recommending [facility] placement. Unsafe to return home, especially now that d/t frequent falls. He know says he might refuse?! Dr. Ronald Donohue Is Mr Hung's Brother in Law and pain specialist Stacey Kavon , is Mr Hung's Daughter
[2019-04-23] MEDS: Atorvastatin* 40 MG TAB PO SCH (19:59)
[2019-04-23] MEDS: Cyclobenzaprine TAB* 10 MG PO PRN (20:00)
[2019-04-23] MEDS: Mirtazapine TAB* 15 MG PO SCH (20:01)
[2019-04-24] MEDS: Losartan TAB* 25 MG PO SCH (09:13)
[2019-04-24] MEDS: Sertraline* 100 MG TAB PO SCH (09:13)
[2019-04-24] MEDS: Metoprolol Succinate XL TAB* 100 MG PO SCH (09:13)
[2019-04-24] MEDS: Fludrocortisone Acetate TAB* 0.1 MG PO SCH (09:13)
[2019-04-24] MEDS: Cyclobenzaprine TAB* 10 MG PO PRN ×2 (09:14→20:19)
[2019-04-24] MEDS: oxyCODONE TAB* 5 MG TAB PO PRN ×2 (09:14→20:20)
[2019-04-24] MEDS: Ferrous Sulfate TAB* 325 MG PO SCH (09:18)
--- NOTE | 2019-04-24 18:53 | PN ---
Subjective Date of Service: 04/24/19 Interval History: Patient seems feels better, he is eager to be released home tomorrow however he is expressing concerns about his BP dropping. he was reassured that will try his BP in am and orthostatic in am and will discuss with technical planner regarding disposition plan. Past Medical History: Unchanged from Admission Objective Active Medications: Atorvastatin Calcium (Lipitor*) 40 mg PO BEDTIME [facility] Last Admin: 04/23/19 19:59 Dose: 40 mg Cyclobenzaprine HCl (Flexeril Tab*) 15 mg PO Q12H PRN PRN Reason: muscle spasms Last Admin: 04/24/19 09:14 Dose: 15 mg Ferrous Sulfate (Ferrous Sulfate Tab*) 325 mg PO DAILY [facility] Last Admin: 04/24/19 09:18 Dose: Not Given Fludrocortisone Acetate (Florinef Tab*) 0.1 mg PO DAILY [facility] Last Admin: 04/24/19 09:13 Dose: 0.1 mg Losartan Potassium (Cozaar Tab*) 25 mg PO DAILY [facility] Last Admin: 04/24/19 09:13 Dose: 25 mg Metoprolol Succinate (Toprol Xl Tab*) 50 mg PO QAM [facility] Last Admin: 04/24/19 09:13 Dose: 50 mg Mirtazapine (Remeron Tab*) 15 mg PO BEDTIME [facility] Last Admin: 04/23/19 20:01 Dose: 15 mg Ondansetron HCl (Zofran Tab*) 4 mg PO Q6H PRN PRN Reason: NAUSEA Last Admin: 04/23/19 11:35 Dose: 4 mg Oxycodone HCl (Roxycodone Tab*) 15 mg PO TID PRN PRN Reason: Pain 5-10/10 Last Admin: 04/24/19 09:14 Dose: 15 mg Oxycodone HCl (Roxycodone Tab*) 5 mg PO Q8H PRN PRN Reason: Pain over night Last Admin: 04/23/19 02:46 Dose: 5 mg Sertraline HCl (Zoloft*) 100 mg PO DAILY [facility] Last Admin: 04/24/19 09:13 Dose: 100 mg Tamsulosin HCl (Flomax Cap*) 0.4 mg PO BEDTIME [facility] Last Admin: 04/23/19 20:01 Dose: 0.4 mg Vital Signs - 8 hr 04/24/19 04/24/19 04/24/19 11:20 11:21 11:22 Temperature 98.4 F 98.4 F 98.4 F Pulse Rate 73 78 85 Respiratory Rate Blood Pressure 158/79 152/74 116/68 (mmHg) O2 Sat by Pulse 98 96 98 Oximetry 04/24/19 04/24/19 11:55 15:50 Temperature 98.1 F Pulse Rate 82 Respiratory 18 18 Rate Blood Pressure 154/88 (mmHg) O2 Sat by Pulse 96 Oximetry Oxygen Devices in Use Now: None Appearance: awake, alert no distress Ears/Nose/Mouth/Throat: NL Teeth, Lips, Gums, Mucous Membranes Moist Neck: Trachea Midline Result Diagrams: 04/22/19 06:24 04/20/19 07:53 Additional Lab and Data: Laboratory Results - last 24 hr 04/22/19 06:24 WBC 4.0 RBC 3.34 L Hgb 9.7 L Hct 28 L MCV 83 MCH 29 MCHC 35 RDW 14 Plt Count 98 L MPV 9.8 Neut % (Auto) 66.0 Lymph % (Auto) 18.0 Bailey % (Auto) 8.9 Eos % (Auto) 6.8 Baso % (Auto) 0.3 Absolute Neuts (auto) 2.6 Absolute Lymphs (auto) 0.7 L Absolute Monos (auto) 0.4 Absolute Eos (auto) 0.3 Absolute Basos (auto) 0.0 Absolute Nucleated RBC 0.0 Nucleated RBC % 0.1 Microbiology and Other Data: Microbiology 03/31/19 17:01 Blood Venous Aerobic Blood Culture - Final No Growth Day 5 03/31/19 17:01 Blood Venous Anaerobic Blood Culture - Final No Growth Day 5 03/31/19 16:55 Blood Venous Aerobic Blood Culture - Final No Growth Day 5 03/31/19 16:55 Blood Venous Anaerobic Blood Culture - Final No Growth Day 5 Assess/Plan/Problems-Billing Assessment: 73-year-old right handed man PMH cervical decompressions(1993, 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 P/w acute onset of falls (prior baseline occasional cane use) almost immediately after cross country flight. s/ p spinal cord stimulator removal 04/17 in order to get MRIs : gonzalez-spine and brain w/o explantory etiology. B12 okay. Inconsistent exams and histories, now saying each episode associated less with "buckling" and more like uncontrolled jerking like activity. Now says may have lost consciousness. EEG abnormal but w/o seizure like activity. Orthostatic hypotension. PT rec for SNF - Patient Problems (1) Weakness Current Visit: Yes Status: Acute Code(s): R53.1 - WEAKNESS SNOMED Code(s) : 81260835 Comment: - Unknown etiology but was orthostatic s/p 500cc bolus 04/20 and initiation of florinef 0.1mg daily. - added compression stockings; advised to get up slowly - recheck standing BPs after ambulating for while ; recheck orthostatics daily - Appreciate neuro and neurosurgery recommendations - PT: Unsafe to return home during this time due to falls, recommends skilled rehab - HE NOW SAYS HE WOULD LIKELY REFUSE SNF WITH HOPES/PLAN THAT HIS WOULD TAKE CARE OF HIM AT NIGHTS. She has of course told him she is leaving him and can't take care of him anymore. - psychiatric etiology such as malingering (with gain of iliciting sympathy from who is in process of him) are in differential. It is hard to know as his exam and story seems to change but he is objectively orthostatic so that is working diagnosis. (2) CAD (coronary artery disease) Current Visit: Yes Status: Acute Code(s): I25.10 - ATHSCL HEART DISEASE OF LOWER [place] CORONARY ARTERY W/O ANG PCTRS SNOMED Code(s): 08810872 Comment: - Stable - Continue aspirin, atorvastatin, metoprolol (3) Hypertension Current Visit: Yes Status: Acute Code(s): I10 - ESSENTIAL (PRIMARY) HYPERTENSION SNOMED Code(s): 02926722 Comment: - HTN with orthostatic hypotension- fludocortisone was added few days ago. - Continue losartan 25mg daily (down from 100 mg), metoprolol succinate 50mg down from 100 mg; Off HCTZ (4) Hyperlipemia Current Visit: Yes Status: Acute Code(s): E78.5 - HYPERLIPIDEMIA, UNSPECIFIED SNOMED Code(s): 79994487 Comment: - Continue Lipitor 40 mg; (5) GERD (gastroesophageal reflux disease) Current Visit: Yes Status: Acute Code(s): K21.9 - GASTRO-ESOPHAGEAL REFLUX DISEASE WITHOUT ESOPHAGITIS SNOMED Code(s): 697127429 (6) History of CVA (cerebrovascular accident) Current Visit: Yes Status: Acute Code(s): Z86.73 - PRSNL HX OF TIA (TIA), AND CEREB INFRC W/O RESID DEFICITS SNOMED Code(s): 005992977 Comment: - Continue aspirin 81; Lipitor 40 mg; - baseline left hemiparesis. (7) Depression Current Visit: Yes Status: Acute Code(s): F32.9 - MAJOR DEPRESSIVE DISORDER , SINGLE EPISODE, UNSPECIFIED SNOMED Code(s): 89076646 Comment: - Possibilty depression contributing to weakness - Daughter voiced concerns of having severe depression causing his fall with possible self d/c of SSRI causing withdrawal; voicing suicidal thoughts in January. Today no thoughts/plans of hurting himself or anyone else. unstable family situation- considering/planning divorce Seen by psychiatry this admission - Continue mirtazapine, sertraline (8) DVT prophylaxis Current Visit: Yes Status: Acute Code(s): Z29.9 - ENCOUNTER FOR PROPHYLACTIC MEASURES, UNSPECIFIED SNOMED Code(s): 588087290 Comment: - SCDs only in the setting of recent surgery Status and Disposition: Inpatient. PT recommending [facility] placement. Unsafe to return home, especially now that d/t frequent falls. He know says he might refuse?! Dr. Ronald Donohue Is Mr Hung's Brother in Law and pain specialist Stacey Kavon , is Mr Hung's Daughter
[2019-04-24] MEDS: Tamsulosin CAP* 0.4 MG PO SCH (20:18)
[2019-04-24] MEDS: Atorvastatin* 40 MG TAB PO SCH (20:19)
[2019-04-24] MEDS: Mirtazapine TAB* 15 MG PO SCH (20:19)
[2019-04-25] MEDS: Cyclobenzaprine TAB* 10 MG PO PRN (08:37)
[2019-04-25] MEDS: Metoprolol Succinate XL TAB* 100 MG PO SCH (08:37)
[2019-04-25] MEDS: Sertraline* 100 MG TAB PO SCH (08:37)
[2019-04-25] MEDS: Losartan TAB* 25 MG PO SCH (08:37)
[2019-04-25] MEDS: Fludrocortisone Acetate TAB* 0.1 MG PO SCH (08:37)
[2019-04-25] MEDS: oxyCODONE TAB* 5 MG TAB PO PRN (08:38)
[2019-04-25] MEDS: Ferrous Sulfate TAB* 325 MG PO SCH (08:39)
--- NOTE | 2019-04-25 11:30 | CONSULT ---
Identification - Patient Identification Reason for Psychiatric Consultation: Patient Distress -: Patient is a 73 year old, M admitted on 03/30/19. - MHU Identification Employment Status: Disabled Hx Psychiatric Hospitalization: No History - Objective HPI: Jose Alberto is seen for psychiatric follow up on . In the intervening time since our last meeting his spinal cord stimulator has been surgically removed and a following MRI of is spine did not demonstrate any notable anatomical etiology for his falling spells. Subsequent to that it was discovered that he was experiencing orthostatic hypotensive episodes. Today he appears euthymic with a bright affect and seems quite invested in the idea that orthostasis has been the cause of his mysterious symptoms. He reports that he and his Jacklyn have been civil with each other and that she has agreed to render some assistance to him in the home environment, augmented by home services from a visiting nurse agency. He continues to deny SI and reports that he arranged a follow up appointment with his therapist, psychologist Dr. Kiki Post at [facility] tomorrow, April 26. He agrees to allow his primary care physician, Dr. Bruner, to continue managing his antidepressant regimen. Exam Appearance: Thin Framed Hygiene: Normal Grooming: Fairly Well Kept Psychomotor Activities: Normal Exhibits Abnormal Movement: No Attitude and Relatedness: Cooperative Eye Contact: Good - Speech Quality: Unpressured Latencies: Normal Quantity: Appropriate Patient's Decription of Mood: "Good" Observed Affect: Good Affect Consistent with: Euthymia Patient's Thought Process: Coherent Thought Content: No Passive Wish, No Suicidal Planning, No Homicidal Ideation, No Paranoid Ideation Experiencing Hallucinations: No, Sensorium is Clear Type of Hallucinations: Visual: No, Auditory: No, Command: No Level of Consciousness: Alert Orientation: Yes Intact, Yes Orientated to Time, Yes Orientated to Place, Yes Orientated to Person Impulse Control: Intact Insight and Judgement: Good Impression - Impression Clinical Impression: 73 y.o. 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 Inpatient DSM-V Dx: F33.1 Merits Inpatient Hospitalization: No BSU: Problem List - Patient Problems (1) MDD (major depressive disorder), recurrent episode, moderate Current Visit: Yes Status: Deleted Priority: Medium Code(s): F33.1 - MAJOR DEPRESSIVE DISORDER, RECURRENT, MODERATE SNOMED Code(s): 394264474 Plan - Treatment Plan Treatment Plan: The patient is doing well psychiatrically. He is not a risk to himself and he has the capacity to choose going home in lieu of [facility] placement. I note that his affect seems brighter on his current regimen of mirtazapine 15mg PO qhs and sertraline 100mg PO qday, despite the fact that this wholly unchanged from that prescribed on an outpatient basis by his primary care provider, Dr. Bruner. I wonder if he was compliant with medications prior to admission and VNS should work on packing his meds in the home environment to improve adherence. The other consideration is that his affect has improved because of the nurturance, or so-called "primary gain," that he has received during this prolonged hospitalization. At any rate, the patient is psychiatrically clear for discharge back to the community and will f/u with Dr. Kiki Post tomorrow (04/26 ) at [facility]. Psychiatry is signing off. Continued Medication Management: Continue Outpt Medication Medications: Current Medications Atorvastatin Calcium (Lipitor*) 40 mg PO BEDTIME [facility] Last Admin: 04/24/19 20:19 Dose: 40 mg Cyclobenzaprine HCl (Flexeril Tab*) 15 mg PO Q12H PRN PRN Reason: muscle spasms Last Admin: 04/25/19 08:37 Dose: 15 mg Ferrous Sulfate (Ferrous Sulfate Tab*) 325 mg PO DAILY [facility] Last Admin: 04/25/19 08:39 Dose: Not Given Fludrocortisone Acetate (Florinef Tab*) 0.1 mg PO DAILY [facility] Last Admin: 04/25/19 08:37 Dose: 0.1 mg Losartan Potassium (Cozaar Tab*) 25 mg PO DAILY [facility] Last Admin: 04/25/19 08:37 Dose: 25 mg Metoprolol Succinate (Toprol Xl Tab*) 50 mg PO QAM [facility] Last Admin: 04/25/19 08:37 Dose: 50 mg Mirtazapine (Remeron Tab*) 15 mg PO BEDTIME [facility] Last Admin: 04/24/19 20:19 Dose: 15 mg Ondansetron HCl (Zofran Tab*) 4 mg PO Q6H PRN PRN Reason: NAUSEA Last Admin: 04/23/19 11:35 Dose: 4 mg Oxycodone HCl (Roxycodone Tab*) 15 mg PO TID PRN PRN Reason: Pain 5-07/19 Last Admin: 04/25/19 08:38 Dose: 15 mg Sertraline HCl (Zoloft*) 100 mg PO DAILY [facility] Last Admin: 04/25/19 08:37 Dose: 100 mg Tamsulosin HCl (Flomax Cap*) 0.4 mg PO BEDTIME [facility] Last Admin: 04/24/19 20:18 Dose: 0.4 mg - Discharge Plan Discharge Plan: Outpatient Follow Up [facility]
[2019-04-25 15:36] VITALS: BP 159/75
--- NOTE | 2019-04-25 22:37 | DS ---
CC: Dr. Bruner * DISCHARGE SUMMARY: DATE OF ADMISSION: 03/30/19 DATE OF DISCHARGE: 04/25/19 FINAL DISCHARGE DIAGNOSES: 1. Generalized weakness with frequent falls. 2. Orthostatic hypotension. 3. History of coronary artery disease. 4. Hypertension. 5. Hyperlipidemia. 6. Gastroesophageal reflux disease. 7. History of cerebrovascular accident. 8. Depression. HOSPITAL COURSE: The patient presented to [facility] on 03/30/19 after recurrent increased frequency of falls at home, more frequent in the past few months and got even significantly worse in the past week prior to admission where he fell about 12 times. He was admitted to the hospital given his recent falls, and his workup included an extensive history review from outside facility including his facility from [facility] and discussion with his brother and his pain specialist in [place]. Given his history of cervical spine surgery and increased falls, imaging studies were limited only to CAT scan given the fact that he had an implantable pain stimulator device and a loop recorder, hence MRI has not been able to obtain. Also discussing with the patient's daughter, it was brought to attention that he has been going through significant stressors at home, where his is having an affair with another female and planning on a divorce which probably precipitated his symptoms. Therefore a Psychiatry consult and Neurology consult was obtained. Neurology consultation with Dr. Teresa was obtained who was seen on 04/01/19 and recommended to obtain the MRI of course as well an EEG. His EEG was done and report dated 04/20/19 shows abnormal EEG consistent with cerebral dysfunction but no evidence of seizures. After discussion with his pain specialist in [place], it was brought to the attention that the nerve stimulator has been nonfunctional for years and was approved for it to have it removed. Therefore, consultation with Dr. Johnson was obtained, saw and evaluated the patient and he had the stimulator removed on 04/17/19. Also given his cardiac history, he was seen by Cardiology for risk stratification and they saw the patient and they recommended nuclear stress test which was done on 04/05/19. It was read as an intermediate risk given the moderate size of ischemia in the inferior wall , but the patient tolerated procedure without any complication. Also, he was seen by Psychiatry and medications included Remeron and sertraline which were initiated for his depression. Now, after the loop recorder was removed, the patient underwent MRI of the brain without contrast which was limited, nonspecific white matter disease but no obvious pathological lesion. MRI of the thoracic spine revealed severe kyphosis from T3 to T9 without evidence of spinal stenosis. MRI of the lumbar spine shows chronic compression fracture of L2 vertebra with the retropulsion and no definite spinal stenosis. MRI cervical spine revealed postoperative change from C5 to C7, abnormal segment at C6 level within the spinal cord, more on the left. Questionable demyelinating process was not totally excluded. The patient remained in the hospital pending final disposition plan and he was continued to follow with the multispecialty team including Psychiatry, Cardiology, Neurosurgery as well. From psychiatry point of view, the patient continued to follow up and seems to be doing fairly well today from psychiatry point of view. It was recommended to follow up with his psychologist, Dr. Kiki Post at [facility], scheduled for tomorrow 04/26/19, continue his current antidepressant and Dr. Wylie signed off the case today on 04/25/19. From neurology point of view, he was seen last on 04/20/19, and from the neurology point of view, no further recommendations. EEG was ordered and as mentioned already was negative any seizure and recommended to follow up as an outpatient as needed. From neurosurgical point of view, the patient was last seen by Neurosurgery on 04/20/19, followup for removal of his nerve stimulator and signed off the case. From cardiac point of view, last seen by Cardiology on 04/06/[address] Vallejo who reviewed the nuclear stress test and recommended to proceed with the surgery with moderate risk. Understanding the risks and benefits, the patient underwent the procedure as mentioned, tolerated fairly well with no complications and signed off. Therefore, after evaluating the patient today, discussing with the multidisciplinary team, I deem the patient stable for discharge. He elected to go home with home visiting nurse. PHYSICAL EXAMINATION: Temperature 97.9, pulse 76, respiratory rate 20, satting 97, blood pressure 159/75. General: He is awake, alert, pleasant, in no distress. Head and Neck: Normocephalic, atraumatic. He does have significant cervical kyphosis. Lungs: Clear to auscultation. Abdomen: Positive bowel sounds. Soft. No distress. Right upper quadrant revealed healed wound. Steri- Strips. Extremities: No edema. Psych: Mood disorder, good affect, pleasant smiling and does not appear to be depressed. DIAGNOSTIC STUDIES: He had multiple imaging as outlined in the history of present illness above, but will be summarized as follows. 1. Chest x-ray 03/30/[address] of the brain no acute pathology. 3. Cervical, thoracic, and lumbar CT spine significant for degenerative joint disease, L2 compression fractures. No acute pathology. 4. Nuclear stress test which shows moderate area of ischemia in the inferior wall. 5. Cervical MRI on 04/18/19, lumbar MRI 04/18/19, thoracic MRI 04/18/19. 6. MRI of the brain, no acute pathology, chronic vessel disease. 7. Cardiovascular, he had a 2D echo 04/02/19. Ejection fraction 40%-45%. 8. EEG 04/20/19, no evidence of seizures. CONSULTATIONS: 1. Multiple specialities including multiple providers from Neurology, initial consultation with Dr. Colton Teresa. 2. Neurosurgery with Dr. Johnson. 3. Cardiology with Dr. Geno See and Dr. Vallejo. 4. Psychiatry, Dr. Elio Wylie. DISCHARGE MEDICATIONS: 1. Aspirin 81 mg daily. 2. Lipitor 40 daily. 3. B12 1000 mcg daily. 4. Flexeril 15 mg at bedtime. 5. Lasix 40 mg every other day. 6. Meclizine 12.5 take 2 tabs for a total of 25 mg t.i.d. p.r.n. 7. Remeron 15 mg at bedtime. 8. Zofran p.r.n. 9. Oxycodone 15 mg t.i.d. p.r.n. 10. Zoloft 100 mg daily. 11. Flomax 0.4 mg b.i.d. 12. Iron 325 daily. 13. Florinef 0.1 mg daily. 14. Losartan 25 daily. 15. Toprol-XL 50 mg, this was decreased from 100. Losartan was decreased to 25 from 100. DISCHARGE INSTRUCTIONS: Follow up with primary care in 1 to 2 weeks. Follow up with psychiatrist tomorrow 04/26/19. Take all medications as prescribed. The patient was told to take the Florinef as prescribed. Follow up with the primary care. Avoid sudden movement such as standing and quick turning due to his orthostatic hypotension. DISCHARGE DISPOSITION: Home. DISCHARGE CONDITION: Stable. total time on discharge 45 mins [id number]/[facility] #: [id number]
== END 2019-04-25 17:00 | disposition home health service (06) | DRG 940 ==
LOC: ED 23:14 → MED 03-30 04:18 → OBSVTOIN 03-30 11:44
PROVIDERS: ADMIT Hospitalist; ATTEND Internal Medicine
PROC: 0JPT0MZ Removal of Stimulator Generator from Trunk Subcutaneous Tissue and Fascia, Open Approach (ICD-10-PCS; 2019-04-17)
PROC: 00PV0MZ Removal of Neurostimulator Lead from Spinal Cord, Open Approach (ICD-10-PCS; principal; 2019-04-17 14:45)
DX: R53.1 Weakness (principal); G81.94 Hemiplegia, unspecified affecting left nondominant side; N17.9 Acute kidney failure, unspecified; I50.20 Unspecified systolic (congestive) heart failure; M84.48XA Pathological fracture, other site, initial encounter for fracture; F33.1 Major depressive disorder, recurrent, moderate; I11.0 Hypertensive heart disease with heart failure; I50.9 Heart failure, unspecified; M41.80 Other forms of scoliosis, site unspecified; I25.5 Ischemic cardiomyopathy; I48.91 Unspecified atrial fibrillation; D64.9 Anemia, unspecified; F41.9 Anxiety disorder, unspecified; I25.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native coronary artery without angina pectoris; K21.9 Gastro-esophageal reflux disease without esophagitis; E78.5 Hyperlipidemia, unspecified; R26.9 Unspecified abnormalities of gait and mobility; N40.0 Benign prostatic hyperplasia without lower urinary tract symptoms; I95.1 Orthostatic hypotension; R63.4 Abnormal weight loss; Z68.25 Body mass index [BMI] 25.0-25.9, adult; Z86.73 Personal history of transient ischemic attack (TIA), and cerebral infarction without residual deficits; Z91.81 History of falling; Z95.5 Presence of coronary angioplasty implant and graft; Z79.82 Long term (current) use of aspirin; Z79.891 Long term (current) use of 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; Z79.899 Other long term (current) drug therapy; Z88.8 Allergy status to other drugs, medicaments and biological substances; Z82.49 Family history of ischemic heart disease and other diseases of the circulatory system; Z80.9 Family history of malignant neoplasm, unspecified
CPT/HCPCS: 36415; 70450; 70551; 71045; 72125; 72128; 72131; 72141; 72146; 72148; 76000; 78452; 80048; 80053; 81003; 82085; 82530; 82550; 82565; 82607; 82728; 83540; 83550; 83605; 83735; 83874; 84100; 84443; 84484; 84520; 85014; 85018; 85025; 85027; 85049; 85060; 85610; 85652; 85730; 86140; 87040; 88300; 93005; 93017; 93306; 95819; 99285; A9270-GY; A9502; G8978-GP-CI; G8978-GP-CK; G8979-GP-CI; J0330; J0360; J0690; J0696; J1644; J1650; J1885; J2001; J2250; J2704; J3010; J3480; J3490

== ENCOUNTER 2019-06-10 19:44 | Observation (INO) | payer MEDICARE ==
--- OUTSIDE RECORDS SUMMARY | 2019-06-10 20:35 | XMS REPORT | Continuity of Care Document ---
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 Problems Active Problems Provider Date Hyperlipidemia Ramon Velasquez MD Onset: 02/24/2010 Essential hypertension RADHA Huffman Onset: 11/15/2017 Social History Type Date Description Comments Sex Unknown Tobacco Use Reviewed: 11/15/17 Patient has never smoked Smoking Status Reviewed: 11/15/17 Patient has never smoked Allergies, Adverse Reactions, Alerts Description No Known Drug Allergies Medications Active Medications SIG Qnty Indications Ordering Date Provider Losartan Potassium 1 by mouth every [facility] 05/31/2019 25mg ben Velasquez MD Tablets Furosemide Take 1/2 tab 45tabs [facility] 05/09/2019 40mg Tablets every other day MD Ron Aspirin 1 by mouth every [facility] 02/14/[address] ben Velasquez MD Atorvastatin Calcium Take 1 Tablet By 90tabs Naty Kohler, 07/04/2013 40mg Mouth Every Day [employer] Tablets Cyclobenzaprine HCL 1 PO prn 90tabs Unknown 10mg Tablets Tamsulosin HCL 1 PO bid 90caps Unknown 0.4mg Capsules Oxycodone HCL 1 tab by mouth 120tabs Unknown 15mg Tablets every 8 hours needed Zofran 1 by mouth Unknown 4mg Tablets tid/prn Pronutrients Vitamin D3 1 by mouth every Unknown day 1000Unit Capsules Nitroglycerin directed Unknown 0.3mg Tablets Sub Magnesium 1 by mouth every Unknown 400mg Tablets day Fludrocortisone Acetate Take 1 Tablet By Unknown Mouth Daily 0.1mg Tablets Sertraline HCL Take 1 Tablet By Unknown 100mg Mouth Every Day Tablets Vitamin B12 take 1 tablet by Unknown 1000mcg Tablets oral route every ER day Toprol XL 1 by mouth every Unknown 50mg Tablets ER day 24HR Vitamin D3 Gummies 2 by mouth every Unknown Adult day 1000Unit Chewtabs Immunizations Description No Information Available Vital Signs Date Vital Result Comment 05/31/2019 10:23am Height 68 inches 5'8" Weight 163.00 lb BMI (Body Mass Index) 24.8 kg/m2 BP Systolic Left Arm 110 mmHg BP Diastolic Left Arm 58 mmHg Heart Rate 60 /min 05/09/2019 9:46am Height 68 inches 5'8" Weight 172.00 lb BMI (Body Mass Index) 26.1 kg/m2 BP Systolic Left Arm 126 mmHg BP Diastolic Left Arm 70 mmHg Heart Rate 78 /min BP Systolic Lying Down 160 mmHg P 63 O2 93% BP Diastolic Lying Down 96 mmHg P 63 O2 93% BP Systolic Sitting 154 mmHg P 63 O2 94% BP Diastolic Sitting 90 mmHg P 63 O2 94% BP Systolic Standing 120 mmHg P 64 O2 96% BP Diastolic Standing 70 mmHg P 64 O2 96% Results Test Date Facility Test Result H/L Range Note Order 05/09/2019 [facility], [facility] Ev Application <pending> Procedures Date Code Description Status 05/15/2019 99513 Coronary Angiography With Left Heart Catheterization Completed 05/09/2019 40930 EEG Recording,Connection And Disconnection Completed 05/09/2019 31750 EEG Recording,Connection And Disconnection Completed Medical Devices Description No Information Available Encounters Type Date Location Provider Dx Diagnosis Office Visit 05/31/2019 [facility] Cardiology AT [facility], I25.10 [facility] 10:15a [place] [employer] disease of [place] coronary artery w/o ang pctrs I48.0 Paroxysmal atrial fibrillation I10 Essential (primary) hypertension Z95.5 Presence of coronary angioplasty implant and graft R29.6 Repeated falls Office Visit 05/16/2019 3:08a [facility] Rupesh Salazar, I25.10 [facility] disease of [place] coronary artery w/o ang pctrs I95.1 Orthostatic hypotension R29.6 Repeated falls Office Visit 05/09/2019 10:00a [facility] Cardiology AT Brandi Conway, I25.10 [facility] [place] disease of [place] coronary artery w/o ang pctrs I48.0 Paroxysmal atrial fibrillation I10 Essential (primary) hypertension E78.2 Mixed hyperlipidemia R55 Syncope and collapse Z95.818 Presence of other cardiac implants and grafts Assessments Date Code Description Provider 05/31/2019 I25.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[place] Naty Kohler NP coronary artery without angina pectoris 05/31/2019 I48.0 Paroxysmal atrial fibrillation Natylashay Kohler, [employer] 05/31/2019 I10 Essential (primary) hypertension Natylashay Kohler, [employer] 05/31/2019 Z95.5 Presence of coronary angioplasty implant and Naty Kohler , [employer] graft 05/31/2019 R29.6 Recurrent falls Naty Kohler, [employer] 05/16/2019 I25.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[place] Rupesh Salazar MD coronary artery without angina pectoris 05/16/2019 I95.1 Orthostatic hypotension Rupesh Salazar MD 05/16/2019 R29.6 Repeated falls Rupesh Salazar MD 05/15/2019 I25.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[place] Rupesh Salazar MD coronary artery without angina pectoris 05/15/2019 I10 Essential (primary) hypertension Rupesh Salazar MD 05/15/2019 E78.00 Pure hypercholesterolemia, unspecified Rupesh Salazar MD 05/15/2019 Z95.5 Presence of coronary angioplasty implant and Rupesh Salazar MD graft 05/15/2019 Z82.49 Family history of ischemic heart disease and Rupesh Salazar MD other diseases of the circulatory system 05/09/2019 I25.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[place] Ramon Velasquez MD coronary artery without angina pectoris 05/09/2019 I25.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[place] RADHA Sanches coronary artery with 05/09/2019 I48.0 Paroxysmal atrial fibrillation Ramon Velasquez MD 05/09/2019 I48.0 Paroxysmal atrial fibrillation RADHA Sanches 05/09/2019 I10 Essential (primary) hypertension Ramon Velasquez MD 05/09/2019 I10 Essential (primary) hypertension RADHA Sanches 05/09/2019 E78.2 Mixed hyperlipidemia Ramon Velasquez MD 05/09/2019 E78.2 Mixed hyperlipidemia RADHA Sanches 05/09/2019 R55 Syncope and collapse Ramon Velasquez MD 05/09/2019 R55 Syncope and collapse RADHA Sanches 05/09/2019 Z95.818 Presence of other cardiac implants and grafts Ramon Velasquez MD 05/09/2019 Z95.818 Presence of other cardiac implants and grafts RADHA Sanches Plan of Treatment Future Appointment(s):06/26/2019 3:30 pm - Ramon Velasquez MD at [facility] Cardiology AT [facility]/22/2019 - Naty Kohler, NPI25.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[place] coronary artery without angina pectorisComments:He will follow-up in one month to review the results of the EVM. He will call sooner if questions or concerns.I48.0 Paroxysmal atrial fibrillationComments:He will follow-up in one month to review the results of the EVM. He will call sooner if questions or concerns.I10 Essential (primary) hypertensionComments:He will follow-up in one month to review the results of the EVM. He will call sooner if questions or concerns.Z95.5 Presence of coronary angioplasty implant and graftComments:He will follow-up in one month to review the results of the EVM. He will call sooner if questions or concerns.R29.6 Recurrent fallsComments:He will follow-up in one month to review the results of the EVM. He will call sooner if questions or concerns. Functional Status Description No Information Available Mental Status Description No Information Available Referrals Description No Information Available
--- OUTSIDE RECORDS SUMMARY | 2019-06-10 20:35 | XMS REPORT | Continuity of Care Document ---
:1945 External Reference #:[id number] Author Name Rivera Atkins DO, MPH Address [address] [place] [address], [address] [place] [address] Care Team Providers Name Role Phone Iliana Bruner M.D. 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 [phone] Medicine Problems Description No Information Available Social History Type Date Description Comments Sex Unknown Tobacco Use Start: Unknown Never Smoked Cigarettes Smoking Status Reviewed: 06/04/19 Never Smoked Cigarettes ETOH Use Denies alcohol use Tobacco Use Start: Unknown Patient has never smoked Allergies, Adverse Reactions, Alerts Description No Known Drug Allergies Medications Active Medications SIG Qnty Indications Ordering Date Provider Oxycodone HCL si-2 by mouth 180tabs Rivera Atkins, 08/22/2018 15mg Tablets every 4 to 6 DO, MPH hours as directed Atorvastatin Calcium daily Unknown 40mg Tablets Furosemide by mouth every Unknown 40mg Tablets other day as needed Sertraline HCL si by mouth Unknown 100mg every 12 hours Tablets as directed Losartan Potassium Unknown 25mg Tablets Fludrocortisone Acetate Unknown 0.1mg Tablets B-12 Unknown 1000mcg Tablets Aspirin Unknown 81mg Chewtabs Torsemide 1 by mouth every Unknown 20mg Tablets other day Nitrostat prn as directed Unknown 0.4mg Tablets Sub Zofran si by mouth Unknown 4mg Tablets every 6 to 8 hours prn Tamsulosin HCL 2 by mouth daily Unknown 0.4mg Capsules Metoprolol Succinate ER 1 by mouth daily Unknown 50mg Tablets ER 24HR Vitamin D3 High Potency 1 by mouth twice Unknown daily 1000Unit Capsules Magnesium Oxide 1 by mouth twice Unknown 400mg daily Tablets History Medications Oxycodone HCL si-2 by mouth 90tabs Rivera Atkins, 03/06/2019 - 30mg every 4 to 6 hours DO, [facility] 03/06/2019 Tablets as directed chronic pain patient Oxycodone HCL si-2 by mouth 180tabs Rivera Atkins, 03/06/2019 - 30mg every 4 to 6 hours DO, MPH 05/04/2019 Tablets as directed chronic pain patient Immunizations Description No Information Available Vital Signs Date Vital Result Comment 06/04/2019 2:15pm BP Systolic 118 mmHg BP Diastolic 66 mmHg Heart Rate 72 /min Respiratory Rate 20 /min Height 69 inches 5'9" Weight 170.00 lb Pain Level 7 Pain at this time. Pain Level With Medicine 6 on average with meds Pain Level Without Medicine 9 without meds BMI (Body Mass Index) 25.1 kg/m2 05/08/2019 11:56am BP Systolic 130 mmHg BP Diastolic 82 mmHg Heart Rate 80 /min Respiratory Rate 20 /min Height 69 inches 5'9" Weight 171.00 lb Pain Level 8 Pain at this time. 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 10:00a 11/10/13 MPH (current) use of 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 Office Visit 05/04/2019 Main Office as Of Rivera Atkins DO G89.21 Chronic pain due 11:00a 11/10/13 MPH to trauma M54.2 Cervicalgia M79.12 Myalgia of auxiliary muscles, head and neck Office Visit 03/06/2019 11:00a Main Office as Rivera Atkins G89.21 Chronic pain due Of 11/10/13 DO MPH to trauma M54.2 Cervicalgia 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 (current) use of 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 Z63.79 Other stressful life events affecting family and household Office Visit 02/19/2019 10:00a Main Office as Rivera Atkins G89.21 Chronic pain due Of 11/10/13 DO, MPH to trauma M54.2 Cervicalgia Z79.891 halfway (current) use of 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 K59.03 Drug induced constipation Z63.79 Other stressful life events affecting family and household Office Visit 01/19/2019 10:00a Main Office as Rivera Atkins G89.21 Chronic pain due Of 11/10/13 DO, MPH to trauma M54.2 Cervicalgia K59.03 Drug induced constipation Z79.891 halfway (current) use of 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 Office Visit 12/19/2018 10:15a Main Office as AtkinsRivera carrasco G89.21 Chronic pain due Of 11/10/13 DO, MPH to trauma M54.2 Cervicalgia F43.12 Post-traumatic stress disorder, chronic K59.03 Drug induced constipation F03.90 Unspecified dementia without behavioral disturbance I10 Essential (primary) hypertension E55.9 Vitamin D deficiency, unspecified 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 (current) use of 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 Assessments Date Code Description Provider 06/04/2019 G89.21 Chronic pain due to trauma AtkinsRivera carrasco DO, MPH 06/04/2019 M54.2 Cervicalgia AtkinsRivera carrasco DO, MPH 06/04/2019 M79.12 Myalgia of auxiliary muscles, head and neck AtkinsRivera carrasco DO, MPH 06/04/2019 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 (current) use of 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 AtkinsRivera carrasco , DO, MPH 05/08/2019 Z79.891 halfway (current) use of 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 AtkinsCarina carrascoph , DO, MPH 05/04/2019 G89.21 Chronic pain due to trauma AtkinsRivera carrasco DO, MPH 05/04/2019 M54.2 Cervicalgia AtkinsRivera carrasco DO, MPH 05/04/2019 M79.12 Myalgia of auxiliary muscles, head and neck AtkinsCarina carrascoph DO, MPH 03/06/2019 G89.21 Chronic pain due to trauma AtkinsCarina carrascoph DO, MPH 03/06/2019 M54.2 Cervicalgia Rivera Atkins, DO, MPH 03/06/2019 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 (current) use of 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 Atkins, Rivera , DO, MPH 03/06/2019 Z63.79 Other stressful life events affecting family Atkins, Rivera , DO, MPH and household 02/19/2019 G89.21 Chronic pain due to trauma Atkins, Rivera, DO, MPH 02/19/2019 M54.2 Cervicalgia Atkins, Rivera, DO, MPH 02/19/2019 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 (current) use of 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 Atkins, Rivera , DO, MPH 02/19/2019 K59.03 Drug induced constipation Atkins, Rivera, DO, MPH 02/19/2019 Z63.79 Other stressful life events affecting family Atkins, Rivera , DO, MPH and household 01/19/2019 G89.21 Chronic pain due to trauma Atkins, Rivera, DO, MPH 01/19/2019 M54.2 Cervicalgia Atkins, Rivera, DO, MPH 01/19/2019 K59.03 Drug induced constipation Atkins, Rivera, DO, MPH 01/19/2019 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 (current) use of 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 Atkins, Rivera , DO, MPH 12/19/2018 G89.21 Chronic pain due to trauma Atkins, Rivera, DO, MPH 12/19/2018 M54.2 Cervicalgia Atkins, Rivera, DO, MPH 12/19/2018 F43.12 Post-traumatic stress disorder, chronic Atkins, Rivera, DO, MPH 12/19/2018 K59.03 Drug induced constipation Atkins, Rivera, DO, MPH 12/19/2018 F03.90 Unspecified dementia without behavioral Atkins, Rivera, DO, MPH disturbance 12/19/2018 I10 Essential (primary) hypertension Atkins, Rivera, DO, MPH 12/19/2018 E55.9 Vitamin D deficiency, unspecified Atkins, Rivera, DO, MPH 12/19/2018 Z79.891 halfway (current) use of 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 Atkins, Rivera , DO, MPH Plan of Treatment Future Appointment(s):07/04/2019 2:30 pm - Atkins, Rivera, DO, MPH at Main Office as Of 11/10/1407 - Rivera Atkins DO, MPHG89.21 Chronic pain due to traumaComments:Chronic. Symptoms and complaints discussed and reviewed today. No significant changes in physical findings. Continue current medical pain management.M54.2 CervicalgiaComments:Chronic. Symptoms and complaints discussed and reviewed today. No significant changes in physical findings. Continue current medical pain management.M79.12 Myalgia of auxiliary muscles, head and neckComments:Chronic. Symptoms and complaints discussed and reviewed today. No significant changes in physical findings. Continue current medical pain management.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 (current) use of 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New Labs:Urine Drug Screen, Ordered: 06/04/19Comments:Urine drug screen sample taken today to monitor [...] controlled substances and is considered standard of care.AllComments:Continue current medical pain management ; injection therapy, osteopathic manipulation, PT / modalities, and consults as needed to manage chronic pain.Non - opioid pain management discussed and optionsdiscussed.Side effects discussed; anticipatory guidance given. Patient clearly understand and agree with all medical treatments and suggestions. All medicines prescribed are adequate and appropriate for this patient's complaint of pain, medical history, physical, and personal goals.Goals of Treatment are to provide adequate and appropriate multidisciplinary medical pain management to increase/ maintain patient's quality of life and functionality while maintaining satisfactory side effect profile andminimizing rn long term care end-organ damage. Importance of regular nutrition throughout the day discussed.Activity as toleratedContinue with PCP Functional Status Description No Information Available Mental Status Description No Information Available Referrals Description No Information Available
--- NOTE | 2019-06-10 20:59 | ED ---
Adult Trauma - HPI Summary HPI Summary: Patient complains of unwitnessed fall 2 today with episode of syncope lasting about 5 minutes. Patient states he was unable to get back up on his legs after second fall. Patient states he cannot support his weight on his legs secondary to weakness. Patient ambulates with cane at baseline. Patient denies any acute symptoms from fall, but states he is concerned about his safety at home as he has a history of recurrent falls, progressive bilateral leg weakness and chronic back pain. Patient also has history of requiring counseling as his for 40 years recently has left him. Patient lives alone and is concerned he cannot take care of himself. Denies any acute symptoms, fever, cough, sore throat, CP, SOB, N/S negative abdominal pain, change in urine, change in BM, hip pain. Medical history is chronic cervical and lumbar pain, CAD with 9 stents, HTN, anemia, recurrent falls, one prior CVA, HDL, ERASMO - History of Current Complaint Chief Complaint: EDFall Stated Complaint: WEAKNESS PER EMS Time Seen by Provider: 06/10/19 20:21 Hx Obtained From: Patient Mechanism of Injury: Fall Loss of Consciousness: prolonged (minutes) Current Severity: None - No acute pain. Constant chronic pain Pain Intensity: 7 Pain Scale Used: 0-10 Numeric Location: Neck, Back Aggravating Factor(s): Weight Bearing Alleviating Factor(s): Nothing Associated Signs & Symptoms: Positive: Loss of Consciousness, Numbness/Weakness - Additional Pertinent History Primary Care Physician: HARMEET - Allergy/Home Medications Allergies/Adverse Reactions: Allergies Allergy/AdvReac Type Severity Reaction Status Date / Time naloxegol [From Movantik] Allergy dysrhythmia Verified 06/10/19 20:02 Home Medications: Home Medications Metoprolol Succinate XL TAB* [Toprol XL TAB*] 50 mg PO BID 06/10/19 [History Confirmed 06/10/19] Pantoprazole TAB * 40 mg PO DAILY 06/10/19 [History Confirmed 06/10/19] PMH/Surg Hx/FS Hx/Imm Hx Endocrine/Hematology History: Denies: Hx Diabetes Cardiovascular History: Reports: Hx Angina, Hx Coronary Artery Disease, Hx Hypercholesterolemia, Hx Hypertension, Other Cardiovascular Problems/Disorders - TIGHTNESS IN CHEST IN [place] 3 MONTHS AGO AND [place] Denies: Hx Myocardial Infarction, Hx Pacemaker/ICD, Hx Valvular Heart Disease Respiratory History: Denies: Hx Asthma, Hx Chronic Obstructive Pulmonary Disease (COPD) GI History: Reports: Hx Gastroesophageal Reflux Disease History: Reports: Hx Kidney Stones, Hx Renal Disease - abnormal gfr, Other Problems/Disorders - BPH Denies: Hx Chronic Renal Failure, Hx Dialysis Musculoskeletal History: Reports: Hx Arthritis, Hx Back Problems, Hx Osteoporosis Sensory History: Reports: Hx Cataracts, Hx Contacts or Glasses Denies: Hx Hearing Aid Opthamlomology History: Reports: Hx Cataracts, Hx Contacts or Glasses EENT History: Denies: Hx Deafness Neurological History: Reports: Other Neuro Impairments/Disorders - 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 appendectomy. cataracts. med tronic loop recorder placement-states nonfunctioning. c5 decompression . csp discectomy . csp fusion Hx Anesthesia Reactions: No Infectious Disease History: No Infectious Disease History: Denies: Traveled Outside the [place] in Last 30 Days - Family History Known Family History: Positive: Other - Lung CA - Social History Alcohol Use: Rare Substance Use Type: Reports: None Substance Use Comment - Amount & Last Used: cbd Smoking Status (MU): Never Smoked Tobacco Have You Smoked in the Last Year: No Review of Systems Constitutional: Negative Eyes: Negative ENT: Negative Cardiovascular: Negative Respiratory: Negative Gastrointestinal: Negative Genitourinary: Negative Musculoskeletal: Negative Skin: Negative Positive: Weakness, Syncope Psychological: Normal All Other Systems Reviewed And Are Negative: Yes Physical Exam - Summary Physical Exam Summary: Neuro exam normal. 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 No ecchymosis, erythema, deformity, swelling noted to mouth, face, head, neck, back, chest. Patient moves bilateral upper extremities without indication of pain.. Abdomen soft nontender. When patient asked to flex and extend bilateral lower extremities patient's legs quiver, elevate a few inches off the bed. Patient states he is unable to flex or extend his knees or his hips any further due to weakness. Patient later noticed during conversation to flex and extend bilateral lower extremities on his own without quivering. Attempted to ambulate patient: Patient's legs, and patient was unable to sustain his own weight. PMS intact distally on bilateral lower extremities. Triage Information Reviewed: Yes Vital Signs On Initial Exam: Initial Vitals Temp Pulse Resp BP Pulse Ox 98.0 F 66 16 174/89 96 06/10/19 19:55 06/10/19 19:55 06/10/19 19:55 06/10/19 19:55 06/10/19 19:55 Vital Signs Reviewed: Yes Appearance: Positive: Well-Appearing Skin: Positive: Warm Head/Face: Positive: Normal Head/Face Inspection Eyes: Positive: Normal ENT: Positive: Normal ENT inspection Dental: Negative: Dental Fracture @, Bleeding Neck: Positive: Supple Respiratory/Lung Sounds: Positive: Clear to Auscultation Cardiovascular: Positive: Normal Abdomen Description: Positive: Nontender Musculoskeletal: Positive: Normal Neurological: Positive: Normal Psychiatric: Positive: Normal AVPU Assessment: Alert - Lelo Coma Scale Best Eye Response: 4 - Spontaneous Best Motor Response: 6 - Obeys Commands Best Verbal Response: 5 - Oriented Coma Scale Total: 15 Diagnostics - Vital Signs Vital Signs Temp Pulse Resp BP Pulse Ox 06/10/19 19:55 98.0 F 66 16 174/89 96 - Laboratory Result Diagrams: 06/10/19 21:02 06/10/19 21:02 Lab Statement: Any lab studies that have been ordered have been reviewed, and results considered in the medical decision making process. Adult Trauma Course/Dx - Course Course Of Treatment: Patient complains of unwitnessed fall 2 today with episode of syncope lasting about 5 minutes. Patient states he was unable to get back up on his legs after second fall. Patient states he cannot support his weight on his legs secondary to weakness. Patient ambulates with cane at baseline. Patient denies any acute symptoms from fall, but states he is concerned about his safety at home as he has a history of recurrent falls, progressive bilateral leg weakness and chronic back pain. Patient also has history of requiring counseling as his for 40 years recently has left him. Patient lives alone and is concerned he cannot take care of himself. Denies any acute symptoms, fever, cough, sore throat, CP, SOB, N/S negative abdominal pain, change in urine, change in BM, hip pain. Medical history is chronic cervical and lumbar pain, CAD with 9 stents, HTN, anemia, recurrent falls, one prior CVA, HDL, ERASMO. Elevated blood pressure initially which resolved to moderate levels. The patient's highly metoprolol 50 mg administered. Vital signs otherwise unremarkable. Labs a patient baseline. CT brain negative for acute process. EKG sinus rhythm with normal OH interval, no change from prior. Patient has history of recurrent falls. Cannot ambulate. Admitted to hospitalist for Social admission. - Diagnoses Provider Diagnoses: Recurrent falls, Lower extremity weakness Discharge ED - Sign-Out/Discharge Documenting (check all that apply): Patient Departure Patient Received Moderate/Deep Sedation with Procedure: No - Discharge Plan Condition: Stable Disposition: ADMITTED TO [facility] - Billing Disposition and Condition Condition: STABLE Disposition: Admitted to [facility]
[2019-06-10 21:08] LABS: ABS Eosinophils 0.1 10^3/ul (0-0.6); ABS Lymphocytes 0.7 10^3/ul (1.0-4.8); ABS Monocytes 0.5 10^3/ul (0-0.8); Eosinophil % 3.3 %; Hematocrit 34 % (42-52); Hemoglobin 11.2 g/dL (14.0-18.0); Lymphocyte % 16.2 %; Mean Corpuscular HGB Conc 33 g/dL (31-36); Mean Corpuscular Hemoglobin 28 pg (27-31); Mean Corpuscular Volume 83 fL (80-94); Mean Platelet Volume 9.8 fL (7.4-10.4); Platelet Count 114 10^3/uL (150-450); Red Blood Count 4.05 10^6 /uL (4.18-5.48); Red Cell Distribution Width 15 % (10-15); White Blood Count 4.4 10^3/uL (3.5-10.8)
[2019-06-10 21:13] LABS: INR 1.05 (0.82-1.09)
[2019-06-10 21:24] LABS: Urine Appearance Cloudy; Urine Bilirubin Negative (Negative); Urine Blood Negative (Negative); Urine Color Yellow; Urine Glucose 1+(50 mg/dL) (Negative); Urine Ketones Negative (Negative); Urine Nitrite Negative (Negative); Urine Protein Negative (Negative); Urine Specific Gravity 1.011 (1.010-1.030); Urine Urobilinogen Negative (Negative)
[2019-06-10] MEDS ORDERED: hydrALAZINE IV* 20 MG/ML VIAL IV SLOW PU ONE (21:24)
[2019-06-10 21:26] LABS: Albumin 3.7 g/dL (3.2-5.2); Albumin/Globulin Ratio 1.3 (1-3); BUN/Creatinine Ratio 16.2 (8-20); C Reactive Protein 5.32 mg/L (<8.01); Calcium 9.4 mg/dL (8.6-10.3); EGFR African American 78.4 (>60); EGFR Non-African American 64.8 (>60); Globulin 2.8 g/dL (2-4); Magnesium 2.3 mg/dL (1.9-2.7); Potassium 3.5 mmol/L (3.5-5.0); Total Bilirubin 0.5 mg/dL (0.2-1.0); Total Protein 6.5 g/dL (6.4-8.9)
[2019-06-10 21:27] LABS: Troponin I 0.01 ng/mL (<0.04)
[2019-06-10 21:58] LABS: TSH (Thyroid Stimulating Horm) 0.93 mcIU/mL (0.34-5.60)
[2019-06-10] MEDS ORDERED: Metoprolol Succinate XL TAB* 50 MG PO ONE (23:44)
[2019-06-11] MEDS ORDERED: Acetaminophen TAB* 325 MG PO PRN (00:10)
--- NOTE | 2019-06-11 00:57 | ADMNOTE ---
Subjective Date of Service: 06/11/19 Interval History: 74 year old male with hx of depression, hx of CVA presenting with weakness and frequent falls. He was discharged not too long ago for similar presentation. At that time, was seen by a team of consultants and it was determined that his symptoms were psychosomatic due to ongoing marital problems. Pt presented back essentially at baseline but with increasing falls. he is alarmed because just 4- 6 weeks ago, he was "normal". And now his falls are getting more frequent. He would like more testing done and does not feel safe at home. He complained he already had 2 falls today and since his last discharge, he suffered from a few syncopal episodes and daily falls. Denies any trauma to the head. His episode, he describes them as, "shaking in the knees like a seizure right before falling". His weakness is at its baseline from his hx of stroke. As per his hx of depression. He feels that he is over his leaving him and really does not think his depression has anything to do with his physical symptoms. Review of Systems - Measurements Intake and Output: Intake and Output Last 24 Hours 06/08/19 06/09/19 06/10/19 06/11/19 06:59 06:59 06:59 06:59 Weight 161 lb - Review of Systems Constitutional Symptoms: Positive: Unexplained Falls Negative: Weight Gain, Weight Loss, Weakness, Fatigue, Fever, Night Sweats, Other Dermatology: Positive: Normal HEENT: Positive: Normal Eyes: Positive: Normal Thyroid: Positive: Normal Pulmonary: Positive: Normal Cardiology: Positive: Normal Gastroenterology: Positive: Normal Genital - Urinary: Positive: Normal Musculoskeletal: Negative: Joint Pain, Joint Stiffness, Arthritis, Osteoporosis, Low Back Pain , Sciatica, Joint Deformities, Kyphoscoliosis, Other Endocrinology: Positive: Normal Neurology: Positive: Normal Psychiatry: Positive: Normal Negative: Depression, Anxiety, Depressed Mood, Anhedonia, Sexual Dysfunction , Weight Change, Guilt Feelings, Tearfulness, Unusual Fatigue, Unusual Anxiety, Suicidal Ideation, Hypomania, Eating Disorders, Other Objective Active Medications: Acetaminophen (Tylenol Tab*) 650 mg PO Q4H PRN PRN Reason: MILD PAIN or TEMP > 100.4 Docusate Sodium (Colace Cap*) 100 mg PO BID FABIOLA Heparin Sodium (Porcine) (Heparin Vial(*)) 5,000 units SUBCUT Q8HR [facility] Vital Signs - 8 hr 06/10/19 06/10/19 06/10/19 19:49 19:50 19:55 Temperature 98.0 F Pulse Rate 70 66 66 Respiratory 6 16 Rate Blood Pressure 174/89 174/89 (mmHg) O2 Sat by Pulse 93 96 96 Oximetry 06/10/19 06/10/19 06/10/19 20:00 20:19 20:49 Temperature Pulse Rate 68 63 73 Respiratory 11 14 22 Rate Blood Pressure 177/95 206/106 (mmHg) O2 Sat by Pulse 96 93 100 Oximetry 06/10/19 06/10/19 06/10/19 21:00 21:34 21:49 Temperature Pulse Rate 64 64 Respiratory 15 17 17 Rate Blood Pressure 196/100 188/90 (mmHg) O2 Sat by Pulse 95 95 Oximetry 06/10/19 06/10/19 06/10/19 22:00 22:18 22:19 Temperature Pulse Rate 76 75 77 Respiratory 21 Rate Blood Pressure 220/112 208/110 (mmHg) O2 Sat by Pulse 94 97 98 Oximetry 06/10/19 06/10/19 06/10/19 22:49 23:00 23:20 Temperature Pulse Rate 62 64 61 Respiratory Rate Blood Pressure 182/97 188/90 (mmHg) O2 Sat by Pulse 95 96 95 Oximetry Oxygen Devices in Use Now: None Eyes: No Scleral Icterus, PERRLA Ears/Nose/Mouth/Throat: NL Teeth, Lips, Gums, Mucous Membranes Moist Neck: NL Appearance and Movements; NL JVP Respiratory: Symmetrical Chest Expansion and Respiratory Effort Cardiovascular: NL Sounds; No Murmurs; No JVD Abdominal: NL Sounds; No Tenderness; No Distention Lymphatic: No Cervical Adenopathy Skin: No Rash or Ulcers Neurological: Alert and Oriented x 3, - - chronic left sided weakness Result Diagrams: 06/10/19 21:02 06/10/19 21:02 Assess/Plan/Problems-Billing Assessment: - Patient Problems (1) Weakness Current Visit: No Status: Acute Code(s): R53.1 - WEAKNESS SNOMED Code(s): 62438231 Comment: - Unknown etiology - psychiatric etiology such as malingering (with gain of iliciting sympathy from who is in process of him) are in differential. Previous note noted that his exam and story seemed to change. -neurology may need to re-evaluate. I did explain to him that an extensive workup has already been done and to be prepared that neurology may not have anything new to offer. He does not want to go home and feels that he is unsafe at home. (2) CAD (coronary artery disease) Current Visit: No Status: Acute Code(s): I25.10 - ATHSCL HEART DISEASE OF [place] CORONARY ARTERY W/O ANG PCTRS SNOMED Code(s): 08428817 Comment: - Stable - Continue aspirin, atorvastatin, metoprolol (3) DVT prophylaxis Current Visit: No Status: Acute Code(s): Z29.9 - ENCOUNTER FOR PROPHYLACTIC MEASURES, UNSPECIFIED SNOMED Code(s): 119994359 Comment: - SCDs and heparin scc (4) Depression Current Visit: No Status: Acute Code(s): F32.9 - MAJOR DEPRESSIVE DISORDER, SINGLE EPISODE, UNSPECIFIED SNOMED Code(s): 38855958 Comment: certainly has a lot of stressor at home but patient feels that he is doing relatively okay with his leaving him and he has gone through worse pain in the past ( he lost his son in a car accident a few years ago). Still does not rule out psychosomatic. Will cont mirtazapine and sertraline for now. Denies any depressive symptoms, No SI. (5) Full code status Current Visit: No Status: Acute Code(s): Z78.9 - OTHER SPECIFIED HEALTH STATUS SNOMED Code(s): 110814864 Comment: (6) GERD (gastroesophageal reflux disease) Current Visit: No Status: Acute Code(s): K21.9 - GASTRO-ESOPHAGEAL REFLUX DISEASE WITHOUT ESOPHAGITIS SNOMED Code(s): 005569727 (7) History of CVA (cerebrovascular accident) Current Visit: No Status: Acute Code(s): Z86.73 - PRSNL HX OF TIA (TIA), AND CEREB INFRC W/O RESID DEFICITS SNOMED Code(s): 146319272 Comment: - Continue aspirin 81; Lipitor 40 mg; - baseline left hemiparesis. (8) Hyperlipemia Current Visit: No Status: Acute Code(s): E78.5 - HYPERLIPIDEMIA, UNSPECIFIED SNOMED Code(s): 87621894 Comment: - Continue Lipitor 40 mg; (9) Hypertension Current Visit: No Status: Acute Code(s): I10 - ESSENTIAL (PRIMARY) HYPERTENSION SNOMED Code(s): 33658485 Comment: Continue losartan 25mg daily, metoprolol succinate 50mg
[2019-06-11] MEDS ORDERED: Ondansetron TAB* 4 MG PO PRN (01:21)
[2019-06-11] MEDS ORDERED: Meclizine TAB* 12.5 MG PO PRN (01:21)
[2019-06-11] MEDS: Cyclobenzaprine TAB* 10 MG PO PRN (02:04)
[2019-06-11] MEDS: oxyCODONE TAB* 5 MG TAB PO PRN ×3 (02:04→22:02)
[2019-06-11] MEDS: Mirtazapine TAB* 15 MG PO SCH ×2 (02:41→20:15)
[2019-06-11] MEDS: Tamsulosin CAP* 0.4 MG PO SCH ×2 (02:41→20:15)
[2019-06-11] MEDS ORDERED: hydrALAZINE IV* 20 MG/ML VIAL IV SLOW PU ONE (03:04)
[2019-06-11] MEDS: Heparin VIAL(*) 5000 UNITS/ML VIAL (FIVE THOUSAND) SUBCUT SCH ×3 (07:26→20:15)
[2019-06-11] MEDS: Aspirin 81 mg CHEW TAB* 81 MG TAB.CHEW PO SCH (08:15)
[2019-06-11] MEDS: Pantoprazole TAB * 40 MG TAB PO SCH (08:16)
[2019-06-11] MEDS: Furosemide TAB* 40 MG PO SCH (08:16)
[2019-06-11] MEDS: Sertraline* 100 MG TAB PO SCH (08:16)
[2019-06-11] MEDS: Losartan TAB* 25 MG PO SCH (08:16)
[2019-06-11] MEDS: Fludrocortisone Acetate TAB* 0.1 MG PO SCH (08:16)
[2019-06-11] MEDS: Docusate CAP* 100 MG PO SCH ×2 (08:16→20:15)
[2019-06-11] MEDS: Metoprolol Succinate XL TAB* 50 MG PO SCH ×2 (08:17→20:15)
--- NOTE | 2019-06-11 13:48 | PN ---
Hospitalist Progress Note Date of Service: 06/11/19 Admission Follow Up: Discussed social admission status with patient and with [employer] (Missy). Patient had extensive imaging, and consultations with neurology, neurosurgery and cardiology at last admission with no positive findings. Per psychiatry notes from that admission, there may be an emotional component to patient's symptoms. It does seem that overall deconditioning may also be contributing, however patient states he was walking "just fine" for two days when he was discharged in April, then started falling again shortly after being discharged to home. At this time, patient does not meet requirements for acute hospitalization. Recommend PT evaluation. Social work consulted. Patient likely needs placement if he does not feel safe at home and cannot rely on his estranged for care. Discussed with Dr. Bruner, patient's PCP as well and relayed that social work and case management will be involved.
[2019-06-11] MEDS ORDERED: Atorvastatin* 40 MG TAB PO SCH (18:00)
[2019-06-11] MEDS: Atorvastatin* 40 MG TAB PO SCH (20:15)
[2019-06-12] MEDS: Heparin VIAL(*) 5000 UNITS/ML VIAL (FIVE THOUSAND) SUBCUT SCH ×3 (05:53→21:13)
[2019-06-12] MEDS: Metoprolol Succinate XL TAB* 50 MG PO SCH ×2 (08:47→20:48)
[2019-06-12] MEDS: Fludrocortisone Acetate TAB* 0.1 MG PO SCH (08:47)
[2019-06-12] MEDS: Pantoprazole TAB * 40 MG TAB PO SCH (08:48)
[2019-06-12] MEDS: Aspirin 81 mg CHEW TAB* 81 MG TAB.CHEW PO SCH (08:48)
[2019-06-12] MEDS: Tamsulosin CAP* 0.4 MG PO SCH ×2 (08:48→20:48)
[2019-06-12] MEDS: oxyCODONE TAB* 5 MG TAB PO PRN ×2 (08:48→16:21)
[2019-06-12] MEDS: Docusate CAP* 100 MG PO SCH ×2 (08:48→20:48)
[2019-06-12] MEDS: Losartan TAB* 25 MG PO SCH (08:48)
[2019-06-12] MEDS: Sertraline* 100 MG TAB PO SCH (08:49)
--- NOTE | 2019-06-12 12:59 | PN ---
Subjective Date of Service: 06/12/19 Interval History: Mr. Hung is feeling fine this morning, but is frustrated that he has not received a diagnosis. Left leg feels weaker today. He would like to have an EEG. May be willing to go to rehab, but does not think it will help in the long-term. Pain is at baseline. Denies CP, SOB, N/V. Nursing reports multiple phone calls from . Family History: Unchanged from Admission Social History: Unchanged from Admission Past Medical History: Unchanged from Admission Objective Active Medications: Acetaminophen (Tylenol Tab*) 650 mg PO Q4H PRN MILD PAIN or TEMP > 100.4 Aspirin (Aspirin 81 Mg Chew Tab*) 81 mg PO QAM FABIOLA Atorvastatin Calcium (Lipitor*) 40 mg PO 2100 FABIOLA Cyclobenzaprine HCl (Flexeril Tab*) 15 mg PO BEDTIME PRN PAIN Docusate Sodium (Colace Cap*) 100 mg PO BID FABIOLA Fludrocortisone Acetate (Florinef Tab*) 0.1 mg PO DAILY FABIOLA Furosemide (Lasix Tab*) 40 mg PO EVERY OTHER DAY FABIOLA Heparin Sodium (Porcine) (Heparin Vial(*)) 5,000 units SUBCUT Q8HR FABIOLA Losartan Potassium (Cozaar Tab*) 25 mg PO DAILY FABIOLA Meclizine HCl (Antivert Tab*) 25 mg PO TID PRN VERTIGO Metoprolol Succinate (Toprol Xl Tab*) 50 mg PO BID FABIOLA Mirtazapine (Remeron Tab*) 15 mg PO BEDTIME FABIOLA Ondansetron HCl (Zofran Tab*) 4 mg PO Q6H PRN NAUSEA Oxycodone HCl (Roxycodone Tab*) 15 mg PO TID PRN PAIN Pantoprazole Sodium (Protonix Tab*) 40 mg PO DAILY FABIOLA Sertraline HCl (Zoloft*) 100 mg PO DAILY FABIOLA Tamsulosin HCl (Flomax Cap*) 0.4 mg PO BID [facility] Vital Signs - 8 hr 06/12/19 06/12/19 06/12/19 07:00 08:48 11:00 Temperature 97.3 F 97.2 F Pulse Rate 62 69 Respiratory 18 18 18 Rate Blood Pressure 140/87 150/78 (mmHg) O2 Sat by Pulse 96 97 Oximetry Oxygen Devices in Use Now: None Appearance: Elderly male laying in bed in NAD Eyes: No Scleral Icterus Ears/Nose/Mouth/Throat: Mucous Membranes Moist Neck: NL Appearance and Movements; NL JVP, Trachea Midline Respiratory: Symmetrical Chest Expansion and Respiratory Effort, Clear to Auscultation Cardiovascular: NL Sounds; No Murmurs; No JVD, RRR Abdominal: NL Sounds; No Tenderness; No Distention Extremities: No Edema Neurological: Alert and Oriented x 3, - - Strength 5/5 in RLE, 3/5 in LLE Lines/Tubes/Other Access: Clean, Dry and Intact Peripheral IV Nutrition: Taking PO's Result Diagrams: 06/10/19 21:02 06/10/19 21:02 Assess/Plan/Problems-Billing Assessment: Mr. Hung is a 74 yo M with PMH of HTN, CVA, depression, CAD, and GERD; who was recently hospitalized for weakness with a negative neuro workup; now presenting to the ED with c/o weakness and frequent falls. - Patient Problems (1) Weakness Code(s): R53.1 - WEAKNESS Comment: - Unknown etiology; differentials include deconditioning, malingering, psychosomatic - Appreciate Neuro consult - PT/OT evals, though he will likely need [facility] (2) Hypertension Code(s): I10 - ESSENTIAL (PRIMARY) HYPERTENSION Comment: - Hypertensive, SBP 140-150s - Continue metoprolol, furosemide; increase losartan (3) Depression Code(s): F32.9 - MAJOR DEPRESSIVE DISORDER, SINGLE EPISODE, UNSPECIFIED Comment: - Continue mirtazapine, sertraline (4) Orthostatic hypotension Code(s): I95.1 - ORTHOSTATIC HYPOTENSION Comment: - Recheck orthostatic VS today - Continue Florinef (5) History of CVA (cerebrovascular accident) Code(s): Z86.73 - PRSNL HX OF TIA (TIA), AND CEREB INFRC W/O RESID DEFICITS Comment: - Continue aspirin, atorvastatin (6) CAD (coronary artery disease) Code(s): I25.10 - ATHSCL HEART DISEASE OF [place] CORONARY ARTERY W/O ANG PCTRS Comment: - Continue aspirin, atorvastatin, metoprolol (7) DVT prophylaxis Comment: - Heparin SQ (8) Full code status Code(s): Z78.9 - OTHER SPECIFIED HEALTH STATUS Comment: Status and Disposition: Observation. Anticipate d/c to [facility] when bed is available. Attending: Chica Thornton
[2019-06-12] MEDS: Atorvastatin* 40 MG TAB PO SCH (20:48)
[2019-06-12] MEDS: Mirtazapine TAB* 15 MG PO SCH (20:48)
[2019-06-12] MEDS: Cyclobenzaprine TAB* 10 MG PO PRN (21:11)
[2019-06-13] MEDS: oxyCODONE TAB* 5 MG TAB PO PRN ×2 (00:33→08:41)
[2019-06-13] MEDS: Heparin VIAL(*) 5000 UNITS/ML VIAL (FIVE THOUSAND) SUBCUT SCH ×2 (05:46→12:34)
[2019-06-13 08:18] VITALS: BP 144/65
[2019-06-13] MEDS: Docusate CAP* 100 MG PO SCH (08:40)
[2019-06-13] MEDS: Sertraline* 100 MG TAB PO SCH (08:41)
[2019-06-13] MEDS: Aspirin 81 mg CHEW TAB* 81 MG TAB.CHEW PO SCH (08:41)
[2019-06-13] MEDS: Furosemide TAB* 40 MG PO SCH (08:41)
[2019-06-13] MEDS: Tamsulosin CAP* 0.4 MG PO SCH (08:41)
[2019-06-13] MEDS: Fludrocortisone Acetate TAB* 0.1 MG PO SCH (08:41)
[2019-06-13] MEDS: Pantoprazole TAB * 40 MG TAB PO SCH (08:41)
[2019-06-13] MEDS: Metoprolol Succinate XL TAB* 50 MG PO SCH (08:41)
[2019-06-13] MEDS ORDERED: Losartan TAB* 25 MG PO SCH (09:00)
--- NOTE | 2019-06-13 10:49 | DS ---
CC: Iliana Bruner MD; Ryan Baum MD* DISCHARGE SUMMARY: DATE OF ADMISSION: 06/11/19 DATE OF DISCHARGE: 06/13/19 PRIMARY CARE PROVIDER: Iliana Bruner MD NEUROLOGIST: Ryan Baum MD ATTENDING PHYSICIAN: Chica Thornton MD* (dictated by Tonya Cuello NP), PRIMARY DIAGNOSES: 1. Weakness, suspect deconditioning versus malingering versus psychosomatic. 2. Hypertension. 3. Depression. SECONDARY DIAGNOSES: 1. Orthostatic hypotension. 2. History of cerebrovascular accident. 3. Coronary artery disease. STUDIES WHILE IN THE HOSPITAL: 1. EKG on 06/10/19 showed normal sinus rhythm with a rate of 66, QTc 434. No ST changes. 2. Brain CT on 06/10/19 with minimal chronic ischemic white matter change, which is similar to 03/30/19. Otherwise, negative noncontrast head CT. HISTORY OF PRESENT ILLNESS AND HOSPITAL COURSE: Mr. Hung is 74-year-old male with past medical history of coronary artery disease, depression, hypertension and lower extremity weakness, who presented to the emergency room on 06/10/19 with complaints of lower extremity weakness and frequent falls. Please see the history and physical by Dr. Capone for complete summary of events leading up to this hospitalization. In short, Mr. Hung was hospitalized at this facility from 03/30/19 to 04/25/19 for recurrent falls. At that point, he underwent a full neurological workup, which included removal of his spinal stimulator and MRIs of his brain and whole spine. At that time, he was evaluated by at least 3 of our neurologists, who could not find any evidence of any neurological disorder that would explain his lower extremity weakness. There was some concern at that time that the patient seemed to have a different story with different providers and physical assessment varied significantly between providers and on different days. At that point, the patient was discharged home. Since being home, the patient reported continued weakness and frequent falls. The patient reports at least 1 fall per day and so ultimately presented back to our emergency room and because of the concern for his safety at home, he was admitted by the hospitalist service. It was felt as though the patient did not need any further neurological workup as previous workup was completed less than 2 months ago. I did speak with Dr. Llamas from Neurology, who is familiar with the patient's case, as he saw him multiple times during the last hospitalization and Dr. Llamas did see the patient yesterday on 06/12/19, at which point, he advised that there is no need for further neurological workup. He also felt as though the patient may have been fabricating some deficits on physical exam. He did advise the patient that he could seek second opinion elsewhere if he so chooses. The patient does continue to report feeling weak when ambulating, though does not report any significant weakness while lying in bed. His main complaint of weakness is described as episodes of "shaking" in his legs when trying to ambulate, though this happened intermittently and is not consistent. The patient was evaluated by physical therapy here in the hospital, who deemed that he was a 2 assist for transfers and ambulating and recommended rehab. Initially, the patient was against going to rehab, though at this point, it is certainly not safe for the patient to return home due to his frequency of falls. It seems inevitable that he will injure himself at some point. Today, the patient reports feeling fine and offers no complaints, though is obviously withdrawn and not particularly willing to participate in conversation with me. PHYSICAL EXAMINATION: On exam, he has no focal neurological deficits. He is alert and oriented x4. Heart has a regular rhythm without murmurs, rubs or gallops. Lungs are clear to auscultation without rhonchi, wheezes or rubs. There is no edema. Physical exam is otherwise benign. For complete details and imaging from the patient's former neurological workup, I will refer you to the discharge summary from his previous visits dated by Dr. Hammonds. DISCHARGE MEDICATIONS: New medication: 1. Docusate 100 mg p.o. b.i.d. Changed medication: 1. Losartan 50 mg p.o. daily (previously 25 mg daily). Continued medications: 1. Aspirin 81 mg p.o. daily. 2. Atorvastatin 40 mg p.o. at bedtime. 3. Cyclobenzaprine 15 mg p.o. at bedtime p.r.n. pain. 4. Florinef 0.1 mg p.o. daily. 5. Furosemide 40 mg p.o. every other day. 6. Meclizine 25 mg p.o. t.i.d. p.r.n. vertigo. 7. Metoprolol succinate 50 mg p.o. b.i.d. 8. Mirtazapine 15 mg p.o. at bedtime. 9. Ondansetron 4 mg p.o. q.6 hours p.r.n. nausea. 10. Oxycodone 15 mg p.o. t.i.d. p.r.n. pain. 11. Pantoprazole 40 mg p.o. daily. 12. Sertraline 100 mg p.o. daily. 13. Tamsulosin 0.4 mg p.o. b.i.d. 14. Vitamin B12 1000 mcg p.o. daily. 15. Magnesium oxide 400 mg p.o. daily. DISCHARGE PLAN: Mr. Hung will be discharged to subacute rehab at [place]. ACTIVITY: As tolerated. DIET: Regular as tolerated. Medications are as noted above. The patient has been started docusate and the only other medication change I have made is the increase in his losartan due to some mild hypertension he has had here in the hospital. I will note that the patient did have orthostatic vital signs completed this morning, which were noted to be negative. It is questionable if he even needs the Florinef anymore and this should be reevaluated upon arrival to [place]. He can continue his other usual medications as noted above and I have not made any further changes. The patient can follow up with Dr. Baum as previously instructed and as noted above he is welcome and encouraged to get a second opinion elsewhere regarding his subjective neurological deficits. He can continue follow up with his primary care provider after discharge from [place] and should follow up with a provider at [place] while there. He should return to the emergency room or nearest hospital for any worsening of symptoms, shortness of breath, lightheadedness, dizziness, chest discomfort, high fever or chills, night sweats , loss of consciousness or any other worrisome signs or symptoms. DISCHARGE CONDITION: Stable. DISCHARGE DISPOSITION: [facility], [place]. This is a summarized report of a complex medical history and hospital stay. For further details, please see the entire medical record. TIME SPENT: Approximately 45 minutes was spent on this discharge. TONYA CUELLO, [employer]FFEE BLENDER [id number]/[facility] #: [id number] [facility] HOSPITALJoaquim
--- NOTE | 2019-06-13 12:04 | CONS ---
NEUROLOGY CONSULTATION NOTE: DATE OF CONSULT: 06/12/19 CONSULTING PROVIDER: Tonya Cuello NP. REASON FOR CONSULT: Falls. CHIEF COMPLAINT: "Falls and shaking of my legs." HISTORY OF PRESENT ILLNESS: Mr. Jose Alberto Hung is a 74-year-old right-handed man who is known to me from a previous hospitalization in March 2019. 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 He has chronic scoliosis and kyphosis. He has a burst fracture at L2 in 2006. He also had cervical decompression surgery in 1993 and 1997, where he had complications of spinal cord stroke, and a dorsal column spinal cord stimulator that was inserted in 1997, but removed in April 2019. The patient presented with similar presentation of falls and transient weakness of the lower extremities on . He was initially seen by Dr. Teresa, followed by me, and then seen by Dr. Moiz Arceo. Dr. Teresa had recommended neuraxis imaging. I supported this recommendation. The patient was unable to get the neuraxis imaging until the spinal stimulator was removed. Spinal stimulator was not functioning to start with and the patient did not want the device. The device was removed by Dr. Johnson during the previous hospitalization. The patient had extensive imaging of the spine. He was last seen by Dr. Moiz Arceo on 04/20/19. The findings of the MRI studies showed an MRI of the brain that was reported to show scattered nonspecific white matter changes that were stable from the previous examination. He had an MRI of the cervical spine completed on that showed postoperative changes from C5 through C7 with abnormal signal noted at C6 level within the cervical spinal cord. This is towards the left of midline. This may represent myelomalacia. He also had thoracic and lumbar spine MRIs. The thoracic spine reported kyphosis with ankylosis from approximately T3 to T9. There is no evidence of spinal stenosis noted. No abnormal signals noted in the central spinal canal. The lumbar spine showed chronic compression fracture of the L2 vertebra with mild retropulsion with no definite spinal stenosis noted. He had an EEG completed on 04/20/19 that showed slowing particularly in the right hemisphere consistent with cerebral dysfunction of the right hemisphere near the occipital region. There are no clear epileptiform discharges. The patient's last evaluation by Dr. Moiz Arceo suggested that some of his symptoms such as the fall and unsteady gait are due to possible functional disorder with depression being playing a role. On Dr. Arceo's evaluation, there was some inconsistency on the patient's examination at that time. I also reviewed my last note which was from 04/06/19, for which I had documented a conversation from Dr. Recinos, who stated that the patient had significant gait abnormality for a very long time. I also had documented fluctuation and inconsistent examination finding. However , I did want to proceed with further imaging, which was done at that time. The patient stated that he was discharged home mid April 2019. Unfortunately, he was still having frequent falls daily. The patient presented to [facility] on 06/10/19 due to the same symptoms of fall. The patient states that he falls daily. He fell 2 days prior to this hospitalization. He feels the legs shake violently before he falls. He recalls the fall took place after he urinated and was washing his hands. He made a quick turn towards the right and he fell into his walking shower. He took a big hit across his shoulder. He denied any head injury. He could not get up. He crawled back to bed and reached his cellphone. He called 911. He denied any prodromal symptoms. He denied any dizziness, vertigo, headaches, or visual disturbance. He stated that his legs literally were banging into one another. He stated that he denied any palpitation or chest pain. However, he does have a registered account administrator that he had placed 4 nights ago to evaluate for these falls. The patient denied any bowel or bladder dysfunction. He has had erectile dysfunction since the complication from his spinal cord surgery. He is now using a cane, which he has been using for a long time. The patient stated that his relationship with his ex- has not changed. She lives with him sometimes. She is very concerned about him. He stated that there is no chance that they will ever get back together. The patient reminded me about his recent vacation to [place], where he drove to [place] and to another facility in [place] to get evaluated for these falls. However, in [place], he was not admitted. He was told that there was no reason for any further evaluation and therefore, he was released from the ED. He also went for a second opinion there and he was told "to better go home and get it looked at when he gets home to [place]." PAST MEDICAL HISTORY: 1. L2 burst fracture. 2. Cervical spine disease with multiple cervical spine surgeries. 3. Coronary artery disease, status post stents x9. 4. Hypertension. 5. Dyslipidemia. 6. GERD. 7. Atrial fibrillation. He is not on anticoagulation therapy due to the frequent falls. 8. Baseline left hemiparesis after cervical decompression surgery in 1997. 9. Bilateral cataract extraction. 10. Appendectomy as per HPI. MEDICATIONS: 1. Oxycodone 15 mg p.o. t.i.d. as needed. 2. Cyclobenzaprine 50 mg p.o. at bedtime. 3. Atorvastatin 40 mg p.o. at night. 4. Meclizine 25 mg p.o. t.i.d. 5. Ondansetron 4 mg p.o. every 6 hours as needed. 6. Aspirin 81 mg p.o. in the morning. 7. Furosemide 40 mg p.o. every other day. 8. Tamsulosin 0.04 mg p.o. b.i.d. 9. Mirtazapine 50 mg p.o. at bedtime. 10. Sertraline 100 mg p.o. daily. 11. Magnesium oxide 400 mg p.o. daily. 12. Cyanocobalamin 1000 mcg p.o. daily. 13. Fludrocortisone 0.1 mg p.o. daily. 14. Losartan 25 mg p.o. daily. 15. Pantoprazole 40 mg p.o. daily. 16. Metoprolol succinate 50 mg p.o. b.i.d. ALLERGIES: NALOXEGOL. FAMILY HISTORY: Both parents are . Mother of congestive heart failure and father of cancer. SOCIAL HISTORY: The patient is a nonsmoker. He drinks alcohol rarely and he worked at the [employer]. He is and has 3 children. REVIEW OF SYSTEMS: A 14-point review of systems was obtained and otherwise negative, except for what was mentioned in the HPI. PHYSICAL EXAM: Vitals: Temperature of 98.0, pulse of 66, respiratory rate of 16, oxygen saturation 97% on room air, blood pressure 108/97. Orthostatic vitals were obtained. Supine 157/84 with a heart rate of 65, standing 144/65 with a heart rate of 71 after 2 minutes. General: Well-nourished, well- developed, pleasant thin man, in no acute distress. Head: Atraumatic, normocephalic without obvious abnormality. Neck is supple and symmetrical with no carotid bruits. Eyes: Conjunctivae/corneas are clear. Cardiovascular: Regular rate and rhythm with normal S1, S2. Respiratory: Clear to auscultation bilaterally with no wheezing or rhonchi. Extremities: Normal range of motion with no cyanosis and no hammertoes. Neurological Examination: Mental Status: Awake, alert, and oriented to person; place; time; and general circumstances. The patient recalls the examiner from the previous hospitalization. Speech and language including expression, repetition, and comprehension were assessed and found to be normal. Pupils are equal, round, and reactive to light. Extraocular muscles are intact. Sensation is intact on the face bilaterally, no facial asymmetry. Tongue is symmetrical and midline with no atrophy or fasciculation. Motor Examination: 5/5 strength in the upper and lower extremities on the right with mild weakness graded as 4+/5 to the left elbow extension, wrist extension, hip flexion, and ankle dorsiflexion. Otherwise, there is mild bilateral symmetric 5-/5 weakness to finger abduction and toe extension. Sensation is intact to light touch throughout. There is a distal to proximal sensory gradient demarcated at the mid buck bilaterally. Absent vibratory sensation at the great toe and medial malleolus bilaterally. Normal proprioception at the great toes. Reflexes are 1+ at the right triceps, biceps, brachioradialis; knee is 1+. Left biceps, triceps, brachioradialis, and knee is 2+; 0 at the ankles bilaterally. Flexor plantar responses bilaterally. Coordination: Normal finger- to-nose and [id number] testing. Gait: Wide-based gait. Some abasia-astasia with shaking of the legs that lasts for approximately 5-10 seconds with distraction maneuver such as opening and closing the hand. The patient was able to stand with a wide-base gait and ambulate to the nearby bed without any assistance. ASSESSMENT AND RECOMMENDATIONS: Mr. Jose Alberto Hung is a 74-year-old pleasant man , who has chronic recurrent falls and gait instability, who presents to the hospital again for further evaluation for falls. He was extensively evaluated less than two months ago for the same complaints. The patient is adamant of trying to figure out why he has been falling over the last few months. Extensive neurological testing by multiple neurologists have not discovered the reason why the patient is falling. 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 He also has reflex asymmetry and left hemiparesis due to his previous history of spinal cord infarction. However, when I ambulate the patient, he does have a functional component to his exam where he shakes his legs and complains of inability to stand or walk, but after a few seconds with encouragement and distractability, his exam improves significantly and he is able to walk almost independently. The patient continues to experience stressors at home given his recent separation from his and the of one of his sons almost a decade ago. Unfortunately, I am unable to provide any further recommendations as I do not suspect the patient's falls to be related to a new pathological problem, other than the already known neuropathy and cervical cord pathology. I did encourage the patient to follow up with Neurology and get an EMG/nerve conduction study of the lower extremities to evaluate the degree of the neuropathy. I also encouraged him to follow up with Psychiatry as he would need cognitive behavior therapy as well as participate with physical therapy on a routine basis to help with his gait. Again, I relayed my concerns to the patient that this is an ongoing problem, and with close outpatient referral and followup, hopefully he can overcome this problem. He wanted a diagnosis and I entertained the idea of a conversion like reaction and how patients have a subconscious sensation of having some type of neurological disability and again, with time and appropriate therapy, this does improve. I have also shared my recommendation of obtaining a second opinion at a tertiary center, either [facility] or [facility], to see a neuromuscular specialist and confirm our suspicion for the functional component to his examination. He verbalized understanding. He was slightly frustrated that nothing can be done immediately to fix his problem. I will have him follow up with Dr. Moiz Arceo in 6 to 8 weeks and have a referral for an EMG as an outpatient. I also ordered Lyme antibody as his last antibody screen was done in 2017. I encouraged the patient that if he has any new neurological symptoms to return to the ED for further evaluation. TIME SPENT: Time spent with the patient was 75 minutes, of which more than 50% was spent obtaining history, examining the patient, education and counseling, and discussing the treatment options as mentioned above. [id number]/[facility] #: [id number] [facility]
== END 2019-06-13 14:35 ==
LOC: ED 19:44 → MED 06-11 00:10
PROVIDERS: ADMIT Student in an Organized Health Care Education/Training Program; ATTEND Internal Medicine
DX: R53.1 Weakness (principal); I10 Essential (primary) hypertension; F32.9 Major depressive disorder, single episode, unspecified; I95.1 Orthostatic hypotension; Z86.73 Personal history of transient ischemic attack (TIA), and cerebral infarction without residual deficits; I25.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native coronary artery without angina pectoris; Z79.82 Long term (current) use of aspirin; Z79.899 Other long term (current) drug therapy; K21.9 Gastro-esophageal reflux disease without esophagitis; E78.5 Hyperlipidemia, unspecified; Z87.442 Personal history of urinary calculi; Z91.81 History of falling
CPT/HCPCS: 36415; 70450; 80053; 81003; 83735; 84443; 84484; 85025; 85610; 86140; 86618; 93005; 96372; 99285; A9270-GY; G0378; G8978-GP-CK; G8979-GP-CI; J1644

== ENCOUNTER 2019-08-03 12:44 | Inpatient (IN) | payer MEDICARE ==
--- OUTSIDE RECORDS SUMMARY | 2019-08-03 13:48 | XMS REPORT | Continuity of Care Document ---
:1945 External Reference #:[id number] Author Name Rivera Atkins DO, MPH Address [address] [place] [address], [address] [place] [address] Care Team Providers Name Role Phone Iliana Bruner M.D. - Internal Care Team Information Motion Picture Director Medicine Problems Description No Information Available Social History Type Date Description Comments Sex Unknown Tobacco Use Start: Unknown Never Smoked Cigarettes Smoking Status Reviewed: 07/12/19 Never Smoked Cigarettes ETOH Use Denies alcohol use Tobacco Use Start: Unknown Patient has never smoked Allergies, Adverse Reactions, Alerts Description No Known Drug Allergies Medications Active Medications SIG Qnty Indications Ordering Date Provider Oxycodone HCL si mouth 90tabs Rivera Atkins, 08/22/2018 15mg Tablets every 8 hours as , MPH directed Meclizine HCL 1 by mouth every Unknown 25mg Tablets day Atorvastatin Calcium daily Unknown 40mg Tablets Furosemide by mouth every Unknown 20mg Tablets other day as needed Sertraline HCL [...] every 4 to 6 hours DO, MPH 03/06/2019 Tablets as directed chronic pain patient Oxycodone HCL si-2 by mouth 180tabs Rivera Atkins, 03/06/2019 - 30mg every 4 to 6 hours DO, MPH 05/04/2019 Tablets as directed chronic pain patient Immunizations Description No Information Available Vital Signs Date Vital Result Comment 07/12/2019 3:34pm BP Systolic 128 mmHg BP Diastolic 82 mmHg Heart Rate 84 /min Respiratory Rate 20 /min Height 69 inches 5'9" Weight 168.00 lb Pain Level 7 Pain at this time. Pain Level With Medicine 6 on average with meds Pain Level Without Medicine 9 without meds BMI (Body Mass Index) 24.8 kg/m2 06/04/2019 2:15pm BP Systolic 118 mmHg BP Diastolic 66 mmHg Heart Rate 72 /min Respiratory Rate 20 /min Height 69 inches 5'9" Weight 170.00 lb Pain Level 7 Pain at this time. 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 Office Visit 05/08/2019 10:00a Main Office as Rivera Atkins 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 exterminator 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 Of 11/10/13 DO MPH (current) use of 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 Office Visit 05/04/2019 11:00a Main Office as Rivera Atkins G89.21 Chronic pain due Of 11/10/13 DO MPH to trauma M54.2 Cervicalgia M79.12 Myalgia of auxiliary muscles, head and neck Office Visit 03/06/2019 11:00a Main Office as AtkinsRivera carrasco, G89.21 Chronic pain due Of 11/10/13 DO, MPH to trauma M54.2 Cervicalgia 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 Z63.79 Other stressful life events affecting family and household Office Visit 02/19/2019 10:00a Main Office as AtkinsRivera carrasco G89.21 Chronic pain due Of 11/10/13 DO, MPH to trauma M54.2 Cervicalgia Z79.891 [facility] (current) use of 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 K59.03 Drug induced constipation Z63.79 Other stressful life events affecting family and household Office Visit 01/19/2019 10:00a Main Office as AtkinsRivera carrasco G89.21 Chronic pain due Of 11/10/13 DO, MPH to trauma M54.2 Cervicalgia K59.03 Drug induced constipation Z79.891 [facility] (current) use of 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 Assessments Date Code Description Provider 07/12/2019 G89.21 Chronic pain due to trauma Atkins, Rivera, DO, MPH 07/12/2019 M54.2 Cervicalgia Atkins, Rivera, DO, MPH 07/12/2019 Z79.891 [facility] (current) use of 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 Atkins, Rivera , DO, MPH 06/04/2019 G89.21 Chronic pain due to trauma Atkins, Rivera, DO, MPH 06/04/2019 M54.2 Cervicalgia Atkins, Rivera, DO, MPH 06/04/2019 M79.12 Myalgia of auxiliary muscles, head and neck Atkins, Rivera, DO, MPH 06/04/2019 Z79.891 [facility] (current) use of 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 Atkins, Rivera , DO, MPH 05/08/2019 Z79.891 [facility] (current) use of 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 Atkins, Rivera , DO, MPH 05/04/2019 G89.21 Chronic pain due to trauma Atkins, Rivera, DO, MPH 05/04/2019 M54.2 Cervicalgia Atkins, Rivera, DO, MPH 05/04/2019 M79.12 Myalgia of auxiliary muscles, head and neck Atkins, Rivera, DO, MPH 03/06/2019 G89.21 Chronic pain due to trauma AtkinsRivera carrasco DO, MPH 03/06/2019 M54.2 Cervicalgia AtkinsRivera carrasco DO, MPH 03/06/2019 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 AtkinsRivera carrasco DO, MPH 03/06/2019 Z63.79 Other stressful life events affecting family Atkins, Rivera , DO, MPH and household 02/19/2019 G89.21 Chronic pain due to trauma AtkinsRivera carrasco DO, MPH 02/19/2019 M54.2 Cervicalgia AtkinsRivera carrasco DO, MPH 02/19/2019 Z79.891 [facility] (current) use of 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 AtkinsRivera carrasco , DO, MPH 02/19/2019 K59.03 Drug induced constipation AtkinsRivera carrasco DO, MPH 02/19/2019 Z63.79 Other stressful life events affecting family AtkinsRivera carrasco DO, MPH and household 01/19/2019 G89.21 Chronic pain due to trauma AtkinsRivera carrasco DO, MPH 01/19/2019 M54.2 Cervicalgia AtkinsRivera carrasco DO, MPH 01/19/2019 K59.03 Drug induced constipation AtkinsRivera carrasco DO, MPH 01/19/2019 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 Symptoms and complaints discussed and reviewed today. No significant changes in physical findings. Continue current medical pain management.M54.2 CervicalgiaComments:Chronic. Symptoms and complaints discussed and reviewed today. No significant changes in physical findings. Continue current medical pain management.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New Labs:Urine Drug Screen, Ordered: 07/12/19Comments:Urine drug screen sample taken today to monitor [...] considered standard of care.AllComments:Continue current medical pain management; injection therapy, osteopathic manipulation, PT / modalities, [...] while maintaining satisfactory side effect profile andminimizing mcfp end-organ damage. Importance of regular nutrition throughout the day discussed.Activity as toleratedContinue with PCP Functional Status Description No Information Available Mental Status Description No Information Available Referrals Description No Information Available
--- OUTSIDE RECORDS SUMMARY | 2019-08-03 13:48 | XMS REPORT | Continuity of Care Document ---
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 Onset: spinal cord injury Cervical post-laminectomy syndrome Daniel Chirinos M.D. Onset: 01/01/2014 Cervical spondylosis with myelopathy Daniel Chirinos M.D. Onset: 01/01/2014 Mechanical complication of nervous system Daniel Chirinos M.D. Onset: 01/01 device, implant AND/OR graft Localized, primary osteoarthritis of the Christine Estela Moran Onset: 07/28/2016 pelvic region and thigh Social History Type Date Description Comments Sex Unknown ETOH Use consumes 1-2 glasses of wine per week Tobacco Use Start: Unknown Patient has never smoked Tobacco Use Start: Unknown Patient has never smoked Smoking Status Reviewed: 07/05/19 Patient has never smoked Exercise Type/Frequency Exercises sporadically Allergies, Adverse Reactions, Alerts Active Allergies Reaction Severity Comments Date Naloxegol A-FIB 12/20/2018 Inactive Allergies NKDA 01/03/2015 Medications Active Medications SIG Qnty Indications Ordering Date Provider Oxycodone HCL 1 to 2 by mouth 240tabs Daniel Solares 09/09/2014 30mg Tablets every 4 hours as Estela Chirinos needed severe pain Aspirin 1 PO qd 30tabs Ilir Duvall 08/21/[address] Gillian M.D. Mirtazapine 1 tab by mouth Unknown 15mg Tablets at bedtime Prazosn 1 mg one a day. Unknown Ferrous Sulfate 1 by mouth every Unknown 325(65Fe) day mg Tablets Furosemide 1 by mouth every Unknown 40mg Tablets day Losartan Potassium 1 by mouth every Unknown 50mg day Tablets Pantoprazole Sodium 1 by mouth every Unknown 40mg day Tablets Sertraline HCL one a day Iliana Bruner, 50mg Tablets Nitroglycerin 1 sl q5mins x3 Unknown 0.4mg Tablets as needed for Sub chest pain Vitamin D by mouth Unknown 1000Unit Tablets everyday Magnesium 1 by mouth every Unknown 400mg Tablets day Metoprolol Succinate ER 1 by mouth every Unknown day 100mg Tablets ER 24HR Ondansetron HCL one to two by Unknown 4mg Tablets mouth every 8 hours as needed for nausea Tamsulosin HCL 1 by mouth twice Unknown 0.4mg a day Capsules Flexeril as directed Unknown 5mg Cyclobenzaprine HCL one by mouth 90tabs Daniel Solares 10mg three times a Estela Chirinos Tablets day as needed spasm Atorvastatin Calcium take 1 tablet at 90tabs Unknown 20mg bedtime Tablets Medications Administered in Office Medication SIG Qnty Indications Ordering Provider Date Depomedrol 40MG Nathalie Rothman M.D. 07/05/2019 Injection Depomedrol 40MG Nathalie Rothman M.D. 07/05/2019 Injection Depomedrol 40MG MILADIS Haddad 12/20/2018 Injection Immunizations Description No Information Available Vital Signs Date Vital Result Comment 07/05/2019 2:08pm Height 69 inches 5'9" Weight 167.00 lb Heart Rate 73 /min BP Systolic 140 mmHg BP Diastolic 86 mmHg Body Temperature 97.7 F Pain Level 8 BMI (Body Mass Index) 24.7 kg/m2 03/02/2019 2:23pm Height 69.0 inches 5'9" Weight 174.00 lb Heart Rate 69 /min BP Systolic Sitting 155 mmHg BP Diastolic Sitting 81 mmHg O2 % BldC Oximetry 98 % BMI (Body Mass Index) 25.7 kg/m2 Results Description No Information Available Procedures Date Code Description Status 07/05/201913461 Inject Tendon Sheath Or Ligament Aponeurosis Eg Plantar Completed Fascia 07/05/201978367 Inject Tendon Sheath Or Ligament Aponeurosis Eg Plantar Completed Fascia 04/20/2019 43381 EEG Recording Awake & Drowsy Completed 04/17/2019 42365 Revision Or Removal Implant Neurostimulator Pulse Completed Generator/Recei 04/17/2019 52667 Removal Spinal Neurostimulator Electrode Plate/Paddle Via Completed Laminot 04/17/2019 72933 Removal Spinal Neurostimulator Electrode Plate/Paddle Via Completed Laminot 04/05/2019 72698 Treadmill Interp/Report Only Completed 04/05/2019 75108 Treadmill Interp/Report Only Completed 04/05/2019 15407 Stress Test Supervsn W/Out I/R Completed 04/05/2019 41089 Stress Test Supervsn W/Out I/R Completed 04/03/2019 67833 ECHO Transthorasic Realtime 2D W Doppler & Color Flow Hosp Completed Medical Devices Description No Information Available Encounters Type Date Location Provider Dx Diagnosis Office Visit 06/13/2019 [facility] Tonya Cuello NP R53.1 Weakness 10:32a Hospitalists I10 Essential (primary) hypertension F32.9 Major depressive disorder, single episode, unspecified I95.1 Orthostatic hypotension 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), and cereb infrc w/o resid deficits Office Visit 06/11/2019 10:31a [facility] Rachana Garcia, R53.1 Weakness Assoc,[place] [facility] M.Manoj I25.10 Athscl heart disease of [place] coronary artery w/o ang pctrs F32.9 Major depressive disorder, single episode, unspecified K21.9 Gastro-esophageal reflux disease without esophagitis E78.5 Hyperlipidemia, unspecified I10 Essential (primary) hypertension Z86.73 Prsnl hx of TIA (TIA), and cereb infrc w/o resid deficits Office Visit 04/25/2019 11:40a [facility] Jatin Hammonds, R53.1 Weakness Assoc,kandy Concepcion. Hospitalists R29.6 Repeated falls I95.1 Orthostatic hypotension I10 Essential (primary) hypertension E78.5 Hyperlipidemia, unspecified K21.9 Gastro-esophageal reflux disease without esophagitis F32.9 Major depressive disorder, single episode, unspecified Z86.73 Prsnl hx of TIA (TIA), and cereb infrc w/o resid deficits Office Visit 04/24/2019 11:40a [facility] Jatin Hammonds, R53.1 Weakness Assoc,kandy Concepcion. Hospitalists I25.10 Athscl heart disease of [place] coronary artery w/o ang pctrs I10 Essential (primary) hypertension E78.5 Hyperlipidemia, unspecified K21.9 Gastro-esophageal reflux disease without esophagitis F32.9 Major depressive disorder, single episode, unspecified Z86.73 Prsnl hx of TIA (TIA), and cereb infrc w/o resid deficits Office Visit 04/23/2019 11:40a [facility] I95.1 Orthostatic Assoc,kandy Ireland MD hypotension Hospitalists I48.91 Unspecified atrial fibrillation I25.10 Athscl heart disease of [place] coronary artery w/o ang pctrs F32.9 Major depressive disorder, single episode, unspecified E78.5 Hyperlipidemia, unspecified I10 Essential (primary) hypertension I25.5 Ischemic cardiomyopathy R53.1 Weakness R63.4 Abnormal weight loss Z86.73 Prsnl hx of TIA (TIA), and cereb infrc w/o resid deficits Office Visit 04/22/2019 11:39a [facility] Enrique Donaldson MD R53.1 Weakness Hospitalists I48.91 Unspecified atrial fibrillation I25.10 Athscl heart disease of [place] coronary artery w/o ang pctrs Z29.9 Encounter for prophylactic measures, unspecified F32.9 Major depressive disorder, single episode, unspecified K21.9 Gastro-esophageal reflux disease without esophagitis E78.5 Hyperlipidemia, unspecified I10 Essential (primary) hypertension I25.5 Ischemic cardiomyopathy Z86.73 Prsnl hx of TIA (TIA), and cereb infrc w/o resid deficits Office Visit 04/21/2019 11:39a [facility] Enrique Donaldson MD R53.1 Weakness Hospitalists I48.91 Unspecified atrial fibrillation I25.10 Athscl heart disease of [place] coronary artery w/o ang pctrs F32.9 Major depressive disorder, single episode, unspecified K21.9 Gastro-esophageal reflux disease without esophagitis E78.5 Hyperlipidemia, unspecified I10 Essential (primary) hypertension I25.5 Ischemic cardiomyopathy R63.4 Abnormal weight loss Z86.73 Prsnl hx of TIA (TIA), and cereb infrc w/o resid deficits Office Visit 04/20/2019 7:00a [facility], R53.1 Weakness N.P. R29.6 Repeated falls Office Visit 04/20/2019 11:38a [facility], Enrique Donaldson MD R53.1 Weakness Hospitalists I48.91 Unspecified atrial fibrillation I25.10 Athscl heart disease of [place] coronary artery w/o ang pctrs F32.9 Major depressive disorder, single episode, unspecified K21.9 Gastro-esophageal reflux disease without esophagitis E78.5 Hyperlipidemia, unspecified I10 Essential (primary) hypertension I25.5 Ischemic cardiomyopathy R63.4 Abnormal weight loss Z86.73 Prsnl hx of TIA (TIA), and cereb infrc w/o resid deficits Office Visit 04/19/2019 7:00a [facility], R53.1 Weakness N.P. R26.89 Other abnormalities of gait and mobility Office Visit 04/19/2019 11:38a [facility], Enrique Donaldson MD R53.1 Weakness Hospitalists I48.91 Unspecified atrial fibrillation I25.10 Athscl heart disease of [place] coronary artery w/o ang pctrs F32.9 Major depressive disorder, single episode, unspecified K21.9 Gastro-esophageal reflux disease without esophagitis E78.5 Hyperlipidemia, unspecified I10 Essential (primary) hypertension I25.5 Ischemic cardiomyopathy R63.4 Abnormal weight loss Z86.73 Prsnl hx of TIA (TIA), and cereb infrc w/o resid deficits Office Visit 04/18/2019 11:38a [facility] Tonya Cuello NP R53.1 Weakness Assoc, Hospitalists R63.4 Abnormal weight loss F32.9 Major depressive disorder, single episode, unspecified I25.5 Ischemic cardiomyopathy I25.10 Athscl heart disease of [place] coronary artery w/o ang pctrs I48.91 Unspecified atrial fibrillation I10 Essential (primary) hypertension Office Visit 04/17/2019 11:37a [facility] Tonya Cuate, MESH WORKER R53.1 Weakness Assoc, Hospitalists R63.4 Abnormal weight loss F32.9 Major depressive disorder, single episode, unspecified I25.5 Ischemic cardiomyopathy I25.10 Athscl heart disease of [place] coronary artery w/o ang pctrs I48.91 Unspecified atrial fibrillation I10 Essential (primary) hypertension Office Visit 04/16/2019 11:37a [facility] Tonya Cuate, MESH WORKER R53.1 Weakness Assoc, Hospitalists R63.4 Abnormal weight loss F32.9 Major depressive disorder, single episode, unspecified I25.5 Ischemic cardiomyopathy I25.10 Athscl heart disease of [place] coronary artery w/o ang pctrs I48.91 Unspecified atrial fibrillation I10 Essential (primary) hypertension Office Visit 04/15/2019 11:37a [facility] Tonya Cuate, MESH WORKER R53.1 Weakness Assoc, Hospitalists R63.4 Abnormal weight loss F32.9 Major depressive disorder, single episode, unspecified I25.5 Ischemic cardiomyopathy I25.10 Athscl heart disease of [place] coronary artery w/o ang pctrs I48.91 Unspecified atrial fibrillation I10 Essential (primary) hypertension Office Visit 04/14/2019 11:36a [facility] Tonya Cuate, MESH WORKER R53.1 Weakness Assoc, Hospitalists R63.4 Abnormal weight loss F32.9 Major depressive disorder, single episode, unspecified I25.5 Ischemic cardiomyopathy I25.10 Athscl heart disease of [place] coronary artery w/o ang pctrs I48.91 Unspecified atrial fibrillation I10 Essential (primary) hypertension Office Visit 04/13/2019 11:36a [facility] Tonya Cuate, MESH WORKER R53.1 Weakness Assoc, Hospitalists R63.4 Abnormal weight loss F32.9 Major depressive disorder, single episode, unspecified I25.5 Ischemic cardiomyopathy I25.10 Athscl heart disease of [place] coronary artery w/o ang pctrs I48.91 Unspecified atrial fibrillation I10 Essential (primary) hypertension Office Visit 04/12/2019 11:35a [facility] Tonya Cuate, MESH WORKER R53.1 Weakness Assoc, Hospitalists R63.4 Abnormal weight loss F32.9 Major depressive disorder, single episode, unspecified I25.5 Ischemic cardiomyopathy I25.10 Athscl heart disease of [place] coronary artery w/o ang pctrs I48.91 Unspecified atrial fibrillation I10 Essential (primary) hypertension Office Visit 04/11/2019 11:35a [facility] Di Blas'marcie, R53.1 Weakness Assoc, Hospitalists PA-C F32.9 Major depressive disorder, single episode, unspecified R63.4 Abnormal weight loss I25.10 Athscl heart disease of [place] coronary artery w/o ang pctrs I50.9 Heart failure, unspecified I10 Essential (primary) hypertension Office Visit 04/10/2019 11:35a [facility] Dilakia Stewart, R53.1 Weakness Assoc, Hospitalists PA-C F32.9 Major depressive disorder, single episode, unspecified R63.4 Abnormal weight loss I25.10 Athscl heart disease of [place] coronary artery w/o ang pctrs I50.9 Heart failure, unspecified I10 Essential (primary) hypertension Office Visit 04/09/2019 11:34a [facility] Dikeegan Stewart, R53.1 Weakness Assoc, Hospitalists PA-C F32.9 Major depressive disorder, single episode, unspecified R63.4 Abnormal weight loss I25.10 Athscl heart disease of [place] coronary artery w/o ang pctrs I50.9 Heart failure, unspecified I10 Essential (primary) hypertension Office Visit 04/08/2019 12:03p [facility] Qutaybeh S. I25.10 [facility] Estela Vallejo disease of [place] coronary artery w/o ang pctrs Z95.818 Presence of other cardiac implants and grafts R53.1 Weakness Office Visit 04/08/2019 11:34a [facility] Di Blas'marcie, R53.1 Weakness Assoc, Hospitalists PA-C F32.9 Major depressive disorder, single episode, unspecified N17.9 Acute kidney failure, unspecified R63.4 Abnormal weight loss I25.10 Athscl heart disease of [place] coronary artery w/o ang pctrs I50.9 Heart failure, unspecified I10 Essential (primary) hypertension Office Visit 04/07/2019 11:59a [facility] Michael Taylor I25.10 Athscl heart Estela Vallejo disease of [place] coronary artery w/o ang pctrs Z95.818 Presence of other cardiac implants and grafts Office Visit 04/07/2019 11:33a [facility] Chica Thornton MD R53.1 Weakness Assoc, Hospitalists F32.9 Major depressive disorder, single episode, unspecified I50.9 Heart failure, unspecified I25.10 Athscl heart disease of [place] coronary artery w/o ang pctrs I10 Essential (primary) hypertension [facility] for 3:30p Cardiology Thuman, MESH WORKER preprocedural cardiovascular examination Z97.8 Presence of other specified devices I25.10 Athscl heart disease of [place] coronary artery w/o ang pctrs Z98.61 Coronary angioplasty status R29.6 Repeated falls Office Visit 04/06/2019 11:33a [facility] Chica Thornton MD R53.1 Weakness Assoc, Hospitalists F32.9 Major depressive disorder, single episode, unspecified I50.9 Heart failure, unspecified I25.10 Athscl heart disease of [place] coronary artery w/o ang pctrs I10 Essential (primary) hypertension Office Visit 04/06/2019 [facility] Tyler R26.89 Other 7:00a Clinic MD Farhad abnormalities of gait and mobility M62.81 Muscle weakness (generalized) Office Visit 04/05/2019 11:33a [facility] Chica Thornton MD R53.1 Weakness Assoc, Hospitalists F32.9 Major depressive disorder, single episode, unspecified I50.9 Heart failure, unspecified I25.10 Athscl heart disease of [place] coronary artery w/o ang pctrs I10 Essential (primary) hypertension Office Visit 04/04/2019 7:00a Neurosurgery Mallika Stanley, R29.6 Repeated falls Services Of [facility] T85.192A [facility] compl of implnt elec nstim of spinal cord lead, init Office Visit 04/04/2019 11:32a [facility] Chica Thornton MD R53.1 Weakness Assoc, Hospitalists F32.9 Major depressive disorder, single episode, unspecified I50.9 Heart failure, unspecified I25.10 Athscl heart disease of [place] coronary artery w/o ang pctrs I10 Essential (primary) hypertension Office Visit 04/04/2019 2:57p [facility] Geno See, R29.6 Repeated falls Of No Palmer I48.0 Paroxysmal atrial fibrillation I25.10 Athscl heart disease of [place] coronary artery w/o ang pctrs I50.9 Heart failure, unspecified Z95.818 Presence of other cardiac implants and grafts Z98.61 Coronary angioplasty status Office Visit 04/03/2019 11:32a [facility] Chica Thornton MD R53.1 Weakness Assoc, Hospitalists F32.9 Major depressive disorder, single episode, unspecified I25.10 Athscl heart disease of [place] coronary artery w/o ang pctrs I10 Essential (primary) hypertension Office Visit 04/03/2019 [facility] Tyler R26.89 Other 7:00a Clinic MD Farhad abnormalities of gait and mobility M62.81 Muscle weakness (generalized) M40.202 Unspecified kyphosis, cervical region Office Visit 04/02/2019 11:32a [facility] Tali Paz, R53.1 Weakness Assoc, Hospitalists M.Manoj I25.10 Athscl heart disease of [place] coronary artery w/o ang pctrs I10 Essential (primary) hypertension E78.5 Hyperlipidemia, unspecified F32.9 Major depressive disorder, single episode, unspecified Office Visit 04/02/2019 7:00a Neurosurgery Vassilios R29.6 Repeated falls Services Of No Johnson MD M40.203 Unspecified kyphosis, cervicothoracic region 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 Hospitalists I25.10 Athscl heart disease of [place] coronary artery w/o ang pctrs I10 Essential (primary) hypertension E78.5 Hyperlipidemia, unspecified K21.9 Gastro-esophageal reflux disease without esophagitis F32.9 Major depressive disorder, single episode, unspecified Z86.73 Prsnl hx of TIA (TIA), and cereb infrc w/o resid deficits Office Visit 04/01/2019 [facility]ist Colton Teresa, R29.6 Repeated falls 7:00a Clinic M40.202 Unspecified kyphosis, cervical region Office Visit 03/31/2019 11:[facility]a [facility] R53.1 Weakness Assoc,kandy MRosalia. Hospitalists I25.10 Athscl heart disease of [place] coronary artery w/o ang pctrs I10 Essential (primary) hypertension E78.5 Hyperlipidemia, unspecified K21.9 Gastro-esophageal reflux disease without esophagitis F32.9 Major depressive disorder, single episode, unspecified Z86.73 Prsnl hx of TIA (TIA), and cereb infrc w/o resid deficits Office Visit 03/30/2019 11:30a [facility] Lucy R29.6 Repeated falls Assoc,kandy Chavez D.O. Hospitalists I25.10 Athscl heart disease of [place] coronary artery w/o ang pctrs I10 Essential (primary) hypertension E78.5 Hyperlipidemia, unspecified I48.91 Unspecified atrial fibrillation F33.9 Major depressive disorder, recurrent, unspecified F41.9 Anxiety disorder, unspecified N40.0 Benign prostatic hyperplasia without lower urinry tract symp G89.29 Other chronic pain D64.9 Anemia, unspecified Office Visit 03/02/2019 2:00p [facility] Nephrology Kelly N18.3 Chronic kidney MD Robert disease, stage 3 (moderate) I12.9 Hypertensive chronic kidney disease w stg 1-4/unsp chr kdny D50.9 Iron deficiency anemia, unspecified Assessments Date Code Description Provider 07/05/2019 M65.341 Trigger finger, right ring finger Nathalie Rothman M.D. 07/05/2019 M65.331 Trigger finger, right middle finger Nathalie Rothman M.D. 06/13/2019 R53.1 Weakness Tonya Cuate, MESH WORKER 06/13/2019 I10 Essential (primary) hypertension Tonya Cuate, MESH WORKER 06/13/2019 F32.9 Major depressive disorder, single Tonya Cuate, MESH WORKER episode, unspecified 06/13/2019 I95.1 Orthostatic hypotension Tonya Cuate, MESH WORKER 06/13/2019 I25.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Tonya Cuate, MESH WORKER [place] coronary artery with 06/13/2019 Z86.73 Personal history of transient Tonya Cuate, MESH WORKER ischemic attack (TIA), and cerebral infarction without residual deficits 06/12/2019 R53.1 Weakness Tonya Cuate, MESH WORKER 06/12/2019 I10 Essential (primary) hypertension Tonya Cuate, MESH WORKER 06/12/2019 F32.9 Major depressive disorder, single Tonya Cuate, MESH WORKER episode, unspecified 06/12/2019 I95.1 Orthostatic hypotension Tonya Cuate, MESH WORKER 06/12/2019 I25.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Tonya Cuate, MESH WORKER [place] coronary artery with 06/12/2019 Z86.73 Personal history of transient Tonya Cuate, MESH WORKER ischemic attack (TIA), and cerebral infarction without residual deficits 06/11/2019 R53.1 Weakness Rachana Garcia M.D. 06/11/2019 I25.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Rachana Garcia M.D. [place] coronary artery with 06/11/2019 F32.9 Major depressive disorder, single Rachana Garcia M.D. episode, unspecified 06/11/2019 K21.9 Gastro-esophageal reflux disease Rachana Garcia M.D. without esophagitis 06/11/2019 E78.5 Hyperlipidemia, unspecified Rachana Garcia M.D. 06/11/2019 I10 Essential (primary) hypertension Rachana Garcia M.D. 06/11/2019 Z86.73 Personal history of transient Rachanacrista Garcia M.D. ischemic attack (TIA), and cerebral infarction without residual deficits 04/25/2019 R53.1 Weakness Jatin Hammonds M.D. 04/25/2019 R29.6 Repeated falls Jatin Hammonds M.D. 04/25/2019 I95.1 Orthostatic hypotension Jatin Hammonds M.D. 04/25/2019 I10 Essential (primary) hypertension Jatin Hammonds M.D. 04/25/2019 E78.5 Hyperlipidemia, unspecified Jatin Hammonds M.D. 04/25/2019 K21.9 Gastro-esophageal reflux disease Jatin Hammonds M.D. without esophagitis 04/25/2019 F32.9 Major depressive disorder, single Jatin Hammonds M.D. episode, unspecified 04/25/2019 Z86.73 Prsnl hx of TIA (TIA), and cereb Jatin Hammonds M.D. infrc w/o resid deficits 04/24/2019 R53.1 Weakness Jatin Hammonds M.D. 04/24/2019 I25.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Jatin Hammonds M.D. [place] coronary artery with 04/24/2019 I10 Essential (primary) hypertension Jatin Hammonds M.D. 04/24/2019 E78.5 Hyperlipidemia, unspecified Jatin Hammonds M.D. 04/24/2019 K21.9 Gastro-esophageal reflux disease Jatin Hammonds M.D. without esophagitis 04/24/2019 F32.9 Major depressive disorder, single Jatin Hammonds M.D. episode, unspecified 04/24/2019 Z86.73 Prsnl hx of TIA (TIA), and cereb Jatin Hammonds M.D. infrc w/o resid deficits 04/23/2019 I95.1 Orthostatic hypotension Yaquelin Ireland MD 04/23/2019 I48.91 Unspecified atrial fibrillation Yaquelin Ireland MD 04/23/2019 I25.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Yaquelin Ireland MD [place] coronary artery with 04/23/2019 F32.9 Major depressive disorder, single Yaquelin Ireland MD episode, unspecified 04/23/2019 E78.5 Hyperlipidemia, unspecified Yaquelin Ireland MD 04/23/2019 I10 Essential (primary) hypertension Yaquelin Ireland MD 04/23/2019 I25.5 Ischemic cardiomyopathy Yaquelin Ireland MD 04/23/2019 R53.1 Weakness Yaquelin Ireland MD 04/23/2019 R63.4 Abnormal weight loss Yaquelin Ireland MD 04/23/2019 Z86.73 Prsnl hx of TIA (TIA), and cereb Yaquelin Ireland MD infrc w/o resid deficits 04/22/2019 R53.1 Weakness Enrique Donaldson MD 04/22/2019 I48.91 Unspecified atrial fibrillation Enrique Donaldson MD 04/22/2019 I25.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Enrique Donaldson MD [place] coronary artery with 04/22/2019 Z29.9 Encounter for prophylactic measures, Enrique Donaldson MD unspecified 04/22/2019 F32.9 Major depressive disorder, single Enrique Donaldson MD episode, unspecified 04/22/2019 K21.9 Gastro-esophageal reflux disease Enrique Donaldson MD without esophagitis 04/22/2019 E78.5 Hyperlipidemia, unspecified Enrique Donaldson MD 04/22/2019 I10 Essential (primary) hypertension Enrique Donaldson MD 04/22/2019 I25.5 Ischemic cardiomyopathy Enrique Donaldson MD 04/22/2019 Z86.73 Prsnl hx of TIA (TIA), and cereb Enrique Donaldson MD infrc w/o resid deficits 04/21/2019 R53.1 Weakness Enrique Donaldson MD 04/21/2019 I48.91 Unspecified atrial fibrillation Enrique Donaldson MD 04/21/2019 I25.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Enrique Donaldson MD [place] coronary artery with 04/21/2019 F32.9 Major depressive disorder, single Enrique Donaldson MD episode, unspecified 04/21/2019 K21.9 Gastro-esophageal reflux disease Enrique Donaldson MD without esophagitis 04/21/2019 E78.5 Hyperlipidemia, unspecified Enrique Donaldson MD 04/21/2019 I10 Essential (primary) hypertension Enrique Donaldson MD 04/21/2019 I25.5 Ischemic cardiomyopathy Enrique Donaldson MD 04/21/2019 R63.4 Abnormal weight loss Enrique Donaldson MD 04/21/2019 Z86.73 Prsnl hx of TIA (TIA), and cereb Enrique Donaldson MD infrc w/o resid deficits 04/20/2019 T85.192D Other mechanical complication of RADHA Swanson implanted electronic neurostimulator of spinal cord electrode (lead), subsequent encounter 04/20/2019 R29.6 Repeated falls Ryan Baum M.D. 04/20/2019 R53.1 Weakness Mike Lee, N.P. 04/20/2019 R53.1 Weakness Ryan Baum M.D. 04/20/2019 R29.6 Repeated falls Mike Lee, N.P. 04/20/2019 R53.1 Weakness Enrique Donaldson MD 04/20/2019 I48.91 Unspecified atrial fibrillation Enrique Donaldson MD 04/20/2019 I25.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Enrique Donaldson MD [place] coronary artery with 04/20/2019 F32.9 Major depressive disorder, single Enrique Donaldson MD episode, unspecified 04/20/2019 K21.9 Gastro-esophageal reflux disease Enrique Donaldson MD without esophagitis 04/20/2019 E78.5 Hyperlipidemia, unspecified Enrique Donaldson MD 04/20/2019 I10 Essential (primary) hypertension Enrique Donaldson MD 04/20/2019 I25.5 Ischemic cardiomyopathy Enrique Donaldson MD 04/20/2019 R63.4 Abnormal weight loss Enriuqe Donaldson MD 04/20/2019 Z86.73 Prsnl hx of TIA (TIA), and cereb Enrique Donaldson MD infrc w/o resid deficits 04/19/2019 T85.192D Other mechanical complication of RADHA Swanson implanted electronic neurostimulator of spinal cord electrode (lead), subsequent encounter 04/19/2019 R53.1 Weakness Mike Lee, N.P. 04/19/2019 R26.89 Other abnormalities of gait and Mike Lee, N.P. mobility 04/19/2019 R53.1 Weakness Enrique Donaldson MD 04/19/2019 I48.91 Unspecified atrial fibrillation Enrique Donaldson MD 04/19/2019 I25.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Enrique Donaldson MD [place] coronary artery with 04/19/2019 F32.9 Major depressive disorder, single Enrique Donaldson MD episode, unspecified 04/19/2019 K21.9 Gastro-esophageal reflux disease Enrique Donaldson MD without esophagitis 04/19/2019 E78.5 Hyperlipidemia, unspecified Enrique Donaldson MD 04/19/2019 I10 Essential (primary) hypertension Enrique Donaldson MD 04/19/2019 I25.5 Ischemic cardiomyopathy Enrique Donaldson MD 04/19/2019 R63.4 Abnormal weight loss Enrique Donaldson MD 04/19/2019 Z86.73 Prsnl hx of TIA (TIA), and cereb Enrique Donaldson MD infrc w/o resid deficits 04/18/2019 T85.192D Other mechanical complication of RADHA Swanson implanted electronic neurostimulator of spinal cord electrode (lead), subsequent encounter 04/18/2019 R53.1 Weakness Tonya Cuate, [employer] 04/18/2019 R63.4 Abnormal weight loss Tonya Cuate, [employer] 04/18/2019 F32.9 Major depressive disorder, single Tonya Cuate, [employer] WORK[employer] episode, unspecified 04/18/2019 I25.5 Ischemic cardiomyopathy Tonya Cuate, [employer] 04/18/2019 I25.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Tonya Cuate, [employer] WORK[employer] [place] coronary artery with 04/18/2019 I48.91 Unspecified atrial fibrillation Tonya Cuate, [employer] 04/18/2019 I10 Essential (primary) hypertension Tonya Cuate, [employer] WORK[employer] 04/17/2019 T85.192A Other mechanical complication of RADHA Swanson implanted electronic neurostimulator of spinal cord electrode (lead), initial encounter 04/17/2019 T85.192A Other mechanical complication of Sam Johnson MD implanted electronic neurostimulator of spinal cord electrode (lead), initial encounter 04/17/2019 T85.192A Other mechanical complication of Sam Johnson MD implanted electronic neurostimulator of spinal cord electrode (lead), initial encounter 04/17/2019 R29.6 Repeated falls Sam Johnson MD 04/17/2019 R53.1 Weakness Tonya Cuate, [employer] WORK[employer] 04/17/2019 R63.4 Abnormal weight loss Tonya Cuate, [employer] WORK[employer] 04/17/2019 F32.9 Major depressive disorder, single Tonya Cuate, [employer] WORK[employer] episode, unspecified 04/17/2019 I25.5 Ischemic cardiomyopathy Tonya Cuate, [employer] WORK[employer] 04/17/2019 I25.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Tonya Cuate, [employer] WORK[employer] [place] coronary artery with 04/17/2019 I48.91 Unspecified atrial fibrillation Tonya Cuate, [employer] 04/17/2019 I10 Essential (primary) hypertension Tonya Cuate, [employer] WORK[employer] 04/16/2019 R53.1 Weakness Tonya Cuate, M[employer] WORK[employer] 04/16/2019 R63.4 Abnormal weight loss Tonya Cuate, [employer] WORK[employer] 04/16/2019 F32.9 Major depressive disorder, single Tonya Cuate, [employer] WORK[employer] episode, unspecified 04/16/2019 I25.5 Ischemic cardiomyopathy Tonya Cuate, M[employer] WORK[employer] 04/16/2019 I25.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Tonya Cuate, [employer] WORK[employer] [place] coronary artery with 04/16/2019 I48.91 Unspecified atrial fibrillation Tonya Cuate, M[employer] WORK[employer] 04/16/2019 I10 Essential (primary) hypertension Tonya Cuate, M[employer] WORK[employer] 04/15/2019 R53.1 Weakness Tonya Cuate, M[employer] WORKER 04/15/2019 R63.4 Abnormal weight loss Tonya Cuate, M[employer] WORK[employer] 04/15/2019 F32.9 Major depressive disorder, single Tonya Cuate, M[employer] WORK[employer] episode, unspecified 04/15/2019 I25.5 Ischemic cardiomyopathy Tonya Cuate, M[employer] WORK[employer] 04/15/2019 I25.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Tonya Cuate, M[employer] WORK[employer] [place] coronary artery with 04/15/2019 I48.91 Unspecified atrial fibrillation Tonya Cuate, M[employer] WORK[employer] 04/15/2019 I10 Essential (primary) hypertension Tonya Cuate, M[employer] WORK[employer] 04/14/2019 R53.1 Weakness Tonya Cuate, M[employer] WORK[employer] 04/14/2019 R63.4 Abnormal weight loss Tonya Cuate, M[employer] WORK[employer] 04/14/2019 F32.9 Major depressive disorder, single Tonya Cuate, M[employer] WORK[employer] episode, unspecified 04/14/2019 I25.5 Ischemic cardiomyopathy Tonya Cuate, M[employer] WORK[employer] 04/14/2019 I25.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Tonya Cuate, [employer] WORK[employer] [place] coronary artery with 04/14/2019 I48.91 Unspecified atrial fibrillation Tonya Cuate, M[employer] WORK[employer] 04/14/2019 I10 Essential (primary) hypertension Tonya Cuate, M[employer] WORK[employer] 04/13/2019 R53.1 Weakness Tonya Cuate, M[employer] WORKER 04/13/2019 R63.4 Abnormal weight loss Tonya Cuate, M[employer] WORK[employer] 04/13/2019 F32.9 Major depressive disorder, single Tonya Cuate, M[employer] WORK[employer] episode, unspecified 04/13/2019 I25.5 Ischemic cardiomyopathy Tonya Cuate, M[employer] WORK[employer] 04/13/2019 I25.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Tonya Cuate, [employer] WORK[employer] [place] coronary artery with 04/13/2019 I48.91 Unspecified atrial fibrillation Tonya Cuate, M[employer] WORK[employer] 04/13/2019 I10 Essential (primary) hypertension Tonya Cuate, M[employer] WORK[employer] 04/12/2019 R53.1 Weakness Tonya Cuate, M[employer] WORK[employer] 04/12/2019 R63.4 Abnormal weight loss Tonya Cuate, M[employer] WORK[employer] 04/12/2019 F32.9 Major depressive disorder, single Tonya Cuate, M[employer] WORK[employer] episode, unspecified 04/12/2019 I25.5 Ischemic cardiomyopathy Tonya Cuate, M[employer] WORK[employer] 04/12/2019 I25.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Tonya Cuate, [employer] WORK[employer] [place] coronary artery with 04/12/2019 I48.91 Unspecified atrial fibrillation Tonya Cuate, M[employer] WORK[employer] 04/12/2019 I10 Essential (primary) hypertension Tonya Cuate, M[employer] WORK[employer] 04/11/2019 R53.1 Weakness Di Stewart PA-C 04/11/2019 F32.9 Major depressive disorder, single Di Stewatr PA-C episode, unspecified 04/11/2019 R63.4 Abnormal weight loss Di Stewart PA-C 04/11/2019 I25.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Di O'marcie, PA-C [place] coronary artery with 04/11/2019 I50.9 Heart failure, unspecified Di O'marcie, PA-C 04/11/2019 I10 Essential (primary) hypertension Di O'marcie, PA-C 04/10/2019 R53.1 Weakness Di O'marcie, PA-C 04/10/2019 F32.9 Major depressive disorder, single Di O'marcie, PA-C episode, unspecified 04/10/2019 R63.4 Abnormal weight loss Di O'marcie, PA-C 04/10/2019 I25.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Di O'marcie, PA-C [place] coronary artery with 04/10/2019 I50.9 Heart failure, unspecified Di O'marcie, PA-C 04/10/2019 I10 Essential (primary) hypertension Di O'marcie, PA-C 04/09/2019 R53.1 Weakness Di O'marcie, PA-C 04/09/2019 F32.9 Major depressive disorder, single Di O'marcie, PA-C episode, unspecified 04/09/2019 R63.4 Abnormal weight loss Di O'marcie, PA-C 04/09/2019 I25.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Di O'marcie, PA-C [place] coronary artery with 04/09/2019 I50.9 Heart failure, unspecified Di O'marcie, PA-C 04/09/2019 I10 Essential (primary) hypertension Di O'marcie, PA-C 04/08/2019 I25.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Michael Vallejo M.D. [place] coronary artery with 04/08/2019 R53.1 Weakness Di O'marcie, PA-C 04/08/2019 Z95.818 Presence of other cardiac implants Michael Vallejo M.D. and grafts 04/08/2019 F32.9 Major depressive disorder, single Di O'marcie, PA-C episode, unspecified 04/08/2019 R53.1 Weakness Michael Vallejo M.D. 04/08/2019 N17.9 Acute kidney failure, unspecified Di Stewart PA-C 04/08/2019 R63.4 Abnormal weight loss Di Stewart PA-C 04/08/2019 I25.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Di Stewart PA-C [place] coronary artery with 04/08/2019 I50.9 Heart failure, unspecified Di Stewart PA-C 04/08/2019 I10 Essential (primary) hypertension Di Stewart PA-C 04/07/2019 I25.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Michael Vallejo M.D. [place] coronary artery with 04/07/2019 R53.1 Weakness Chica Thornton MD 04/07/2019 Z95.818 Presence of other cardiac implants Michael Vallejo M.D. and grafts 04/07/2019 F32.9 Major depressive disorder, single Chica Thornton MD episode, unspecified 04/07/2019 I50.9 Heart failure, unspecified Chica Thornton MD 04/07/2019 I25.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Chica Thornton MD [place] coronary artery with 04/07/2019 I10 Essential (primary) hypertension Chica Thornton MD 04/06/2019 R26.89 Other abnormalities of gait and Tyler Llamas MD mobility 04/06/2019 R53.1 Weakness Chica Thornton MD 04/06/2019 M62.81 Muscle weakness (generalized) Tyler Llamas MD 04/06/2019 Z01.810 Encounter for preprocedural Dyan Quevedo NP cardiovascular examination 04/06/2019 F32.9 Major depressive disorder, single Chica Thornton MD episode, unspecified 04/06/2019 Z97.8 Presence of other specified devices Dyan Quevedo NP 04/06/2019 I50.9 Heart failure, unspecified Chica Thornton MD 04/06/2019 I25.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Dyan Quevedo NP [place] coronary artery with 04/06/2019 I25.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Chica Thornton MD [place] coronary artery with 04/06/2019 Z98.61 Coronary angioplasty status Dyan Mcallisterwilli, [employer] 04/06/2019 I10 Essential (primary) hypertension Chica Thornton MD 04/06/2019 R29.6 Repeated falls Dyan Quevedo, M[employer] WORK[employer] 04/05/2019 T85.192A Other mechanical complication of Sam Johnson MD implanted electronic neurostimulator of spinal cord electrode (lead), initial encounter 04/05/2019 R29.6 Repeated falls Sam Johnson MD 04/05/2019 I48.91 Unspecified atrial fibrillation Jelena Marshall MD, [facility] 04/05/2019 R53.1 Weakness Chiac Thornton MD 04/05/2019 F32.9 Major depressive disorder, single Chica Thornton MD episode, unspecified 04/05/2019 I50.9 Heart failure, unspecified Chica Thornton MD 04/05/2019 I25.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Chica Thornton MD [place] coronary artery with 04/05/2019 I10 Essential (primary) hypertension Chica Thornton MD 04/04/2019 R29.6 Repeated falls RADHA Swanson 04/04/2019 T85.192A Other mechanical complication of RADHA Swanson implanted electronic neurostimulator of spinal cord electrode (lead), initial encounter 04/04/2019 R53.1 Weakness Chica Thornton MD 04/04/2019 R29.6 Repeated falls Geno See M.D. 04/04/2019 F32.9 Major depressive disorder, single Chica Thornton MD episode, unspecified 04/04/2019 I48.0 Paroxysmal atrial fibrillation Geno See M.D. 04/04/2019 I50.9 Heart failure, unspecified Chica Thornton MD 04/04/2019 I25.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Geno See M.D. [place] coronary artery with 04/04/2019 I25.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Chica Thornton MD [place] coronary artery with 04/04/2019 I50.9 Heart failure, unspecified Geno See M.D. 04/04/2019 I10 Essential (primary) hypertension Chica Thornton MD 04/04/2019 Z95.818 Presence of other cardiac implants Geno See M.D. and grafts 04/04/2019 Z98.61 Coronary angioplasty status Geno See M.D. 04/03/2019 R26.89 Other abnormalities of gait and Tyler Llamas MD mobility 04/03/2019 R53.1 Weakness Chica Thornton MD 04/03/2019 M62.81 Muscle weakness (generalized) Tyler Llamas MD 04/03/2019 I25.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Jeremiah Fernandez M.D. [place] coronary artery with 04/03/2019 M40.202 Unspecified kyphosis, cervical Tyler Llamas MD region 04/03/2019 F32.9 Major depressive disorder, single Chica Thornton MD episode, unspecified 04/03/2019 I25.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Chica Thornton MD [place] coronary artery with 04/03/2019 I10 Essential (primary) hypertension Chica Thornton MD 04/02/2019 R29.6 Repeated falls Sam Johnson MD 04/02/2019 M40.203 Unspecified Sam padilla MD cervicothoracic region 04/02/2019 R53.1 Weakness Tali Paz M.D. 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 [place] coronary artery with 04/02/2019 I10 Essential (primary) hypertension Tali Paz M.D. 04/02/2019 E78.5 Hyperlipidemia, unspecified Tali Paz M.D. 04/02/2019 F32.9 Major depressive disorder, single Tali Paz M.D. 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 04/01/2019 M40.202 Unspecified kyphosis, cervical Colton Teresa MD region 04/01/2019 I25.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Jatin Hammonds M.D. [place] coronary artery with 04/01/2019 I10 Essential (primary) hypertension Jatin Hammonds M.D. 04/01/2019 E78.5 Hyperlipidemia, unspecified Jatin Hammonds M.D. 04/01/2019 K21.9 Gastro-esophageal reflux disease Jatin Hammonds M.D. without esophagitis 04/01/2019 F32.9 Major depressive disorder, single Jatin Hammonds M.D. episode, unspecified 04/01/2019 Z86.73 Prsnl hx of TIA (TIA), and cereb Jatin Hammonds M.D. infrc w/o resid deficits 03/31/2019 R53.1 Weakness Jatin Hammonds M.D. 03/31/2019 I25.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Jatin Hammonds M.D. [place] coronary artery with 03/31/2019 I10 Essential (primary) hypertension Jatin Hammonds M.D. 03/31/2019 E78.5 Hyperlipidemia, unspecified Jatin Hammonds M.D. 03/31/2019 K21.9 Gastro-esophageal reflux disease Jatin Hammonds M.D. without esophagitis 03/31/2019 F32.9 Major depressive disorder, single Jatin Hammonds M.D. episode, unspecified 03/31/2019 Z86.73 Prsnl hx of TIA (TIA), and cereb Jatin Hammonds M.D. infrc w/o resid deficits 03/30/2019 R29.6 Repeated falls Manoj ZaragozaO. 03/30/2019 I25.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Joaquim Zaragoza.O. [place] coronary artery with 03/30/2019 I10 Essential (primary) hypertension Lucy Chavez D.O. 03/30/2019 E78.5 Hyperlipidemia, unspecified Lucy Pleitezr, D.O. 03/30/2019 I48.91 Unspecified atrial fibrillation Lucy Chavez D.O. 03/30/2019 F33.9 Major depressive disorder, Lucy Chavez D.O. recurrent, unspecified 03/30/2019 F41.9 Anxiety disorder, unspecified Lucy Scott, D.O. 03/30/2019 N40.0 Benign prostatic hyperplasia without Lucy Chavez D.O. lower urinry tract symp 03/30/2019 G89.29 Other chronic pain Lucy Chavez D.O. 03/30/2019 D64.9 Anemia, unspecified Lucy Chavez D.O. 03/02/2019 N18.3 Chronic kidney disease, stage 3 Kelly Jones MD (moderate) 03/02/2019 I12.9 Hypertensive chronic kidney disease Kelly Jones MD with stage 1 through sta 03/02/2019 D50.9 Iron deficiency anemia, unspecified Kelly Jones MD Plan of Treatment 07/05/2019 - Nathalie Rothman M.D.M65.341 Trigger finger, right ring fingerFollow up:Follow up: As [id number] Trigger finger, right middle finger Functional Status Description No Information Available Mental Status Description No Information Available Referrals Description No Information Available
--- OUTSIDE RECORDS SUMMARY | 2019-08-03 13:48 | XMS REPORT | Continuity of Care Document ---
:1945 External Reference #:[id number] Author Name Nathalie Rothman M.D. (transmitted by agent of provider Narendra Lancaster) Address [address] [place] [address] Care Team Providers Name Role Phone Iliana Bruner MD - Internal Medicine Care Team Information Manager [phone] Problems Active Problems Provider Date Closed fracture [...] Information Available Procedures Date Code Description Status 04/20/2019 48361 EEG Recording Awake & Drowsy Completed 04/17/2019 48983 Revision Or Removal Implant Neurostimulator Pulse Completed Generator/Recei 04/17/2019 88258 Removal Spinal Neurostimulator Electrode Plate/Paddle Via Completed Laminot 04/17/2019 85599 Removal Spinal Neurostimulator Electrode Plate/Paddle Via Completed Laminot 04/05/2019 37518 Treadmill Interp/Report Only Completed 04/05/2019 11744 Treadmill Interp/Report Only Completed 04/05/2019 15732 Stress Test Supervsn W/Out I/R Completed 04/05/2019 91194 Stress Test Supervsn W/Out I/R Completed 04/03/2019 69561 ECHO Transthorasic Realtime 2D W Doppler & Color Flow Hosp Completed Medical Devices Description No Information Available Encounters Type Date Location Provider Dx Diagnosis Office Visit 06/13/2019 [facility] Assstefani,kandy Cuello NP R53.1 Weakness 10:32a Hospitalists I10 Essential (primary) hypertension F32.9 Major depressive disorder, single episode, unspecified I95.1 Orthostatic hypotension 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 Hospitalists R29.6 Repeated falls I95.1 Orthostatic hypotension I10 Essential (primary) hypertension E78.5 Hyperlipidemia, unspecified K21.9 Gastro-esophageal reflux disease without esophagitis F32.9 Major depressive disorder, single episode, unspecified Z86.73 Prsnl hx of TIA (TIA), and cereb infrc w/o resid deficits [facility] Assoc,pc M.Joaquim. 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 F32.9 Major depressive disorder, single episode, unspecified E78.5 Hyperlipidemia, unspecified I10 Essential (primary) hypertension I25.5 Ischemic cardiomyopathy R53.1 Weakness R63.4 Abnormal weight loss Z86.73 Prsnl hx of TIA (TIA), and cereb infrc w/o resid deficits Office Visit 04/22/2019 11:39a [facility] Enrique Donaldson MD R53.1 Weakness Hospitalists I48.91 Unspecified atrial fibrillation 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 Z29.9 Encounter for prophylactic measures, unspecified F32.9 Major depressive disorder, single episode, unspecified K21.9 Gastro-esophageal reflux disease without esophagitis E78.5 Hyperlipidemia, unspecified I10 Essential (primary) hypertension I25.5 Ischemic cardiomyopathy Z86.73 Prsnl hx of TIA (TIA), and cereb infrc w/o resid deficits Office Visit 04/21/2019 11:39a [facility] Enrique Donaldson MD R53.1 Weakness Hospitalists I48.91 Unspecified atrial fibrillation 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 F32.9 Major depressive disorder, single episode, unspecified K21.9 Gastro-esophageal reflux disease without esophagitis E78.5 Hyperlipidemia, unspecified I10 Essential (primary) hypertension I25.5 Ischemic cardiomyopathy R63.4 Abnormal weight loss Z86.73 Prsnl hx of TIA (TIA), and cereb infrc w/o resid deficits Office Visit 04/18/2019 11:38a [facility] Tonya Cuello NP R53.1 Weakness Assoc, Hospitalists R63.4 Abnormal weight loss F32.9 Major depressive disorder, single episode, unspecified I25.5 Ischemic cardiomyopathy 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 I48.91 Unspecified atrial fibrillation I10 Essential (primary) hypertension Office Visit 04/17/2019 11:37a [facility] Tonya Cuate, ALTERATIONS MANAGER R53.1 Weakness Assoc, Hospitalists R63.4 Abnormal weight loss F32.9 Major depressive disorder, single episode, unspecified I25.5 Ischemic cardiomyopathy 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 I48.91 Unspecified atrial fibrillation I10 Essential (primary) hypertension Office Visit 04/16/2019 11:37a [facility] Tonya Cuate, ALTERATIONS MANAGER R53.1 Weakness Assoc, Hospitalists R63.4 Abnormal weight loss F32.9 Major depressive disorder, single episode, unspecified I25.5 Ischemic cardiomyopathy 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 I48.91 Unspecified atrial fibrillation I10 Essential (primary) hypertension Office Visit 04/15/2019 11:37a [facility] Tonya Cuate, ALTERATIONS MANAGER R53.1 Weakness Assoc, Hospitalists R63.4 Abnormal weight loss F32.9 Major depressive disorder, single episode, unspecified I25.5 Ischemic cardiomyopathy 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 I48.91 Unspecified atrial fibrillation I10 Essential (primary) hypertension Office Visit 04/14/2019 11:36a [facility] Tonya Cuate, ALTERATIONS MANAGER R53.1 Weakness Assoc, Hospitalists R63.4 Abnormal weight loss F32.9 Major depressive disorder, single episode, unspecified I25.5 Ischemic cardiomyopathy 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 I48.91 Unspecified atrial fibrillation I10 Essential (primary) hypertension Office Visit 04/13/2019 11:36a [facility] Tonya Cuate, ALTERATIONS MANAGER R53.1 Weakness Assoc, Hospitalists R63.4 Abnormal weight loss F32.9 Major depressive disorder, single episode, unspecified I25.5 Ischemic cardiomyopathy 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 I48.91 Unspecified atrial fibrillation I10 Essential (primary) hypertension Office Visit 04/12/2019 11:35a [facility] Tonya Cuate, ALTERATIONS MANAGER R53.1 Weakness Assoc, Hospitalists R63.4 Abnormal weight loss F32.9 Major depressive disorder, single episode, unspecified I25.5 Ischemic cardiomyopathy 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 I48.91 Unspecified atrial fibrillation I10 Essential (primary) hypertension Office Visit 04/11/2019 11:35a [facility] Di Blas'marcie, R53.1 Weakness Assoc, Hospitalists PA-C F32.9 Major depressive disorder, single episode, unspecified R63.4 Abnormal weight loss 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 I50.9 Heart failure, unspecified I10 Essential (primary) hypertension Office Visit 04/10/2019 11:35a [facility] Dilakia Stewart, R53.1 Weakness Assoc, Hospitalists PA-C F32.9 Major depressive disorder, single episode, unspecified R63.4 Abnormal weight loss 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 I25.10 Athscl heart Jamey Vallejo. 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 I10 Essential (primary) hypertension [facility] for 3:30p Cardiology Thuman, ALTERATIONS MANAGER preprocedural cardiovascular examination Z97.8 Presence of other specified devices 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.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9 Major depressive disorder, single episode, unspecified I50.9 Heart failure, unspecified 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 I10 Essential (primary) hypertension Office Visit 04/04/2019 7:00a Neurosurgery Mallika Stanley, R29.6 Repeated falls Services [facility] T85.192A [facility] compl of implnt elec nstim of spinal cord lead, init Office Visit 04/04/2019 11:32a [facility] Chica Thornton MD R53.1 Weakness Assoc, Hospitalists F32.9 Major depressive disorder, single episode, unspecified I50.9 Heart failure, unspecified 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 I10 Essential (primary) hypertension Office Visit 04/04/2019 2:57p [facility] Geno See, R29.6 Repeated falls Of No Palmer I48.0 Paroxysmal atrial fibrillation 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 I50.9 Heart failure, unspecified Z95.818 Presence of other cardiac implants and grafts Z98.61 Coronary angioplasty status Office Visit 04/03/2019 11:32a [facility] Chica Thornton MD R53.1 Weakness Assoc, Hospitalists F32.9 Major depressive disorder, single episode, unspecified 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 I10 Essential (primary) hypertension Office Visit 04/03/2019 [facility] R26.89 Other 7:00a Elena Llamas MD abnormalities of gait and mobility M62.81 Muscle weakness (generalized) M40.202 Unspecified kyphosis, cervical region Office Visit 04/02/2019 11:32a [facility] Tali Paz, R53.1 Weakness Assoc, Hospitalists M.Manoj 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 I10 Essential (primary) hypertension E78.5 Hyperlipidemia, unspecified F32.9 Major depressive disorder, single episode, unspecified Office Visit 04/02/2019 7:00a Neurosurgery Vassilios R29.6 Repeated falls Services Of No Johnson MD M40.203 Unspecified kyphosis, cervicothoracic region 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 I10 Essential (primary) hypertension E78.5 Hyperlipidemia, unspecified I48.91 Unspecified atrial fibrillation F33.9 Major depressive disorder, recurrent, unspecified F41.9 Anxiety disorder, unspecified N40.0 Benign prostatic hyperplasia without lower urinry tract symp G89.29 Other chronic pain D64.9 Anemia, unspecified Office Visit 03/02/2019 2:00p [facility] Kelly N18.3 Chronic kidney MD Robert disease, stage 3 (moderate) I12.9 Hypertensive chronic kidney disease w stg 1-4/unsp chr kdny D50.9 Iron deficiency anemia, unspecified Assessments Date Code Description Provider 06/13/2019 R53.1 Weakness Tonyarenata Culelo, ALTERATIONS MANAGER 06/13/2019 I10 Essential (primary) hypertension Tonya Cuate, ALTERATIONS MANAGER 06/13/2019 F32.9 Major depressive disorder, single Tonya Cuate, ALTERATIONS MANAGER episode, unspecified 06/13/2019 I95.1 Orthostatic hypotension Tonya Cuate, ALTERATIONS MANAGER 06/13/2019 I25.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Tonya Cuate, ALTERATIONS MANAGER three affiliated coronary artery with 06/13/2019 Z86.73 Personal history of transient Tonya Cuate, ALTERATIONS MANAGER ischemic attack (TIA), and cerebral infarction without residual deficits 06/12/2019 R53.1 Weakness Tonya Cuate, ALTERATIONS MANAGER 06/12/2019 I10 Essential (primary) hypertension Tonya Cuate, ALTERATIONS MANAGER 06/12/2019 F32.9 Major depressive disorder, single Tonya Cuate, ALTERATIONS MANAGER episode, unspecified 06/12/2019 I95.1 Orthostatic hypotension Tonya Cuate, ALTERATIONS MANAGER 06/12/2019 I25.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Tonya Cuate, ALTERATIONS MANAGER three affiliated coronary artery with 06/12/2019 Z86.73 Personal history of transient Tonya Cuate, ALTERATIONS MANAGER ischemic attack (TIA), and cerebral infarction without residual deficits 06/11/2019 R53.1 Weakness Rachana Garcia M.D. 06/11/2019 I25.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Rachana Garcia M.D. three affiliated coronary artery with 06/11/2019 F32.9 Major depressive disorder, single Rachana Garcia M.D. episode, unspecified 06/11/2019 K21.9 Gastro-esophageal reflux disease Rachana Garcia M.D. without esophagitis 06/11/2019 E78.5 Hyperlipidemia, unspecified Rachana Garcia M.D. 06/11/2019 I10 Essential (primary) hypertension Rachana Garcia M.D. 06/11/2019 Z86.73 Personal history of transient Rachana Garcia M.D. ischemic attack (TIA), and cerebral [...] Atherosclerotic heart disease of Jatin Hammonds M.D. three affiliated coronary artery with 04/24/2019 I10 Essential (primary) [...] Atherosclerotic heart disease of Yaquelin Ireland MD three affiliated coronary artery with 04/23/2019 F32.9 Major depressive [...] Atherosclerotic heart disease of Enrique Donaldson MD three affiliated coronary artery with 04/22/2019 Z29.9 Encounter for prophylactic measures, Enrique Donaldson MD unspecified 04/22/2019 F32.9 Major depressive disorder, single Enrique Donaldson MD episode, unspecified 04/22/2019 K21.9 Gastro-esophageal reflux disease Enrique Donaldsno MD without esophagitis 04/22/2019 E78.5 Hyperlipidemia, unspecified [...] Atherosclerotic heart disease of Enrique Donaldson MD three affiliated coronary artery with 04/21/2019 F32.9 Major depressive disorder, single Enrique Donaldson MD episode, unspecified 04/21/2019 K21.9 Gastro-esophageal reflux disease Enrique Donaldson MD without esophagitis 04/21/2019 E78.5 Hyperlipidemia, jonathonified Enrique Donaldson MD 04/21/2019 I10 Essential (primary) hypertension Enrique Donaldson MD 04/21/2019 I25.5 Ischemic cardiomyopathy Enrique Donaldson MD 04/21/2019 R63.4 Abnormal weight loss Enrique Donaldson MD 04/21/2019 Z86.73 Prsnl hx of TIA (TIA), and cereb Enrique Donaldson MD infrc w/o resid deficits 04/20/2019 T85.192D Other mechanical complication of Sharmez Jaden, PA implanted electronic neurostimulator of spinal cord electrode (lead), subsequent encounter 04/20/2019 R29.6 Repeated falls Ryan Baum M.D. 04/20/2019 R53.1 Weakness Mike Lee N.P. 04/20/2019 R53.1 Weakness Ryan Baum M.D. 04/20/2019 R29.6 Repeated falls Mike Lee N.P. 04/20/2019 R53.1 Weakness Enrique Donaldson MD 04/20/2019 I48.91 Unspecified atrial fibrillation Enrique Donaldson MD 04/20/2019 I25.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Enrique Donadlson MD three affiliated coronary artery with 04/20/2019 F32.9 Major depressive disorder, single Enrique Donaldson MD episode, unspecified 04/20/2019 K21.9 Gastro-esophageal reflux disease Enrique Donaldson MD without esophagitis 04/20/2019 E78.5 Hyperlipidemia, unspecified Enrique Donaldson MD 04/20/2019 I10 Essential (primary) hypertension Enrique Donaldson MD 04/20/2019 I25.5 Ischemic cardiomyopathy Enrique Donaldson MD 04/20/2019 R63.4 Abnormal weight loss Enrique Donaldson MD 04/20/2019 Z86.73 Prsnl hx of TIA (TIA), and cereb Enrique Donaldson MD infrc w/o resid deficits 04/19/2019 T85.192D Other mechanical complication of RADHA Swanson implanted electronic neurostimulator of spinal cord electrode (lead), subsequent encounter 04/19/2019 R53.1 Weakness Mike Lee, N.P. 04/19/2019 R26.89 Other abnormalities of gait and Mike Lee N.P. mobility 04/19/2019 R53.1 Weakness Enrique Donaldson MD 04/19/2019 I48.91 Unspecified atrial fibrillation Enrique Donaldson MD 04/19/2019 I25.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Enrique Donaldson MD three affiliated coronary artery with 04/19/2019 F32.9 Major depressive [...] subsequent encounter 04/18/2019 R53.1 Weakness Tonya Cuate, ALTERATIONS MANAGER 04/18/2019 R63.4 Abnormal weight loss Tonya Cuate, ALTERATIONS MANAGER 04/18/2019 F32.9 Major depressive disorder, single Tonya Cuate, ALTERATIONS MANAGER episode, unspecified 04/18/2019 I25.5 Ischemic cardiomyopathy Tonya Cuate, ALTERATIONS MANAGER 04/18/2019 I25.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Tonya Cuate, ALTERATIONS MANAGER three affiliated coronary artery with 04/18/2019 I48.91 Unspecified atrial fibrillation Tonya Cuate, ALTERATIONS MANAGER 04/18/2019 I10 Essential (primary) hypertension Tonya Cuate, ALTERATIONS MANAGER 04/17/2019 T85.192A Other mechanical complication of RADHA [...] Johnson MD 04/17/2019 R53.1 Weakness Tonya Cuate, ALTERATIONS MANAGER 04/17/2019 R63.4 Abnormal weight loss Tonya Cuate, ALTERATIONS MANAGER 04/17/2019 F32.9 Major depressive disorder, single Tonya Cuate, ALTERATIONS MANAGER episode, unspecified 04/17/2019 I25.5 Ischemic cardiomyopathy Tonya Cuate, ALTERATIONS MANAGER 04/17/2019 I25.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Tonya Cuate, ALTERATIONS MANAGER three affiliated coronary artery with 04/17/2019 I48.91 Unspecified atrial fibrillation Tonya Ucate, ALTERATIONS MANAGER 04/17/2019 I10 Essential (primary) hypertension Tonya Cuate, ALTERATIONS MANAGER 04/16/2019 R53.1 Weakness Tonya Cuate, ALTERATIONS MANAGER 04/16/2019 R63.4 Abnormal weight loss Tonya Cuate, ALTERATIONS MANAGER 04/16/2019 F32.9 Major depressive disorder, single Tonya Cuate, ALTERATIONS MANAGER episode, unspecified 04/16/2019 I25.5 Ischemic cardiomyopathy Tonya Cuate, ALTERATIONS MANAGER 04/16/2019 I25.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Tonya Cuate, ALTERATIONS MANAGER three affiliated coronary artery with 04/16/2019 I48.91 Unspecified atrial fibrillation Tonya Cuate, ALTERATIONS MANAGER 04/16/2019 I10 Essential (primary) hypertension Tonya Cuate, ALTERATIONS MANAGER 04/15/2019 R53.1 Weakness Tonya Cuate, ALTERATIONS MANAGER 04/15/2019 R63.4 Abnormal weight loss Tonya Cuate, ALTERATIONS MANAGER 04/15/2019 F32.9 Major depressive disorder, single Tonya Cuate, ALTERATIONS MANAGER episode, unspecified 04/15/2019 I25.5 Ischemic cardiomyopathy Tonya Cuate, ALTERATIONS MANAGER 04/15/2019 I25.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Tonya Cuate, ALTERATIONS MANAGER three affiliated coronary artery with 04/15/2019 I48.91 Unspecified atrial fibrillation Tonya Cuate, ALTERATIONS MANAGER 04/15/2019 I10 Essential (primary) hypertension Tonya Cuate, ALTERATIONS MANAGER 04/14/2019 R53.1 Weakness Tonya Cuate, ALTERATIONS MANAGER 04/14/2019 R63.4 Abnormal weight loss Tonya Cuate, ALTERATIONS MANAGER 04/14/2019 F32.9 Major depressive disorder, single Tonya Cuate, ALTERATIONS MANAGER episode, unspecified 04/14/2019 I25.5 Ischemic cardiomyopathy Tonya Cuate, ALTERATIONS MANAGER 04/14/2019 I25.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Tonya Cuate, ALTERATIONS MANAGER three affiliated coronary artery with 04/14/2019 I48.91 Unspecified atrial fibrillation Tonya Cuate, ALTERATIONS MANAGER 04/14/2019 I10 Essential (primary) hypertension Tonya Cuate, ALTERATIONS MANAGER 04/13/2019 R53.1 Weakness Tonya Cuate, ALTERATIONS MANAGER 04/13/2019 R63.4 Abnormal weight loss Tonya Cuate, ALTERATIONS MANAGER 04/13/2019 F32.9 Major depressive disorder, single Tonya Cuate, ALTERATIONS MANAGER episode, unspecified 04/13/2019 I25.5 Ischemic cardiomyopathy Tonya Cuate, ALTERATIONS MANAGER 04/13/2019 I25.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Tonya Cuate, ALTERATIONS MANAGER three affiliated coronary artery with 04/13/2019 I48.91 Unspecified atrial fibrillation Tonya Cuate, ALTERATIONS MANAGER 04/13/2019 I10 Essential (primary) hypertension Tonya Cuate, ALTERATIONS MANAGER 04/12/2019 R53.1 Weakness Tonya Cuate, ALTERATIONS MANAGER 04/12/2019 R63.4 Abnormal weight loss Tonya Cuate, ALTERATIONS MANAGER 04/12/2019 F32.9 Major depressive disorder, single Tonya Cuate, ALTERATIONS MANAGER episode, unspecified 04/12/2019 I25.5 Ischemic cardiomyopathy Tonya Cuate, ALTERATIONS MANAGER 04/12/2019 I25.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Tonya Cuate, ALTERATIONS MANAGER three affiliated coronary artery with 04/12/2019 I48.91 Unspecified atrial fibrillation Tonya Cuate, ALTERATIONS MANAGER 04/12/2019 I10 Essential (primary) hypertension Tonya Cuate, ALTERATIONS MANAGER 04/11/2019 R53.1 Weakness Di O'marcie, PA-C 04/11/2019 F32.9 Major depressive disorder, single Di O'marcie, PA-C episode, unspecified 04/11/2019 R63.4 Abnormal weight loss Di O'marcie, PA-C 04/11/2019 I25.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Di O'marcie, PA-C three affiliated coronary artery with 04/11/2019 I50.9 Heart failure, unspecified Di O'marcie, PA-C 04/11/2019 I10 Essential (primary) hypertension Di O'marcie, PA-C 04/10/2019 R53.1 Weakness Di O'marcie, PA-C 04/10/2019 F32.9 Major depressive disorder, single Di O'marcie, PA-C episode, unspecified 04/10/2019 R63.4 Abnormal weight loss Di O'marcie, PA-C 04/10/2019 I25.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Di O'marcie, PA-C three affiliated coronary artery with 04/10/2019 I50.9 Heart failure, unspecified Di O'marcie, PA-C 04/10/2019 I10 Essential (primary) hypertension Di O'marcie, PA-C 04/09/2019 R53.1 Weakness Di O'marcie, PA-C 04/09/2019 F32.9 Major depressive disorder, single Di O'marcie, PA-C episode, unspecified 04/09/2019 R63.4 Abnormal weight loss Di O'marcie, PA-C 04/09/2019 I25.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Di O'marcie, PA-C three affiliated coronary artery with 04/09/2019 I50.9 Heart failure, unspecified Di O'marcie, PA-C 04/09/2019 I10 Essential (primary) hypertension Di O'marcie, PA-C 04/08/2019 I25.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Michael Vallejo M.D. three affiliated coronary artery with 04/08/2019 R53.1 Weakness Di O'marcie, PA-C 04/08/2019 Z95.818 Presence of other cardiac implants Michael Vallejo M.D. and grafts 04/08/2019 F32.9 Major depressive disorder, single Di O'marcie, PA-C episode, unspecified 04/08/2019 R53.1 Weakness Michael Vallejo M.D. 04/08/2019 N17.9 Acute kidney failure, unspecified Di O'marcie, PA-C 04/08/2019 R63.4 Abnormal weight loss Di O'marcie, PA-C 04/08/2019 I25.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Di O'marcie, PA-C three affiliated coronary artery with 04/08/2019 I50.9 Heart failure, unspecified Di Stewart PA-C 04/08/2019 I10 Essential (primary) hypertension Di Stewart PA-C 04/07/2019 I25.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Michael Vallejo M.D. three affiliated coronary artery with 04/07/2019 R53.1 Weakness Chica Thornton MD 04/07/2019 Z95.818 Presence of other cardiac implants Michael Vallejo M.D. and grafts 04/07/2019 F32.9 Major depressive disorder, single Chica Thornton MD episode, unspecified 04/07/2019 I50.9 Heart failure, unspecified Chica Thornton MD 04/07/2019 I25.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Chica Thornton MD three affiliated coronary artery with 04/07/2019 I10 Essential (primary) [...] Atherosclerotic heart disease of Dyan Quevedo NP three affiliated coronary artery with 04/06/2019 I25.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Chica Thornton MD three affiliated coronary artery with 04/06/2019 Z98.61 Coronary angioplasty status Dyan Quevedo NP 04/06/2019 I10 Essential (primary) hypertension Chica Thornton MD 04/06/2019 R29.6 Repeated falls Dyan Quevedo NP 04/05/2019 T85.192A Other mechanical complication of Sam Johnson MD implanted electronic neurostimulator of spinal cord electrode (lead), initial encounter 04/05/2019 R29.6 Repeated falls Sam Johnson MD 04/05/2019 I48.91 Unspecified atrial fibrillation Jelena Marshall MD, [facility] 04/05/2019 R53.1 Weakness Chica Thornton MD 04/05/2019 F32.9 Major depressive disorder, single Chica Thornton MD episode, unspecified 04/05/2019 I50.9 Heart failure, unspecified Chica Thornton MD 04/05/2019 I25.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Chica Thornton MD three affiliated coronary artery with 04/05/2019 I10 Essential (primary) [...] Atherosclerotic heart disease of Geno See M.D. three affiliated coronary artery with 04/04/2019 I25.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Chica Thornton MD three affiliated coronary artery with 04/04/2019 I50.9 Heart failure, [...] Atherosclerotic heart disease of Jeremiah Fernandez M.D. three affiliated coronary artery with 04/03/2019 M40.202 Unspecified kyphosis, cervical Tyler Llamas MD region 04/03/2019 F32.9 Major depressive disorder, single Chica Thornton MD episode, unspecified 04/03/2019 I25.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Chica Thornton MD three affiliated coronary artery with 04/03/2019 I10 Essential (primary) hypertension Chica Thornton MD 04/02/2019 R29.6 Repeated falls Sam Johnson MD 04/02/2019 M40.203 Unspecified kyphSam rowley MD [facility] 04/02/2019 R53.1 Weakness Tali Paz M.D. 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 three affiliated coronary artery with 04/02/2019 I10 Essential (primary) hypertension Tali Paz M.D. 04/02/2019 E78.5 Hyperlipidemia, unspecified Tali Paz M.D. 04/02/2019 F32.9 Major depressive disorder, single Tali Paz M.D. 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 04/01/2019 M40.202 Unspecified kyphosis, cervical Colton Teresa MD region 04/01/2019 I25.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Jatin Hammonds M.D. three affiliated coronary artery with 04/01/2019 I10 Essential (primary) [...] Atherosclerotic heart disease of Jatin Hammonds M.D. three affiliated coronary artery with 03/31/2019 I10 Essential (primary) hypertension Jatin Hammonds M.D. 03/31/2019 E78.5 Hyperlipidemia, unspecified Jatin Hammonds M.D. 03/31/2019 K21.9 Gastro-esophageal reflux disease Jatin Hammonds M.D. without esophagitis 03/31/2019 F32.9 Major depressive disorder, single Jatin Hammonds M.D. episode, unspecified 03/31/2019 Z86.73 Prsnl hx of TIA (TIA), and cereb Jatin Hammonds M.D. infrc w/o resid deficits 03/30/2019 R29.6 Repeated falls Joaquim Zaragoza.O. 03/30/2019 I25.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Lucy Chavez D.O. three affiliated coronary artery with 03/30/2019 I10 Essential (primary) hypertension Joaquim Zaragoza.O. 03/30/2019 E78.5 Hyperlipidemia, unspecified Joaquim Zaragoza.O. 03/30/2019 I48.91 Unspecified atrial fibrillation Lucy Chavez D.O. 03/30/2019 F33.9 Major depressive disorder, Joaquim Zaragoza.O. recurrent, unspecified 03/30/2019 F41.9 Anxiety disorder, unspecified Joaquim Zaragoza.O. 03/30/2019 N40.0 Benign prostatic hyperplasia without Joaquim Zaragoza.O. lower urinry tract symp 03/30/2019 G89.29 Other chronic pain Joaquim Zaragoza.O. 03/30/2019 D64.9 Anemia, unspecified Joaquim Zaragoza.O. 03/02/2019 N18.3 Chronic kidney disease, stage 3 Kelly Jones MD (moderate) 03/02/2019 I12.9 Hypertensive chronic kidney disease Kelly Jnoes MD with stage 1 through sta 03/02/2019 D50.9 Iron deficiency anemia, unspecified Kelly Jones MD Plan of Treatment No Information Available Functional Status Description No Information Available Mental Status Description No Information Available Referrals Description No Information Available
--- NOTE | 2019-08-03 14:32 | ED ---
Psychiatric Complaint - HPI Summary HPI Summary: Patient is a 74-year-old male presenting to the ED with frequent falls. He has been here several times the past 3 months and is well-known to [facility]. He had a stay of 29 days and multiple tests and images were performed with no findings. He is going through a divorce and his has been cheating on him with another woman. He has been more depressed than normal. He denies any SI/HI. He states this is been happening he has been having more falls. Since he was home from [facility] 3 weeks ago he has had multiple falls and does not feel he is safe for at home anymore. He is here today requesting placement into a rehabilitation facility. He does admit to a recent fall just before he arrived and hurting his left little toe. He declines any x-rays. - History Of Current Complaint Chief Complaint: EDFall Time Seen by Provider: 08/03/19 12:51 Hx Obtained From: Patient Onset/Duration: Sudden Onset Timing: Constant Severity Initially: Moderate Severity Currently: Moderate Aggravating Factor(s): Nothing Alleviating Factor(s): Nothing Associated Signs And Symptoms: Positive: Negative Has Suicidal: Reports: Thoughts Has Homicidal: Reports: Thoughts - Allergies/Home Medications Allergies/Adverse Reactions: Allergies Allergy/AdvReac Type Severity Reaction Status Date / Time naloxegol [From Movantik] Allergy dysrhythmia Verified 08/03/19 12:54 PMH/Surg Hx/FS Hx/Imm Hx Previously Healthy: Yes Endocrine/Hematology History: Denies: Hx Diabetes Cardiovascular History: Reports: Hx Angina, Hx Coronary Artery Disease, Hx Hypercholesterolemia, Hx Hypertension, Other Cardiovascular Problems/Disorders - TIGHTNESS IN CHEST IN [place] 3 MONTHS AGO AND [place] Denies: Hx Myocardial Infarction, Hx Pacemaker/ICD, Hx Valvular Heart Disease Respiratory History: Denies: Hx Asthma, Hx Chronic Obstructive Pulmonary Disease (COPD) GI History: Reports: Hx Gastroesophageal Reflux Disease History: Reports: Hx Kidney Stones, Hx Renal Disease - abnormal gfr, Other Problems/Disorders - BPH Denies: Hx Chronic Renal Failure, Hx Dialysis Musculoskeletal History: Reports: Hx Back Problems Denies: Hx Arthritis, Hx Osteoporosis Sensory History: Reports: Hx Cataracts, Hx Contacts or Glasses Denies: Hx Deafness, Hx Hearing Aid Opthamlomology History: Reports: Hx Cataracts, Hx Contacts or Glasses Neurological History: Reports: 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 appendectomy. cataracts. med tronic loop recorder placement-states nonfunctioning. c5 decompression . csp discectomy . csp fusion Hx Anesthesia Reactions: No - Immunization History Hx Pertussis Vaccination: No Immunizations Up to Date: Yes Infectious Disease History: No Infectious Disease History: Denies: Traveled Outside the [place] in Last 30 Days - Family History Known Family History: Positive: Other - Lung CA - Social History Occupation: Unemployed Lives: With Family Alcohol Use: Rare Alcohol Amount: about a six pack a year Hx Substance Use: No Substance Use Type: Reports: None Substance Use Comment - Amount & Last Used: cbd Hx Tobacco Use: No Smoking Status (MU): Never Smoked Tobacco Have You Smoked in the Last Year: No Review of Systems Negative: Fever, Chills, Fatigue, Skin Diaphoresis Negative: Palpitations, Chest Pain Negative: Shortness Of Breath, Cough Genitourinary: Negative Positive: no symptoms reported, see HPI Negative: Arthralgia, Myalgia Neurological: Negative All Other Systems Reviewed And Are Negative: Yes Physical Exam Triage Information Reviewed: Yes Vital Signs On Initial Exam: Initial Vitals Pulse Pulse Ox 63 97 08/03/19 12:50 08/03/19 12:50 Vital Signs Reviewed: Yes Appearance: Positive: Well-Appearing, Well-Nourished Skin: Positive: Warm, Skin Color Reflects Adequate Perfusion Head/Face: Positive: Normal Head/Face Inspection Eyes: Positive: EOMI, KONSTANTIN, Conjunctiva Clear Neck: Positive: Supple, No Lymphadenopathy Respiratory/Lung Sounds: Positive: Clear to Auscultation, Breath Sounds Present Cardiovascular: Positive: RRR, Pulses are Symmetrical in both Upper and Lower Extremities Musculoskeletal: Positive: Normal, Strength/ROM Intact Neurological: Positive: Speech Normal Psychiatric: Positive: Depressed AVPU Assessment: Alert Procedures - Sedation Patient Received Moderate/Deep Sedation with Procedure: No Diagnostics - Vital Signs Vital Signs Temp Pulse Resp BP Pulse Ox 08/03/19 12:52 64 99 08/03/19 12:51 97.9 F 62 16 209/105 97 08/03/19 12:50 63 97 - Laboratory Result Diagrams: 08/03/19 15:38 08/03/19 15:38 Lab Statement: Any lab studies that have been ordered have been reviewed, and results considered in the medical decision making process. Course/Dx - Course Course Of Treatment: During this course of treatment, the patient's evaluated for frequent falls. This appears per his many notes over the past 3 months to be a cyclic issue due to his leaving him. Labs and urine were obtained and are pending. Discussed case with hospitalist as well as mag, social work. - Differential Dx/Clinical Impression Provider Diagnosis: Frequent falls - Physician Notifications Discussed Care Of Patient With: Jatin Hammonds Instructed by Provider To: Admit As Inpatient Discharge ED - Sign-Out/Discharge Documenting (check all that apply): Patient Departure - Discharge Plan Condition: Fair Disposition: ADMITTED TO [facility] - Billing Disposition and Condition Condition: FAIR Disposition: Admitted to [facility] - Attestation Statements Provider Attestation: I was available for consult. This patient was seen by the [facility]. The patient was not presented to, seen by, or examined by me. Ricardo Lugo MD
[2019-08-03] MEDS ORDERED: Meclizine TAB* 12.5 MG PO PRN (14:37)
[2019-08-03] MEDS ORDERED: Ondansetron TAB* 4 MG PO PRN (14:37)
[2019-08-03 15:52] LABS: ABS Eosinophils 0.1 10^3/ul (0-0.6); ABS Lymphocytes 0.8 10^3/ul (1.0-4.8); ABS Monocytes 0.4 10^3/ul (0-0.8); ABS Neutrophils 4.2 10^3/ul (1.5-7.7); Eosinophil % 1.9 %; Hematocrit 35 % (42-52); Hemoglobin 11.6 g/dL (14.0-18.0); Lymphocyte % 13.8 %; Mean Corpuscular HGB Conc 33 g/dL (31-36); Mean Corpuscular Hemoglobin 28 pg (27-31); Mean Corpuscular Volume 83 fL (80-94); Mean Platelet Volume 9.1 fL (7.4-10.4); Nucleated Red Blood Cells % 0.1; Platelet Count 103 10^3/uL (150-450); Red Cell Distribution Width 15 % (10-15); White Blood Count 5.5 10^3/uL (3.5-10.8)
[2019-08-03 15:59] LABS: INR 1.07 (0.82-1.09)
[2019-08-03 16:17] LABS: Albumin 3.6 g/dL (3.2-5.2); Albumin/Globulin Ratio 1.3 (1-3); BUN/Creatinine Ratio 14.7 (8-20); Calcium 8.8 mg/dL (8.6-10.3); EGFR African American 93.8 (>60); EGFR Non-African American 77.5 (>60); Globulin 2.8 g/dL (2-4); Potassium 2.9 mmol/L (3.5-5.0); Total Bilirubin 0.8 mg/dL (0.2-1.0); Total Protein 6.4 g/dL (6.4-8.9)
[2019-08-03] MEDS ORDERED: Potassium Chlor TAB* 20 MEQ TAB.ER PO ONE (18:00)
[2019-08-03] MEDS: Atorvastatin* 40 MG TAB PO SCH (18:17)
[2019-08-03] MEDS: Metoprolol Succinate XL TAB* 50 MG PO SCH (18:18)
[2019-08-03] MEDS: Cyclobenzaprine TAB* 10 MG PO PRN (18:26)
--- NOTE | 2019-08-03 18:47 | HP ---
CC: Dr. Iliana Bruner HISTORY AND PHYSICAL: DATE OF ADMISSION: 08/03/19 PRIMARY CARE PROVIDER: Dr. Iliana Bruner. CHIEF COMPLAINT: Recurrent frequent fall. SUBJECTIVE: This is a 74-year-old very well known patient to this hospital within the past several m onths for recurrent fall and weakness. He had an extensive cardiac, neurological, neurosurgical, onc ology workup. He was assessed by Psychiatry. He has been in and out of the hospital for the similar reason of his recurrent fall and weakness and unsafe to be home. However, it is well documented thr oughout his chart in the past that he suffers from depression and anxiety and psychosomatic disorder related to his separation from his who is now living with a female partner. He has been in the rehab from which he showed some improvement. He just left home from rehab apparently and then couple weeks at his home resident with his , now he presents again with recurrent fall. No diagnostic studies were done at the time of evaluation in the emergency room and he has been already approved to be admitted to the medical service under observation for possible placement as I personally discusse d with our social group worker for now for safety and inability to go home. PAST MEDICAL HISTORY: 1. History of generalized deconditioning versus malingering and psychosomatic disorders manifests it self with recurrent fall. 2. Questionable orthostatic hypotension. 3. History of CVA. 4. History of coronary artery disease. 5. History of depression. 6. History of GERD. PAST SURGICAL HISTORY: 1. Bilateral cataract extraction. 2. Cervical decompression in 1993 and in 1997. 3. Status post removal of cervical dorsal column stimulator at that time so they could perform MRI. 4. Appendectomy. FAMILY HISTORY: Mother and father are both . Mother of CHF. Father at age 68 fro m cancer. SOCIAL HISTORY: He is a nonsmoker. He drinks alcohol occasionally. He worked at the [employer]. , has 3 children and his who is recently and currently in a relati on with another female partner. REVIEW OF SYSTEMS: Generalized weakness, recurrent fall. No nausea, fever, or chills. PHYSICAL EXAMINATION GENERAL: He is awake, alert, oriented. Flat affect. VITAL SIGNS: Temperature 97.1, pulse 62, respiratory rate 16, satting 97%, blood pressure 209/105. HEENT: Moist mucous membranes. NECK: Supple. LUNGS: Clear to auscultation. CARDIOVASCULAR: S1, S2. Regular rate and rhythm. ABDOMEN: Soft, nontender, nondistended. EXTREMITIES: Moving upper and lower extremities. No deficit. SKIN: There is no rash appreciated. DIAGNOSTIC STUDIES/LAB DATA: At the present time, CBC: White count 5.5, hemoglobin 11, hematocrit 35, platelets 103. Urinalysis and complete metabolic panel are pending. IMPRESSION AND PLAN: Generalized weakness with recurrent fall. Unless he has anything obvious on hi s UA or chemistry, CBC, I believe this is all behavioral, psychosomatic with secondary gain to attent ion seeking pretty much with his relation with his . I will follow up his diagnostic studies and we will treat accordingly if he has positive abnormality in his UA or CBC. The patient is well known to me. He is at baseline. I do not see any further benefits from further imaging. This is a recurrent problem. He will require extensive psych eval and possible treatment at one time. I believe he should be cons idered for inpatient psych treatment, but that we will defer to the Psychiatry who are more well equi pped in treating such a condition. For his hypertension, I am going to continue his Lasix. I am going to hold his Florinef given his el evated blood pressure. Continue losartan 50 daily. Continue metoprolol 50 b.i.d. History of anxiety. Continue his Remeron and Zoloft. Gastroesophageal reflux disease. Continue Protonix. Chronic pain. Continue his oxycodone. [id number]/[facility] #: [id number]
[2019-08-03 20:51] LABS: Urine Appearance Clear; Urine Bilirubin Negative (Negative); Urine Blood Negative (Negative); Urine Color Yellow; Urine Glucose 2+(150 mg/dL) (Negative); Urine Ketones Negative (Negative); Urine Nitrite Negative (Negative); Urine Protein Negative (Negative); Urine Specific Gravity 1.011 (1.010-1.030); Urine Urobilinogen Negative (Negative)
[2019-08-03] MEDS: oxyCODONE TAB* 5 MG TAB PO PRN (22:55)
[2019-08-03] MEDS: Heparin VIAL(*) 5000 UNITS/ML VIAL (FIVE THOUSAND) SUBCUT SCH (22:57)
[2019-08-03] MEDS: Docusate CAP* 100 MG PO SCH (22:57)
[2019-08-03] MEDS: Tamsulosin CAP* 0.4 MG PO SCH (22:57)
[2019-08-03] MEDS: Mirtazapine TAB* 15 MG PO SCH (22:57)
[2019-08-04] MEDS: Heparin VIAL(*) 5000 UNITS/ML VIAL (FIVE THOUSAND) SUBCUT SCH ×3 (05:37→21:14)
[2019-08-04] MEDS: oxyCODONE TAB* 5 MG TAB PO PRN ×3 (05:47→21:12)
[2019-08-04] MEDS ORDERED: Fludrocortisone Acetate TAB* 0.1 MG PO SCH (09:00)
[2019-08-04] MEDS ORDERED: Losartan TAB* 25 MG PO SCH (09:00)
[2019-08-04] MEDS: Potassium Chlor TAB* 20 MEQ TAB.ER PO SCH (09:47)
[2019-08-04] MEDS: Docusate CAP* 100 MG PO SCH ×2 (09:48→21:12)
[2019-08-04] MEDS: Tamsulosin CAP* 0.4 MG PO SCH ×2 (09:48→21:13)
[2019-08-04] MEDS: Aspirin 81 mg CHEW TAB* 81 MG TAB.CHEW PO SCH (09:48)
[2019-08-04] MEDS: Sertraline* 100 MG TAB PO SCH (09:48)
[2019-08-04] MEDS: Magnesium Oxide TAB* 400 MG PO SCH (09:48)
[2019-08-04] MEDS: Metoprolol Succinate XL TAB* 50 MG PO SCH ×2 (09:48→21:13)
[2019-08-04] MEDS: Cyanocobalamin TAB* 500 MCG PO SCH (09:48)
[2019-08-04] MEDS: Pantoprazole TAB * 40 MG TAB PO SCH (09:48)
[2019-08-04] MEDS ORDERED: Losartan TAB* 25 MG PO ONE (12:17)
--- NOTE | 2019-08-04 12:26 | PN ---
Subjective Date of Service: 08/04/19 Interval History: patient seen today, sitting in his bed, resting comfortable, pleasant. NO events overnight other than his elevated BP and low potassium supplemented by mouth. No chest pain no shortness of breath. he is complaining of pain in his right 4th and 5 th toe Past Medical History: Unchanged from Admission Objective Active Medications: Aspirin (Aspirin 81 Mg Chew Tab*) 81 mg PO QAM [facility] Last Admin: 08/04/19 09:48 Dose: 81 mg Atorvastatin Calcium (Lipitor*) 40 mg PO QPM [facility] Last Admin: 08/03/19 18:17 Dose: 40 mg Cyanocobalamin (Vitamin B12 Tab*) 1,000 mcg PO DAILY [facility] Last Admin: 08/04/19 09:48 Dose: 1,000 mcg Cyclobenzaprine HCl (Flexeril Tab*) 15 mg PO BEDTIME PRN PRN Reason: PAIN Last Admin: 08/03/19 18:26 Dose: 15 mg Docusate Sodium (Colace Cap*) 100 mg PO BID [facility] Last Admin: 08/04/19 09:48 Dose: 100 mg Furosemide (Lasix Tab*) 40 mg PO EVERY OTHER DAY [facility] Heparin Sodium (Porcine) (Heparin Vial(*)) 5,000 units SUBCUT Q8HR [facility] Last Admin: 08/04/19 05:37 Dose: 5,000 units Losartan Potassium (Cozaar Tab*) 100 mg PO DAILY [facility] Magnesium Oxide (Magox 400 Tab*) 400 mg PO DAILY [facility] Last Admin: 08/04/19 09:48 Dose: 400 mg Meclizine HCl (Antivert Tab*) 25 mg PO TID PRN PRN Reason: VERTIGO Metoprolol Succinate (Toprol Xl Tab*) 50 mg PO BID [facility] Last Admin: 08/04/19 09:48 Dose: 50 mg Mirtazapine (Remeron Tab*) 15 mg PO BEDTIME [facility] Last Admin: 08/03/19 22:57 Dose: 15 mg Ondansetron HCl (Zofran Tab*) 4 mg PO Q6H PRN PRN Reason: NAUSEA Oxycodone HCl (Roxycodone Tab*) 15 mg PO TID PRN PRN Reason: PAIN Last Admin: 08/04/19 05:47 Dose: 15 mg Pantoprazole Sodium (Protonix Tab*) 40 mg PO DAILY [facility] Last Admin: 08/04/19 09:48 Dose: 40 mg Potassium Chloride (Klor Con Er Tab*) 40 meq PO DAILY [facility] Last Admin: 08/04/19 09:47 Dose: 40 meq Sertraline HCl (Zoloft*) 100 mg PO DAILY [facility] Last Admin: 08/04/19 09:48 Dose: 100 mg Tamsulosin HCl (Flomax Cap*) 0.4 mg PO BID [facility] Last Admin: 08/04/19 09:48 Dose: 0.4 mg Vital Signs - 8 hr 08/04/19 08/04/19 08/04/19 05:47 07:15 07:40 Temperature 98 F Pulse Rate 60 Respiratory 16 16 18 Rate Blood Pressure 175/100 (mmHg) O2 Sat by Pulse 94 Oximetry 08/04/19 08/04/19 07:59 11:25 Temperature 98.1 F Pulse Rate 58 Respiratory 16 16 Rate Blood Pressure 163/93 (mmHg) O2 Sat by Pulse 97 Oximetry Oxygen Devices in Use Now: None Appearance: awake, alert. sitting in his bed was working on his Smart phone. Ears/Nose/Mouth/Throat: NL Teeth, Lips, Gums, Mucous Membranes Moist Neck: NL Appearance and Movements; NL JVP, Trachea Midline Respiratory: Symmetrical Chest Expansion and Respiratory Effort, Clear to Auscultation Cardiovascular: NL Sounds; No Murmurs; No JVD, No Edema Abdominal: NL Sounds; No Tenderness; No Distention Extremities: - - left 4th and 5th toe ecchymosis Neurological: Alert and Oriented x 3, - - 5/5 Result Diagrams: 08/03/19 15:38 08/03/19 15:38 Assess/Plan/Problems-Billing Assessment: 74 y/o male with recurrent fall of unclear etiology, he has been hospitalized multiple times and he has received an extensive work up that included multiple imaging of his brain, spine, neurology and neurosurgery consultation and no etiology was determined. 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 (His still live in the same house but she is currently in a same sex relations with another female partner and he has been physcially declining since the brake up) - Extensive work up documented in his previous hospitalization without a definite physical-diagnosis to explain his recurrent falls - He just left rehab and been doing well independantly up until 3 weeks ago he started to fall again and finally decided to come for re-evaluation and rehab placement (2) Weakness Current Visit: No Status: Acute Code(s): R53.1 - WEAKNESS SNOMED Code(s): 87665186 Comment: - Unclear etiology - possible musckolskeletal and psychosomatic due to his depression worsened by the loss of his mariage relation with his . (His still live in the same house but she is currently in a same sex relations with another female partner and he has been physcially declining since the brake up) - Extensive work up documented in his previous hospitalization without a definite physical-diagnosis to explain his recurrent falls - He just left rehab and been doing well independantly up until 3 weeks ago he started to fall again and finally decided to come for re-evaluation and rehab placement (3) Afib Current Visit: No Status: Acute Code(s): I48.91 - UNSPECIFIED ATRIAL FIBRILLATION SNOMED Code(s): 48943236 Comment: - Hx of afib, no ECG done in ED - Will obtain ECG but will continue him on metoprolol, aspirin - His last EKG from 06/10/19 revealed normal sinus rhythm and so does the one from 03/30/19 - He may have paroxysmal afib?, not on anticoagulation- patient choice, especially now with the history of frequent and reccurent falls (4) CAD (coronary artery disease) Current Visit: No Status: Acute Code(s): I25.10 - ATHSCL HEART DISEASE OF [place] CORONARY ARTERY W/O ANG PCTRS SNOMED Code(s): 49461376 Comment: - Continue aspirin 81 mg, and atorvastatin 40 mg, metoprolol 50 mg bid - Given his recurrent weakness I am going to decrease his atorvastatin to 20 mg and see if his muscle strength will improve (5) Depression Current Visit: No Status: Acute Code(s): F32.9 - MAJOR DEPRESSIVE DISORDER, SINGLE EPISODE, UNSPECIFIED SNOMED Code(s): 97796626 Comment: - Continue mirtazapine 15 mg, and sertraline 100 mg - Will need to re-evaluate his drug regimen with his psychiatrist for optimal response (6) GERD (gastroesophageal reflux disease) Current Visit: No Status: Acute Code(s): K21.9 - GASTRO-ESOPHAGEAL REFLUX DISEASE WITHOUT ESOPHAGITIS SNOMED Code(s): 342743012 Comment: - Continue protonix 40 mg daily (7) History of CVA (cerebrovascular accident) Current Visit: No Status: Acute Code(s): Z86.73 - PRSNL HX OF TIA (TIA), AND CEREB INFRC W/O RESID DEFICITS SNOMED Code(s): 882169846 Comment: - Continue aspirin 81, will decrease his atorvastatin to 20 mg give his recurrent fall and generalized weakness (8) Hyperlipemia Current Visit: No Status: Acute Code(s): E78.5 - HYPERLIPIDEMIA, UNSPECIFIED SNOMED Code(s): 69730124 Comment: will decrease his atorvastatin to 20 mg give his recurrent fall and generalized weakness (9) Hypertension Current Visit: No Status: Acute Code(s): I10 - ESSENTIAL (PRIMARY) HYPERTENSION SNOMED Code(s): 98639838 Comment: - Hypertensive, SBP was over 200's - Continue metoprolol 50 mg bid, furosemide 40 mg QOD; increase losartan from 50 - to 100 mg and I am going to discontinue his florinef as it may exacerbate his Hypertension. It was initiated for orthostatic and not for adrenal insufisiency (10) Ischemic cardiomyopathy Current Visit: No Status: Acute Code(s): I25.5 - ISCHEMIC CARDIOMYOPATHY SNOMED Code(s): 930296961 Comment: - Echo shows EF 40-45%, wall motion abnormalities in area of known occlusion - Continue metoprolol, losartan, aspirin, statin (11) Orthostatic hypotension Current Visit: No Status: Acute Code(s): I95.1 - ORTHOSTATIC HYPOTENSION SNOMED Code(s): 35305280 Comment: - Hx of orthostatic but given his BP in cari 200;s I will discontinue and monitor for hypotensions
[2019-08-04 14:49] LABS: BUN/Creatinine Ratio 18.2 (8-20); EGFR African American 89.4 (>60); EGFR Non-African American 73.9 (>60); Magnesium 2.1 mg/dL (1.9-2.7); Phosphorus 2.9 mg/dL (2.5-5.0); Potassium 3.7 mmol/L (3.5-5.0)
[2019-08-04] MEDS: Atorvastatin* 40 MG TAB PO SCH (19:24)
[2019-08-04] MEDS: Mirtazapine TAB* 15 MG PO SCH (21:13)
[2019-08-05] MEDS: oxyCODONE TAB* 5 MG TAB PO PRN ×3 (03:25→19:34)
[2019-08-05] MEDS: Heparin VIAL(*) 5000 UNITS/ML VIAL (FIVE THOUSAND) SUBCUT SCH ×3 (05:40→21:15)
[2019-08-05] MEDS: Tamsulosin CAP* 0.4 MG PO SCH ×2 (07:56→21:13)
[2019-08-05] MEDS: Metoprolol Succinate XL TAB* 50 MG PO SCH ×2 (07:56→21:14)
[2019-08-05] MEDS: Potassium Chlor TAB* 20 MEQ TAB.ER PO SCH (07:56)
[2019-08-05] MEDS: Furosemide TAB* 40 MG PO SCH (07:56)
[2019-08-05] MEDS: Pantoprazole TAB * 40 MG TAB PO SCH (07:57)
[2019-08-05] MEDS: Magnesium Oxide TAB* 400 MG PO SCH (07:57)
[2019-08-05] MEDS: Cyanocobalamin TAB* 500 MCG PO SCH (07:59)
[2019-08-05] MEDS: Losartan TAB* 25 MG PO SCH (07:59)
[2019-08-05] MEDS: Aspirin 81 mg CHEW TAB* 81 MG TAB.CHEW PO SCH (08:00)
[2019-08-05] MEDS: Sertraline* 100 MG TAB PO SCH (08:00)
[2019-08-05] MEDS: Docusate CAP* 100 MG PO SCH ×2 (08:00→21:13)
--- NOTE | 2019-08-05 11:02 | PN ---
Subjective Date of Service: 08/05/19 Interval History: patient, Xray of left foot reviewed with patient yesterday, He still have some pain in the left foot but states it is subsiding. no other acute issue. Potassium has been corrected. BP being addressed. Discussed with trimming caser regarding discharge/placement awaiting final dispo plan by lamp shades supervisor and social sciences instructor Past Medical History: Unchanged from Admission Objective Active Medications: Aspirin (Aspirin 81 Mg Chew Tab*) 81 mg PO QAM [facility] Last Admin: 08/05/19 08:00 Dose: 81 mg Atorvastatin Calcium (Lipitor*) 40 mg PO QPM [facility] Last Admin: 08/04/19 19:24 Dose: 40 mg Cyanocobalamin (Vitamin B12 Tab*) 1,000 mcg PO DAILY [facility] Last Admin: 08/05/19 07:59 Dose: 1,000 mcg Cyclobenzaprine HCl (Flexeril Tab*) 15 mg PO BEDTIME PRN PRN Reason: PAIN Last Admin: 08/03/19 18:26 Dose: 15 mg Docusate Sodium (Colace Cap*) 100 mg PO BID [facility] Last Admin: 08/05/19 08:00 Dose: 100 mg Furosemide (Lasix Tab*) 40 mg PO EVERY OTHER DAY [facility] Last Admin: 08/05/19 07:56 Dose: 40 mg Heparin Sodium (Porcine) (Heparin Vial(*)) 5,000 units SUBCUT Q8HR [facility] Last Admin: 08/05/19 05:40 Dose: 5,000 units Losartan Potassium (Cozaar Tab*) 100 mg PO DAILY [facility] Last Admin: 08/05/19 07:59 Dose: 100 mg Magnesium Oxide (Magox 400 Tab*) 400 mg PO DAILY [facility] Last Admin: 08/05/19 07:57 Dose: 400 mg Meclizine HCl (Antivert Tab*) 25 mg PO TID PRN PRN Reason: VERTIGO Metoprolol Succinate (Toprol Xl Tab*) 50 mg PO BID [facility] Last Admin: 08/05/19 07:56 Dose: 50 mg Mirtazapine (Remeron Tab*) 15 mg PO BEDTIME [facility] Last Admin: 08/04/19 21:13 Dose: 15 mg Ondansetron HCl (Zofran Tab*) 4 mg PO Q6H PRN PRN Reason: NAUSEA Oxycodone HCl (Roxycodone Tab*) 15 mg PO TID PRN PRN Reason: PAIN Last Admin: 08/05/19 08:08 Dose: 15 mg Pantoprazole Sodium (Protonix Tab*) 40 mg PO DAILY [facility] Last Admin: 08/05/19 07:57 Dose: 40 mg Potassium Chloride (Klor Con Er Tab*) 40 meq PO DAILY [facility] Last Admin: 08/05/19 07:56 Dose: 40 meq Sertraline HCl (Zoloft*) 100 mg PO DAILY [facility] Last Admin: 08/05/19 08:00 Dose: 100 mg Tamsulosin HCl (Flomax Cap*) 0.4 mg PO BID [facility] Last Admin: 08/05/19 07:56 Dose: 0.4 mg Vital Signs - 8 hr 08/05/19 08/05/19 08/05/19 03:25 03:45 04:00 Temperature 98.1 F Pulse Rate 65 Respiratory 18 18 Rate Blood Pressure 174/73 170/70 (mmHg) O2 Sat by Pulse 94 Oximetry 08/05/19 08/05/19 08/05/19 05:39 07:30 08:00 Temperature 98.0 F Pulse Rate 72 Respiratory 16 16 16 Rate Blood Pressure 190/105 (mmHg) O2 Sat by Pulse 98 Oximetry 08/05/19 08:08 Temperature Pulse Rate Respiratory 16 Rate Blood Pressure (mmHg) O2 Sat by Pulse Oximetry Oxygen Devices in Use Now: None Appearance: awake, alert. no distress. pleasant, no events overnight Eyes: No Scleral Icterus, - - EOMI Ears/Nose/Mouth/Throat: NL Teeth, Lips, Gums, Mucous Membranes Moist Neck: NL Appearance and Movements; NL JVP, Trachea Midline Respiratory: Symmetrical Chest Expansion and Respiratory Effort, Clear to Auscultation Cardiovascular: NL Sounds; No Murmurs; No JVD, RRR Abdominal: NL Sounds; No Tenderness; No Distention Extremities: - - LLE ecchymosis left foot Skin: No Rash or Ulcers Neurological: Alert and Oriented x 3 Result Diagrams: 08/03/19 15:38 08/04/19 14:21 Assess/Plan/Problems-Billing Assessment: 74 y/o male with recurrent fall of unclear etiology, he has been hospitalized multiple times and he has received an extensive work up that included multiple imaging of his brain, spine, neurology and neurosurgery consultation and no etiology was determined. 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 WBAT, ICE, Tylenol and Post op shoes as recommended by ortho and will see him for evaluations (2) Recurrent falls while walking Current Visit: Yes Status: Acute Code(s): R29.6 - REPEATED FALLS SNOMED Code(s): 891404506 Comment: - Unclear etiology - Possible musckolskeletal and psychosomatic due to his depression worsened by the loss of his mariage relation with his . (His still live in the same house but she is currently in a same sex relations with another female partner and he has been physcially declining since the brake up) - Extensive work up documented in his previous hospitalization without a definite physical-diagnosis to explain his recurrent falls - He just left rehab and been doing well independantly up until 3 weeks ago he started to fall again and finally decided to come for re-evaluation and rehab placement - Left 5th metatarsal fracture, non displaced. WBAT, ICE, Tylenol and Post op shoes as recommended by ortho and will see him for evaluations (3) Weakness Current Visit: No Status: Acute Code(s): R53.1 - WEAKNESS SNOMED Code(s): 57057349 Comment: - Unclear etiology - possible musckolskeletal and psychosomatic due to his depression worsened by the loss of his mariage relation with his . (His still live in the same house but she is currently in a same sex relations with another female partner and he has been physcially declining since the brake up) - Extensive work up documented in his previous hospitalization without a definite physical-diagnosis to explain his recurrent falls - He just left rehab and been doing well independantly up until 3 weeks ago he started to fall again and finally decided to come for re-evaluation and rehab placement (4) Afib Current Visit: No Status: Acute Code(s): I48.91 - UNSPECIFIED ATRIAL FIBRILLATION SNOMED Code(s): 96877909 Comment: - Hx of afib, no ECG done in ED - ECG 08/04/19 confirms again NSR. Will continue him on metoprolol, aspirin - His last EKG from 06/10/19 revealed normal sinus rhythm and so does the one from 03/30/19 - He may have paroxysmal afib?, not on anticoagulation- patient choice, especially now with the history of frequent and reccurent falls (5) CAD (coronary artery disease) Current Visit: No Status: Acute Code(s): I25.10 - ATHSCL HEART DISEASE OF [place] CORONARY ARTERY W/O ANG PCTRS SNOMED Code(s): 87879564 Comment: - Continue aspirin 81 mg, and atorvastatin 40 mg, metoprolol 50 mg bid - Given his recurrent weakness I am going to decrease his atorvastatin to 20 mg and see if his muscle strength will improve (6) Depression Current Visit: No Status: Acute Code(s): F32.9 - MAJOR DEPRESSIVE DISORDER, SINGLE EPISODE, UNSPECIFIED SNOMED Code(s): 70442119 Comment: - Continue mirtazapine 15 mg, and sertraline 100 mg - Will need to re-evaluate his drug regimen with his psychiatrist for optimal response (7) GERD (gastroesophageal reflux disease) Current Visit: No Status: Acute Code(s): K21.9 - GASTRO-ESOPHAGEAL REFLUX DISEASE WITHOUT ESOPHAGITIS SNOMED Code(s): 497709739 Comment: - Continue protonix 40 mg daily (8) History of CVA (cerebrovascular accident) Current Visit: No Status: Acute Code(s): Z86.73 - PRSNL HX OF TIA (TIA), AND CEREB INFRC W/O RESID DEFICITS SNOMED Code(s): 358017033 Comment: - Continue aspirin 81, will decrease his atorvastatin to 20 mg give his recurrent fall and generalized weakness (9) Hyperlipemia Current Visit: No Status: Acute Code(s): E78.5 - HYPERLIPIDEMIA, UNSPECIFIED SNOMED Code(s): 80427259 Comment: will decrease his atorvastatin to 20 mg give his recurrent fall and generalized weakness (10) Hypertension Current Visit: No Status: Acute Code(s): I10 - ESSENTIAL (PRIMARY) HYPERTENSION SNOMED Code(s): 20370971 Comment: - Hypertensive, SBP was over 200's - Continue metoprolol 50 mg bid, furosemide 40 mg QOD; increase losartan from 50 - to 100 mg and I am going to discontinue his florinef as it may exacerbate his Hypertension. It was initiated for orthostatic and not for adrenal insufisiency (11) Ischemic cardiomyopathy Current Visit: No Status: Acute Code(s): I25.5 - ISCHEMIC CARDIOMYOPATHY SNOMED Code(s): 688529234 Comment: - Echo shows EF 40-45%, wall motion abnormalities in area of known occlusion - Continue metoprolol, losartan, aspirin, statin (12) Orthostatic hypotension Current Visit: No Status: Acute Code(s): I95.1 - ORTHOSTATIC HYPOTENSION SNOMED Code(s): 28746301 Comment: - Hx of orthostatic but given his BP in cari 200;s I will discontinue and monitor for hypotensions
[2019-08-05] MEDS ORDERED: amLODIPine TAB* 5 MG PO SCH (13:00)
--- NOTE | 2019-08-05 13:13 | CONS ---
ORTHOPEDIC CONSULTATION NOTE: DATE OF CONSULT: 08/05/19 ATTENDING SURGEON: Christine Moran MD. Thank you for this orthopedic consultation. CHIEF COMPLAINT: Left foot pain, frequent falls. HISTORY OF PRESENT ILLNESS: Mr. Hung is a 74-year-old gentleman, who was admitted for observation, recurrent falls, and left foot pain. The patient reports 2 days ago he had a fall and developed pain in the left foot along the 4th and 5th toes. This is 2/10 aching pain that is increased by weightbearing. He is able to ambulate in a normal shoe without a rolling walker. He does have concerning history of recurrent falls and recurrent hospitalizations. He has a rolling walker but is able to walk without this. The patient denies pain or bruising elsewhere. PAST MEDICAL HISTORY: 1. 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 2. Orthostatic hypotension. 3. CVA. 4. Coronary artery disease. 5. Depression. 6. GERD. PAST SURGICAL HISTORY: 1. Bilateral cataract extractions. 2. Cervical decompression. 3. Cervical dorsal column stimulator. 4. Appendectomy. FAMILY HISTORY: Maternal heart disease, paternal cancer. SOCIAL HISTORY: The patient is a nonsmoker. He worked with [employer]. Minimal alcohol. No recreational drugs. Lives alone. Recently from his . REVIEW OF SYSTEMS: Fourteen systems were reviewed with the patient; positive for weakness, recurrent falls, left foot pain; negative for fevers, chills, chest pain, shortness of breath. Otherwise, the patient reports review of systems is negative or not relevant. PHYSICAL EXAM: Vitals: Temperature 98, pulse 72, blood pressure 190/105. General: The patient is a well-nourished male, in no apparent distress. He has an abnormal affect and mood. He laughs in response to most of my questions and has a flat affect. He appears depressed. Gait: The patient is seen walking in the jhaveri without a limp and without a rolling walker. HEENT: Atraumatic, normocephalic. Pupils equal and reactive to light. Neck: Trachea midline. Neck supple. Chest: Unlabored breathing. Bilateral Upper Extremities : The patient's skin is intact. No abrasions or open wounds. No obvious ecchymoses. Full range of motion at the shoulders, elbow, and wrist without pain. 4+/5 network support administrator strength. 2+ palpable radial pulses. Right Lower Extremity: Skin is intact. No abrasions or open wounds. Dorsiflexion and plantarflexion at the ankle. 2+ palpable DP pulse. No significant edema. Left Lower Extremity: The patient's skin is intact. He has some ecchymosis and tenderness to palpation as well as swelling along the 4th and 5th toes. He has dorsiflexion, plantarflexion. Full sensation to light touch and 2+ palpable DP pulse, no edema. DIAGNOSTIC STUDIES/LAB DATA: Radiographs/Studies: The patient's x-rays of the left foot show a minimally displaced fracture of the 5th proximal phalanx. Labs: White blood cells from 08/03/19 are 5.5, hematocrit 35, platelets 103, INR 1.07. Sodium 142, potassium 3.7, chloride 106, BUN and creatinine 18 and 0.99. ASSESSMENT AND PLAN: Mr. Hung is a 74-year-old gentleman with a recent admission for multiple falls and weakness. He has a left 5th proximal phalanx fracture of the left foot. The patient and I discussed a postoperative shoe, which I do recommend for ambulation. He can be weightbearing as tolerated on the left lower extremity. I made it clear to him that he does not need surgery for this fracture, although he was asking for this. I would like to see him in followup as an outpatient in 2 weeks' time for repeat x-rays of the left foot to ensure proper healing of the fracture. I did recommend to him use of the rolling walker to prevent falls and we discussed fall precautions. Thank you for this orthopedic consultation. [id number]/[facility] #: [id number] CINDY
[2019-08-05] MEDS: Atorvastatin* 40 MG TAB PO SCH (19:10)
[2019-08-05] MEDS: Mirtazapine TAB* 15 MG PO SCH (21:13)
--- NOTE | 2019-08-06 03:01 | PN ---
Hospitalist Progress Note Date of Service: 08/06/19 HOSPITALIST ADDENDUM Called by RN because patient had a witnessed fall. Safety monitor was in the room and asking him to wait, but he kept walking and fell with no significant trauma, as he had a gait belt on. Will need an alarm now.
[2019-08-06] MEDS: Heparin VIAL(*) 5000 UNITS/ML VIAL (FIVE THOUSAND) SUBCUT SCH ×3 (05:03→22:16)
[2019-08-06] MEDS: Cyanocobalamin TAB* 500 MCG PO SCH (08:11)
[2019-08-06] MEDS: Potassium Chlor TAB* 20 MEQ TAB.ER PO SCH (08:11)
[2019-08-06] MEDS: Losartan TAB* 25 MG PO SCH (08:11)
[2019-08-06] MEDS: Sertraline* 100 MG TAB PO SCH (08:12)
[2019-08-06] MEDS: Aspirin 81 mg CHEW TAB* 81 MG TAB.CHEW PO SCH (08:12)
[2019-08-06] MEDS: Metoprolol Succinate XL TAB* 50 MG PO SCH ×2 (08:12→22:16)
[2019-08-06] MEDS: Pantoprazole TAB * 40 MG TAB PO SCH (08:12)
[2019-08-06] MEDS: Docusate CAP* 100 MG PO SCH ×2 (08:12→22:16)
[2019-08-06] MEDS: Magnesium Oxide TAB* 400 MG PO SCH (08:12)
[2019-08-06] MEDS: Tamsulosin CAP* 0.4 MG PO SCH ×2 (08:12→22:16)
[2019-08-06] MEDS: oxyCODONE TAB* 5 MG TAB PO PRN ×3 (08:22→22:14)
--- NOTE | 2019-08-06 09:46 | PN ---
Subjective Date of Service: 08/06/19 Interval History: As per d/w RN pt fell twice last night despite having safety monitor in place. It appeared to be related to pt not remembering and not able to follow instructions to not to get up by himself. Pt himself is a very poor historian, able to answer with very nonspecific descriptions and confabulating C/o pain in left foot and chronic left sided weakness. Pt told me that he is in the process getting a divorce. Past Medical History: Unchanged from Admission Objective Active Medications: Amlodipine Besylate (Norvasc Tab*) 10 mg PO DAILY [facility] Aspirin (Aspirin 81 Mg Chew Tab*) 81 mg PO QAM [facility] Last Admin: 08/06/19 08:12 Dose: 81 mg Atorvastatin Calcium (Lipitor*) 40 mg PO QPM [facility] Last Admin: 08/05/19 19:10 Dose: Not Given Cyanocobalamin (Vitamin B12 Tab*) 1,000 mcg PO DAILY [facility] Last Admin: 08/06/19 08:11 Dose: 1,000 mcg Cyclobenzaprine HCl (Flexeril Tab*) 15 mg PO BEDTIME PRN PRN Reason: PAIN Last Admin: 08/03/19 18:26 Dose: 15 mg Docusate Sodium (Colace Cap*) 100 mg PO BID [facility] Last Admin: 08/06/19 08:12 Dose: 100 mg Furosemide (Lasix Tab*) 40 mg PO EVERY OTHER DAY [facility] Last Admin: 08/05/19 07:56 Dose: 40 mg Heparin Sodium (Porcine) (Heparin Vial(*)) 5,000 units SUBCUT Q8HR [facility] Last Admin: 08/06/19 05:03 Dose: 5,000 units Losartan Potassium (Cozaar Tab*) 100 mg PO DAILY [facility] Last Admin: 08/06/19 08:11 Dose: 100 mg Magnesium Oxide (Magox 400 Tab*) 400 mg PO DAILY [facility] Last Admin: 08/06/19 08:12 Dose: 400 mg Meclizine HCl (Antivert Tab*) 25 mg PO TID PRN PRN Reason: VERTIGO Metoprolol Succinate (Toprol Xl Tab*) 50 mg PO BID [facility] Last Admin: 08/06/19 08:12 Dose: 50 mg Mirtazapine (Remeron Tab*) 15 mg PO BEDTIME [facility] Last Admin: 08/05/19 21:13 Dose: 15 mg Ondansetron HCl (Zofran Tab*) 4 mg PO Q6H PRN PRN Reason: NAUSEA Oxycodone HCl (Roxycodone Tab*) 15 mg PO TID PRN PRN Reason: PAIN Last Admin: 08/06/19 08:22 Dose: 15 mg Pantoprazole Sodium (Protonix Tab*) 40 mg PO DAILY [facility] Last Admin: 08/06/19 08:12 Dose: 40 mg Potassium Chloride (Klor Con Er Tab*) 40 meq PO DAILY [facility] Last Admin: 08/06/19 08:11 Dose: 40 meq Sertraline HCl (Zoloft*) 100 mg PO DAILY [facility] Last Admin: 08/06/19 08:12 Dose: 100 mg Tamsulosin HCl (Flomax Cap*) 0.4 mg PO BID [facility] Last Admin: 08/06/19 08:12 Dose: 0.4 mg Vital Signs - 8 hr 08/06/19 08/06/19 08/06/19 02:13 02:40 03:09 Temperature 98.4 F 98.8 F Pulse Rate 79 97 87 Respiratory 20 24 26 Rate Blood Pressure 157/89 214/129 170/92 (mmHg) O2 Sat by Pulse 96 98 95 Oximetry 08/06/19 08/06/19 08/06/19 03:32 04:15 05:07 Temperature 97.7 F 97.6 F 98.4 F Pulse Rate 80 78 79 Respiratory 24 23 24 Rate Blood Pressure 170/95 177/95 174/100 (mmHg) O2 Sat by Pulse 95 95 96 Oximetry 08/06/19 08/06/19 08/06/19 06:05 08:00 08:22 Temperature 97.4 F Pulse Rate 75 Respiratory 24 16 16 Rate Blood Pressure 171/87 (mmHg) O2 Sat by Pulse 97 Oximetry 08/06/19 09:37 Temperature Pulse Rate 72 Respiratory Rate Blood Pressure 137/83 (mmHg) O2 Sat by Pulse Oximetry Oxygen Devices in Use Now: None Appearance: 74 yo M in nAD, AAOx2, pt is unable to tell any specifics about his life. 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 Neurological: Alert and Oriented x 3, - - left arm weakess at 4/5, left LE weakness at 4+/5 Result Diagrams: 08/03/19 15:38 08/04/19 14:21 Assess/Plan/Problems-Billing Assessment: 74 y/o male with recurrent fall of unclear etiology, he has been hospitalized multiple times and he has received an extensive work up that included multiple imaging of his brain, spine, neurology and neurosurgery consultation and no etiology was determined. 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 -started Norvasc 10 mg 08/06 (2) Cognitive decline Comment: Pt appear to have had cognitive decline. will ask for cognitive eval and make sure we have recent B12 and TSH levels (3) Fracture of 5th metatarsal Comment: - Left 5th proximal phalanx fracture, non displaced. WBAT, ICE, Tylenol and Post op shoes as recommended by ortho (4) Recurrent falls while walking Comment: - Unclear etiology - Possible musckolskeletal and psychosomatic due to his depression worsened by the loss of his mariage relation with his . (His still live in the same house but she is currently in a same sex relations with another female partner and he has been physcially declining since the brake up) - Extensive work up documented in his previous hospitalization without a definite physical-diagnosis to explain his recurrent falls - He just left rehab and been doing well independantly up until 3 weeks ago he started to fall again and finally decided to come for re-evaluation and rehab placement - Left 5th proximal pahalanx fracture, non displaced. WBAT, Tylenol and Post op shoes as recommended by ortho (5) Afib Comment: - Hx of afib, no ECG done in ED - ECG 08/04/19 confirms again NSR. Will continue him on metoprolol, aspirin - His last EKG from 06/10/19 revealed normal sinus rhythm and so does the one from 03/30/19 - he has h/o paroxysmal afib, not on anticoagulation due to falls. 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 (His still live in the same house but she is currently in a same sex relations with another female partner and he has been physcially declining since the brake up) - Extensive work up documented in his previous hospitalization without a definite physical-diagnosis to explain his recurrent falls (11) DVT prophylaxis Comment: - Heparin SQ Status and Disposition: inpatient
[2019-08-06] MEDS: amLODIPine TAB* 5 MG PO SCH (10:28)
[2019-08-06] MEDS: Atorvastatin* 40 MG TAB PO SCH (17:38)
[2019-08-06] MEDS: Mirtazapine TAB* 15 MG PO SCH (22:15)
[2019-08-07] MEDS: Heparin VIAL(*) 5000 UNITS/ML VIAL (FIVE THOUSAND) SUBCUT SCH ×3 (05:04→20:20)
[2019-08-07 07:40] LABS: ABS Eosinophils 0.1 10^3/ul (0-0.6); ABS Lymphocytes 0.9 10^3/ul (1.0-4.8); ABS Monocytes 0.5 10^3/ul (0-0.8); ABS Neutrophils 4.1 10^3/ul (1.5-7.7); Eosinophil % 1.9 %; Hematocrit 38 % (42-52); Hemoglobin 12.7 g/dL (14.0-18.0); Lymphocyte % 15.6 %; Mean Corpuscular HGB Conc 33 g/dL (31-36); Mean Corpuscular Hemoglobin 28 pg (27-31); Mean Corpuscular Volume 84 fL (80-94); Mean Platelet Volume 9.5 fL (7.4-10.4); Nucleated Red Blood Cells % 0.1; Platelet Count 126 10^3/uL (150-450); Red Blood Count 4.59 10^6 /uL (4.18-5.48); Red Cell Distribution Width 15 % (10-15); White Blood Count 5.6 10^3/uL (3.5-10.8)
[2019-08-07 08:00] LABS: BUN/Creatinine Ratio 24.7 (8-20); Calcium 9.7 mg/dL (8.6-10.3); EGFR African American 96.1 (>60); EGFR Non-African American 79.4 (>60); Potassium 4.1 mmol/L (3.5-5.0)
[2019-08-07] MEDS: oxyCODONE TAB* 5 MG TAB PO PRN ×4 (08:13→22:16)
[2019-08-07] MEDS: Potassium Chlor TAB* 20 MEQ TAB.ER PO SCH (08:15)
[2019-08-07] MEDS: Losartan TAB* 25 MG PO SCH (08:15)
[2019-08-07] MEDS: Tamsulosin CAP* 0.4 MG PO SCH ×2 (08:16→20:19)
[2019-08-07] MEDS: Sertraline* 100 MG TAB PO SCH (08:16)
[2019-08-07] MEDS: amLODIPine TAB* 5 MG PO SCH (08:16)
[2019-08-07] MEDS: Pantoprazole TAB * 40 MG TAB PO SCH (08:16)
[2019-08-07] MEDS: Docusate CAP* 100 MG PO SCH ×2 (08:17→20:19)
[2019-08-07] MEDS: Furosemide TAB* 40 MG PO SCH (08:17)
[2019-08-07] MEDS: Aspirin 81 mg CHEW TAB* 81 MG TAB.CHEW PO SCH (08:17)
[2019-08-07] MEDS: Magnesium Oxide TAB* 400 MG PO SCH (08:17)
[2019-08-07] MEDS: Metoprolol Succinate XL TAB* 50 MG PO SCH ×2 (08:17→20:19)
[2019-08-07] MEDS: Cyanocobalamin TAB* 500 MCG PO SCH (08:17)
--- NOTE | 2019-08-07 09:52 | PN ---
Subjective Date of Service: 08/07/19 Interval History: Pt still has difficulty finding words. C/o exacerbation of chronic neck pain. doesn't feel like eating breakfast. Was unable to tell me where he is right now. Able to state his and age. Has difficulty naming objects Past Medical History: Unchanged from Admission Objective Active Medications: Amlodipine Besylate (Norvasc Tab*) 10 mg PO DAILY [facility] Last Admin: 08/07/19 08:16 Dose: 10 mg Aspirin (Aspirin 81 Mg Chew Tab*) 81 mg PO QAM [facility] Last Admin: 08/07/19 08:17 Dose: 81 mg Atorvastatin Calcium (Lipitor*) 40 mg PO QPM [facility] Last Admin: 08/06/19 17:38 Dose: 40 mg Cyanocobalamin (Vitamin B12 Tab*) 1,000 mcg PO DAILY [facility] Last Admin: 08/07/19 08:17 Dose: 1,000 mcg Cyclobenzaprine HCl (Flexeril Tab*) 15 mg PO BEDTIME PRN PRN Reason: PAIN Last Admin: 08/03/19 18:26 Dose: 15 mg Docusate Sodium (Colace Cap*) 100 mg PO BID [facility] Last Admin: 08/07/19 08:17 Dose: 100 mg Furosemide (Lasix Tab*) 40 mg PO EVERY OTHER DAY [facility] Last Admin: 08/07/19 08:17 Dose: 40 mg Heparin Sodium (Porcine) (Heparin Vial(*)) 5,000 units SUBCUT Q8HR [facility] Last Admin: 08/07/19 05:04 Dose: 5,000 units Losartan Potassium (Cozaar Tab*) 100 mg PO DAILY [facility] Last Admin: 08/07/19 08:15 Dose: 100 mg Magnesium Oxide (Magox 400 Tab*) 400 mg PO DAILY [facility] Last Admin: 08/07/19 08:17 Dose: 400 mg Meclizine HCl (Antivert Tab*) 25 mg PO TID PRN PRN Reason: VERTIGO Metoprolol Succinate (Toprol Xl Tab*) 50 mg PO BID [facility] Last Admin: 08/07/19 08:17 Dose: 50 mg Mirtazapine (Remeron Tab*) 15 mg PO BEDTIME [facility] Last Admin: 08/06/19 22:15 Dose: 15 mg Ondansetron HCl (Zofran Tab*) 4 mg PO Q6H PRN PRN Reason: NAUSEA Oxycodone HCl (Roxycodone Tab*) 15 mg PO TID PRN PRN Reason: PAIN Last Admin: 08/07/19 08:13 Dose: 15 mg Pantoprazole Sodium (Protonix Tab*) 40 mg PO DAILY [facility] Last Admin: 08/07/19 08:16 Dose: 40 mg Potassium Chloride (Klor Con Er Tab*) 40 meq PO DAILY [facility] Last Admin: 08/07/19 08:15 Dose: 40 meq Sertraline HCl (Zoloft*) 100 mg PO DAILY [facility] Last Admin: 08/07/19 08:16 Dose: 100 mg Tamsulosin HCl (Flomax Cap*) 0.4 mg PO BID [facility] Last Admin: 08/07/19 08:16 Dose: 0.4 mg Vital Signs - 8 hr 08/07/19 08/07/19 08/07/19 03:34 07:15 08:00 Temperature 97.6 F 97.7 F Pulse Rate 78 85 Respiratory 20 18 18 Rate Blood Pressure 160/93 162/82 (mmHg) O2 Sat by Pulse 96 94 Oximetry 08/07/19 08:13 Temperature Pulse Rate Respiratory 18 Rate Blood Pressure (mmHg) O2 Sat by Pulse Oximetry Oxygen Devices in Use Now: None Appearance: 74 yo M in nAD, AAOx1, pleasant , conversational, appears to have difficulty finding words Eyes: No Scleral Icterus, PERRLA Ears/Nose/Mouth/Throat: NL Teeth, Lips, Gums, Mucous Membranes Moist Neck: NL Appearance and Movements; NL JVP Respiratory: Symmetrical Chest Expansion and Respiratory Effort, Clear to Auscultation Cardiovascular: NL Sounds; No Murmurs; No JVD, RRR Abdominal: NL Sounds; No Tenderness; No Distention Lymphatic: No Cervical Adenopathy Extremities: No Edema, No Clubbing, Cyanosis Skin: No Nodules or Sclerosis, - - left foot ecchymosis over toes 4, 5 Neurological: - - left sided weakness -chronic Result Diagrams: 08/07/19 07:25 08/07/19 07:25 Assess/Plan/Problems-Billing Assessment: 74 y/o male with recurrent fall of unclear etiology, he has been hospitalized multiple times and he has received an extensive work up that included multiple imaging of his brain, spine, neurology and neurosurgery consultation and no etiology was determined. 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 -started Norvasc 10 mg 08/06 (2) Cognitive decline Comment: Pt appears to have had cognitive decline. Recent B12 and TSH levels had been WNL Pt appears to hev more problems speaking then before suspect acute delirium in pt with h/o baseline mild memory impairment. Trent get CT brain to r/o ICH(pt fell twice 2 days ago) Try to allow pt to sleep. Appears that no new meds were started this [facility] stay will cont to observe (3) Fracture of 5th metatarsal Comment: - Left 5th proximal phalanx fracture, non displaced. WBAT, ICE, Tylenol and Post op shoes as recommended by ortho (4) Recurrent falls while walking Comment: - Unclear etiology - Possible musckolskeletal and psychosomatic due to his depression worsened by the loss of his mariage relation with his . (His still live in the same house but she is currently in a same sex relations with another female partner and he has been physcially declining since the brake up) - Extensive work up documented in his previous hospitalization without a definite physical-diagnosis to explain his recurrent falls - He just left rehab and been doing well independantly up until 3 weeks ago he started to fall again and finally decided to come for re-evaluation and rehab placement - Left 5th proximal pahalanx fracture, non displaced. WBAT, Tylenol and Post op shoes as recommended by ortho (5) Afib Comment: - Hx of afib, no ECG done in ED - ECG 08/04/19 confirms again NSR. Will continue him on metoprolol, aspirin - His last EKG from 06/10/19 revealed normal sinus rhythm and so does the one from 03/30/19 - he has h/o paroxysmal afib, not on anticoagulation due to falls. 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 (His still live in the same house but she is currently in a same sex relations with another female partner and he has been physcially declining since the brake up) - Extensive work up documented in his previous hospitalization without a definite physical-diagnosis to explain his recurrent falls (11) DVT prophylaxis Comment: - Heparin SQ Status and Disposition: inpatient
[2019-08-07] MEDS ORDERED: Polyethylene Glycol 3350* 17 GM PACKET PO PRN (09:53)
[2019-08-07] MEDS ORDERED: Magnesium Hydroxide LIQ* 30 ML UDC PO PRN (09:53)
[2019-08-07] MEDS: Atorvastatin* 40 MG TAB PO SCH (18:00)
[2019-08-07] MEDS: Mirtazapine TAB* 15 MG PO SCH (20:19)
[2019-08-07] MEDS: Cyclobenzaprine TAB* 10 MG PO PRN (20:19)
[2019-08-07] MEDS: Magnesium Hydroxide LIQ* 30 ML UDC PO SCH (20:19)
[2019-08-07] MEDS: Melatonin 3 MG TAB PO SCH (20:19)
[2019-08-08] MEDS: Heparin VIAL(*) 5000 UNITS/ML VIAL (FIVE THOUSAND) SUBCUT SCH ×3 (05:35→21:55)
--- NOTE | 2019-08-08 11:25 | PN ---
Subjective Date of Service: 08/08/19 Interval History: Pt slept from 1 AM to 10 AM. Feels well, still is unable to tell me where he is , missed breakfast since he was sleeping, denies pain Past Medical History: Unchanged from Admission Objective Active Medications: Amlodipine Besylate (Norvasc Tab*) 10 mg PO DAILY [facility] Last Admin: 08/07/19 08:16 Dose: 10 mg Aspirin (Aspirin 81 Mg Chew Tab*) 81 mg PO QAM [facility] Last Admin: 08/07/19 08:17 Dose: 81 mg Atorvastatin Calcium (Lipitor*) 40 mg PO QPM [facility] Last Admin: 08/07/19 18:00 Dose: 40 mg Cyanocobalamin (Vitamin B12 Tab*) 1,000 mcg PO DAILY [facility] Last Admin: 08/07/19 08:17 Dose: 1,000 mcg Cyclobenzaprine HCl (Flexeril Tab*) 15 mg PO BEDTIME PRN PRN Reason: PAIN Last Admin: 08/07/19 20:19 Dose: 15 mg Docusate Sodium (Colace Cap*) 100 mg PO BID [facility] Last Admin: 08/07/19 20:19 Dose: 100 mg Furosemide (Lasix Tab*) 40 mg PO EVERY OTHER DAY [facility] Last Admin: 08/07/19 08:17 Dose: 40 mg Heparin Sodium (Porcine) (Heparin Vial(*)) 5,000 units SUBCUT Q8HR [facility] Last Admin: 08/08/19 05:35 Dose: 5,000 units Losartan Potassium (Cozaar Tab*) 100 mg PO DAILY [facility] Last Admin: 08/07/19 08:15 Dose: 100 mg Magnesium Hydroxide (Milk Of Magnesia Liq*) 30 ml PO BID [facility] Last Admin: 08/07/19 20:19 Dose: 30 ml Magnesium Hydroxide (Milk Of Magnesia Liq*) 30 ml PO BID PRN PRN Reason: CONSTIPATION Magnesium Oxide (Magox 400 Tab*) 400 mg PO DAILY [facility] Last Admin: 08/07/19 08:17 Dose: 400 mg Meclizine HCl (Antivert Tab*) 25 mg PO TID PRN PRN Reason: VERTIGO Melatonin (Melatonin) 3 mg PO BEDTIME [facility] Last Admin: 08/07/19 20:19 Dose: 3 mg Metoprolol Succinate (Toprol Xl Tab*) 50 mg PO BID [facility] Last Admin: 08/07/19 20:19 Dose: 50 mg Mirtazapine (Remeron Tab*) 15 mg PO BEDTIME [facility] Last Admin: 08/07/19 20:19 Dose: 15 mg Ondansetron HCl (Zofran Tab*) 4 mg PO Q6H PRN PRN Reason: NAUSEA Oxycodone HCl (Roxycodone Tab*) 15 mg PO Q4H PRN PRN Reason: Pain -severe Last Admin: 08/07/19 22:16 Dose: 15 mg Pantoprazole Sodium (Protonix Tab*) 40 mg PO DAILY [facility] Last Admin: 08/07/19 08:16 Dose: 40 mg Polyethylene Glycol/Electrolytes (Miralax*) 17 gm PO DAILY PRN PRN Reason: CONSTIPATION Potassium Chloride (Klor Con Er Tab*) 40 meq PO DAILY [facility] Last Admin: 08/07/19 08:15 Dose: 40 meq Sertraline HCl (Zoloft*) 100 mg PO DAILY [facility] Last Admin: 08/07/19 08:16 Dose: 100 mg Tamsulosin HCl (Flomax Cap*) 0.4 mg PO BID [facility] Last Admin: 08/07/19 20:19 Dose: 0.4 mg Vital Signs - 8 hr 08/08/19 07:15 Temperature 97.6 F Pulse Rate 69 Respiratory 20 Rate Blood Pressure 154/90 (mmHg) O2 Sat by Pulse 93 Oximetry Oxygen Devices in Use Now: None Appearance: 74 yo m in nAD, oriented to self, able to tell me , pleasant tangential manner os speech Eyes: No Scleral Icterus, PERRLA Ears/Nose/Mouth/Throat: NL Teeth, Lips, Gums, Mucous Membranes Moist Neck: NL Appearance and Movements; NL JVP, Trachea Midline Respiratory: Symmetrical Chest Expansion and Respiratory Effort, Clear to Auscultation Cardiovascular: NL Sounds; No Murmurs; No JVD, RRR, No Edema Abdominal: NL Sounds; No Tenderness; No Distention Lymphatic: No Cervical Adenopathy Extremities: No Edema Skin: No Nodules or Sclerosis, - - left foot ecchymosis Neurological: - - chronic left sided weakness Result Diagrams: 08/07/19 07:25 08/07/19 07:25 Assess/Plan/Problems-Billing Assessment: 74 y/o male with recurrent fall of unclear etiology, he has been hospitalized multiple times and he has received an extensive work up that included multiple imaging of his brain, spine, neurology and neurosurgery consultation and no etiology was determined. 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 -started Norvasc 10 mg 08/06 (2) Cognitive decline Comment: Pt appears to have had cognitive decline. Recent B12 and TSH levels had been WNL Pt appears to have more problems finding words than 3 days ago-I am unsure if this could be psychosomatic or malingering suspect acute delirium in pt with h/o baseline mild memory impairment. CT brain neg, will ask Dr. Llamas to see pt in consult. EEG ordered (3) Fracture of 5th metatarsal Comment: - Left 5th proximal phalanx fracture, non displaced. WBAT, ICE, Tylenol and Post op shoes as recommended by ortho (4) Recurrent falls while walking Comment: - Unclear etiology - Possible musckolskeletal and psychosomatic due to his depression worsened by the loss of his mariage relation with his . (His still live in the same house but she is currently in a same sex relations with another female partner and he has been physcially declining since the brake up) - Extensive work up documented in his previous hospitalization without a definite physical-diagnosis to explain his recurrent falls - He just left rehab and been doing well independantly up until 3 weeks ago he started to fall again and finally decided to come for re-evaluation and rehab placement - Left 5th proximal pahalanx fracture, non displaced. WBAT, Tylenol and Post op shoes as recommended by ortho (5) Afib Comment: - Hx of afib, no ECG done in ED - ECG 08/04/19 confirms again NSR. Will continue him on metoprolol, aspirin - His last EKG from 06/10/19 revealed normal sinus rhythm and so does the one from 03/30/19 - he has h/o paroxysmal afib, not on anticoagulation due to falls. 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 (His still live in the same house but she is currently in a same sex relations with another female partner and he has been physcially declining since the brake up) - Extensive work up documented in his previous hospitalization without a definite physical-diagnosis to explain his recurrent falls (11) DVT prophylaxis Comment: - Heparin SQ Status and Disposition: inpatient
[2019-08-08] MEDS: oxyCODONE TAB* 5 MG TAB PO PRN ×3 (11:29→20:15)
[2019-08-08] MEDS: Losartan TAB* 25 MG PO SCH (11:29)
[2019-08-08] MEDS: Docusate CAP* 100 MG PO SCH ×2 (11:29→20:14)
[2019-08-08] MEDS: Metoprolol Succinate XL TAB* 50 MG PO SCH ×2 (11:30→20:14)
[2019-08-08] MEDS: amLODIPine TAB* 5 MG PO SCH (11:31)
[2019-08-08] MEDS: Pantoprazole TAB * 40 MG TAB PO SCH (11:31)
[2019-08-08] MEDS: Magnesium Oxide TAB* 400 MG PO SCH (11:31)
[2019-08-08] MEDS: Potassium Chlor TAB* 20 MEQ TAB.ER PO SCH (11:31)
[2019-08-08] MEDS: Cyanocobalamin TAB* 500 MCG PO SCH (11:31)
[2019-08-08] MEDS: Tamsulosin CAP* 0.4 MG PO SCH ×2 (11:31→20:14)
[2019-08-08] MEDS: Sertraline* 100 MG TAB PO SCH (11:31)
[2019-08-08] MEDS: Aspirin 81 mg CHEW TAB* 81 MG TAB.CHEW PO SCH (11:31)
[2019-08-08] MEDS: Magnesium Hydroxide LIQ* 30 ML UDC PO SCH ×2 (11:32→20:14)
--- NOTE | 2019-08-08 16:20 | CONSULT ---
Consult Consult: Neurology Inpatient Consult Note Date of service: 08/08/2019 Reason for consult: Neurology was consulted by Dr. Rachana Garcia for confusion. The history was obtained by the patient's spouse as the patient felt confused. . Chief complaint: Confusion after a fall History of Present Illness: Mr. Jose Alberto Hung is a 74-year-old right-handed man who is known to the neurology service. The patient presented with persistent confusion reported by the spouse. He fell twice last Tuesday, hitting his head in the tub. He did not pass out. Since then, the patient has not been himself. He is having trouble with words. He repeats himself. He is having trouble with short and care home memory. He cannot care for himself. He denied any new area of weakness. He denied any headaches or visual disturbance. There has been no new medications added to his regiment. He has not had any recent travel or tick bite. He has myoclonus like jerks that started within the past 48 hours. He is unable to ambulate without assistance. The patient had an episode of hypertensive emergency on 08/06/2019 that improved after his antihypertensives were readjusted. The patient has history of short-term memory loss for years. He was diagnosed by his PCP. 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 He has cervical decompression surgery in 1997, chronic scoliosis, kyphosis, burst fracture at L2 , dorsal column spinal cord stimulator inserted in 1997 and removed in April 2019. He has chronic recurrent falls and gait instability secondary to his orthopedic and spinal cord pathology. He also has underlying polyneuropathy. He has been seen by multiple neurologists in the past including Dr. Teresa and . He did have some conversion like reaction in the past when asked to ambulate. He did not strike me as having conversion disorder today as he seems encephalopathic. He was recently evaluated at [facility] by Dr. Maldonado. Labs, Imaging and Other Diagnostics: Vitamin b12: 1227 (07/05/2019) TSH: 0.93 IMAGING: CT head without contrast showed no evidence of a large infarction. There is moderate, chronic small vessel ischemic disease and cortical atrophy. Past Medical History: as per HPI including depression, hypertension, dyslipidemia, GERD, atrial fibrillation not on anticoagulation therapy due to falls, CAD s/p stents. Family History: no family history of stroke or seizures. Social History: Denied tobacco or EtOH abuse. Lives with spouse. There is marital problems and the spouse had asked for a divorce this last summer. Medications: Cyclobenzaprine TAB* [Flexeril 10 MG TAB*] 15 mg PO BEDTIME PRN 07/27/13 [ History Confirmed 08/03/19] oxyCODONE TAB* [Roxycodone TAB 5 mg*] 15 mg PO TID PRN 07/27/13 [History Confirmed 08/03/19] Atorvastatin* [Lipitor 40 MG*] 40 mg PO QPM 01/22/14 [History Confirmed 08/03/19 ] Meclizine TAB* [Antivert 12.5 TAB*] 25 mg PO TID PRN 10/11/17 [History Confirmed 08/03/19] Ondansetron TAB* [Zofran 4 MG Tab*] 4 mg PO Q6H PRN 12/20/17 [History Confirmed 08/03/19] Aspirin 81 mg CHEW TAB* 81 mg PO QAM 03/07/18 [History Confirmed 08/03/19] Furosemide TAB* [Lasix TAB*] 40 mg PO EVERY OTHER DAY 10/27/18 [History Confirmed 08/03/19] Tamsulosin CAP* [Flomax CAP*] 0.4 mg PO BID 10/27/18 [History Confirmed 08/03/19 ] Cyanocobalamin (Vitamin B-12) [Vitamin B-12] 1,000 mcg PO DAILY 03/30/19 [ History Confirmed 08/03/19] Mirtazapine TAB* [Remeron TAB*] 15 mg PO BEDTIME 03/30/19 [History Confirmed ] Sertraline* [Zoloft*] 100 mg PO DAILY 03/30/19 [History Confirmed 08/03/19] Fludrocortisone Acetate TAB* [Florinef TAB*] 0.1 mg PO DAILY 30 Days #30 tab [Rx Confirmed 08/03/19] Metoprolol Succinate XL TAB* [Toprol XL TAB*] 50 mg PO BID 06/10/19 [History Confirmed 08/03/19] Pantoprazole TAB * [Protonix TAB*] 40 mg PO DAILY #0 06/10/19 [History Confirmed 08/03/19] Losartan TAB* [Cozaar TAB*] 50 mg PO DAILY tab 06/13/19 [Rx Confirmed 08/03/19] Docusate CAP* [Colace Cap*] 100 mg PO BID PRN 08/03/19 [History Confirmed ] Allergies: Allergies naloxegol [From Movantik] Allergy (Verified 08/03/19 12:54) dysrhythmia Review of Systems: The patient cannot participate in a ROS due to confusion state. Physical Exam: Vitals: Vital Signs - 12 hr Temp Pulse Resp BP Pulse Ox 08/08/19 15:20 97.3 F 72 16 137/95 95 08/08/19 15:05 18 08/08/19 15:04 17 08/08/19 11:29 16 08/08/19 11:15 98.1 F 68 16 136/90 98 08/08/19 07:15 97.6 F 69 20 154/90 93 General: well nourished, well developed. Alert, cooperative, no apparent distress, appears stated age. Head: normocephalic, without obvious abnormality Eyes: conjunctivae/corneas clear Neck: supple, symmetrical. No carotid bruit. No lymphadenopathy. Lungs: clear to auscultation bilaterally, non-labored CV: regular rhythm, S1, S2 normal, radial pulses palpable Extremities: normal range of motion with no cyanosis. Skin: no skin lesions or lacerations. Ecchymosis on the right forearm. Psych: affect- flat, depressed mood. Neurological examination: Mental status: awake; alert and oriented to person, but not place or time. Mild expressive aphasia. No dysarthria. Myoclonus of the extremities bilaterally. Cranial nerves: I: not tested II, III, IV, : normal confrontation B/L, Pupils midrange and reactive to light , normal consensual response; extraocular muscles are intact; no ptosis; no conjugate or asymmetrical nystagmus V 1/2/3: sensation is intact on forehead, cheeks, and jaw region VII: no facial droop; facial symmetry while smiling & wrinkling of forehead; tight lid closure VIII: able to hear throughout the history process IX & X: symmetric palatal elevation XI: normal strength against resistance XII: tongue is symmetrical & midline with no atrophy or fasciculations Motor (R/L): FDI atrophy bilaterally. 4/5 strength on the left and 5/5 on the right. Increase tone in the lower extremities bilaterally. Sensation: distal to proximal sensory gradient demarcated at the mid shins bilaterally. Absent vibration at the toes. Coordination: normal finger to nose and rapid alternating movements. Gait & Station: n/a . Assessment: 1. Acute encephalopathy of unclear etiology: - The temporal profile of his symptoms raise the suspicion for Left MCA vascular territory stroke. Risk factors include atrial fibrillation, hypertension, age, and CAD. - Other differential diagnosis include serotonin syndrome (although there has been no new medications introduced recently) or post-concussive syndrome. Severe acute pseudodementia due to depression is a diagnosis of exclusion and further work-up is recommended prior to reaching that conclusion. - There is no evidence of an infectious or electrolyte imbalance. - EEG showed no evidence of seizures and no significant change in the background compare to a study from April 2019. Recommendations: - MRI brain without contrast to evaluate for secondary causes of encephalopathy including vascular disease - Discontinue the Flexeril for now to see if that would improve his mentation - Neuro checks every 4 hours - Ordered ammonia and CK levels Neurology will continue to follow. Discussed the above recommendations with Dr. Garcia. Tyler Llamas MD
[2019-08-08] MEDS: Atorvastatin* 40 MG TAB PO SCH (18:13)
[2019-08-08] MEDS: Melatonin 3 MG TAB PO SCH (20:14)
[2019-08-08] MEDS: Mirtazapine TAB* 15 MG PO SCH (20:14)
--- NOTE | 2019-08-08 21:31 | EEG ---
ELECTROENCEPHALOGRAPHY: DATE OF STUDY: 08/08/19 - ROOM #405 DATE READ: 08/08/19 ORDERED BY: Dr. Rachana Garcia. CLINICAL PROBLEM: Mr. Hung is a 74-year-old man with confusion. This EEG was obtained to evaluate for epileptiform abnormalities or electrographic seizures. MEDICATIONS: 1. Amlodipine. 2. Aspirin. 3. Vitamin B12. 4. Colace. 5. Losartan. 6. Metoprolol. 7. Zoloft. 8. Potassium. 9. Heparin. 10. Tamsulosin. 11. Atorvastatin. 12. Melatonin. 13. Furosemide. 14. Cyclobenzaprine. 15. Meclizine. 16. Oxycodone. CLINICAL STATE: Awake. REPORT: The background consisted of a mixed frequency slowing in the delta and theta range with appropriate organization and clearly defined anterior- posterior voltage. There was a slow posterior dominant rhythm of 7.5 Hz, which was symmetrical and showed normal reactivity. Anteriorly, there was an expected pattern of lower voltage irregular mixed faster frequency. Hyperventilation and photic stimulation were not performed. Single electrode EKG showed normal sinus rhythm with a rate of 70 beats per minute. Throughout the recording, there were no epileptiform discharges or electrographic seizures. CLINICAL IMPRESSION: This is an abnormal awake EEG due to slow posterior dominant rhythm. Otherwise, there was retained organization or activity. These findings suggestive of a mild nonspecific diffuse encephalopathy. This EEG was compared to a previous one done in April of 2019 and there has been no significant change. [id number]/[facility] #: [id number] [facility] HOSPITALJoaquim
[2019-08-09] MEDS: Heparin VIAL(*) 5000 UNITS/ML VIAL (FIVE THOUSAND) SUBCUT SCH ×3 (05:33→21:44)
[2019-08-09] MEDS: Magnesium Hydroxide LIQ* 30 ML UDC PO SCH ×2 (08:45→21:44)
[2019-08-09] MEDS: Cyanocobalamin TAB* 500 MCG PO SCH (08:46)
[2019-08-09] MEDS: Losartan TAB* 25 MG PO SCH (08:46)
[2019-08-09] MEDS: Pantoprazole TAB * 40 MG TAB PO SCH (08:46)
[2019-08-09] MEDS: Sertraline* 100 MG TAB PO SCH (08:46)
[2019-08-09] MEDS: Furosemide TAB* 40 MG PO SCH (08:46)
[2019-08-09] MEDS: Metoprolol Succinate XL TAB* 50 MG PO SCH ×2 (08:46→21:43)
[2019-08-09] MEDS: Docusate CAP* 100 MG PO SCH ×2 (08:46→21:42)
[2019-08-09] MEDS: Magnesium Oxide TAB* 400 MG PO SCH (08:46)
[2019-08-09] MEDS: Tamsulosin CAP* 0.4 MG PO SCH ×2 (08:46→21:43)
[2019-08-09] MEDS: Aspirin 81 mg CHEW TAB* 81 MG TAB.CHEW PO SCH (08:47)
[2019-08-09] MEDS: Potassium Chlor TAB* 20 MEQ TAB.ER PO SCH (08:47)
[2019-08-09] MEDS: amLODIPine TAB* 5 MG PO SCH (08:47)
[2019-08-09] MEDS ORDERED: LORazepam TAB(*) 1 MG PO ONE (13:54)
[2019-08-09] MEDS: Atorvastatin* 40 MG TAB PO SCH (18:39)
--- NOTE | 2019-08-09 18:59 | PN ---
Subjective Date of Service: 08/09/19 Interval History: Pt continues to be confused and argumentative. Took 10 min to convince him to agree to brain MRI Past Medical History: Unchanged from Admission Objective Active Medications: Amlodipine Besylate (Norvasc Tab*) 10 mg PO DAILY [facility] Last Admin: 08/09/19 08:47 Dose: 10 mg Aspirin (Aspirin 81 Mg Chew Tab*) 81 mg PO QAM [facility] Last Admin: 08/09/19 08:47 Dose: 81 mg Atorvastatin Calcium (Lipitor*) 40 mg PO QPM [facility] Last Admin: 08/09/19 18:39 Dose: 40 mg Cyanocobalamin (Vitamin B12 Tab*) 1,000 mcg PO DAILY [facility] Last Admin: 08/09/19 08:46 Dose: 1,000 mcg Docusate Sodium (Colace Cap*) 100 mg PO BID [facility] Last Admin: 08/09/19 08:46 Dose: 100 mg Furosemide (Lasix Tab*) 40 mg PO EVERY OTHER DAY [facility] Last Admin: 08/09/19 08:46 Dose: 40 mg Heparin Sodium (Porcine) (Heparin Vial(*)) 5,000 units SUBCUT Q8HR [facility] Last Admin: 08/09/19 15:05 Dose: 5,000 units Lactulose (Lactulose*) 30 ml PO BID [facility] Stop: 08/09/19 23:59 Last Admin: 08/09/19 12:50 Dose: 30 ml Losartan Potassium (Cozaar Tab*) 100 mg PO DAILY [facility] Last Admin: 08/09/19 08:46 Dose: 100 mg Magnesium Hydroxide (Milk Of Magnesia Liq*) 30 ml PO BID [facility] Last Admin: 08/09/19 08:45 Dose: 30 ml Magnesium Hydroxide (Milk Of Magnesia Liq*) 30 ml PO BID PRN PRN Reason: CONSTIPATION Magnesium Oxide (Magox 400 Tab*) 400 mg PO DAILY [facility] Last Admin: 08/09/19 08:46 Dose: 400 mg Meclizine HCl (Antivert Tab*) 25 mg PO TID PRN PRN Reason: VERTIGO Melatonin (Melatonin) 3 mg PO BEDTIME [facility] Last Admin: 08/08/19 20:14 Dose: 3 mg Metoprolol Succinate (Toprol Xl Tab*) 50 mg PO BID [facility] Last Admin: 08/09/19 08:46 Dose: 50 mg Mirtazapine (Remeron Tab*) 15 mg PO BEDTIME [facility] Last Admin: 08/08/19 20:14 Dose: 15 mg Ondansetron HCl (Zofran Tab*) 4 mg PO Q6H PRN PRN Reason: NAUSEA Oxycodone HCl (Roxycodone Tab*) 15 mg PO Q4H PRN PRN Reason: Pain -severe Last Admin: 08/08/19 20:15 Dose: 15 mg Pantoprazole Sodium (Protonix Tab*) 40 mg PO DAILY [facility] Last Admin: 08/09/19 08:46 Dose: 40 mg Polyethylene Glycol/Electrolytes (Miralax*) 17 gm PO DAILY PRN PRN Reason: CONSTIPATION Last Admin: 08/08/19 11:32 Dose: 17 gm Potassium Chloride (Klor Con Er Tab*) 40 meq PO DAILY [facility] Last Admin: 08/09/19 08:47 Dose: 40 meq Sertraline HCl (Zoloft*) 100 mg PO DAILY [facility] Last Admin: 08/09/19 08:46 Dose: 100 mg Tamsulosin HCl (Flomax Cap*) 0.4 mg PO BID [facility] Last Admin: 08/09/19 08:46 Dose: 0.4 mg Vital Signs - 8 hr 08/09/19 17:11 Temperature 97.8 F Pulse Rate 81 Respiratory 18 Rate Blood Pressure 133/82 (mmHg) O2 Sat by Pulse 92 Oximetry Oxygen Devices in Use Now: None Appearance: 74 yo M in nAD,oriented to self, doesn't know where he is , thinks that the RN's are firefighters Eyes: No Scleral Icterus, PERRLA Ears/Nose/Mouth/Throat: NL Teeth, Lips, Gums, Mucous Membranes Moist Neck: NL Appearance and Movements; NL JVP, Trachea Midline Respiratory: Symmetrical Chest Expansion and Respiratory Effort, Clear to Auscultation Cardiovascular: NL Sounds; No Murmurs; No JVD, RRR, - Abdominal: NL Sounds; No Tenderness; No Distention Lymphatic: No Cervical Adenopathy Extremities: No Edema, No Clubbing, Cyanosis Skin: No Rash or Ulcers, - - left foot ecchymotic Neurological: - - chronci left sided weakness Result Diagrams: 08/07/19 07:25 08/07/19 07:25 Assess/Plan/Problems-Billing Assessment: 74 y/o male with recurrent fall of unclear etiology, he has been hospitalized multiple times and he has received an extensive work up that included multiple imaging of his brain, spine, neurology and neurosurgery consultation and no etiology was determined. 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 Recent B12 and TSH levels had been WNL Pt appears to have more problems finding words than 4 days ago-I am unsure if this could be psychosomatic or malingering suspect acute delirium in pt with h/o baseline mild memory impairment. CT brain neg. As per Dr. Llamas: hola acute delirium due to unknown cause. MRI brain to r/oCVA pending. EEG shows no seizures. Doubt ammonia of 55 is causing the symptoims, but will tx with 2 doses of Lactulose (2) Hypertension Comment: - controlled - Continue metoprolol 50 mg bid, furosemide 40 mg QOD; increased losartan from 50- to 100 mg and his florinef was discontinued as it may exacerbate his Hypertension. -started Norvasc 10 mg 08/06 (3) Fracture of 5th metatarsal Comment: - Left 5th proximal phalanx fracture, non displaced. WBAT, ICE, Tylenol and Post op shoes as recommended by ortho (4) Recurrent falls while walking Comment: - Unclear etiology - Possible musckolskeletal and psychosomatic due to his depression worsened by the loss of his mariage relation with his . (His still live in the same house but she is currently in a same sex relations with another female partner and he has been physcially declining since the brake up) - Extensive work up documented in his previous hospitalization without a definite physical-diagnosis to explain his recurrent falls - He just left rehab and been doing well independantly up until 3 weeks ago he started to fall again and finally decided to come for re-evaluation and rehab placement - Left 5th proximal pahalanx fracture, non displaced. WBAT, Tylenol and Post op shoes as recommended by ortho (5) Afib Comment: - ECG 08/04/19 confirms again NSR. Will continue him on metoprolol, aspirin - His last EKG from 06/10/19 revealed normal sinus rhythm and so does the one from 03/30/19 - he has h/o paroxysmal afib, not on anticoagulation due to falls. 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 (His still live in the same house but she is currently in a same sex relations with another female partner and he has been physcially declining since the brake up) - Extensive work up documented in his previous hospitalization without a definite physical-diagnosis to explain his recurrent falls (11) DVT prophylaxis Comment: - Heparin SQ Status and Disposition: inpatient
[2019-08-09] MEDS: Melatonin 3 MG TAB PO SCH (21:43)
[2019-08-09] MEDS: Mirtazapine TAB* 15 MG PO SCH (21:43)
[2019-08-10] MEDS: Heparin VIAL(*) 5000 UNITS/ML VIAL (FIVE THOUSAND) SUBCUT SCH ×3 (06:11→20:52)
[2019-08-10] MEDS ORDERED: LORazepam TAB(*) 1 MG PO ONE (08:29)
[2019-08-10] MEDS: Potassium Chlor TAB* 20 MEQ TAB.ER PO SCH (08:59)
[2019-08-10] MEDS: Sertraline* 100 MG TAB PO SCH (08:59)
[2019-08-10] MEDS: Docusate CAP* 100 MG PO SCH ×2 (08:59→20:47)
[2019-08-10] MEDS: Magnesium Oxide TAB* 400 MG PO SCH (08:59)
[2019-08-10] MEDS: Losartan TAB* 25 MG PO SCH (08:59)
[2019-08-10] MEDS: Pantoprazole TAB * 40 MG TAB PO SCH (08:59)
[2019-08-10] MEDS: Metoprolol Succinate XL TAB* 50 MG PO SCH ×2 (08:59→20:47)
[2019-08-10] MEDS: Aspirin 81 mg CHEW TAB* 81 MG TAB.CHEW PO SCH (08:59)
[2019-08-10] MEDS: amLODIPine TAB* 5 MG PO SCH (09:00)
[2019-08-10] MEDS: Cyanocobalamin TAB* 500 MCG PO SCH (09:00)
[2019-08-10] MEDS ORDERED: Lactulose* 15 ML UDC PO SCH (09:00)
[2019-08-10] MEDS: Tamsulosin CAP* 0.4 MG PO SCH ×2 (09:03→20:47)
[2019-08-10] MEDS: Magnesium Hydroxide LIQ* 30 ML UDC PO SCH ×2 (09:04→20:55)
--- NOTE | 2019-08-10 10:17 | PN ---
Subjective Date of Service: 08/10/19 Interval History: Pt is able to tell me where he is and what date is today. Still slightly tangential manner of speech , but much more oriented c/o being waken up during the night and feeling tired in Am due to that. Ate breakfast Past Medical History: Unchanged from Admission Objective Active Medications: Amlodipine Besylate (Norvasc Tab*) 10 mg PO DAILY [facility] Last Admin: 08/10/19 09:00 Dose: 10 mg Aspirin (Aspirin 81 Mg Chew Tab*) 81 mg PO QAM [facility] Last Admin: 08/10/19 08:59 Dose: 81 mg Atorvastatin Calcium (Lipitor*) 40 mg PO QPM [facility] Last Admin: 08/09/19 18:39 Dose: 40 mg Cyanocobalamin (Vitamin B12 Tab*) 1,000 mcg PO DAILY [facility] Last Admin: 08/10/19 09:00 Dose: 1,000 mcg Docusate Sodium (Colace Cap*) 100 mg PO BID [facility] Last Admin: 08/10/19 08:59 Dose: 100 mg Furosemide (Lasix Tab*) 40 mg PO EVERY OTHER DAY [facility] Last Admin: 08/09/19 08:46 Dose: 40 mg Heparin Sodium (Porcine) (Heparin Vial(*)) 5,000 units SUBCUT Q8HR [facility] Last Admin: 08/10/19 06:11 Dose: 5,000 units Losartan Potassium (Cozaar Tab*) 100 mg PO DAILY [facility] Last Admin: 08/10/19 08:59 Dose: 100 mg Magnesium Hydroxide (Milk Of Magnesia Liq*) 30 ml PO BID [facility] Last Admin: 08/10/19 09:04 Dose: Not Given Magnesium Hydroxide (Milk Of Magnesia Liq*) 30 ml PO BID PRN PRN Reason: CONSTIPATION Magnesium Oxide (Magox 400 Tab*) 400 mg PO DAILY [facility] Last Admin: 08/10/19 08:59 Dose: 400 mg Meclizine HCl (Antivert Tab*) 25 mg PO TID PRN PRN Reason: VERTIGO Melatonin (Melatonin) 3 mg PO BEDTIME [facility] Last Admin: 08/09/19 21:43 Dose: 3 mg Metoprolol Succinate (Toprol Xl Tab*) 50 mg PO BID [facility] Last Admin: 08/10/19 08:59 Dose: 50 mg Mirtazapine (Remeron Tab*) 15 mg PO BEDTIME [facility] Last Admin: 08/09/19 21:43 Dose: 15 mg Ondansetron HCl (Zofran Tab*) 4 mg PO Q6H PRN PRN Reason: NAUSEA Oxycodone HCl (Roxycodone Tab*) 15 mg PO Q4H PRN PRN Reason: Pain -severe Last Admin: 08/08/19 20:15 Dose: 15 mg Pantoprazole Sodium (Protonix Tab*) 40 mg PO DAILY [facility] Last Admin: 08/10/19 08:59 Dose: 40 mg Polyethylene Glycol/Electrolytes (Miralax*) 17 gm PO DAILY PRN PRN Reason: CONSTIPATION Last Admin: 08/08/19 11:32 Dose: 17 gm Potassium Chloride (Klor Con Er Tab*) 40 meq PO DAILY [facility] Last Admin: 08/10/19 08:59 Dose: 40 meq Sertraline HCl (Zoloft*) 100 mg PO DAILY [facility] Last Admin: 08/10/19 08:59 Dose: 100 mg Tamsulosin HCl (Flomax Cap*) 0.4 mg PO BID [facility] Last Admin: 08/10/19 09:03 Dose: 0.4 mg Vital Signs - 8 hr 08/10/19 08/10/19 03:11 10:08 Temperature 97.2 F Pulse Rate 68 Respiratory 26 18 Rate Blood Pressure 123/72 (mmHg) O2 Sat by Pulse 94 Oximetry Oxygen Devices in Use Now: None Appearance: 74 yo M in NAD, aAOx3 Eyes: No Scleral Icterus, PERRLA Ears/Nose/Mouth/Throat: NL Teeth, Lips, Gums, Mucous Membranes Moist Neck: NL Appearance and Movements; NL JVP Respiratory: Symmetrical Chest Expansion and Respiratory Effort Cardiovascular: NL Sounds; No Murmurs; No JVD, RRR Abdominal: NL Sounds; No Tenderness; No Distention Lymphatic: No Cervical Adenopathy Extremities: No Clubbing, Cyanosis Skin: - - left foot ecchymosis noted Neurological: Alert and Oriented x 3, - - chronic left sided weakness unchanged. tangential manner of speaking Result Diagrams: 08/07/19 07:25 08/07/19 07:25 Assess/Plan/Problems-Billing Assessment: 74 y/o male with recurrent fall of unclear etiology, he has been hospitalized multiple times and he has received an extensive work up that included multiple imaging of his brain, spine, neurology and neurosurgery consultation and no etiology was determined. 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 MRI brain to r/o CVA pending. EEG shows no seizures. Ammonia leves do not correlate with pt's mental state, will d/c lactulose (2) Hypertension Comment: - controlled - Continue metoprolol 50 mg bid, furosemide 40 mg QOD; increased losartan from 50- to 100 mg and his florinef was discontinued as it may exacerbate his Hypertension. -started Norvasc 10 mg 08/06 (3) Fracture of 5th metatarsal Comment: - Left 5th proximal phalanx fracture, non displaced. WBAT, ICE, Tylenol and Post op shoes as recommended by ortho (4) Recurrent falls while walking Comment: - Unclear etiology - Possible musckolskeletal and psychosomatic due to his depression worsened by the loss of his mariage relation with his . (His still live in the same house but she is currently in a same sex relations with another female partner and he has been physcially declining since the brake up) - Extensive work up documented in his previous hospitalization without a definite physical-diagnosis to explain his recurrent falls - He just left rehab and been doing well independantly up until 3 weeks ago he started to fall again and finally decided to come for re-evaluation and rehab placement - Left 5th proximal pahalanx fracture, non displaced. WBAT, Tylenol and Post op shoes as recommended by ortho (5) Afib Comment: - ECG 08/04/19 confirms NSR. Will continue him on metoprolol, aspirin - His last EKG from 06/10/19 revealed normal sinus rhythm and so does the one from 03/30/19 - he has h/o paroxysmal afib, not on anticoagulation due to falls. 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 (His still live in the same house but she is currently in a same sex relations with another female partner and he has been physcially declining since the brake up) - Extensive work up documented in his previous hospitalization without a definite physical-diagnosis to explain his recurrent falls (11) DVT prophylaxis Comment: - Heparin SQ Status and Disposition: inpatient
[2019-08-10 11:13] LABS: TSH (Thyroid Stimulating Horm) 0.36 mcIU/mL (0.34-5.60)
--- NOTE | 2019-08-10 15:39 | PN ---
Subjective Date of Service: 08/10/19 Length of Stay: 7 Days Neurology is following for the evaluation and management of confusion. Interval History: The patient is more awake and conversing today. Although he is much better than yesterday, he became tangential half way through the interview today and started talking about the 7-day war that took place in 1966. He did receive Ativan 15 minutes before my interview so that may have also contributed to his confusion. Initially, he was calm and seemed close to his baseline self. The conversation we had today did include Jacklyn. He is very hurt and stated that "Jacklyn had a big reason to my confusion." He was informing me again about what took place last year when Jacklyn had informed him about her female lover in June 2018. He recalls how he first discover the relationship and it makes him extremely concerned about how he will proceed with his life after she leaves him. The couple still live together. Jacklyn is going to [place] in a few weeks. He has diarrhea due to the lactulose. He still has jerking movements of the extremities, mostly during posture maneuvers. Labs: Ammonia: 55->75 today B12: >1450 TSH: 0.36 MRI brain without contrast 08/10/2019: Degraded study. There is decrease sulcal CSF T2 Flair suppression along the frontal lobes could be artifactual or related to a leptomeningeal process. Moderate chronic small vessel ischemic disease is likely. EEG 08/08/2019: Mild diffuse encephalopathy, unchanged from the previous study completed April 2019. Review of Systems: Denied CP, SOB, or palpitations. Past Medical History: Unchanged from Admission Objective Active Medications: Amlodipine Besylate (Norvasc Tab*) 10 mg PO DAILY [facility] Last Admin: 08/10/19 09:00 Dose: 10 mg Aspirin (Aspirin 81 Mg Chew Tab*) 81 mg PO QAM [facility] Last Admin: 08/10/19 08:59 Dose: 81 mg Atorvastatin Calcium (Lipitor*) 40 mg PO QPM [facility] Last Admin: 08/09/19 18:39 Dose: 40 mg Cyanocobalamin (Vitamin B12 Tab*) 1,000 mcg PO DAILY [facility] Last Admin: 08/10/19 09:00 Dose: 1,000 mcg Docusate Sodium (Colace Cap*) 100 mg PO BID [facility] Last Admin: 08/10/19 08:59 Dose: 100 mg Furosemide (Lasix Tab*) 40 mg PO EVERY OTHER DAY [facility] Last Admin: 08/09/19 08:46 Dose: 40 mg Heparin Sodium (Porcine) (Heparin Vial(*)) 5,000 units SUBCUT Q8HR [facility] Last Admin: 08/10/19 14:07 Dose: 5,000 units Lactulose (Lactulose*) 15 ml PO BID [facility] Losartan Potassium (Cozaar Tab*) 100 mg PO DAILY [facility] Last Admin: 08/10/19 08:59 Dose: 100 mg Magnesium Hydroxide (Milk Of Magnesia Liq*) 30 ml PO BID [facility] Last Admin: 08/10/19 09:04 Dose: Not Given Magnesium Hydroxide (Milk Of Magnesia Liq*) 30 ml PO BID PRN PRN Reason: CONSTIPATION Magnesium Oxide (Magox 400 Tab*) 400 mg PO DAILY [facility] Last Admin: 08/10/19 08:59 Dose: 400 mg Meclizine HCl (Antivert Tab*) 25 mg PO TID PRN PRN Reason: VERTIGO Melatonin (Melatonin) 3 mg PO BEDTIME [facility] Last Admin: 08/09/19 21:43 Dose: 3 mg Metoprolol Succinate (Toprol Xl Tab*) 50 mg PO BID [facility] Last Admin: 08/10/19 08:59 Dose: 50 mg Mirtazapine (Remeron Tab*) 15 mg PO BEDTIME [facility] Last Admin: 08/09/19 21:43 Dose: 15 mg Ondansetron HCl (Zofran Tab*) 4 mg PO Q6H PRN PRN Reason: NAUSEA Oxycodone HCl (Roxycodone Tab*) 15 mg PO Q4H PRN PRN Reason: Pain -severe Last Admin: 08/08/19 20:15 Dose: 15 mg Pantoprazole Sodium (Protonix Tab*) 40 mg PO DAILY [facility] Last Admin: 08/10/19 08:59 Dose: 40 mg Polyethylene Glycol/Electrolytes (Miralax*) 17 gm PO DAILY PRN PRN Reason: CONSTIPATION Last Admin: 08/08/19 11:32 Dose: 17 gm Potassium Chloride (Klor Con Er Tab*) 40 meq PO DAILY [facility] Last Admin: 08/10/19 08:59 Dose: 40 meq Sertraline HCl (Zoloft*) 100 mg PO DAILY [facility] Last Admin: 08/10/19 08:59 Dose: 100 mg Tamsulosin HCl (Flomax Cap*) 0.4 mg PO BID [facility] Last Admin: 08/10/19 09:03 Dose: 0.4 mg Vital Signs 08/09/19 08/09/19 08/09/19 17:11 19:49 19:50 Temperature 97.8 F 98.8 F Pulse Rate 81 76 Respiratory 18 18 18 Rate Blood Pressure 133/82 143/84 (mmHg) O2 Sat by Pulse 92 93 Oximetry 08/09/19 08/09/19 08/10/19 20:00 23:31 03:11 Temperature 98.1 F 97.2 F Pulse Rate 80 68 Respiratory 18 20 26 Rate Blood Pressure 122/82 123/72 (mmHg) O2 Sat by Pulse 93 94 Oximetry 08/10/19 08/10/19 08/10/19 07:30 08:00 10:08 Temperature 98.3 F Pulse Rate 73 Respiratory 20 20 18 Rate Blood Pressure 169/87 (mmHg) O2 Sat by Pulse 97 Oximetry 08/10/19 10:30 Temperature 98.2 F Pulse Rate 81 Respiratory 14 Rate Blood Pressure 144/77 (mmHg) O2 Sat by Pulse 94 Oximetry Intake and Output Last 24 Hours 08/08/19 08/09/19 08/10/19 08/11/19 06:59 06:59 06:59 06:59 Intake Total 880 809 298 6373 Output Total 350 250 280 Balance 530 -074 511 6097 Intake: Oral 880 847 541 6758 Output: Urine 350 250 280 Other: Estimated Void Medium Large Medium # Bowel Movements 0 0 Estimated Stool Amount Large # Voids 1 1 1 Oxygen Devices in Use Now: None Neurology Exam: General: Ill appearing frail man in no distress. HEENT: Normocephelic/atraumatic, sclera anicteric, mucous membranes moist Neck: Supple Chest: Clear to auscultation bilaterally Cardiovascular: Regular rate and rhythm without murmurs, rubs, gallops Extremities: No clubbing, cyanosis, or edema Neurological Findings: Awake, alert, and oriented to person, place, and month. He knew it was August but could not tell me it's 2018. He did not know the name of the president. Myoclonic jerks of the right greater than the left upper extremity. Speech: fluent without dysarthria, repetition intact Cranial Nerve: PERRL, EOM intact, VFF, no nystagmus, face symmetric bilaterally , facial sensation intact Motor: moves all extremities antigravity to command with good resistance. Sensation: intact to LT/PP bilaterally upper and lower extremities Deep Tendon Reflex: 2+ upper extremity slightly increased on the left, 3+ at the left knee, 2+ right knee, and 0 at the ankles. Down going plantar response Finger to nose, rapid alternating movements intact without tremor, no dysdiadochokinesia Gait: myoclonic jerks requiring one person assist to move him to the chair Result Diagrams: 08/07/19 07:25 08/07/19 07:25 Assessment/Plan Mr. 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 The patient was cleared from rehab and was functional at home for about 3 weeks, until last Tuesday when he had multiple falls requiring this hospitalization. During the hospitalization, the patient became altered and confused. Work-up so far revealed an elevated ammonia level in the 70's. We discontinued his Flexeril for which he was taking 15 mg nightly. He has not had any new medications lately except for Ativan which does seem to increase his confusion (Ativan was being used to help with claustrophobia related to the MRI). He had an MRI done which was degraded by motion artifact. 1. Acute encephalopathy of unclear etiology, metabolic encephalopathy is high on the differential. The patient seems to be slowly improving, albeit not back to baseline, after starting lactulose and discontinuing the Flexeril. The abnormality found on the MRI could be artifactual. We could not evaluate for stroke as the patient was unable to lay still despite Ativan therapy. He does not have any fevers or leukocytosis to suspect an underlying infection. He doesn't have any headaches to suspect idiopathic hypotension, although he is at risk for this condition. If he does not improve clinically, we would be inclined to further work him up for subacute causes of confusion/memory impairment. TSH and B12 levels are normal. Other differential diagnosis include pseudodementia causing confusion. Recommendations: - Minimize the use of sedation. Please do not administer any anti-cholinergics , benzodiazepine, and try to lower the dose of his narcotic therapy. He is not complaining of any pain - Repeat an ammonia level tomorrow to see if it's still elevated. If so, given his negative myoclonus on examination, I would recommend continue the lactulose. - Continue PT evaluation and treatment - Minimize disruptions, vital and neuro checks at night to allow adequate sleep - Continue to follow and assess his progress - The patient will need STR and possibly terminal [facility] placement - Neuro checks every 6 hours I will sign out to Dr. Arceo who will be covering the neurology service starting [facility].
[2019-08-10] MEDS: Mirtazapine TAB* 15 MG PO SCH (20:47)
[2019-08-10] MEDS: Atorvastatin* 40 MG TAB PO SCH (20:47)
[2019-08-10] MEDS: Melatonin 3 MG TAB PO SCH (20:47)
[2019-08-10] MEDS: Lactulose* 15 ML UDC PO SCH (20:51)
[2019-08-11] MEDS: Heparin VIAL(*) 5000 UNITS/ML VIAL (FIVE THOUSAND) SUBCUT SCH ×3 (06:08→21:19)
[2019-08-11 06:19] LABS: ABS Lymphocytes 0.7 10^3/ul (1.0-4.8); ABS Monocytes 0.8 10^3/ul (0-0.8); ABS Neutrophils 8.4 10^3/ul (1.5-7.7); Eosinophil % 0.2 %; Hematocrit 40 % (42-52); Mean Corpuscular HGB Conc 33 g/dL (31-36); Mean Corpuscular Hemoglobin 28 pg (27-31); Mean Corpuscular Volume 85 fL (80-94); Red Blood Count 4.71 10^6 /uL (4.18-5.48); Red Cell Distribution Width 16 % (10-15); White Blood Count 9.9 10^3/uL (3.5-10.8)
[2019-08-11 06:39] LABS: BUN/Creatinine Ratio 37.3 (8-20); Calcium 9.9 mg/dL (8.6-10.3); EGFR African American 67.7 (>60); EGFR Non-African American 55.9 (>60)
[2019-08-11 06:58] LABS: Platelet Count Platelets clumped. 10^3/uL (150-450)
[2019-08-11] MEDS: Aspirin 81 mg CHEW TAB* 81 MG TAB.CHEW PO SCH (08:34)
[2019-08-11] MEDS: Magnesium Oxide TAB* 400 MG PO SCH (08:34)
[2019-08-11] MEDS: Cyanocobalamin TAB* 500 MCG PO SCH (08:34)
[2019-08-11] MEDS: Docusate CAP* 100 MG PO SCH ×2 (08:34→21:19)
[2019-08-11] MEDS: Sertraline* 100 MG TAB PO SCH (08:34)
[2019-08-11] MEDS: Potassium Chlor TAB* 20 MEQ TAB.ER PO SCH (08:34)
[2019-08-11] MEDS: Pantoprazole TAB * 40 MG TAB PO SCH (08:34)
[2019-08-11] MEDS: Tamsulosin CAP* 0.4 MG PO SCH ×2 (08:34→21:19)
[2019-08-11] MEDS: Losartan TAB* 25 MG PO SCH (08:35)
[2019-08-11] MEDS: Metoprolol Succinate XL TAB* 50 MG PO SCH ×2 (08:35→21:19)
[2019-08-11] MEDS: amLODIPine TAB* 5 MG PO SCH (08:35)
[2019-08-11] MEDS: Lactulose* 15 ML UDC PO SCH ×2 (08:35→21:17)
[2019-08-11] MEDS: Magnesium Hydroxide LIQ* 30 ML UDC PO SCH (08:41)
[2019-08-11 09:12] LABS: Mean Platelet Volume 9.8 fL (7.4-10.4); Platelet Count 136 10^3/uL (150-450)
--- NOTE | 2019-08-11 09:41 | PN ---
Subjective Date of Service: 08/11/19 Length of Stay: 8 Days Interval History: No new issues overnight. He appears to be slowly improving. Ammonia is better this am. On Lactulose, nurse reports BMs. He denies any complaints or issues this am, is very pleasant and answering questions. Aide is at the beside helping him with breakfast. Family History: Unchanged from Admission Social History: Unchanged from Admission Past Medical History: Unchanged from Admission Objective Active Medications: Amlodipine Besylate (Norvasc Tab*) 10 mg PO DAILY [facility] Last Admin: 08/11/19 08:35 Dose: 10 mg Aspirin (Aspirin 81 Mg Chew Tab*) 81 mg PO QAM [facility] Last Admin: 08/11/19 08:34 Dose: 81 mg Atorvastatin Calcium (Lipitor*) 40 mg PO QPM [facility] Last Admin: 08/10/19 20:47 Dose: 40 mg Cyanocobalamin (Vitamin B12 Tab*) 1,000 mcg PO DAILY [facility] Last Admin: 08/11/19 08:34 Dose: 1,000 mcg Docusate Sodium (Colace Cap*) 100 mg PO BID [facility] Last Admin: 08/11/19 08:34 Dose: 100 mg Heparin Sodium (Porcine) (Heparin Vial(*)) 5,000 units SUBCUT Q8HR [facility] Last Admin: 08/11/19 06:08 Dose: 5,000 units Lactulose (Lactulose*) 15 ml PO BID [facility] Last Admin: 08/11/19 08:35 Dose: 15 ml Losartan Potassium (Cozaar Tab*) 100 mg PO DAILY [facility] Last Admin: 08/11/19 08:35 Dose: 100 mg Magnesium Hydroxide (Milk Of Magnesia Liq*) 30 ml PO BID [facility] Last Admin: 08/11/19 08:41 Dose: Not Given Magnesium Hydroxide (Milk Of Magnesia Liq*) 30 ml PO BID PRN PRN Reason: CONSTIPATION Magnesium Oxide (Magox 400 Tab*) 400 mg PO DAILY [facility] Last Admin: 08/11/19 08:34 Dose: 400 mg Meclizine HCl (Antivert Tab*) 25 mg PO TID PRN PRN Reason: VERTIGO Melatonin (Melatonin) 3 mg PO BEDTIME [facility] Last Admin: 08/10/19 20:47 Dose: 3 mg Metoprolol Succinate (Toprol Xl Tab*) 50 mg PO BID [facility] Last Admin: 08/11/19 08:35 Dose: 50 mg Mirtazapine (Remeron Tab*) 15 mg PO BEDTIME [facility] Last Admin: 08/10/19 20:47 Dose: 15 mg Ondansetron HCl (Zofran Tab*) 4 mg PO Q6H PRN PRN Reason: NAUSEA Oxycodone HCl (Roxycodone Tab*) 15 mg PO Q4H PRN PRN Reason: Pain -severe Last Admin: 08/08/19 20:15 Dose: 15 mg Pantoprazole Sodium (Protonix Tab*) 40 mg PO DAILY [facility] Last Admin: 08/11/19 08:34 Dose: 40 mg Polyethylene Glycol/Electrolytes (Miralax*) 17 gm PO DAILY PRN PRN Reason: CONSTIPATION Last Admin: 08/08/19 11:32 Dose: 17 gm Potassium Chloride (Klor Con Er Tab*) 40 meq PO DAILY [facility] Last Admin: 08/11/19 08:34 Dose: 40 meq Sertraline HCl (Zoloft*) 100 mg PO DAILY [facility] Last Admin: 08/11/19 08:34 Dose: 100 mg Tamsulosin HCl (Flomax Cap*) 0.4 mg PO BID [facility] Last Admin: 08/11/19 08:34 Dose: 0.4 mg Vital Signs 08/10/19 08/10/19 08/10/19 10:08 10:30 16:00 Temperature 98.2 F Pulse Rate 81 Respiratory 18 14 16 Rate Blood Pressure 144/77 (mmHg) O2 Sat by Pulse 94 Oximetry 08/10/19 08/10/19 08/10/19 17:33 19:30 20:00 Temperature 98.4 F 97.7 F Pulse Rate 74 76 Respiratory 20 19 18 Rate Blood Pressure 146/82 111/70 (mmHg) O2 Sat by Pulse 96 94 Oximetry 08/10/19 08/11/19 08/11/19 23:46 02:11 07:15 Temperature 97.6 F 97.2 F Pulse Rate 78 72 65 Respiratory 19 20 Rate Blood Pressure 155/80 128/79 (mmHg) O2 Sat by Pulse 98 96 95 Oximetry 08/11/19 08:00 Temperature Pulse Rate Respiratory 20 Rate Blood Pressure (mmHg) O2 Sat by Pulse Oximetry Intake and Output Last 24 Hours 08/09/19 08/10/19 08/11/19 08/12/19 06:59 06:59 06:59 05:59 Intake Total 187 907 4363 Output Total 250 280 Balance -234 713 8469 Intake: Oral 769 450 8804 Output: Urine 250 280 Other: Estimated Void Large Medium Medium # Bowel Movements 0 0 Estimated Stool Amount Large # Voids 1 1 1 Oxygen Devices in Use Now: None Neurology Exam: General: Sitting in bed, eating breakfast with assistance. Very pleasant HEENT: Normocephalic/atraumatic, sclera anicteric, mucous membranes moist Neck: Supple Chest: Clear to auscultation bilaterally Cardiovascular: Regular rate and rhythm without murmurs, rubs, gallops Extremities: No clubbing, cyanosis, or edema Neurological Findings: Awake, alert, and oriented to person, place, August. Speech: fluent without dysarthria, Cranial Nerve: PERRL, EOM intact, VFF, no nystagmus, face symmetric bilaterally , facial sensation intact Motor: moves all extremities antigravity to command with good resistance. Occasional myoclonic beats of the right and left UEs. Mild asterixis Sensation: Intact to LT throughout Deep Tendon Reflex: 2+ upper extremity, 2+ patella, and 0 at the ankles. Down going plantar response Finger to nose, rapid alternating movements intact without tremor Result Diagrams: 08/11/19 09:01 08/11/19 05:59 Assessment/Plan Assessment: Mr. 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 The patient was cleared from rehab and was functional at home for about 3 weeks, until last Tuesday when he had multiple falls requiring this hospitalization. During the hospitalization, the patient became altered and confused. Work-up so far revealed an elevated ammonia level in the 70's. We discontinued his Flexeril for which he was taking 15 mg nightly. He has not had any new medications lately except for Ativan which does seem to increase his confusion (Ativan was being used to help with claustrophobia related to the MRI). He had an MRI done which was degraded by motion artifact. 1. AMS: He seems to be improving slowly, on Lactulose which suggests that his hyperammonemia is at least partially responsible for his AMS. Cause of elevated ammonia remains unclear. He may be improving as some of the sedating medications like Flexeril and Ativan are cleared from his system. This am, he appears to be improved. Suspicion for an infectious cause of his AMS is very low. I suspect that he has had some decompensation of underlying dementia that is multifactorial in nature. Recommendatiosn: --Continue to monitor him, continue Lactulose to normalize ammonia. It is back down to 55 today. --Continue to minimize and sedating meds including his narcotics as much as possible --PT: mobilize, OOB to chair and ambulate if possible with assist. --Consider repeating MRI if his situation worsens. Poor imaging quality. I doubt leptomeningial process and suspect this was artifactual. As long as he continues to slowly improve, I think we can take a watchful waiting approach.
--- NOTE | 2019-08-11 14:26 | PN ---
Subjective Date of Service: 08/11/19 Interval History: Today pr is pleasant and conversations, no new complaints. Thinks he is "in a facility on [address] in [place]". Family History: Unchanged from Admission Social History: Unchanged from Admission Past Medical History: Unchanged from Admission Objective Active Medications: Amlodipine Besylate (Norvasc Tab*) 10 mg PO DAILY [facility] Last Admin: 08/11/19 08:35 Dose: 10 mg Aspirin (Aspirin 81 Mg Chew Tab*) 81 mg PO QAM [facility] Last Admin: 08/11/19 08:34 Dose: 81 mg Atorvastatin Calcium (Lipitor*) 40 mg PO QPM [facility] Last Admin: 08/10/19 20:47 Dose: 40 mg Cyanocobalamin (Vitamin B12 Tab*) 1,000 mcg PO DAILY [facility] Last Admin: 08/11/19 08:34 Dose: 1,000 mcg Docusate Sodium (Colace Cap*) 100 mg PO BID [facility] Last Admin: 08/11/19 08:34 Dose: 100 mg Heparin Sodium (Porcine) (Heparin Vial(*)) 5,000 units SUBCUT Q8HR [facility] Last Admin: 08/11/19 13:18 Dose: 5,000 units Lactulose (Lactulose*) 15 ml PO BID [facility] Last Admin: 08/11/19 08:35 Dose: 15 ml Losartan Potassium (Cozaar Tab*) 100 mg PO DAILY [facility] Last Admin: 08/11/19 08:35 Dose: 100 mg Magnesium Hydroxide (Milk Of Magnesia Liq*) 30 ml PO BID [facility] Last Admin: 08/11/19 08:41 Dose: Not Given Magnesium Hydroxide (Milk Of Magnesia Liq*) 30 ml PO BID PRN PRN Reason: CONSTIPATION Magnesium Oxide (Magox 400 Tab*) 400 mg PO DAILY [facility] Last Admin: 08/11/19 08:34 Dose: 400 mg Meclizine HCl (Antivert Tab*) 25 mg PO TID PRN PRN Reason: VERTIGO Melatonin (Melatonin) 3 mg PO BEDTIME [facility] Last Admin: 08/10/19 20:47 Dose: 3 mg Metoprolol Succinate (Toprol Xl Tab*) 50 mg PO BID [facility] Last Admin: 08/11/19 08:35 Dose: 50 mg Mirtazapine (Remeron Tab*) 15 mg PO BEDTIME [facility] Last Admin: 08/10/19 20:47 Dose: 15 mg Ondansetron HCl (Zofran Tab*) 4 mg PO Q6H PRN PRN Reason: NAUSEA Oxycodone HCl (Roxycodone Tab*) 15 mg PO Q4H PRN PRN Reason: Pain -severe Last Admin: 08/08/19 20:15 Dose: 15 mg Pantoprazole Sodium (Protonix Tab*) 40 mg PO DAILY [facility] Last Admin: 08/11/19 08:34 Dose: 40 mg Polyethylene Glycol/Electrolytes (Miralax*) 17 gm PO DAILY PRN PRN Reason: CONSTIPATION Last Admin: 08/08/19 11:32 Dose: 17 gm Potassium Chloride (Klor Con Er Tab*) 40 meq PO DAILY [facility] Last Admin: 08/11/19 08:34 Dose: 40 meq Sertraline HCl (Zoloft*) 100 mg PO DAILY [facility] Last Admin: 08/11/19 08:34 Dose: 100 mg Tamsulosin HCl (Flomax Cap*) 0.4 mg PO BID [facility] Last Admin: 08/11/19 08:34 Dose: 0.4 mg Vital Signs - 8 hr 08/11/19 08/11/19 08/11/19 07:15 08:00 11:15 Temperature 97.2 F 97.5 F Pulse Rate 65 75 Respiratory 20 20 24 Rate Blood Pressure 128/79 (mmHg) O2 Sat by Pulse 95 95 Oximetry Oxygen Devices in Use Now: None Appearance: 74 yo M in nAD, aAOx2 Eyes: No Scleral Icterus, PERRLA Ears/Nose/Mouth/Throat: NL Teeth, Lips, Gums, Mucous Membranes Moist Neck: NL Appearance and Movements; NL JVP, Trachea Midline Respiratory: Symmetrical Chest Expansion and Respiratory Effort, Clear to Auscultation Cardiovascular: NL Sounds; No Murmurs; No JVD, RRR Abdominal: NL Sounds; No Tenderness; No Distention Lymphatic: No Cervical Adenopathy Extremities: No Edema, No Clubbing, Cyanosis Skin: No Nodules or Sclerosis, - - left foot ecchymosis Neurological: - - chronic left sided weakness Result Diagrams: 08/11/19 09:01 08/11/19 05:59 Assess/Plan/Problems-Billing Assessment: 74 y/o male with recurrent fall of unclear etiology, he has been hospitalized multiple times and he has received an extensive work up that included multiple imaging of his brain, spine, neurology and neurosurgery consultation and no etiology was determined. There is a component of psychosomatisation and he has been seen by psychiatry for his depression - Patient Problems (1) Cognitive decline Comment: Pt appears to have had cognitive decline, due to acute encephalopathy/ delirium, likely hospitalization related in pt with h/o baseline mild memory impairment-that is improving on Lactulose. Recent B12 and TSH levels had been WNL CT brain neg. MRI brain shows poor quality study and suspected leptomeningeal process is less likley as per neurology. EEG shows no seizures. Ammonia levels do not correlate with pt's mental state, but he improved on Lactulose which will be continued (2) Hypertension Comment: - controlled - Continue metoprolol 50 mg bid, furosemide 40 mg QOD is going to be held due to slight increase in cratininine today. -increased losartan from 50- to 100 mg and his florinef was discontinued as it may exacerbate his Hypertension. -started Norvasc 10 mg 08/06 (3) Fracture of 5th metatarsal Comment: - Left 5th proximal phalanx fracture, non displaced. WBAT, ICE, Tylenol and Post op shoes as recommended by ortho (4) Recurrent falls while walking Comment: - Unclear etiology - Possible musckolskeletal and psychosomatic due to his depression worsened by the loss of his mariage relation with his . (His still live in the same house but she is currently in a same sex relations with another female partner and he has been physcially declining since the brake up) - Extensive work up documented in his previous hospitalization without a definite physical-diagnosis to explain his recurrent falls - He just left rehab and been doing well independantly up until 3 weeks ago he started to fall again and finally decided to come for re-evaluation and rehab placement - Left 5th proximal pahalanx fracture, non displaced. WBAT, Tylenol and Post op shoes as recommended by ortho (5) Afib Comment: - ECG 08/04/19 confirms NSR. Will continue him on metoprolol, aspirin - His last EKG from 06/10/19 revealed normal sinus rhythm and so does the one from 03/30/19 - he has h/o paroxysmal afib, not on anticoagulation due to falls. 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 (His still live in the same house but she is currently in a same sex relations with another female partner and he has been physcially declining since the brake up) - Extensive work up documented in his previous hospitalization without a definite physical-diagnosis to explain his recurrent falls (11) DVT prophylaxis Comment: - Heparin SQ Status and Disposition: inpatient
[2019-08-11] MEDS: Atorvastatin* 40 MG TAB PO SCH (16:54)
[2019-08-11] MEDS: Mirtazapine TAB* 15 MG PO SCH (21:19)
[2019-08-11] MEDS: Melatonin 3 MG TAB PO SCH (21:19)
[2019-08-12] MEDS: oxyCODONE TAB* 5 MG TAB PO PRN ×2 (01:31→22:25)
[2019-08-12] MEDS: Heparin VIAL(*) 5000 UNITS/ML VIAL (FIVE THOUSAND) SUBCUT SCH ×3 (06:19→22:26)
[2019-08-12] MEDS: Metoprolol Succinate XL TAB* 50 MG PO SCH ×2 (08:19→22:28)
[2019-08-12] MEDS: Potassium Chlor TAB* 20 MEQ TAB.ER PO SCH (08:19)
[2019-08-12] MEDS: Pantoprazole TAB * 40 MG TAB PO SCH (08:19)
[2019-08-12] MEDS: Cyanocobalamin TAB* 500 MCG PO SCH (08:19)
[2019-08-12] MEDS: amLODIPine TAB* 5 MG PO SCH (08:19)
[2019-08-12] MEDS: Aspirin 81 mg CHEW TAB* 81 MG TAB.CHEW PO SCH (08:19)
[2019-08-12] MEDS: Tamsulosin CAP* 0.4 MG PO SCH ×2 (08:19→22:26)
[2019-08-12] MEDS: Magnesium Oxide TAB* 400 MG PO SCH (08:19)
[2019-08-12] MEDS: Sertraline* 100 MG TAB PO SCH (08:19)
[2019-08-12] MEDS: Losartan TAB* 25 MG PO SCH (08:19)
[2019-08-12] MEDS: Lactulose* 15 ML UDC PO SCH ×2 (08:19→22:26)
[2019-08-12] MEDS: Docusate CAP* 100 MG PO SCH ×2 (08:19→22:27)
--- NOTE | 2019-08-12 11:15 | PN ---
Subjective Date of Service: 08/12/19 Interval History: Pt feels well, still takes time when trying to figure out where he is but able to do it after a few seconds. He has no complaints today Family History: Unchanged from Admission Social History: Unchanged from Admission Past Medical History: Unchanged from Admission Objective Active Medications: Amlodipine Besylate (Norvasc Tab*) 10 mg PO DAILY [facility] Last Admin: 08/12/19 08:19 Dose: 10 mg Aspirin (Aspirin 81 Mg Chew Tab*) 81 mg PO QAM [facility] Last Admin: 08/12/19 08:19 Dose: 81 mg Atorvastatin Calcium (Lipitor*) 40 mg PO QPM [facility] Last Admin: 08/11/19 16:54 Dose: 40 mg Cyanocobalamin (Vitamin B12 Tab*) 1,000 mcg PO DAILY [facility] Last Admin: 08/12/19 08:19 Dose: 1,000 mcg Docusate Sodium (Colace Cap*) 100 mg PO BID [facility] Last Admin: 08/12/19 08:19 Dose: 100 mg Heparin Sodium (Porcine) (Heparin Vial(*)) 5,000 units SUBCUT Q8HR [facility] Last Admin: 08/12/19 06:19 Dose: 5,000 units Lactulose (Lactulose*) 15 ml PO BID [facility] Last Admin: 08/12/19 08:19 Dose: 15 ml Losartan Potassium (Cozaar Tab*) 100 mg PO DAILY [facility] Last Admin: 08/12/19 08:19 Dose: 100 mg Magnesium Hydroxide (Milk Of Magnesia Liq*) 30 ml PO BID PRN PRN Reason: CONSTIPATION Magnesium Oxide (Magox 400 Tab*) 400 mg PO DAILY [facility] Last Admin: 08/12/19 08:19 Dose: 400 mg Meclizine HCl (Antivert Tab*) 25 mg PO TID PRN PRN Reason: VERTIGO Melatonin (Melatonin) 3 mg PO BEDTIME [facility] Last Admin: 08/11/19 21:19 Dose: 3 mg Metoprolol Succinate (Toprol Xl Tab*) 50 mg PO BID [facility] Last Admin: 08/12/19 08:19 Dose: 50 mg Mirtazapine (Remeron Tab*) 15 mg PO BEDTIME [facility] Last Admin: 08/11/19 21:19 Dose: 15 mg Ondansetron HCl (Zofran Tab*) 4 mg PO Q6H PRN PRN Reason: NAUSEA Oxycodone HCl (Roxycodone Tab*) 15 mg PO Q4H PRN PRN Reason: Pain -severe Last Admin: 08/12/19 01:31 EST Dose: 15 mg Pantoprazole Sodium (Protonix Tab*) 40 mg PO DAILY [facility] Last Admin: 08/12/19 08:19 Dose: 40 mg Polyethylene Glycol/Electrolytes (Miralax*) 17 gm PO DAILY PRN PRN Reason: CONSTIPATION Last Admin: 08/08/19 11:32 Dose: 17 gm Potassium Chloride (Klor Con Er Tab*) 40 meq PO DAILY [facility] Last Admin: 08/12/19 08:19 Dose: 40 meq Sertraline HCl (Zoloft*) 100 mg PO DAILY [facility] Last Admin: 08/12/19 08:19 Dose: 100 mg Tamsulosin HCl (Flomax Cap*) 0.4 mg PO BID [facility] Last Admin: 08/12/19 08:19 Dose: 0.4 mg Vital Signs - 8 hr 08/12/19 08/12/19 06:20 07:15 Temperature 97.7 F Pulse Rate 65 Respiratory 16 20 Rate Blood Pressure 113/63 (mmHg) O2 Sat by Pulse 95 Oximetry Oxygen Devices in Use Now: None Appearance: 74 yo m in nAD, aAOx2, poor hisotrian Eyes: No Scleral Icterus, PERRLA Ears/Nose/Mouth/Throat: NL Teeth, Lips, Gums, Mucous Membranes Moist Neck: NL Appearance and Movements; NL JVP, Trachea Midline Respiratory: Symmetrical Chest Expansion and Respiratory Effort, Clear to Auscultation Cardiovascular: NL Sounds; No Murmurs; No JVD Abdominal: NL Sounds; No Tenderness; No Distention, No Hepatosplenomegaly Lymphatic: No Cervical Adenopathy Extremities: No Clubbing, Cyanosis Skin: No Nodules or Sclerosis, - - left foot ecchymosis-resolving Neurological: - - left sided weakness -chronic Result Diagrams: 08/11/19 09:01 08/11/19 05:59 Assess/Plan/Problems-Billing Assessment: 74 y/o male with recurrent fall of unclear etiology, he has been hospitalized multiple times and he has received an extensive work up that included multiple imaging of his brain, spine, neurology and neurosurgery consultation and no etiology was determined. 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 Recent B12 and TSH levels had been WNL CT brain neg. MRI brain shows poor quality study and suspected leptomeningeal process is less likely as per neurology. EEG shows no seizures. Ammonia levels do not correlate with pt's mental state, but he improved on Lactulose which will be continued (2) Hypertension Comment: - controlled - Continue metoprolol 50 mg bid, furosemide 40 mg QOD is going to be held due to slight increase in cratininine today. -increased losartan from 50- to 100 mg and his florinef was discontinued as it may exacerbate his Hypertension. -started Norvasc 10 mg 08/06 (3) Fracture of 5th metatarsal Comment: - Left 5th proximal phalanx fracture, non displaced. WBAT, ICE, Tylenol and Post op shoes as recommended by ortho (4) Recurrent falls while walking Comment: - Unclear etiology - Possible musckolskeletal and psychosomatic due to his depression worsened by the loss of his mariage relation with his . (His still live in the same house but she is currently in a same sex relations with another female partner and he has been physcially declining since the brake up) - Extensive work up documented in his previous hospitalization without a definite physical-diagnosis to explain his recurrent falls - He just left rehab and been doing well independantly up until 3 weeks ago he started to fall again and finally decided to come for re-evaluation and rehab placement - Left 5th proximal pahalanx fracture, non displaced. WBAT, Tylenol and Post op shoes as recommended by ortho (5) Afib Comment: - ECG 08/04/19 confirms NSR. Will continue him on metoprolol, aspirin - His last EKG from 06/10/19 revealed normal sinus rhythm and so does the one from 03/30/19 - he has h/o paroxysmal afib, not on anticoagulation due to falls. 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 (His still live in the same house but she is currently in a same sex relations with another female partner and he has been physcially declining since the brake up) - Extensive work up documented in his previous hospitalization without a definite physical-diagnosis to explain his recurrent falls (11) DVT prophylaxis Comment: - Heparin SQ Status and Disposition: inpatient. Awaiting STR. Medically ready for d/c
[2019-08-12] MEDS: Atorvastatin* 40 MG TAB PO SCH (16:34)
[2019-08-12 22:14] LABS: Urine Appearance Turbid; Urine Bilirubin Negative (Negative); Urine Blood Negative (Negative); Urine Color Yellow; Urine Glucose Negative (Negative); Urine Ketones Negative (Negative); Urine Nitrite Negative (Negative); Urine Protein Negative (Negative); Urine Specific Gravity 1.018 (1.010-1.030); Urine Urobilinogen Negative (Negative)
[2019-08-12] MEDS: Melatonin 3 MG TAB PO SCH (22:27)
[2019-08-12] MEDS: Mirtazapine TAB* 15 MG PO SCH (22:28)
[2019-08-12] MEDS: Magic M W2 Ben/Maal/Nyst/Lido* 240 ML MOUTHWASH (alt formulation) SWISH SPIT SCH (23:59)
[2019-08-13] MEDS: Heparin VIAL(*) 5000 UNITS/ML VIAL (FIVE THOUSAND) SUBCUT SCH ×3 (05:42→22:22)
[2019-08-13] MEDS: amLODIPine TAB* 5 MG PO SCH (07:58)
[2019-08-13] MEDS: Tamsulosin CAP* 0.4 MG PO SCH ×2 (07:59→22:23)
[2019-08-13] MEDS: Metoprolol Succinate XL TAB* 50 MG PO SCH ×2 (07:59→22:22)
[2019-08-13] MEDS: Docusate CAP* 100 MG PO SCH ×2 (07:59→22:23)
[2019-08-13] MEDS: Magnesium Oxide TAB* 400 MG PO SCH (07:59)
[2019-08-13] MEDS: Sertraline* 100 MG TAB PO SCH (08:01)
[2019-08-13] MEDS: Cyanocobalamin TAB* 500 MCG PO SCH (08:01)
[2019-08-13] MEDS: Pantoprazole TAB * 40 MG TAB PO SCH (08:01)
[2019-08-13] MEDS: Aspirin 81 mg CHEW TAB* 81 MG TAB.CHEW PO SCH (08:01)
[2019-08-13] MEDS: Losartan TAB* 25 MG PO SCH (08:01)
[2019-08-13] MEDS: Potassium Chlor TAB* 20 MEQ TAB.ER PO SCH (08:03)
[2019-08-13] MEDS: Magic M W2 Ben/Maal/Nyst/Lido* 240 ML MOUTHWASH (alt formulation) SWISH SPIT SCH ×4 (08:04→22:22)
[2019-08-13] MEDS: Lactulose* 15 ML UDC PO SCH ×2 (08:04→22:22)
--- NOTE | 2019-08-13 08:15 | PN ---
Subjective Date of Service: 08/13/19 Interval History: Patient examined today at the bedside. He states that he is feeling well. He denies headache and denies drowsiness. He is asking about PT. He denies chest pain and denies shortness of breathe. No reported issues overnight. ROS-denies fever, denies chills, denies chest pain, denies nausea, denies vomiting, denies abdominal pain, denies lightheadedness, denies loc, review of 14 systems completed all others negative Review of Systems: Denied CP, SOB, or palpitations. Family History: Unchanged from Admission Social History: Unchanged from Admission Past Medical History: Unchanged from Admission Objective Active Medications: Amlodipine Besylate (Norvasc Tab*) 10 mg PO DAILY [facility] Last Admin: 08/13/19 07:58 Dose: 10 mg Aspirin (Aspirin 81 Mg Chew Tab*) 81 mg PO QAM [facility] Last Admin: 08/13/19 08:01 Dose: 81 mg Atorvastatin Calcium (Lipitor*) 40 mg PO QPM [facility] Last Admin: 08/12/19 16:34 Dose: 40 mg Cyanocobalamin (Vitamin B12 Tab*) 1,000 mcg PO DAILY [facility] Last Admin: 08/13/19 08:01 Dose: 1,000 mcg Docusate Sodium (Colace Cap*) 100 mg PO BID [facility] Last Admin: 08/13/19 07:59 Dose: 100 mg Heparin Sodium (Porcine) (Heparin Vial(*)) 5,000 units SUBCUT Q8HR [facility] Last Admin: 08/13/19 05:42 Dose: 5,000 units Lactulose (Lactulose*) 15 ml PO BID [facility] Last Admin: 08/13/19 08:04 Dose: 15 ml Losartan Potassium (Cozaar Tab*) 100 mg PO DAILY [facility] Last Admin: 08/13/19 08:01 Dose: 100 mg Magnesium Hydroxide (Milk Of Magnesia Liq*) 30 ml PO BID PRN PRN Reason: CONSTIPATION Magnesium Oxide (Magox 400 Tab*) 400 mg PO DAILY [facility] Last Admin: 08/13/19 07:59 Dose: 400 mg Meclizine HCl (Antivert Tab*) 25 mg PO TID PRN PRN Reason: VERTIGO Melatonin (Melatonin) 3 mg PO BEDTIME [facility] Last Admin: 08/12/19 22:27 Dose: 3 mg Metoprolol Succinate (Toprol Xl Tab*) 50 mg PO BID [facility] Last Admin: 08/13/19 07:59 Dose: 50 mg Mirtazapine (Remeron Tab*) 15 mg PO BEDTIME [facility] Last Admin: 08/12/19 22:28 Dose: 15 mg Multi-Ingredient Mouthwash/Gargle (Magic M W2 John/Maal/Nyst/Lido*) 5 ml SWISH SPIT QID [facility] Last Admin: 08/13/19 08:04 Dose: 5 ml Ondansetron HCl (Zofran Tab*) 4 mg PO Q6H PRN PRN Reason: NAUSEA Oxycodone HCl (Roxycodone Tab*) 15 mg PO Q4H PRN PRN Reason: Pain -severe Last Admin: 08/12/19 22:25 Dose: 15 mg Pantoprazole Sodium (Protonix Tab*) 40 mg PO DAILY [facility] Last Admin: 08/13/19 08:01 Dose: 40 mg Polyethylene Glycol/Electrolytes (Miralax*) 17 gm PO DAILY PRN PRN Reason: CONSTIPATION Last Admin: 08/08/19 11:32 Dose: 17 gm Potassium Chloride (Klor Con Er Tab*) 40 meq PO DAILY [facility] Last Admin: 08/13/19 08:03 Dose: 40 meq Sertraline HCl (Zoloft*) 100 mg PO DAILY [facility] Last Admin: 08/13/19 08:01 Dose: 100 mg Tamsulosin HCl (Flomax Cap*) 0.4 mg PO BID [facility] Last Admin: 08/13/19 07:59 Dose: 0.4 mg Vital Signs 08/12/19 08/12/19 08/12/19 11:15 15:15 19:15 Temperature 97.5 F 97.5 F 97.2 F Pulse Rate 68 71 75 Respiratory 22 22 16 Rate Blood Pressure 132/66 125/66 137/72 (mmHg) O2 Sat by Pulse 97 98 100 Oximetry 08/12/19 08/12/19 08/13/19 22:25 23:38 00:31 Temperature 98.2 F Pulse Rate 76 Respiratory 20 20 18 Rate Blood Pressure 140/78 (mmHg) O2 Sat by Pulse 96 Oximetry 08/13/19 08/13/19 03:09 07:44 Temperature 96.9 F 97.5 F Pulse Rate 58 62 Respiratory 20 20 Rate Blood Pressure 111/60 136/73 (mmHg) O2 Sat by Pulse 96 99 Oximetry Intake and Output Last 24 Hours 08/11/19 08/12/19 08/13/19 08/14/19 07:59 06:59 06:59 06:59 Intake Total 507 Output Total 500 Balance 7 Weight 156 lb 9.6 oz Intake: Oral 507 Output: Urine 500 Other: Estimated Void Small # Bowel Movements 0 Estimated Stool Amount # Voids 1 Oxygen Devices in Use Now: None Neurology Exam: General: Well nourished, well developed, and in no acute distress HEENT: Normocephelic/atraumatic, sclera anicteric, mucous membranes moist Neck: Supple Chest: Clear to auscultation bilaterally Cardiovascular: Regular rate and rhythm without murmurs, rubs, gallops Abdomen: Soft, non-tender/non-distended Extremities: No clubbing, cyanosis, or edema, bruising noted to the left mid foot Neurological Findings: Awake, alert, and oriented to person, place, November he knows the year Speech: fluent without dysarthria, Cranial Nerve: PERRL, EOM intact, VFF, no nystagmus, face symmetric bilaterally , facial sensation intact Motor: moves all extremities antigravity to command with good resistance. weakness noted to the LUE and LLE (chronic in nature) Occasional myoclonic beats of the right and left UEs. No tremor noted, Sensation: Intact to LT throughout Deep Tendon Reflex: 2+ upper extremity, 2+ patella, and 0 at the ankles. Down going plantar response Finger to nose, rapid alternating movements intact without tremor Result Diagrams: 08/11/19 09:01 08/11/19 05:59 Assessment/Plan Assessment: Mr. 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 The patient was cleared from rehab and was functional at home for about 3 weeks, until last Tuesday when he had multiple falls requiring this hospitalization. During the hospitalization, the patient became altered and confused. Work-up so far revealed an elevated ammonia level in the 70's. We discontinued his Flexeril for which he was taking 15 mg nightly. He has not had any new medications lately except for Ativan which does seem to increase his confusion (Ativan was being used to help with claustrophobia related to the MRI). He had an MRI done which was degraded by motion artifact. 1. AMS: He is improving daily, on Lactulose which suggests that his hyperammonemia is at least partially responsible for his AMS. Cause of elevated ammonia remains unclear. He may be improving as some of the sedating medications like Flexeril and Ativan are cleared from his system. This am, he appears to be improved again. Suspicion for an infectious cause of his AMS is very low given the continued improvement. I suspect that he has had some decompensation of underlying dementia that is multifactorial in nature. Recommendations: --Continue to monitor him, continue Lactulose to normalize ammonia. It is back down to 55 08/11 --Continue to minimize and sedating meds including his narcotics as much as possible --PT: mobilize, OOB to chair and ambulate if possible with assist. --Consider repeating MRI if he worsens clinical. Poor imaging quality on first MRI. I doubt leptomeningial process and suspect this was artifactual. At this point given the continued improvement. We will sign off at this point should you have any question please do not hesitate to contact us.
--- NOTE | 2019-08-13 10:31 | PN ---
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 Pt seems frustrated and states" I don't know what's wrong with me" denies pain, SOB Family History: Unchanged from Admission Social History: Unchanged from Admission Past Medical History: Unchanged from Admission Objective Active Medications: Amlodipine Besylate (Norvasc Tab*) 10 mg PO DAILY [facility] Last Admin: 08/13/19 07:58 Dose: 10 mg Aspirin (Aspirin 81 Mg Chew Tab*) 81 mg PO QAM [facility] Last Admin: 08/13/19 08:01 Dose: 81 mg Atorvastatin Calcium (Lipitor*) 40 mg PO QPM [facility] Last Admin: 08/12/19 16:34 Dose: 40 mg Cyanocobalamin (Vitamin B12 Tab*) 1,000 mcg PO DAILY [facility] Last Admin: 08/13/19 08:01 Dose: 1,000 mcg Docusate Sodium (Colace Cap*) 100 mg PO BID [facility] Last Admin: 08/13/19 07:59 Dose: 100 mg Heparin Sodium (Porcine) (Heparin Vial(*)) 5,000 units SUBCUT Q8HR [facility] Last Admin: 08/13/19 05:42 Dose: 5,000 units Lactulose (Lactulose*) 15 ml PO BID [facility] Last Admin: 08/13/19 08:04 Dose: 15 ml Losartan Potassium (Cozaar Tab*) 100 mg PO DAILY [facility] Last Admin: 08/13/19 08:01 Dose: 100 mg Magnesium Hydroxide (Milk Of Magnesia Liq*) 30 ml PO BID PRN PRN Reason: CONSTIPATION Magnesium Oxide (Magox 400 Tab*) 400 mg PO DAILY [facility] Last Admin: 08/13/19 07:59 Dose: 400 mg Meclizine HCl (Antivert Tab*) 25 mg PO TID PRN PRN Reason: VERTIGO Melatonin (Melatonin) 3 mg PO BEDTIME [facility] Last Admin: 08/12/19 22:27 Dose: 3 mg Metoprolol Succinate (Toprol Xl Tab*) 50 mg PO BID [facility] Last Admin: 08/13/19 07:59 Dose: 50 mg Mirtazapine (Remeron Tab*) 15 mg PO BEDTIME [facility] Last Admin: 08/12/19 22:28 Dose: 15 mg Multi-Ingredient Mouthwash/Gargle (Magic M W2 John/Maal/Nyst/Lido*) 5 ml SWISH SPIT QID [facility] Last Admin: 08/13/19 08:04 Dose: 5 ml Ondansetron HCl (Zofran Tab*) 4 mg PO Q6H PRN PRN Reason: NAUSEA Oxycodone HCl (Roxycodone Tab*) 15 mg PO Q4H PRN PRN Reason: Pain -severe Last Admin: 08/12/19 22:25 Dose: 15 mg Pantoprazole Sodium (Protonix Tab*) 40 mg PO DAILY [facility] Last Admin: 08/13/19 08:01 Dose: 40 mg Polyethylene Glycol/Electrolytes (Miralax*) 17 gm PO DAILY PRN PRN Reason: CONSTIPATION Last Admin: 08/08/19 11:32 Dose: 17 gm Potassium Chloride (Klor Con Er Tab*) 40 meq PO DAILY [facility] Last Admin: 08/13/19 08:03 Dose: 40 meq Sertraline HCl (Zoloft*) 100 mg PO DAILY [facility] Last Admin: 08/13/19 08:01 Dose: 100 mg Tamsulosin HCl (Flomax Cap*) 0.4 mg PO BID [facility] Last Admin: 08/13/19 07:59 Dose: 0.4 mg Vital Signs - 8 hr 08/13/19 08/13/19 08/13/19 03:09 07:44 08:00 Temperature 96.9 F 97.5 F Pulse Rate 58 62 Respiratory 20 20 20 Rate Blood Pressure 111/60 136/73 (mmHg) O2 Sat by Pulse 96 99 Oximetry Oxygen Devices in Use Now: None Appearance: 74 yo M in nAD, AAOx2, poor historian, appears delusional Eyes: No Scleral Icterus, PERRLA Ears/Nose/Mouth/Throat: NL Teeth, Lips, Gums, Mucous Membranes Moist Neck: NL Appearance and Movements; NL JVP, Trachea Midline Respiratory: Symmetrical Chest Expansion and Respiratory Effort, Clear to Auscultation Cardiovascular: NL Sounds; No Murmurs; No JVD, RRR Abdominal: NL Sounds; No Tenderness; No Distention, No Hepatosplenomegaly Lymphatic: No Cervical Adenopathy Extremities: No Edema, No Clubbing, Cyanosis Skin: No Rash or Ulcers, No Nodules or Sclerosis Neurological: Alert and Oriented x 3, - - chronic left sided weakness Result Diagrams: 08/11/19 09:01 08/11/19 05:59 Assess/Plan/Problems-Billing Assessment: 74 y/o male with recurrent fall of unclear etiology, he has been hospitalized multiple times and he has received an extensive work up that included multiple imaging of his brain, spine, neurology and neurosurgery consultation and no etiology was determined. 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 will ask psychiatry to see him in consult Recent B12 and TSH levels had been WNL CT brain neg. MRI brain shows poor quality study and suspected leptomeningeal process is less likely as per neurology. EEG shows no seizures. Ammonia levels do not correlate with pt's mental state, but he improved on Lactulose which will be continued (2) Hypertension Comment: - controlled - Continue metoprolol 50 mg bid, furosemide 40 mg QOD was held due to slight increase in cratininine 08/11/19 -increased losartan from 50- to 100 mg and his florinef was discontinued as it may exacerbate his Hypertension. -started Norvasc 10 mg 08/06 (3) Fracture of 5th metatarsal Comment: - Left 5th proximal phalanx fracture, non displaced. WBAT, ICE, Tylenol and Post op shoes as recommended by ortho (4) Recurrent falls while walking Comment: - Unclear etiology - Possible musckolskeletal and psychosomatic due to his depression worsened by the loss of his mariage relation with his . (His still live in the same house but she is currently in a same sex relations with another female partner and he has been physcially declining since the brake up) - Extensive work up documented in his previous hospitalization without a definite physical-diagnosis to explain his recurrent falls - He just left rehab and been doing well independantly up until 3 weeks ago he started to fall again and finally decided to come for re-evaluation and rehab placement - Left 5th proximal pahalanx fracture, non displaced. WBAT, Tylenol and Post op shoes as recommended by ortho (5) Afib Comment: - ECG 08/04/19 confirms NSR. Will continue him on metoprolol, aspirin - His last EKG from 06/10/19 revealed normal sinus rhythm and so does the one from 03/30/19 - he has h/o paroxysmal afib, not on anticoagulation due to falls. 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 (His still live in the same house but she is currently in a same sex relations with another female partner and he has been physcially declining since the brake up) - Extensive work up documented in his previous hospitalization without a definite physical-diagnosis to explain his recurrent falls (11) DVT prophylaxis Comment: - Heparin SQ Status and Disposition: inpatient. Medically -awaiting psychiatric consult to weigh in prior to pt's departure to STR
[2019-08-13] MEDS: oxyCODONE TAB* 5 MG TAB PO PRN ×2 (11:42→22:23)
[2019-08-13 12:44] LABS: BUN/Creatinine Ratio 27.8 (8-20); Calcium 9.8 mg/dL (8.6-10.3); EGFR African American 80.9 (>60); EGFR Non-African American 66.8 (>60); Potassium 4.5 mmol/L (3.5-5.0)
--- NOTE | 2019-08-13 16:42 | CONSULT ---
Identification - Patient Identification Reason for Psychiatric Consultation: Incapacitating Symptoms -: Patient is a 74 year old, M admitted on 08/05/19. - MHU Identification Employment Status: Disabled Hx Psychiatric Hospitalization: No History - Objective HPI: Jose Alberto is seen by psychiatry due to some bizarre statements recently that seemed perhaps psychotic in nature. This observer knows Mr. Hung from extensive consultation during his prolonged hospitalization on 4th floor in March and April of this year. For a more complete psychosocial history please refer to my dictation dated 04/05/19. At this time he continues to live with his estranged and reports that since this summer he's had over 90 falls, the etiology of which is still unclear. "I know you told Dr. Bruner you thought it was psychosomatic. 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 At this time he says that his depression is under control with sertraline and mirtazapine. He steadfastly denies any SI since roughly February of this year, which was right after finding out about his 's intention to leave him. He is hopeful for discharge to a [facility] setting, appropriately acknowledging his need for care and the unworkability of receiving this at his current home. The patient submits to a MMSE and does poorly on attention and delayed recall. He continues to work with psychologist Kiki Post at [facility]. Exam Appearance: Thin Framed Hygiene: Normal Grooming: Fairly Well Kept Psychomotor Activities: Abnormal-Decreased Exhibits Abnormal Movement: Yes Attitude and Relatedness: Cooperative Eye Contact: Good - Speech Quality: Unpressured Latencies: Normal Quantity: Appropriate Patient's Decription of Mood: "Okay" Observed Affect: Fair Affect Consistent with: Euthymia Patient's Thought Process: Coherent Thought Content: No Passive Wish, No Suicidal Planning, No Homicidal Ideation, No Paranoid Ideation Experiencing Hallucinations: No, Sensorium is Clear Type of Hallucinations: Visual: No, Auditory: No, Command: No Level of Consciousness: Alert Orientation: Yes Intact, Yes Orientated to Time, Yes Orientated to Place, Yes Orientated to Person Impulse Control: Intact Insight and Judgement: Fair - Additional Observations Comments: Patient misses one point for county, one point for season, three points for delayed recall and 2 points for attention, resulting of MMSE score of 23/30. Impression - Impression Clinical Impression: 74 white male with a history of depression admitted for recurrent, frequent falls of uncertain etiology, also presents with confusion. His outpatient providers, PMD Dr. Bruner and psychologist Kiki Post have been independently tracking his MOCA scores and have both noted increasing deficits in cognition. He scores 23/30 on an MMSE, indicating mild to moderate cognitive impairment. Inpatient DSM-V Dx: G31.84 Merits Inpatient Hospitalization: No BSU: Problem List - Patient Problems (1) Mild neurocognitive disorder Current Visit: Yes Status: Acute Priority: Low Code(s): G31.84 - MILD COGNITIVE IMPAIRMENT, SO STATED SNOMED Code(s): 147364077 Plan - Treatment Plan Treatment Plan: Psychiatry agrees with plan to place in SNF setting. He does not require BSU care. Continue mirtazapine 15mg PO qhs and sertraline 100mg PO qday. Psychiatry is signing off. Thank you for the consult. Continued Medication Management: Continue Outpt Medication Medications: Current Medications Amlodipine Besylate (Norvasc Tab*) 10 mg PO DAILY [facility] Last Admin: 08/13/19 07:58 Dose: 10 mg Aspirin (Aspirin 81 Mg Chew Tab*) 81 mg PO QAM [facility] Last Admin: 08/13/19 08:01 Dose: 81 mg Atorvastatin Calcium (Lipitor*) 40 mg PO QPM [facility] Last Admin: 08/12/19 16:34 Dose: 40 mg Cyanocobalamin (Vitamin B12 Tab*) 1,000 mcg PO DAILY [facility] Last Admin: 08/13/19 08:01 Dose: 1,000 mcg Docusate Sodium (Colace Cap*) 100 mg PO BID [facility] Last Admin: 08/13/19 07:59 Dose: 100 mg Heparin Sodium (Porcine) (Heparin Vial(*)) 5,000 units SUBCUT Q8HR [facility] Last Admin: 08/13/19 13:42 Dose: 5,000 units Lactulose (Lactulose*) 15 ml PO BID [facility] Last Admin: 08/13/19 08:04 Dose: 15 ml Losartan Potassium (Cozaar Tab*) 100 mg PO DAILY [facility] Last Admin: 08/13/19 08:01 Dose: 100 mg Magnesium Hydroxide (Milk Of Magnesia Liq*) 30 ml PO BID PRN PRN Reason: CONSTIPATION Magnesium Oxide (Magox 400 Tab*) 400 mg PO DAILY [facility] Last Admin: 08/13/19 07:59 Dose: 400 mg Meclizine HCl (Antivert Tab*) 25 mg PO TID PRN PRN Reason: VERTIGO Melatonin (Melatonin) 3 mg PO BEDTIME [facility] Last Admin: 08/12/19 22:27 Dose: 3 mg Metoprolol Succinate (Toprol Xl Tab*) 50 mg PO BID [facility] Last Admin: 08/13/19 07:59 Dose: 50 mg Mirtazapine (Remeron Tab*) 15 mg PO BEDTIME [facility] Last Admin: 08/12/19 22:28 Dose: 15 mg Multi-Ingredient Mouthwash/Gargle (Magic M W2 John/Maal/Nyst/Lido*) 5 ml SWISH SPIT QID [facility] Last Admin: 08/13/19 13:42 Dose: 5 ml Ondansetron HCl (Zofran Tab*) 4 mg PO Q6H PRN PRN Reason: NAUSEA Last Admin: 08/13/19 11:46 Dose: 4 mg Oxycodone HCl (Roxycodone Tab*) 15 mg PO Q4H PRN PRN Reason: Pain -severe Last Admin: 08/13/19 11:42 Dose: 15 mg Pantoprazole Sodium (Protonix Tab*) 40 mg PO DAILY [facility] Last Admin: 08/13/19 08:01 Dose: 40 mg Polyethylene Glycol/Electrolytes (Miralax*) 17 gm PO DAILY PRN PRN Reason: CONSTIPATION Last Admin: 08/08/19 11:32 Dose: 17 gm Potassium Chloride (Klor Con Er Tab*) 40 meq PO DAILY [facility] Last Admin: 08/13/19 08:03 Dose: 40 meq Sertraline HCl (Zoloft*) 100 mg PO DAILY [facility] Last Admin: 08/13/19 08:01 Dose: 100 mg Tamsulosin HCl (Flomax Cap*) 0.4 mg PO BID [facility] Last Admin: 08/13/19 07:59 Dose: 0.4 mg - Discharge Plan Discharge Plan: Outpatient Follow Up Out[facility]
[2019-08-13] MEDS: Atorvastatin* 40 MG TAB PO SCH (17:00)
[2019-08-13] MEDS: Melatonin 3 MG TAB PO SCH (22:22)
[2019-08-13] MEDS: Mirtazapine TAB* 15 MG PO SCH (22:23)
[2019-08-14] MEDS: Heparin VIAL(*) 5000 UNITS/ML VIAL (FIVE THOUSAND) SUBCUT SCH ×2 (06:36→14:11)
[2019-08-14] MEDS: Sertraline* 100 MG TAB PO SCH (11:04)
[2019-08-14] MEDS: Pantoprazole TAB * 40 MG TAB PO SCH (11:04)
[2019-08-14] MEDS: Losartan TAB* 25 MG PO SCH (11:04)
[2019-08-14] MEDS: amLODIPine TAB* 5 MG PO SCH (11:04)
[2019-08-14] MEDS: Lactulose* 15 ML UDC PO SCH (11:04)
[2019-08-14] MEDS: Metoprolol Succinate XL TAB* 50 MG PO SCH (11:04)
[2019-08-14] MEDS: Tamsulosin CAP* 0.4 MG PO SCH (11:05)
[2019-08-14] MEDS: Magnesium Oxide TAB* 400 MG PO SCH (11:05)
[2019-08-14] MEDS: Magic M W2 Ben/Maal/Nyst/Lido* 240 ML MOUTHWASH (alt formulation) SWISH SPIT SCH ×2 (11:05→14:11)
[2019-08-14] MEDS: Aspirin 81 mg CHEW TAB* 81 MG TAB.CHEW PO SCH (11:05)
[2019-08-14] MEDS: Cyanocobalamin TAB* 500 MCG PO SCH (11:05)
[2019-08-14] MEDS: Potassium Chlor TAB* 20 MEQ TAB.ER PO SCH (11:05)
[2019-08-14] MEDS: oxyCODONE TAB* 5 MG TAB PO PRN (11:05)
[2019-08-14] MEDS: Docusate CAP* 100 MG PO SCH (11:05)
[2019-08-14 16:28] VITALS: BP 126/64
--- NOTE | 2019-08-15 02:39 | DS ---
CC: Dr. Iliana Bruner; Dr. Arceo; Dr. Wylie; Dr. Teresa; Dr. Soriano * DISCHARGE SUMMARY: DATE OF ADMISSION: 08/03/19 DATE OF DISCHARGE: 08/14/19 PRIMARY CARE PROVIDER: Dr. Iliana Bruner. DISCHARGE DIAGNOSES: 1. 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 2. Delirium/encephalopathy, acute toxic in patient with slightly elevated ammonia levels that improved after treatment with lactulose. 3. The patient had confabulations during the hospital stay and delusions that were thought to be related to his impaired memory. 4. Left fifth proximal phalanx fracture of the left foot after a fall. SECONDARY DIAGNOSES: 1. History of generalized deconditioning and recurrent falls. 2. 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 3. Status post dorsal column spinal cord stimulator in 1997, removed in April 2019. 4. History of underlying polyneuropathy. 5. Gastroesophageal reflux disease. 6. Depression. 7. Coronary artery disease. 8. Questionable orthostatic hypotension in the past. Florinef was discontinued on this hospital stay. MEDICATIONS AT DISCHARGE: Include: 1. Aspirin 81 mg daily. 2. Lipitor 40 mg daily. 3. Vitamin B12 at 1000 mcg daily. 4. Meclizine 25 mg t.i.d. p.r.n. 5. Toprol XL 50 mg b.i.d. 6. Remeron 50 mg at bedtime. 7. Zofran 4 mg every 6 hours p.r.n. 8. Lexapro 15 mg p.o. t.i.d. p.r.n. 9. Protonix 40 mg daily. 10. Zoloft 100 mg daily. 11. Flomax 0.4 mg b.i.d. 12. Amlodipine 10 mg b.i.d. 13. Lactulose 15 mL b.i.d. 14. Cozaar 50 mg daily. LABORATORY DATA/DIAGNOSTIC STUDIES PERFORMED DURING THE HOSPITAL STAY: On 08/11, white blood cell count of 9.9, hemoglobin 13.0, hematocrit 40, and platelets of 136. Sodium 139, potassium 4.5, chloride 107, carbon dioxide 24, BUN 30, and creatinine 1.08. The patient's vitamin B12 level was above 1450. TSH was 0.36. The patient's ammonia level was 55, 75, and 55 on the days of 08/08/19, and 08/11/19 respectively. Brain MRI obtained on 08/10/19, impression: "Extremely limited exam with no mass effect or midline shift. The DWI sequences are not diagnostic. Decreased sulci, T2 FLAIR suppression along the frontal lobes could be artifactual or related to leptomeningeal process. If indicated, this could be correlated with a lumbar puncture. Moderate chronic small-vessel ischemic change is likely." EEG obtained on 08/08/19, impression: "There is an abnormal awake EEG due to slow posterior dominant rhythm. Otherwise, there was retained organization or activity. The findings are suggestive of mild nonspecific diffuse encephalopathy. This EEG was compared to the previous one in April 2019 and there has been no significant change." CONSULTATIONS DURING THE HOSPITAL STAY: Included Dr. Arceo from neurology and Dr. Moran from orthopedic surgery and Dr. Wylie from psychiatry. HOSPITALIZATION COURSE: Mr. Hung is a 74-year-old male who was first hospitalized for problems with falls in March 2019, then in June he had a prolonged hospitalization, and this current hospitalization is from July. All of those hospital stays were related to recurrent falls. The patient had history of C-spine surgery in 1997 and resultant to that he had a spinal cord infarct with chronic left-sided weakness. He has been living with his of many years without any major issues. Just recently, his decided to divorce the patient and she found a female partner. The patient had been very depressed and sad about it as well as upset. It appears that during the patient 's previous hospital stay it was felt that at least some of the patient's problems with falls are due to somatization. His MRI of the C-spine in the past did not show any major new abnormalities, apart from the known C-spine cord infarct. The patient came in to the hospital at this time on 08/05/19 after he fractured the left fifth toe after a fall. He was admitted to the hospital. He had significant hypertension at that point and had been on Florinef for possibility of orthostatic hypotension. During his hospital stay, his Florinef was discontinued and he, in fact, needed to be placed on the Norvasc to continue his blood pressure. Due to rather poor p.o. intake and no evidence of fluid overload, his Lasix was discontinued during the hospital stay. The patient was seen by physical therapy, occupational therapy and deemed to be a good candidate for rehabilitation, and while awaiting rehab on 08/05/19 and , the patient developed marked hypertension and altered mental status. That was noted initially on 08/06/19. The patient was very forgetful, was disorganized in thinking and had tangential speech as well as noted confabulation. It was originally thought that this may be due to acute delirium from being in the hospital and not sleeping well. The patient was observed for a couple of days and due to no change in his status, neurology was consulted. Dr. Llamas saw the patient on 08/08/19 and recommended an MRI and EEG, which were read as above and basically unremarkable. They thought that the patient's meningeal changes were not likely and the neurology oracle end[employer] consultant thought that it was likely related to motion artifact. Hospital medicine felt the patient's ammonia level was slightly elevated at 55 and started lactulose. After starting lactulose, the patient's mental state started improving slowly. 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 By the time of planned placement in short-term rehabilitation, his physical therapy evaluation was so good that he was able to walk 300 feet without any major problems with the walker. His OT evaluation was also good. The patient was able to take care of himself and eat and dress independently. At this point, he has no PT and OT needs and no rehab needs. He is going to be discharged home with [facility] referral. The patient was also seen in consultation by Dr. Wylie from psychiatry, who stated this patient has longstanding problems with memory impairment as well as psychosomatization and depression. Dr. Wylie recommended continuation of the patient's current medications. It appears that after the psychiatrist saw the patient the very next day, the patient became almost entirely lucid and had no further confabulations. At discharge, the patient was recommended to use his boot that was recommended by Dr. Moran to use on the left foot due to a left fifth toe fracture. The patient was recommended to follow up with Dr. Iliana Bruner at a scheduled appointment on 08/21/19. He is also going to be continued on lactulose that appears to have helped. At this point, the etiology of the patient's elevation of ammonia, although mild, is unknown. DISPOSITION AT DISCHARGE: To home. CONDITION AT DISCHARGE: Stable. PHYSICAL EXAM AT DISCHARGE: Blood pressure 127/75, heart rate of 74 and regular , respiratory rate 20, oxygen saturation 86% on room air, temperature 98.3. General: The patient is a very pleasant 74-year-old male who is in no acute distress. Alert, awake and oriented x3. HEENT: Head: Atraumatic, normocephalic. Eyes: Pupils are equal and reactive to light and accommodation. Oropharynx is clear. Mucosa moist. Neck: Supple. No JVD. No bruits bilaterally. Cardiovascular: Regular rate and rhythm, No murmur. Respiratory : Clear to auscultation bilaterally. Abdomen: Soft and nontender. Bowel sounds present in all 4 quadrants. Extremities: There is no edema. Pulses are +2 bilaterally. No clubbing or cyanosis. Neuro Evaluation: Speech is clear. Cranial nerves II through XII grossly intact. The patient has chronic left-sided weakness with weakness in the left distal upper extremity and distally in the left lower extremity that is unchanged from prior and is at 4+/ 5. Psychiatry Evaluation: Pleasant and cooperative with evaluation, oriented x3 with no evidence of anxiety or depression. Please note that this is a short summary of the patient's long and complicated hospitalization. Please refer to further medical records for details. TIME SPENT: Approximately 45 minutes were spent on the patient's discharge. [id number]/[facility] #: [id number] [facility]ENTERJoaquim
== END 2019-08-14 17:30 | disposition home health service (06) | DRG 93 ==
LOC: ED 12:44 → MED 14:34 → OBSVTOIN 08-05 11:41 → MED 08-06 15:19
PROVIDERS: ADMIT Internal Medicine; ATTEND Internal Medicine
DX: G92 Toxic encephalopathy (principal); R29.6 Repeated falls; F32.9 Major depressive disorder, single episode, unspecified; F41.9 Anxiety disorder, unspecified; K21.9 Gastro-esophageal reflux disease without esophagitis; I25.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native coronary artery without angina pectoris; G89.29 Other chronic pain; R53.1 Weakness; I48.0 Paroxysmal atrial fibrillation; E78.5 Hyperlipidemia, unspecified; G81.94 Hemiplegia, unspecified affecting left nondominant side; I25.5 Ischemic cardiomyopathy; I10 Essential (primary) hypertension; F03.90 Unspecified dementia, unspecified severity, without behavioral disturbance, psychotic disturbance, mood disturbance, and anxiety; M54.2 Cervicalgia; M41.9 Scoliosis, unspecified; S92.355A Nondisplaced fracture of fifth metatarsal bone, left foot, initial encounter for closed fracture; I95.1 Orthostatic hypotension; G62.9 Polyneuropathy, unspecified; F45.9 Somatoform disorder, unspecified; Z86.73 Personal history of transient ischemic attack (TIA), and cerebral infarction without residual deficits; Z82.49 Family history of ischemic heart disease and other diseases of the circulatory system; Z80.9 Family history of malignant neoplasm, unspecified; Z79.891 Long term (current) use of 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; Z88.8 Allergy status to other drugs, medicaments and biological substances
CPT/HCPCS: 36415; 70450; 70551; 80048; 80053; 81003; 82140; 82550; 82607; 83735; 84100; 84443; 85025; 85049; 85610; 93005; 95816; 96372; 97530; 99284; A9270-GY; G0378; G8978-GP-CJ; G8978-GP-CK; G8978-GP-CL; G8979-GP-CI; G8979-GP-CJ; G8987-GO-CK; G8988-GO-CI; J1644

== ENCOUNTER 2021-12-30 19:47 | Inpatient (IN) ==
[2021-12-30] MEDS ORDERED: Morphine 4 MG/ML VIAL (1 ml) IV ONE (19:56)
[2021-12-30] MEDS ORDERED: Ondansetron 4 mg VIAL 2 MG/ML 2 ml VIAL IV ONE (19:56)
[2021-12-30] MEDS ORDERED: NS 0.9% 1000 ml BAG 1,000 ML IV ONE (19:56)
[2021-12-30 21:06] LABS: Urine Appearance Clear; Urine Bilirubin Negative (Negative); Urine Blood Negative (Negative); Urine Color Yellow; Urine Glucose Negative (Negative); Urine Ketones Negative (Negative); Urine Nitrite Negative (Negative); Urine Protein Negative (Negative); Urine Specific Gravity 1.013 (1.002-1.030); Urine Urobilinogen Negative (Negative)
[2021-12-30] MEDS ORDERED: Ondansetron ODT 4 mg TAB 4 MG TAB SL ONE (21:49)
[2021-12-31 00:15] LABS: ABS Eosinophils 0.1 10^3/ul (0-0.6); ABS Lymphocytes 0.6 10^3/ul (1.0-4.8); ABS Monocytes 0.5 10^3/ul (0-0.8); ABS Neutrophils 5.6 10^3/ul (1.5-7.7); Eosinophil % 1.5 %; Hematocrit 38 % (42-52); Hemoglobin 12.8 g/dL (14.0-18.0); Mean Corpuscular HGB Conc 34 g/dL (31-36); Mean Corpuscular Hemoglobin 29 pg (27-31); Mean Corpuscular Volume 86 fL (80-94); Platelet Count Platelets clumped. 10^3/uL (150-450); Red Blood Count 4.43 10^6 /uL (4.18-5.48); Red Cell Distribution Width 13 % (10-15); White Blood Count 6.8 10^3/uL (3.5-10.8)
[2021-12-31 00:20] LABS: ALT 6 U/L (7-52); Albumin 3.8 g/dL (3.2-5.2); Albumin/Globulin Ratio 1.4 (1-3); Alkaline Phosphatase 45 U/L (35-149); Blood Urea Nitrogen 16 mg/dL (6-24); CO2 Carbon Dioxide 31 mmol/L (22-32); Calcium 8.7 mg/dL (8.6-10.3); Chloride 106 mmol/L (101-111); Globulin 2.8 g/dL (2-4); Glucose 109 mg/dL (70-100); Sodium 142 mmol/L (135-145); Total Protein 6.6 g/dL (6.4-8.9); eGFR CKD-EPI 73.6 (>60)
[2021-12-31 00:31] LABS: Anion Gap 5 mmol/L (2-11)
[2021-12-31 08:53] LABS: ABS Eosinophils 0.2 10^3/ul (0-0.6); ABS Lymphocytes 0.7 10^3/ul (1.0-4.8); ABS Monocytes 0.4 10^3/ul (0-0.8); ABS Neutrophils 3.3 10^3/ul (1.5-7.7); Eosinophil % 4.1 %; Hematocrit 35 % (42-52); Hemoglobin 11.7 g/dL (14.0-18.0); Lymphocyte % 15.4 %; Mean Corpuscular HGB Conc 34 g/dL (31-36); Mean Corpuscular Hemoglobin 29 pg (27-31); Mean Corpuscular Volume 88 fL (80-94); Red Blood Count 3.98 10^6 /uL (4.18-5.48); Red Cell Distribution Width 14 % (10-15); White Blood Count 4.6 10^3/uL (3.5-10.8)
[2021-12-31] MEDS ORDERED: Flu vaccine *QUAD* 2021-22* 0.5 ML SYRINGE IM ONE (09:00)
[2021-12-31] MEDS: Aspirin EC 81 mg TAB.EC (enteric coated) PO SCH (09:22)
[2021-12-31 09:34] LABS: Anion Gap 4 mmol/L (2-11); Blood Urea Nitrogen 18 mg/dL (6-24); CO2 Carbon Dioxide 31 mmol/L (22-32); Calcium 8.2 mg/dL (8.6-10.3); Chloride 108 mmol/L (101-111); Glucose 119 mg/dL (70-100); Potassium 3.7 mmol/L (3.5-5.0); Sodium 143 mmol/L (135-145); eGFR CKD-EPI 62.7 (>60)
[2021-12-31 09:57] LABS: Vitamin B12 > 1450 pg/mL (180-914)
[2021-12-31 10:08] LABS: Mean Platelet Volume 10.8 fL (7.4-10.4); Platelet Count 83 10^3/uL (150-450)
[2021-12-31] MEDS ORDERED: NS 0.9% 1000 ml BAG 1,000 ML IV SCH (15:00)
[2022-01-01 06:35] LABS: ABS Eosinophils 0.2 10^3/ul (0-0.6); ABS Lymphocytes 0.8 10^3/ul (1.0-4.8); ABS Monocytes 0.4 10^3/ul (0-0.8); ABS Neutrophils 3.3 10^3/ul (1.5-7.7); Eosinophil % 5.2 %; Hematocrit 33 % (42-52); Hemoglobin 11.1 g/dL (14.0-18.0); Lymphocyte % 16.6 %; Mean Corpuscular HGB Conc 34 g/dL (31-36); Mean Corpuscular Hemoglobin 29 pg (27-31); Mean Corpuscular Volume 86 fL (80-94); Mean Platelet Volume 11.1 fL (7.4-10.4); Platelet Count 78 10^3/uL (150-450); Red Blood Count 3.81 10^6 /uL (4.18-5.48); Red Cell Distribution Width 14 % (10-15); White Blood Count 4.8 10^3/uL (3.5-10.8)
[2022-01-01 07:13] LABS: Calcium 8.1 mg/dL (8.6-10.3); eGFR CKD-EPI 81.9 (>60)
[2022-01-01] MEDS: Aspirin EC 81 mg TAB.EC (enteric coated) PO SCH (08:07)
[2022-01-01] MEDS ORDERED: Perflutren Lipid Microsphere 3 ML VIAL ONE (12:19)
[2022-01-01] MEDS: hydrALAZINE 20 mg/ml 1 ML Vial IV IV SLOW PU PRN ×2 (12:39→20:03)
[2022-01-01] MEDS ORDERED: Enalaprilat IV 1.25 mg/ml 1 ml VIAL (1.25 MG) IV ONE (22:46)
[2022-01-02] MEDS ORDERED: Ondansetron 4 mg VIAL 2 MG/ML 2 ml VIAL IV PRN (02:12)
[2022-01-02 06:34] LABS: ABS Lymphocytes 0.5 10^3/ul (1.0-4.8); ABS Monocytes 0.3 10^3/ul (0-0.8); ABS Neutrophils 5.4 10^3/ul (1.5-7.7); Eosinophil % 0.5 %; Hematocrit 37 % (42-52); Hemoglobin 12.5 g/dL (14.0-18.0); Lymphocyte % 7.9 %; Mean Corpuscular HGB Conc 34 g/dL (31-36); Mean Corpuscular Hemoglobin 29 pg (27-31); Mean Corpuscular Volume 85 fL (80-94); Mean Platelet Volume 10.7 fL (7.4-10.4); Nucleated Red Blood Cells % 0.1; Platelet Count 97 10^3/uL (150-450); Red Blood Count 4.34 10^6 /uL (4.18-5.48); Red Cell Distribution Width 13 % (10-15); White Blood Count 6.3 10^3/uL (3.5-10.8)
[2022-01-02] MEDS: Aspirin EC 81 mg TAB.EC (enteric coated) PO SCH (09:01)
[2022-01-03] MEDS: Aspirin EC 81 mg TAB.EC (enteric coated) PO SCH (09:53)
[2022-01-03] MEDS ORDERED: Enoxaparin 40 MG/0.4 ML SYR SUBCUT SCH (21:00)
[2022-01-04] MEDS: Aspirin EC 81 mg TAB.EC (enteric coated) PO SCH (07:19)
[2022-01-04 09:37] LABS: ABS Eosinophils 0.2 10^3/ul (0-0.6); ABS Lymphocytes 0.9 10^3/ul (1.0-4.8); ABS Monocytes 0.4 10^3/ul (0-0.8); ABS Neutrophils 3.3 10^3/ul (1.5-7.7); Eosinophil % 4.6 %; Hematocrit 37 % (42-52); Hemoglobin 12.3 g/dL (14.0-18.0); Lymphocyte % 18.2 %; Mean Corpuscular HGB Conc 33 g/dL (31-36); Mean Corpuscular Hemoglobin 29 pg (27-31); Mean Corpuscular Volume 87 fL (80-94); Nucleated Red Blood Cells % 0.1; Platelet Count 108 10^3/uL (150-450); Red Blood Count 4.24 10^6 /uL (4.18-5.48); Red Cell Distribution Width 14 % (10-15); White Blood Count 4.8 10^3/uL (3.5-10.8)
[2022-01-04 10:20] LABS: Calcium 8.8 mg/dL (8.6-10.3); Potassium 3.8 mmol/L (3.5-5.0); eGFR CKD-EPI 65.3 (>60)
[2022-01-04 11:27] VITALS: BP 157/76
== END 2022-01-04 13:10 | DRG 605 ==
LOC: EDHOLD 19:47 → ED 19:47 → SUATTDRO 23:55 → MED 12-31 01:37
PROVIDERS: ADMIT Internal Medicine; ATTEND Hospitalist

== ENCOUNTER 2023-06-10 10:42 | Inpatient (IN) ==
[2023-06-10] MEDS ORDERED: Lactated Ringers 1000 ml BAG 1,000 ML IV ONE (11:05)
[2023-06-10 11:40] LABS: Hematocrit 36.7 % (38-53); Hemoglobin 12.3 g/dL (13.2-16.3); Mean Corpuscular Hgb Conc 33.5 g/dL (31-36); Mean Corpuscular Volume 86.5 fL (80-97); Red Blood Count 4.25 10^6/uL (4.06-5.63); Red Cell Distribution Width 14.6 % (12-17); White Blood Count 13.6 10^3/uL (3.6-10.2)
[2023-06-10 12:30] LABS: ALT 8 U/L (7-52); Albumin 3.8 g/dL (3.2-5.2); Albumin/Globulin Ratio 1.3 (1-3); Alkaline Phosphatase 47 U/L (35-149); Blood Urea Nitrogen 21 mg/dL (6-24); C Reactive Protein < 1.00 mg/L (<8.01); CO2 Carbon Dioxide 26 mmol/L (22-32); Calcium 9.3 mg/dL (8.6-10.3); Chloride 105 mmol/L (101-111); Creatine Kinase 81 U/L (10-223); Creatinine, Serum 1.15 mg/dL (0.67-1.17); Globulin 2.9 g/dL (2-4); Glucose 124 mg/dL (70-100); Magnesium 1.8 mg/dL (1.9-2.7); Sodium 146 mmol/L (135-145); Total Protein 6.7 g/dL (6.4-8.9); eGFR CKD-EPI 65.1 (>60)
[2023-06-10 12:54] LABS: ABS Basophils 0.1 10^3/uL (0.0-0.1); ABS Lymphocytes 0.6 10^3/uL (1.0-4.8); ABS Monocytes 0.5 10^3/uL (0.0-1.1); ABS Neutrophils 12.4 10^3/uL (1.5-7.6); Eosinophil % 0.1 %; Lymphocyte % 4.1 %
[2023-06-10 12:56] LABS: Platelet Count Platelets clumped. 10^3/uL (150-450)
[2023-06-10 13:14] LABS: Anion Gap 15 mmol/L (2-16)
[2023-06-10 13:35] LABS: Urine Appearance Clear; Urine Bilirubin Negative (Negative); Urine Blood 1+ (Negative); Urine Color Yellow; Urine Glucose Negative (Negative); Urine Ketones Negative (Negative); Urine Nitrite Negative (Negative); Urine Protein 1+(30 mg/dL) (Negative); Urine Specific Gravity 1.014 (1.002-1.030); Urine Urobilinogen Negative (Negative)
[2023-06-10 13:48] LABS: Urine Bacteria Absent (Absent); Urine Red Blood Cell Trace(0-2/hpf) (Absent); Urine Squamous Epithelial Cell Present (Absent); Urine White Blood Cell Trace(0-5/hpf) (Absent)
[2023-06-10] MEDS ORDERED: HYDROcodone/ACETAMIN 5/325 mg TAB PO ONE (14:52)
[2023-06-10 15:02] LABS: Potassium Redraw 3.8 mmol/L (3.5-5.0)
[2023-06-10] MEDS ORDERED: Senna TAB 8.6 mg TAB PO PRN (16:45)
[2023-06-10] MEDS ORDERED: Al Hydrox/Mg Hydrox/Simet LIQ 30 ML UDC PO PRN (16:45)
[2023-06-10] MEDS ORDERED: Lactated Ringers 1000 ml BAG 1,000 ML IV SCH (17:00)
[2023-06-10] MEDS: Aspirin EC 81 mg TAB.EC (enteric coated) PO SCH (18:46)
[2023-06-10] MEDS: Enoxaparin 40 MG/0.4 ML SYR SUBCUT SCH (18:47)
[2023-06-10] MEDS: prednisoLONE 1% OPHTH.SUSP 5 ML OPHTH.SUSP RIGHT EYE SCH ×2 (20:03→21:05)
[2023-06-11 06:50] LABS: ABS Eosinophils 0.1 10^3/uL (0.0-0.5); ABS Lymphocytes 0.6 10^3/uL (1.0-4.8); ABS Monocytes 0.6 10^3/uL (0.0-1.1); ABS Neutrophils 8.2 10^3/uL (1.5-7.6); Eosinophil % 0.6 %; Hematocrit 33.7 % (38-53); Hemoglobin 11.6 g/dL (13.2-16.3); Lymphocyte % 6.3 %; Mean Corpuscular Hemoglobin 29.5 pg (27-33); Mean Corpuscular Hgb Conc 34.6 g/dL (31-36); Mean Corpuscular Volume 85.4 fL (80-97); Mean Platelet Volume 10.2 fL (7.5-11.2); Platelet Count 73 10^3/uL (150-450); Red Blood Count 3.95 10^6/uL (4.06-5.63); White Blood Count 9.5 10^3/uL (3.6-10.2)
[2023-06-11 07:01] LABS: Calcium 8.8 mg/dL (8.6-10.3); Creatinine, Serum 0.96 mg/dL (0.67-1.17); Potassium 3.8 mmol/L (3.5-5.0); eGFR CKD-EPI 80.9 (>60)
[2023-06-11] MEDS ORDERED: Influenza vaccine *QUAD* *2023-24* 0.5 ML SYRINGE IM ONE (09:00)
[2023-06-11] MEDS: Aspirin EC 81 mg TAB.EC (enteric coated) PO SCH (09:36)
[2023-06-11] MEDS: prednisoLONE 1% OPHTH.SUSP 5 ML OPHTH.SUSP RIGHT EYE SCH ×4 (09:41→22:41)
[2023-06-11] MEDS: Fluticasone NASAL SPRAY 50MCG 16 gm SPRAY BTL INTRANASAL SCH (11:21)
[2023-06-11 11:22] LABS: Vitamin D Total 25(OH) 40.6 ng/mL (20-50)
[2023-06-11] MEDS: Enoxaparin 40 MG/0.4 ML SYR SUBCUT SCH (16:59)
[2023-06-11] MEDS ORDERED: Acetaminophen IV 1 GM/100ML 1,000 MG/100 ML BAG IV ONE (20:12)
[2023-06-11 20:46] LABS: ABS Eosinophils 0.1 10^3/uL (0.0-0.5); ABS Lymphocytes 0.5 10^3/uL (1.0-4.8); ABS Monocytes 0.5 10^3/uL (0.0-1.1); ABS Neutrophils 6.8 10^3/uL (1.5-7.6); ABS Nucleated RBC 0.01 10^3/ul; Eosinophil % 0.9 %; Hematocrit 33.8 % (38-53); Hemoglobin 11.6 g/dL (13.2-16.3); Lymphocyte % 6.3 %; Mean Corpuscular Hemoglobin 29.2 pg (27-33); Mean Corpuscular Hgb Conc 34.4 g/dL (31-36); Mean Corpuscular Volume 84.9 fL (80-97); Mean Platelet Volume 10.3 fL (7.5-11.2); Nucleated Red Blood Cells % 0.1 /100 WBC (0.0-0.4); Platelet Count 75 10^3/uL (150-450); Red Blood Count 3.98 10^6/uL (4.06-5.63); Red Cell Distribution Width 14.3 % (12-17); White Blood Count 7.8 10^3/uL (3.6-10.2)
[2023-06-12 01:00] LABS: Urine Appearance Clear; Urine Bilirubin Negative (Negative); Urine Blood 1+ (Negative); Urine Color Yellow; Urine Glucose Negative (Negative); Urine Ketones Trace (Negative); Urine Nitrite Negative (Negative); Urine Protein 2+(100 mg/dL) (Negative); Urine Specific Gravity 1.013 (1.002-1.030); Urine Urobilinogen Negative (Negative)
[2023-06-12 01:05] LABS: Urine Bacteria Absent (Absent); Urine Red Blood Cell Trace(0-2/hpf) (Absent); Urine Squamous Epithelial Cell Present (Absent); Urine White Blood Cell Trace(0-5/hpf) (Absent)
[2023-06-12] MEDS: Aspirin EC 81 mg TAB.EC (enteric coated) PO SCH (09:01)
[2023-06-12] MEDS: Fluticasone NASAL SPRAY 50MCG 16 gm SPRAY BTL INTRANASAL SCH (09:02)
[2023-06-12] MEDS: prednisoLONE 1% OPHTH.SUSP 5 ML OPHTH.SUSP RIGHT EYE SCH ×4 (09:02→20:18)
[2023-06-12] MEDS: Enoxaparin 40 MG/0.4 ML SYR SUBCUT SCH (17:57)
[2023-06-13 08:07] LABS: Hemoglobin 9.8 g/dL (13.2-16.3); Mean Corpuscular Hemoglobin 29.7 pg (27-33); Mean Corpuscular Hgb Conc 34.9 g/dL (31-36); Mean Corpuscular Volume 85.1 fL (80-97); Mean Platelet Volume 10.5 fL (7.5-11.2); Platelet Count 62 10^3/uL (150-450); Red Blood Count 3.29 10^6/uL (4.06-5.63); Red Cell Distribution Width 14.2 % (12-17); White Blood Count 5.1 10^3/uL (3.6-10.2)
[2023-06-13 08:16] LABS: Calcium 8.3 mg/dL (8.6-10.3); Creatinine, Serum 0.9 mg/dL (0.67-1.17); Magnesium 1.7 mg/dL (1.9-2.7); Potassium 3.4 mmol/L (3.5-5.0); eGFR CKD-EPI 87.4 (>60)
[2023-06-13] MEDS: Aspirin EC 81 mg TAB.EC (enteric coated) PO SCH (09:25)
[2023-06-13] MEDS: prednisoLONE 1% OPHTH.SUSP 5 ML OPHTH.SUSP RIGHT EYE SCH ×4 (09:26→20:38)
[2023-06-13] MEDS: Fluticasone NASAL SPRAY 50MCG 16 gm SPRAY BTL INTRANASAL SCH (09:26)
[2023-06-13] MEDS ORDERED: Potassium Chlor 20 meq TAB.ER PO ONE (12:42)
[2023-06-13] MEDS ORDERED: Magnesium Sulfate IV 3 GM in NS 0.9% 100 ml BAG 100 ML IVPB ONE (12:43)
[2023-06-13] MEDS: Enoxaparin 40 MG/0.4 ML SYR SUBCUT SCH (17:33)
[2023-06-14 06:18] LABS: ABS Eosinophils 0.3 10^3/uL (0.0-0.5); ABS Monocytes 0.4 10^3/uL (0.0-1.1); ABS Neutrophils 3.3 10^3/uL (1.5-7.6); Eosinophil % 5.3 %; Hemoglobin 9.5 g/dL (13.2-16.3); Lymphocyte % 19.7 %; Mean Corpuscular Hemoglobin 29.8 pg (27-33); Mean Corpuscular Hgb Conc 35.1 g/dL (31-36); Mean Corpuscular Volume 85.1 fL (80-97); Mean Platelet Volume 10.2 fL (7.5-11.2); Platelet Count 65 10^3/uL (150-450); Red Blood Count 3.17 10^6/uL (4.06-5.63); Red Cell Distribution Width 14.2 % (12-17); White Blood Count 4.9 10^3/uL (3.6-10.2)
[2023-06-14 06:30] LABS: Calcium 8.3 mg/dL (8.6-10.3); Creatinine, Serum 0.91 mg/dL (0.67-1.17); Potassium 3.8 mmol/L (3.5-5.0); eGFR CKD-EPI 86.3 (>60)
[2023-06-14] MEDS: Fluticasone NASAL SPRAY 50MCG 16 gm SPRAY BTL INTRANASAL SCH (08:18)
[2023-06-14] MEDS: Aspirin EC 81 mg TAB.EC (enteric coated) PO SCH (08:19)
[2023-06-14] MEDS: prednisoLONE 1% OPHTH.SUSP 5 ML OPHTH.SUSP RIGHT EYE SCH ×4 (08:24→20:03)
[2023-06-14] MEDS ORDERED: Potassium Chlor 20 meq TAB.ER PO ONE (09:57)
[2023-06-14] MEDS: Enoxaparin 40 MG/0.4 ML SYR SUBCUT SCH (17:20)
[2023-06-15] MEDS: Fluticasone NASAL SPRAY 50MCG 16 gm SPRAY BTL INTRANASAL SCH (09:18)
[2023-06-15] MEDS: prednisoLONE 1% OPHTH.SUSP 5 ML OPHTH.SUSP RIGHT EYE SCH (09:18)
[2023-06-15] MEDS: Aspirin EC 81 mg TAB.EC (enteric coated) PO SCH (09:27)
[2023-06-15 10:38] VITALS: BP 146/75
== END 2023-06-15 13:45 | DRG 536 ==
LOC: EDHOLD 10:42 → ED 10:42 → SUATTDRO 16:37 → SSU 19:39 → MED 06-11 19:59
PROVIDERS: ADMIT Internal Medicine; ATTEND Hospitalist

== ENCOUNTER 2023-08-23 23:54 | Inpatient (IN) ==
[2023-08-24 00:54] LABS: Activated Partial Thrombo Time 27.8 seconds (26.0-38.0); INR 1.13 (0.83-1.13)
[2023-08-24 00:55] LABS: ABS Lymphocytes 0.1 10^3/uL (1.0-4.8); ABS Monocytes 0.2 10^3/uL (0.0-1.1); ABS Neutrophils 3.9 10^3/uL (1.5-7.6); ABS Nucleated RBC 0.01 10^3/ul; Eosinophil % 0.1 %; Hemoglobin 13.1 g/dL (13.2-16.3); Lymphocyte % 3.2 %; Mean Corpuscular Hemoglobin 29.1 pg (27-33); Mean Corpuscular Hgb Conc 33.7 g/dL (31-36); Mean Corpuscular Volume 86.4 fL (80-97); Nucleated Red Blood Cells % 0.3 %/100WBC (0.0-0.8); Red Blood Count 4.51 10^6/uL (4.06-5.63); Red Cell Distribution Width 13.4 % (12-17); White Blood Count 4.3 10^3/uL (3.6-10.2)
[2023-08-24 01:04] LABS: Albumin 4.1 g/dL (3.2-5.2); Albumin/Globulin Ratio 1.3 (1-3); C Reactive Protein 6.98 mg/L (<8.01); Calcium 9.4 mg/dL (8.6-10.3); Creatinine, Serum 1.06 mg/dL (0.67-1.17); Globulin 3.1 g/dL (2-4); Potassium 3.9 mmol/L (3.5-5.0); Total Bilirubin 0.8 mg/dL (0.2-1.0); Total Protein 7.2 g/dL (6.4-8.9); eGFR CKD-EPI 71.8 (>60)
[2023-08-24] MEDS ORDERED: Lactated Ringers 1000 ml BAG 1,000 ML IV ONE (01:19)
[2023-08-24 01:32] LABS: Mean Platelet Volume 9.5 fL (7.5-11.2); Platelet Count 95 10^3/uL (150-450)
[2023-08-24 01:57] LABS: High Sensitivity Troponin 1 Hr 13 pg/mL (<20)
[2023-08-24 02:56] LABS: Urine Appearance Clear; Urine Bilirubin Negative (Negative); Urine Blood 1+ (Negative); Urine Color Yellow; Urine Glucose Negative (Negative); Urine Ketones Negative (Negative); Urine Nitrite Negative (Negative); Urine Protein 2+(100 mg/dL) (Negative); Urine Specific Gravity 1.016 (1.002-1.030); Urine Urobilinogen Negative (Negative)
[2023-08-24 03:19] LABS: Urine Bacteria Absent (Absent); Urine Red Blood Cell 1+(3-5/hpf) (Absent); Urine White Blood Cell Absent (Absent)
[2023-08-24] MEDS ORDERED: Senna TAB 8.6 mg TAB PO PRN (06:40)
[2023-08-24] MEDS ORDERED: Polyethylene Glycol 3350 17 GM PACKET PO PRN (06:40)
[2023-08-24] MEDS: Enoxaparin 40 MG/0.4 ML SYR SUBCUT SCH (09:56)
[2023-08-24] MEDS: Lactated Ringers 1000 ml BAG 1,000 ML IV SCH (16:35)
[2023-08-25 01:27] LABS: Urine Benzodiazepine Screen None Detected (None Detect); Urine Cannabinoids Screen None Detected (None Detect); Urine Opiates Screen None Detected (None Detect)
[2023-08-25 01:38] LABS: Urine Appearance Clear; Urine Bilirubin Negative (Negative); Urine Blood 1+ (Negative); Urine Color Yellow; Urine Glucose Negative (Negative); Urine Ketones Trace (Negative); Urine Nitrite Negative (Negative); Urine Protein 2+(100 mg/dL) (Negative); Urine Specific Gravity 1.015 (1.002-1.030); Urine Urobilinogen Negative (Negative)
[2023-08-25] MEDS: Lactated Ringers 1000 ml BAG 1,000 ML IV SCH (01:49)
[2023-08-25] MEDS: Enoxaparin 40 MG/0.4 ML SYR SUBCUT SCH (08:13)
[2023-08-25 09:21] LABS: % Iron Saturation 8 % (15-55); .Transferrin 175 mg/dL (203-362); Iron < 20 ug/dL (50-212); Total Iron Binding Capacity 245 mcg/dL (250-450); Unsaturated Iron Binding 225 ug/dL
[2023-08-25 09:37] LABS: ABS Lymphocytes 0.1 10^3/uL (1.0-4.8); ABS Monocytes 0.2 10^3/uL (0.0-1.1); ABS Neutrophils 1.8 10^3/uL (1.5-7.6); Eosinophil % 0.1 %; Hematocrit 33.5 % (38-53); Lymphocyte % 5.9 %; Mean Corpuscular Hemoglobin 28.7 pg (27-33); Mean Corpuscular Hgb Conc 32.9 g/dL (31-36); Mean Corpuscular Volume 87.4 fL (80-97); Mean Platelet Volume 10.4 fL (7.5-11.2); Nucleated Red Blood Cells % 0.1 %/100WBC (0.0-0.8); Platelet Count 56 10^3/uL (150-450); Red Blood Count 3.83 10^6/uL (4.06-5.63); Red Cell Distribution Width 13.3 % (12-17); White Blood Count 2.1 10^3/uL (3.6-10.2)
[2023-08-25 09:41] LABS: Ferritin 202.9 ng/mL (24-336)
[2023-08-25] MEDS ORDERED: Iron Sucrose 200 MG in NS 0.9% 100 ml BAG 100 ML IVPB ONE (11:00)
[2023-08-25 11:02] LABS: Calcium 8.6 mg/dL (8.6-10.3); Creatinine, Serum 0.89 mg/dL (0.67-1.17); Potassium 3.5 mmol/L (3.5-5.0); eGFR CKD-EPI 87.7 (>60)
[2023-08-25] MEDS ORDERED: Iodixanol (CONTRAST) 320 MG/ML 100 ML SDV IV ONE (15:29)
[2023-08-25 15:30] LABS: Hemoglobin 10.5 g/dL (13.2-16.3); Mean Corpuscular Hemoglobin 29.2 pg (27-33); Mean Corpuscular Volume 85.8 fL (80-97); Mean Platelet Volume 9.9 fL (7.5-11.2); Platelet Count 50 10^3/uL (150-450); Red Blood Count 3.61 10^6/uL (4.06-5.63); White Blood Count 2.1 10^3/uL (3.6-10.2)
[2023-08-25] MEDS ORDERED: cefTRIAXone 2 gm/50 mL D5W 2 GM/50 ML BAG IV SCH (17:30)
[2023-08-25] MEDS: metroNIDAZOLE IV 500 MG/100ML 500 MG/100 ML BAG IVPB SCH (18:34)
[2023-08-25] MEDS: Polyethylene Glycol 3350 17 GM PACKET PO SCH (20:15)
[2023-08-26] MEDS: metroNIDAZOLE IV 500 MG/100ML 500 MG/100 ML BAG IVPB SCH ×2 (01:01→10:18)
[2023-08-26] MEDS: Enoxaparin 40 MG/0.4 ML SYR SUBCUT SCH (06:11)
[2023-08-26 07:14] LABS: Calcium 8.4 mg/dL (8.6-10.3); Creatinine, Serum 0.91 mg/dL (0.67-1.17); Potassium 3.5 mmol/L (3.5-5.0); eGFR CKD-EPI 86.3 (>60)
[2023-08-26 07:35] LABS: ABS Lymphocytes 0.1 10^3/uL (1.0-4.8); ABS Monocytes 0.2 10^3/uL (0.0-1.1); ABS Neutrophils 1.7 10^3/uL (1.5-7.6); Hematocrit 31.5 % (38-53); Hemoglobin 10.8 g/dL (13.2-16.3); Lymphocyte % 5.6 %; Mean Corpuscular Hemoglobin 29.3 pg (27-33); Mean Corpuscular Hgb Conc 34.3 g/dL (31-36); Mean Corpuscular Volume 85.6 fL (80-97); Nucleated Red Blood Cells % 0.1 %/100WBC (0.0-0.8); Platelet Count 37 10^3/uL (150-450); Red Blood Count 3.68 10^6/uL (4.06-5.63); White Blood Count 1.9 10^3/uL (3.6-10.2)
[2023-08-26] MEDS ORDERED: Furosemide 20 mg/2 ml IV VIAL IV SLOW PU ONE (12:12)
[2023-08-26] MEDS: Polyethylene Glycol 3350 17 GM PACKET PO SCH ×2 (12:36→13:02)
[2023-08-27 07:26] LABS: Albumin/Globulin Ratio 1.2 (1-3); Calcium 8.6 mg/dL (8.6-10.3); Creatinine, Serum 1.08 mg/dL (0.67-1.17); Globulin 2.6 g/dL (2-4); Potassium 3.2 mmol/L (3.5-5.0); Total Bilirubin 0.6 mg/dL (0.2-1.0); Total Protein 5.6 g/dL (6.4-8.9); eGFR CKD-EPI 70.2 (>60)
[2023-08-27 07:28] LABS: Hematocrit 31.8 % (38-53); Mean Corpuscular Hemoglobin 29.2 pg (27-33); Mean Corpuscular Hgb Conc 34.4 g/dL (31-36); Mean Corpuscular Volume 84.9 fL (80-97); Red Blood Count 3.75 10^6/uL (4.06-5.63); Red Cell Distribution Width 13.1 % (12-17); White Blood Count 1.2 10^3/uL (3.6-10.2)
[2023-08-27 08:13] LABS: ABS Lymphocytes 0.3 10^3/uL (1.0-4.8); ABS Monocytes 0.2 10^3/uL (0.0-1.1); ABS Neutrophils 0.7 10^3/uL (1.5-7.6); Eosinophil % 0.1 %; Mean Platelet Volume 12.1 fL (7.5-11.2); Nucleated Red Blood Cells % 0.1 %/100WBC (0.0-0.8); Platelet Count 33 10^3/uL (150-450)
[2023-08-27] MEDS: Polyethylene Glycol 3350 17 GM PACKET PO SCH (08:16)
[2023-08-27 08:40] LABS: Magnesium 1.5 mg/dL (1.9-2.7)
[2023-08-27] MEDS ORDERED: Potassium Chlor 20 meq TAB.ER PO ONE (09:43)
[2023-08-27] MEDS ORDERED: Magnesium Sulf 4 GM/100 ML IV 4,000 MG/100 ML BAG IVPB ONE (09:43)
[2023-08-27] MEDS ORDERED: Ondansetron 4 mg VIAL 2 MG/ML 2 ml VIAL IV PRN (16:03)
[2023-08-28 07:48] LABS: Anion Gap 8 mmol/L (2-16); Blood Urea Nitrogen 31 mg/dL (6-24); CO2 Carbon Dioxide 26 mmol/L (22-32); Calcium 8.4 mg/dL (8.6-10.3); Chloride 105 mmol/L (101-111); Creatinine, Serum 1.23 mg/dL (0.67-1.17); Glucose 96 mg/dL (70-100); Magnesium 2.4 mg/dL (1.9-2.7); Potassium 3.6 mmol/L (3.5-5.0); Sodium 139 mmol/L (135-145); eGFR CKD-EPI 60.1 (>60)
[2023-08-28 07:50] LABS: Immature Retic Fraction 0.26
[2023-08-28 07:58] LABS: Corrected Retic Count 0.5 % (0.5-1.5); Hematocrit 34.6 % (38-53); Hematocrit for Retic CNT 34.6 % (38-53); Hemoglobin 11.6 g/dL (13.2-16.3); Mean Corpuscular Hgb Conc 33.6 g/dL (31-36); Mean Corpuscular Volume 86.4 fL (80-97); Red Cell Distribution Width 13.1 % (12-17); White Blood Count 2.1 10^3/uL (3.6-10.2)
[2023-08-28 09:06] LABS: ABS Lymphocytes 0.7 10^3/uL (1.0-4.8); ABS Monocytes 0.3 10^3/uL (0.0-1.1); ABS Nucleated RBC 0.01 10^3/ul; Eosinophil % 0.3 %; Lymphocyte % 35.5 %; Mean Platelet Volume 11.8 fL (7.5-11.2); Nucleated Red Blood Cells % 0.3 %/100WBC (0.0-0.8); Platelet Count 40 10^3/uL (150-450)
[2023-08-28 09:07] LABS: Burr Cells 2+; Large Platelets Present
[2023-08-28] MEDS: Polyethylene Glycol 3350 17 GM PACKET PO SCH (09:16)
[2023-08-28 23:11] LABS: Anaplasma phagocytophilum Positive (Negative); B. miyamotoi PCR, B Negative (Negative); Babesia divergens/MO-1 Negative (Negative); Babesia ducani Negative (Negative); Ehrlichia chaffeensis Negative (Negative); Ehrlichia ewingii/canis Negative (Negative); Ehrlichia muris eauclairensis Negative (Negative)
[2023-08-29 07:19] LABS: Calcium 8.3 mg/dL (8.6-10.3); Creatinine, Serum 1.21 mg/dL (0.67-1.17); Magnesium 1.8 mg/dL (1.9-2.7); eGFR CKD-EPI 61.3 (>60)
[2023-08-29] MEDS: Polyethylene Glycol 3350 17 GM PACKET PO SCH (07:56)
[2023-08-29] MEDS ORDERED: Lactated Ringers 1000 ml BAG 1,000 ML IV ONE (08:14)
[2023-08-29] MEDS ORDERED: Magnesium Sulfate 2 gm BAG 2 GM/50 ML BAG IVPB ONE (08:14)
[2023-08-29] MEDS ORDERED: Potassium Chlor 20 meq TAB.ER PO ONE ×2 (08:15→12:12)
[2023-08-29 08:29] LABS: Hematocrit 31.3 % (38-53); Hemoglobin 10.7 g/dL (13.2-16.3); Mean Corpuscular Hemoglobin 29.2 pg (27-33); Mean Corpuscular Hgb Conc 34.3 g/dL (31-36); Mean Corpuscular Volume 85.1 fL (80-97); Platelet Count 58 10^3/uL (150-450); Red Blood Count 3.68 10^6/uL (4.06-5.63); Red Cell Distribution Width 12.9 % (12-17); White Blood Count 2.8 10^3/uL (3.6-10.2)
[2023-08-29 08:49] LABS: ABS Lymphocytes 1.3 10^3/uL (1.0-4.8); ABS Monocytes 0.2 10^3/uL (0.0-1.1); ABS Neutrophils 1.4 10^3/uL (1.5-7.6); Eosinophil % 0.5 %; Lymphocyte % 45.6 %; RBC Morphology Normal (Normal)
[2023-08-29] MEDS: KCL 20 MEQ/100 ML IVPREMIX 20 MEQ/100 ML BAG IV SCH ×2 (10:47→12:19)
[2023-08-29 20:43] LABS: HIT ELISA 0.084 OD (<0.400); Heparin PF4 Antibody Interp Negative (Negative)
[2023-08-30] MEDS ORDERED: Metoprolol Tartrate 5 mg VIAL 5 ml VIAL (1 mg/ml) IV ONE (02:48)
[2023-08-30 06:05] LABS: ABS Lymphocytes 1.6 10^3/uL (1.0-4.8); ABS Monocytes 0.4 10^3/uL (0.0-1.1); ABS Neutrophils 2.2 10^3/uL (1.5-7.6); Eosinophil % 0.7 %; Hematocrit 32.1 % (38-53); Hemoglobin 10.9 g/dL (13.2-16.3); Lymphocyte % 38.9 %; Mean Corpuscular Hemoglobin 29.1 pg (27-33); Mean Corpuscular Hgb Conc 34.1 g/dL (31-36); Mean Corpuscular Volume 85.2 fL (80-97); Mean Platelet Volume 10.3 fL (7.5-11.2); Nucleated Red Blood Cells % 0.1 %/100WBC (0.0-0.8); Platelet Count 80 10^3/uL (150-450); Red Blood Count 3.76 10^6/uL (4.06-5.63); White Blood Count 4.2 10^3/uL (3.6-10.2)
[2023-08-30 06:13] LABS: Calcium 8.4 mg/dL (8.6-10.3); Creatinine, Serum 0.88 mg/dL (0.67-1.17); Magnesium 1.8 mg/dL (1.9-2.7); Potassium 3.8 mmol/L (3.5-5.0)
[2023-08-30] MEDS ORDERED: Aspirin EC 81 mg TAB.EC (enteric coated) PO SCH (09:00)
[2023-08-30] MEDS: Polyethylene Glycol 3350 17 GM PACKET PO SCH (09:02)
[2023-08-30 09:49] LABS: Rapid COVID-19 Molecular Undetected (Undetected)
[2023-08-30 10:04] VITALS: BP 174/85
== END 2023-08-30 11:15 | disposition home or self-care (01) | DRG 868 ==
LOC: ED 23:54 → EDHOLD 23:54 → SUATTDRO 08-24 06:40 → MEDTELE 08-24 07:51 → SUATTDRO 08-26 07:00 → MED 08-28 18:33
PROVIDERS: ADMIT Internal Medicine; ATTEND Student in an Organized Health Care Education/Training Program